=== PATIENT | female | born 1950 | race Caucasian/White ===

== ENCOUNTER 2019-11-11 10:24 | Outpatient (CLI) | payer MEDICARE, SELFPAY ==
[2019-11-11 10:40] LABS: Basophils Percent Auto 0.6 % (0.2-1.2); Eosinophils Percent Auto 0.7 % (0-4.4); Hematocrit 30.6 % (37.0-47.0); Hemoglobin 9.7 g/dL (12.0-15.0); Immature Granulocyte Absolute 0.24 K/mm3 (0.00-0.031); Immature Granulocyte Percent A 4.4 % (0-0.5); Lymphocytes Percent Auto 40.4 % (18.3-44.2); Mean Corpuscular HGB Conc 31.7 g/dl (32-36); Mean Corpuscular Hemoglobin 32.3 pg (26-34); Mean Platelet Volume 11.8 fl (7.4-10.4); Monocytes Absolute Auto 1.2 K/mm3 (0.1-0.6); Monocytes Percent Auto 22.6 % (2.6-8.5); Neutrophils Absolute Auto 1.7 K/mm3 (1.3-6.7); Neutrophils Percent Auto 31.3 % (45.5-73.1); Platelet Count Result 90 k/mm3 (150-375); Red Cell Distribution Width 17.1 % (11.5-14.5); White Blood Count 5.5 K/mm3 (4.5-10.0)
[2019-11-11 10:42] LABS: Blood Urea Nitrogen 17 mg/dL (8-26); Carbon Dioxide 30 mmol/L (22-30); Chloride 104 mmol/L (98-109); Estimated Glomerular Filt Rate > 60; Glucose 119 mg/dL (70-105); Potassium 4.4 mmol/L (3.5-4.9); Sodium 143 mmol/L (138-146)
[2019-11-11 10:45] LABS: Atypical Lymphocytes Present; Platelet Estimate Decreased (Adequate)
[2019-11-11 12:39] LABS: Alanine Aminotransferase 20 U/L (4-35); Albumin Level 4.5 g/dL (3.5-5.1); Alkaline Phosphatase 62 U/L (38-126); Aspartate Amino Transferase 25 U/L (14-36); Bilirubin,Total 0.3 mg/dL (0.2-1.3); Blood Urea Nitrogen 17 mg/dL (7-17); Calcium 9.9 mg/dL (8.4-10.2); Carbon Dioxide 29 mmol/L (22-30); Chloride 102 mmol/L (98-107); Estimated Glomerular Filt Rate > 60; Glucose 116 mg/dL (65-105); Potassium 4.1 mmol/L (3.4-5.0); Sodium 143 mmol/L (137-145)
== END 2019-11-11 10:25 | disposition home or self-care (01) ==
LOC: ANHLAB 10:29
PROVIDERS: PCP Internal Medicine; Visit Provider Internal Medicine Hematology & Oncology
DX: D46.9 Myelodysplastic syndrome, unspecified (principal)
CPT/HCPCS: 36415; 80048; 80053; 85025

== ENCOUNTER 2020-05-18 10:44 | Outpatient (CLI) | payer MEDICARE, SELFPAY ==
[2020-05-18 11:06] LABS: Basophils Percent Auto 0.6 % (0.2-1.2); Eosinophils Absolute Auto 0.1 K/mm3 (0-0.3); Hematocrit 31.9 % (37.0-47.0); Hemoglobin 10.4 g/dL (12.0-15.0); Immature Granulocyte Absolute 0.14 K/mm3 (0.00-0.031); Immature Platelet Fraction Pct 13.8 % (0.9-11.2); Lymphocytes Absolute Auto 2.68 K/mm3 (0.9-3.2); Lymphocytes Percent Auto 38.5 % (18.3-44.2); Mean Corpuscular HGB Conc 32.6 g/dl (32-36); Mean Corpuscular Hemoglobin 32.1 pg (26-34); Mean Corpuscular Volume 98.5 fl (80-100); Monocytes Absolute Auto 1.6 K/mm3 (0.1-0.6); Monocytes Percent Auto 23.6 % (2.6-8.5); Neutrophils Absolute Auto 2.4 K/mm3 (1.3-6.7); Neutrophils Percent Auto 34.3 % (45.5-73.1); Platelet Count Result 96 k/mm3 (150-375); Red Blood Count 3.24 M/mm3 (4.2-5.4); Red Cell Distribution Width 17.7 % (11.5-14.5)
[2020-05-18 11:09] LABS: Giant Platelets Present; Platelet Estimate Decreased (Adequate)
[2020-05-18 11:10] LABS: Atypical Lymphocytes Present
[2020-05-18 15:11] LABS: Alanine Aminotransferase 25 U/L (4-35); Alkaline Phosphatase 62 U/L (38-126); Anion Gap 11 mmol/L (8-16); Aspartate Amino Transferase 34 U/L (14-36); Bilirubin,Total 0.7 mg/dL (0.2-1.3); Blood Urea Nitrogen 25 mg/dL (7-17); Calcium 9.8 mg/dL (8.4-10.2); Carbon Dioxide 26 mmol/L (22-30); Chloride 102 mmol/L (98-107); Estimated Glomerular Filt Rate 55; Glucose 99 mg/dL (65-105); Lactate Dehydrogenase 766 U/L (313-618); Potassium 4.3 mmol/L (3.4-5.0); Sodium 139 mmol/L (137-145)
== END 2020-05-18 10:45 | disposition home or self-care (01) ==
PROVIDERS: PCP Internal Medicine; Visit Provider Internal Medicine Hematology & Oncology
DX: D46.9 Myelodysplastic syndrome, unspecified (principal)
CPT/HCPCS: 36415; 80053; 83615; 85025; 85055

== ENCOUNTER 2020-07-18 15:12 | Outpatient (CLI) | payer MEDICARE, SELFPAY ==
--- NOTE | ~2020-07-18 | MM_ITS ---
EXAMINATION: MM screening ruben BI w damian HISTORY: Screening mammogram TECHNIQUE: Craniocaudal and mediolateral oblique 3-D tomosynthesis images were obtained and synthetic 2-D images were generated. CAD analysis was submitted and interpreted. COMPARISON: 06/10/2019, 07/15/2017, 05/23/2016 BREAST PARENCHYMAL COMPOSITION: The breasts are heterogeneously dense, which may obscure small masses . FINDINGS: Scattered benign-appearing calcifications are present. There is no evidence of suspicious m ass, calcification, or architectural distortion to suggest malignancy in either breast. There has bee n no suspicious interval change. IMPRESSION: 1. No mammographic evidence of malignancy. 2. Recommend routine screening mammography in one year. BI-RADS Category 2: Benign finding(s). Reviewed, dictated and finalized at location A. 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
== END 2020-07-18 15:13 | disposition home or self-care (01) ==
LOC: ANHIMG 15:14
PROVIDERS: PCP Internal Medicine; Visit Provider Internal Medicine
DX: Z12.31 Encounter for screening mammogram for malignant neoplasm of breast (principal)
CPT/HCPCS: 77063; 77067

== ENCOUNTER 2020-08-02 09:25 | Outpatient (CLI) | payer MEDICARE, SELFPAY ==
[2020-08-02 11:31] LABS: Lactate Dehydrogenase 708 U/L (313-618)
[2020-08-07 10:16] LABS: BCR/abl Prior Result Not Given
[2020-08-07 11:01] LABS: BCR/abl P190 Not Detected; BCR/abl P210 Not Detected
[2020-08-07 11:02] LABS: BCR/abl P190 Chg YES; BCR/abl P210 Chg YES
== END 2020-08-02 09:26 | disposition home or self-care (01) ==
PROVIDERS: PCP Internal Medicine; Visit Provider Internal Medicine Hematology & Oncology
DX: D46.9 Myelodysplastic syndrome, unspecified (principal); R79.89 Other specified abnormal findings of blood chemistry; D47.3 Essential (hemorrhagic) thrombocythemia
CPT/HCPCS: 36415; 81206; 81207; 83615

== ENCOUNTER 2020-11-14 09:22 | Outpatient (CLI) | payer MEDICARE, SELFPAY ==
[2020-11-14 09:51] LABS: Basophils Percent Auto 0.2 % (0.2-1.2); Eosinophils Percent Auto 0.3 % (0-4.4); Hematocrit 29.4 % (37.0-47.0); Hemoglobin 9.5 g/dL (12.0-15.0); Immature Granulocyte Absolute 0.12 K/mm3 (0.00-0.031); Immature Granulocyte Percent A 1.3 % (0-0.5); Immature Platelet Fraction Pct 18.9 % (0.9-11.2); Lymphocytes Percent Auto 29.9 % (18.3-44.2); Mean Corpuscular HGB Conc 32.3 g/dl (32-36); Mean Corpuscular Hemoglobin 31.6 pg (26-34); Mean Corpuscular Volume 97.7 fl (80-100); Mean Platelet Volume 12.4 fl (7.4-10.4); Monocytes Absolute Auto 2.2 K/mm3 (0.1-0.6); Monocytes Percent Auto 24.4 % (2.6-8.5); Neutrophils Percent Auto 43.9 % (45.5-73.1); Platelet Count Result 92 k/mm3 (150-375); Red Blood Count 3.01 M/mm3 (4.2-5.4); Red Cell Distribution Width 17.1 % (11.5-14.5)
[2020-11-14 09:57] LABS: Atypical Lymphocytes Present; Platelet Estimate Decreased (Adequate)
[2020-11-14 12:35] LABS: Cholesterol 118 mg/dL (0-200); HDL Direct 38 mg/dL; Triglycerides 160 mg/dL (<150)
[2020-11-14 12:39] LABS: Alanine Aminotransferase 21 U/L (4-35); Albumin Level 4.8 g/dL (3.5-5.1); Alkaline Phosphatase 57 U/L (38-126); Anion Gap 10 mmol/L (8-16); Aspartate Amino Transferase 26 U/L (14-36); Bilirubin,Total 0.4 mg/dL (0.2-1.3); Blood Urea Nitrogen 37 mg/dL (7-17); Calcium 10.1 mg/dL (8.4-10.2); Carbon Dioxide 25 mmol/L (22-30); Chloride 106 mmol/L (98-107); Estimated Glomerular Filt Rate 55; Glucose 100 mg/dL (65-105); Lactate Dehydrogenase 648 U/L (313-618); Potassium 3.9 mmol/L (3.4-5.0); Sodium 141 mmol/L (137-145)
[2020-11-14 12:46] LABS: LDL Cholesterol Direct 44 mg/dL
[2020-11-14 12:52] LABS: Vitamin D 25 Hydroxy 77.4 ng/mL
[2020-11-14 13:04] LABS: MALB Creatinine Ratio 72.3 mg/g (0-30); Microalbumin Urine Random 31.1 mg/L (0-16.7)
== END 2020-11-14 09:23 | disposition home or self-care (01) ==
LOC: ANHLAB 09:24
PROVIDERS: PCP Internal Medicine; Visit Provider Internal Medicine Hematology & Oncology
DX: D46.9 Myelodysplastic syndrome, unspecified (principal); E11.69 Type 2 diabetes mellitus with other specified complication; E55.9 Vitamin D deficiency, unspecified; E78.2 Mixed hyperlipidemia; I10 Essential (primary) hypertension
CPT/HCPCS: 36415; 80053; 80061; 82043; 82306; 83036; 83615; 84443; 85025; 85055

== ENCOUNTER 2021-05-16 08:46 | Outpatient (CLI) | payer MEDICARE, SELFPAY ==
[2021-05-16 09:05] LABS: Basophils Percent Auto 0.6 % (0.2-1.2); Eosinophils Percent Auto 0.7 % (0-4.4); Hematocrit 29.1 % (37.0-47.0); Hemoglobin 9.4 g/dL (12.0-15.0); Immature Granulocyte Absolute 0.24 K/mm3 (0.00-0.031); Immature Granulocyte Percent A 4.4 % (0-0.5); Immature Platelet Fraction Pct 14.6 % (0.9-11.2); Lymphocytes Absolute Auto 2.45 K/mm3 (0.9-3.2); Mean Corpuscular HGB Conc 32.3 g/dl (32-36); Mean Corpuscular Hemoglobin 32.1 pg (26-34); Mean Corpuscular Volume 99.3 fl (80-100); Mean Platelet Volume 11.5 fl (7.4-10.4); Monocytes Percent Auto 18.6 % (2.6-8.5); Neutrophils Absolute Auto 1.7 K/mm3 (1.3-6.7); Neutrophils Percent Auto 30.7 % (45.5-73.1); Platelet Count Result 92 k/mm3 (150-375); Red Blood Count 2.93 M/mm3 (4.2-5.4); White Blood Count 5.4 K/mm3 (4.5-10.0)
[2021-05-16 09:05] LABS: Blood Urea Nitrogen 21 mg/dL (8-26); Carbon Dioxide 27 mmol/L (22-30); Chloride 104 mmol/L (98-109); Estimated Glomerular Filt Rate 55; Glucose 101 mg/dL (70-105); Potassium 4.3 mmol/L (3.5-4.9); Sodium 144 mmol/L (138-146)
[2021-05-16 09:07] LABS: Atypical Lymphocytes Present; Platelet Estimate Decreased (Adequate)
[2021-05-16 10:07] LABS: Alanine Aminotransferase 24 U/L (4-35); Albumin Level 4.8 g/dL (3.5-5.1); Alkaline Phosphatase 69 U/L (38-126); Anion Gap 11 mmol/L (8-16); Aspartate Amino Transferase 40 U/L (14-36); Bilirubin,Total 0.6 mg/dL (0.2-1.3); Blood Urea Nitrogen 21 mg/dL (7-17); Calcium 9.6 mg/dL (8.4-10.2); Carbon Dioxide 27 mmol/L (22-30); Chloride 105 mmol/L (98-107); Estimated Glomerular Filt Rate > 60; Glucose 102 mg/dL (65-110); Lactate Dehydrogenase 734 U/L (313-618); Potassium 4.5 mmol/L (3.4-5.0); Sodium 143 mmol/L (137-145)
== END 2021-05-16 08:47 | disposition home or self-care (01) ==
LOC: ANHLAB 08:48
PROVIDERS: PCP Internal Medicine; Visit Provider Internal Medicine Hematology & Oncology
DX: D46.9 Myelodysplastic syndrome, unspecified (principal)
CPT/HCPCS: 36415; 80048; 80053; 83615; 85025; 85055

== ENCOUNTER 2021-09-05 09:14 | Outpatient (CLI) | payer MEDICARE, SELFPAY ==
--- NOTE | ~2021-09-05 | MM_ITS ---
EXAMINATION: MM screening ruben BI w damian HISTORY: Screening mammogram TECHNIQUE: Craniocaudal and mediolateral oblique 3-D tomosynthesis images were obtained and synthetic 2-D images were generated. CAD analysis was submitted and interpreted. COMPARISON: 07/18/2020, 06/10/2019, 07/15/2017, 05/23/2016 BREAST PARENCHYMAL COMPOSITION: The breasts are heterogeneously dense, which may obscure small masses . FINDINGS: Scattered benign-appearing calcifications are present. There is no evidence of suspicious m ass, calcification, or architectural distortion to suggest malignancy in either breast. There has bee n no suspicious interval change. IMPRESSION: 1. No mammographic evidence of malignancy. 2. Recommend routine screening mammography in one year. BI-RADS Category 2: Benign finding(s). Reviewed, dictated and finalized at location A. 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
== END 2021-09-05 09:15 | disposition home or self-care (01) ==
LOC: ANHIMG 09:17
PROVIDERS: PCP Internal Medicine; Visit Provider Internal Medicine
DX: Z12.31 Encounter for screening mammogram for malignant neoplasm of breast (principal)
CPT/HCPCS: 77063; 77067

== ENCOUNTER 2021-11-21 09:17 | Outpatient (CLI) | payer MEDICARE, SELFPAY ==
[2021-11-21 09:37] LABS: Blood Urea Nitrogen 24 mg/dL (8-26); Carbon Dioxide 23 mmol/L (22-30); Chloride 107 mmol/L (98-109); Estimated Glomerular Filt Rate 49; Glucose 108 mg/dL (70-105); Potassium 4.5 mmol/L (3.5-4.9); Sodium 143 mmol/L (138-146)
[2021-11-21 09:39] LABS: Basophils Percent Auto 0.4 % (0.2-1.2); Eosinophils Percent Auto 0.2 % (0-4.4); Hematocrit 31.8 % (37.0-47.0); Hemoglobin 9.7 g/dL (12.0-15.0); Immature Granulocyte Absolute 0.18 K/mm3 (0.00-0.031); Immature Granulocyte Percent A 3.3 % (0-0.5); Lymphocytes Absolute Auto 2.15 K/mm3 (0.9-3.2); Lymphocytes Percent Auto 39.2 % (18.3-44.2); Mean Corpuscular HGB Conc 30.5 g/dl (32-36); Mean Corpuscular Hemoglobin 32.4 pg (26-34); Mean Corpuscular Volume 106.4 fl (80-100); Mean Platelet Volume 11.1 fl (7.4-10.4); Monocytes Percent Auto 18.2 % (2.6-8.5); Neutrophils Absolute Auto 2.1 K/mm3 (1.3-6.7); Neutrophils Percent Auto 38.7 % (45.5-73.1); Platelet Count Result 117 k/mm3 (150-375); Red Blood Count 2.99 M/mm3 (4.2-5.4); Red Cell Distribution Width 16.2 % (11.5-14.5); White Blood Count 5.5 K/mm3 (4.5-10.0)
[2021-11-21 11:07] LABS: Alanine Aminotransferase 24 U/L (4-35); Albumin Level 4.9 g/dL (3.5-5.1); Alkaline Phosphatase 64 U/L (38-126); Anion Gap 10 mmol/L (8-16); Aspartate Amino Transferase 30 U/L (14-36); Bilirubin,Total 0.3 mg/dL (0.2-1.3); Blood Urea Nitrogen 22 mg/dL (7-17); Calcium 9.5 mg/dL (8.4-10.2); Carbon Dioxide 24 mmol/L (22-30); Chloride 107 mmol/L (98-107); Estimated Glomerular Filt Rate 49; Glucose 112 mg/dL (65-110); Potassium 4.5 mmol/L (3.4-5.0); Sodium 141 mmol/L (137-145)
== END 2021-11-21 09:18 | disposition home or self-care (01) ==
LOC: ANHLAB 09:18
PROVIDERS: PCP Internal Medicine; Visit Provider Internal Medicine Hematology & Oncology
DX: D46.9 Myelodysplastic syndrome, unspecified (principal)
CPT/HCPCS: 36415; 80053; 85025; 85055

== ENCOUNTER 2022-02-11 00:56 | Day surgery (SDC) | payer MEDICARE, SELFPAY ==
--- NOTE | 2022-02-09 10:53 | PM.HPGS ---
History of Present Illness History of Present Illness Consent: Risks, benefits, and alternatives have been discussed and questions answered. Patient agrees to proceed with procedure. Chief complaint: hx of colon polyps Narrative: Sergey Juarez is a 71 year old female here for colon cancer screening. Her last colonoscopy was 5 years ago. Three years prior to that she had removal of an advanced adenoma. She denies seeing any blood in stools she has had more difficulty lately getting her bowels to move, feeling as though there is a blockage in the rectum prior, perhaps from hemorrhoids. She had gone to [facility] where she had biofeedback and other therapy to help her become more regular with her bowel movements. She unfortunately does not eat breakfast until late in the morning. Review of Systems Review of Systems: All systems reviewed & are unremarkable except as noted in HPI and below PMFSH Past Medical History Medical History Acute frontal sinusitis Acute sinusitis Alopecia Anemia Arthralgia of temporomandibular joint, unspecified side Body mass index (bmi) 34.0-34.9, adult (05/17/19) Chronic sinusitis Constipation, acute Cough Dependence on other enabling machines and devices DM w/o complication type II Dyslipidemia associated with type 2 diabetes mellitus Elevated ferritin Essential hypertension Fatigue Gastroesophageal reflux disease Hypersomnolence Morbid obesity Myeloproliferative disorder On custodial drug therapy VERONA on CPAP Other and unspecified hyperlipidemia Postmenopausal SOB (shortness of breath) Thrombocytopenia Unspecified asthma Upper respiratory tract infection Urinary frequency Vitamin D deficiency Surgical History Surgical History History of sinus surgery Hx of laparoscopic gastric banding Family History Family History Mother Hypertension Family history of malignant neoplasm of cervix Acute myocardial infarction Family history of congestive heart failure, Onset Age: 77 Family history of elevated blood lipids Family history of diabetes mellitus in first degree relative Family history of heart disease in male family member before age 55 Father Family history of diabetes mellitus in first degree relative Family history of heart disease in male family member before age 55 Acute myocardial infarction Sibling Family history of diabetes mellitus in first degree relative Family history of malignant neoplasm of cervix Family history of Hodgkin's lymphoma Family history of heart disease in male family member before age 55 Diabetes mellitus Family history of lymphoma, Onset Age: 48 Family history of kidney disease Other Family history of coronary artery disease Social History Social History (Updated 02/28/21 @ 09:41 by Palmira Kee [facility]) Smoking status: Never smoker Second hand tobacco smoke exposure: Yes Alcohol intake: never Substance use: never Substance use type: does not use Living arrangements: with family Spiritual care concerns: No Meds Home Medications and Allergies Home Medications Medication Instructions Recorded Confirmed Type docusate sodium 100 mg capsule 200 mg PO DAILY 02/04/20 12/17/21 History fluticasone propionate 50 2 spray intranasal DAILY 02/04/20 12/17/21 History mcg/actuation nasal spray,suspension multivitamin with minerals 1 tablet PO DAILY 02/08/20 12/17/21 History (Hair,Skin and Nails tablet) blood sugar diagnostic See Rx Instructions .Route 06/28/21 12/17/21 Rx .COMPLEX #400 strips olmesartan 40 mg tablet See Rx Instructions .Route 07/30/21 12/17/21 Rx .COMPLEX #90 tabs empagliflozin 5 mg-metformin ER See Rx Instructions .Route 09/11/21 12/17/21 Rx 1,000 mg tablet,extended release .COMPLEX #90 tabs 24 hr (Synjardy XR
[2022-02-11 06:40] VITALS: BP 130/60; PULSE 76; RESP 18; TEMP 36.5; O2SAT 98
[2022-02-11 06:50] LABS: Glucose Point of Care 94 mg/dl (65-105)
[2022-02-11 06:54] VITALS: BMI 31.1
[2022-02-11] MEDS: LACTATED RINGERS 1,000 ML 150 ML IV CONT (07:05)
--- NOTE | 2022-02-11 07:29 | WPDANESEPPF ---
Anes - Initial Pre Proc Eval Procedure: Operation Date: 02/11/22 08:00 Proposed Procedures p Screening Colonoscopy - Lavell Louie MD Date/Time: 02/11/22 07:29 Surgeon: Lavell Louie MD Pre Op Diagnosis: hx of colon polyps Patient Data Age: 71 Gender: F Height: 1.65 m Weight: 84.8 kg Allergies Allergy/AdvReac Type Severity Reaction Status Date / Time codeine Allergy Severe Headaches Verified 02/11/22 06:50 CAT GUT SUTURE Allergy Severe GANGREEN, Uncoded 02/11/22 06:50 HEMORRHAGE Home Medications Medication Instructions Recorded Confirmed Type docusate sodium 100 mg capsule 200 mg PO DAILY 02/04/20 12/17/21 History fluticasone propionate 50 2 spray intranasal DAILY 02/04/20 12/17/21 History mcg/actuation nasal spray,suspension multivitamin with minerals 1 tablet PO DAILY 02/08/20 12/17/21 History (Hair,Skin and Nails tablet) blood sugar diagnostic See Rx Instructions .Route 06/28/21 12/17/21 Rx .COMPLEX #400 strips olmesartan 40 mg tablet See Rx Instructions .Route 07/30/21 12/17/21 Rx .COMPLEX #90 tabs empagliflozin 5 mg-metformin ER See Rx Instructions .Route 09/11/21 12/17/21 Rx 1,000 mg tablet,extended release .COMPLEX #90 tabs 24 hr (Synjardy XR) levothyroxine 88 mcg tablet 88 mcg PO DAILY #90 tabs 12/17/21 12/17/21 Rx montelukast 10 mg tablet See Rx Instructions .Route 12/21/21 Rx .COMPLEX #90 tabs mirabegron 25 mg tablet,extended 25 mg PO DAILY #90 tabs 01/29/22 Rx release 24 hr (Myrbetriq) atorvastatin 20 mg tablet See Rx Instructions .Route 02/06/22 Rx .COMPLEX #90 tabs semaglutide 0.25 mg or 0.5 mg (2 0.5 mg (0.4 mL) subcut WEEKLY #1.5 02/06/22 Rx mg/1.5 mL) subcutaneous pen mL injector (Ozempic) Laboratory Tests 02/11/22 06:47 POC Capillary Glucose 94 mg/dl mg/dl (65-105) Patient hx anesthesia problems: none Family hx anesthesia problems: none Results Review: All pre-operative results and documents have been reviewed as part of the pre-operative evaluation. [facility] Past Medical History Medical History (Updated 02/09/22 @ 10:54 by Lavell Louie MD) Acute frontal sinusitis Acute sinusitis Alopecia Anemia Arthralgia of temporomandibular joint, unspecified side Body mass index (bmi) 34.0-34.9, adult (05/17/19) Chronic sinusitis Constipation, acute Cough Dependence on other enabling machines and devices DM w/o complication type II Dyslipidemia associated with type 2 diabetes mellitus Elevated ferritin Essential hypertension Fatigue Gastroesophageal reflux disease Hypersomnolence Morbid obesity Myeloproliferative disorder 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 VERONA on CPAP Other and unspecified hyperlipidemia Postmenopausal SOB (shortness of breath) Thrombocytopenia Unspecified asthma Upper respiratory tract infection Urinary frequency Vitamin D deficiency Surgical History Surgical History History of sinus surgery Hx of laparoscopic gastric banding Family History Family History Mother Hypertension Family history of malignant neoplasm of cervix Acute myocardial infarction Family history of congestive heart failure, Onset Age: 77 Family history of elevated blood lipids Family history of diabetes mellitus in first degree relative Family history of heart disease in male family member before age 55 Father Family history of diabetes mellitus in first degree relative Family history of heart disease in male family member before age 55 Acute myocardial infarction Sibling Family history of diabetes mellitus in first degree relative Family history of malignant neoplasm of cervix Family history of Hodgkin's lymphoma Family history of heart disease in male family member before age 55 Diabetes mellitus Family history of lymphoma, Onset Age: 48 Family history of kidney disease Other Family his
[2022-02-11 08:21] VITALS: BP 98/54; PULSE 65; RESP 20; O2SAT 95
[2022-02-11 08:31] VITALS: BP 109/59; PULSE 64; RESP 16; O2SAT 100
[2022-02-11 08:41] VITALS: BP 119/61; PULSE 64; RESP 19; O2SAT 99
== END 2022-02-11 08:52 | disposition home or self-care (01) ==
PROVIDERS: PCP Internal Medicine; Visit Provider Internal Medicine Gastroenterology
PROC: 0DJD8ZZ Inspection of Lower Intestinal Tract, Via Natural or Artificial Opening Endoscopic (ICD-10-PCS; CPT 45378; principal; 2022-02-11 08:00)
DX: Z12.11 Encounter for screening for malignant neoplasm of colon (principal); K64.8 Other hemorrhoids; K57.30 Diverticulosis of large intestine without perforation or abscess without bleeding; E11.9 Type 2 diabetes mellitus without complications; E78.5 Hyperlipidemia, unspecified; I10 Essential (primary) hypertension; K21.9 Gastro-esophageal reflux disease without esophagitis; G47.33 Obstructive sleep apnea (adult) (pediatric); J45.909 Unspecified asthma, uncomplicated; E55.9 Vitamin D deficiency, unspecified; D64.9 Anemia, unspecified; Z79.84 Long term (current) use of oral hypoglycemic drugs; Z79.899 Other long term (current) drug therapy; Z98.84 Bariatric surgery status; E66.9 Obesity, unspecified; Z68.31 Body mass index [BMI] 31.0-31.9, adult
CPT/HCPCS: G0121; 82948; J2704; J7120

== ENCOUNTER 2022-04-23 08:10 | Outpatient (CLI) | payer MEDICARE, SELFPAY ==
[2022-04-23 09:10] LABS: Basophils Percent Auto 0.4 % (0.2-1.2); Eosinophils Percent Auto 0.6 % (0-4.4); Hematocrit 30.1 % (37.0-47.0); Hemoglobin 9.7 g/dL (12.0-15.0); Immature Granulocyte Absolute 0.07 K/mm3 (0.00-0.031); Immature Granulocyte Percent A 1.4 % (0-0.5); Immature Platelet Fraction Pct 16.3 % (0.9-11.2); Lymphocytes Percent Auto 43.1 % (18.3-44.2); Mean Corpuscular HGB Conc 32.2 g/dl (32-36); Mean Corpuscular Hemoglobin 32.4 pg (26-34); Mean Corpuscular Volume 100.7 fl (80-100); Mean Platelet Volume 12.2 fl (7.4-10.4); Monocytes Absolute Auto 1.1 K/mm3 (0.1-0.6); Monocytes Percent Auto 20.7 % (2.6-8.5); Neutrophils Absolute Auto 1.7 K/mm3 (1.3-6.7); Neutrophils Percent Auto 33.8 % (45.5-73.1); Platelet Count Result 105 k/mm3 (150-375); Red Blood Count 2.99 M/mm3 (4.2-5.4); Red Cell Distribution Width 15.3 % (11.5-14.5); White Blood Count 5.1 K/mm3 (4.5-10.0)
[2022-04-23 10:36] LABS: Alanine Aminotransferase 26 U/L (6-35); Albumin Level 5.2 g/dL (3.5-5.1); Alkaline Phosphatase 54 U/L (38-126); Anion Gap 12 mmol/L (8-16); Aspartate Amino Transferase 56 U/L (14-36); Bilirubin,Total 0.5 mg/dL (0.2-1.3); Blood Urea Nitrogen 23 mg/dL (7-17); Calcium 9.4 mg/dL (8.4-10.2); Carbon Dioxide 28 mmol/L (22-30); Chloride 102 mmol/L (98-107); Estimated Glomerular Filt Rate 55; Glucose 94 mg/dL (65-110); Potassium 4.2 mmol/L (3.4-5.0); Sodium 142 mmol/L (137-145)
== END 2022-04-23 08:11 | disposition home or self-care (01) ==
LOC: ANHLAB 08:12
PROVIDERS: PCP Internal Medicine; Visit Provider Internal Medicine Hematology & Oncology
DX: D46.9 Myelodysplastic syndrome, unspecified (principal)
CPT/HCPCS: 36415; 80053; 85025; 85055

== ENCOUNTER 2022-08-21 14:37 | Outpatient (CLI) | payer MEDICARE, SELFPAY ==
[2022-08-21 14:59] LABS: Basophils Percent Auto 0.4 % (0.2-1.2); Eosinophils Percent Auto 0.6 % (0-4.4); Hematocrit 27.3 % (37.0-47.0); Hemoglobin 8.9 g/dL (12.0-15.0); Immature Granulocyte Absolute 0.04 K/mm3 (0.00-0.031); Immature Granulocyte Percent A 0.8 % (0-0.5); Immature Platelet Fraction Pct 14.5 % (0.9-11.2); Lymphocytes Absolute Auto 1.98 K/mm3 (0.9-3.2); Lymphocytes Percent Auto 38.2 % (18.3-44.2); Mean Corpuscular HGB Conc 32.6 g/dl (32-36); Mean Corpuscular Hemoglobin 32.6 pg (26-34); Mean Platelet Volume 12.2 fl (7.4-10.4); Monocytes Absolute Auto 0.7 K/mm3 (0.1-0.6); Monocytes Percent Auto 14.1 % (2.6-8.5); Neutrophils Absolute Auto 2.4 K/mm3 (1.3-6.7); Neutrophils Percent Auto 45.9 % (45.5-73.1); Platelet Count Result 101 k/mm3 (150-375); Red Blood Count 2.73 M/mm3 (4.2-5.4); Red Cell Distribution Width 14.6 % (11.5-14.5); White Blood Count 5.2 K/mm3 (4.5-10.0)
[2022-08-21 15:00] LABS: Platelet Estimate Decreased (Adequate); Schistocytes None Seen (NORMAL)
[2022-08-21 15:01] LABS: Atypical Lymphocytes Present; Hypochromasia 1+ (NORMAL)
[2022-08-21 16:05] LABS: Alanine Aminotransferase 23 U/L (6-35); Alkaline Phosphatase 55 U/L (38-126); Anion Gap 8 mmol/L (8-16); Aspartate Amino Transferase 30 U/L (14-36); Bilirubin,Total 0.6 mg/dL (0.2-1.3); Blood Urea Nitrogen 25 mg/dL (7-17); Calcium 9.6 mg/dL (8.4-10.2); Carbon Dioxide 28 mmol/L (22-30); Chloride 102 mmol/L (98-107); Estimated Glomerular Filt Rate 55; Glucose 99 mg/dL (65-110); Potassium 4.3 mmol/L (3.4-5.0); Sodium 138 mmol/L (137-145)
== END 2022-08-21 14:38 | disposition home or self-care (01) ==
LOC: ANHLAB 14:38
PROVIDERS: PCP Internal Medicine; Visit Provider Internal Medicine Hematology & Oncology
DX: D46.9 Myelodysplastic syndrome, unspecified (principal)
CPT/HCPCS: 36415; 80053; 85025; 85055

== ENCOUNTER 2022-08-21 14:53 | Outpatient (CLI) | payer MEDICARE, SELFPAY ==
--- NOTE | ~2022-08-21 | DEXA_ITS ---
Bone Density Report Name: YARELY LEWIS Age: 71 Sex: Female Ethnicity: White Date of : 1950 Indication: postmenopausal; screening for osteoporosis; height loss; cancer; hysterectomy; secondary osteoporosis; Referring Provider: ALTHEA ARANGO Study: Bone densitometry was performed. Exam Date: August 21, 2022 Accession number: [id number] Bone Density: Region BMD T-score Z-score Classification AP Spine(L1-L4) 1.536 4.4 6.7 Normal Femoral Neck (Left) 0.793 -0.5 1.4 Normal Total Hip (Left) 1.146 1.7 3.3 Normal Femoral Neck (Right) 0.996 1.3 3.2 Normal Total Hip (Right) 1.050 0.9 2.5 Normal Total Hip Mean 1.098 1.3 2.9 Normal World Health Organization criteria for BMD impression classify patients as: Normal (T-score at or above -1.0), Osteopenia (T-score between -1.0 and -2.5), or Osteoporosis (T-score at or below -2.5). 10-year Fracture Risk: FRAX not reported because: All T-scores for Spine Total, Hip Total, Femoral Neck at or above -1.0 Clinical Information Provided by Patient: Has secondary osteoporosis Has used the following medications: Vitamin D Has the following medical conditions: Cancer, Hysterectomy Patient maximum height was 66 Menopause Age: 31 No regular weight bearing exercise Drinks caffeinated beverages Onset of menses at age 12 Number of children 2 Impression: The patient has normal bone mass. Discussion: BONE DENSITY IS ABOVE THE MINIMUM DESIRABLE LEVEL AT ALL SKELETAL SITES TESTED. This patient?s bone mineral density is above the minimum desirable level (T-score -1.0 or better) at all sites measured. The patient should follow a healthful lifestyle (good nutrition with adequate calcium and vitamin D, and appropriate weight-bearing exercise). Follow-Up: Consider repeating this study in 5 years or sooner if there is some new clinical indication. Reported by: JEN on 08/21/2022 3:15:00 PM. Reviewed, dictated and finalized at location Alissa GARCIA
== END 2022-08-21 14:54 | disposition home or self-care (01) ==
LOC: ANHIMG 14:54
PROVIDERS: PCP Internal Medicine; Visit Provider Internal Medicine
DX: Z78.0 Asymptomatic menopausal state (principal)
CPT/HCPCS: 36415; 77080; 80053; 85025; 85055

== ENCOUNTER 2022-10-17 09:28 | Outpatient (CLI) | payer MEDICARE, SELFPAY ==
[2022-10-17 09:42] LABS: Hematocrit 29.9 % (37.0-47.0); Hemoglobin 9.6 g/dL (12.0-15.0); Immature Platelet Fraction Pct 12.4 % (0.9-11.2); Mean Corpuscular HGB Conc 32.1 g/dl (32-36); Mean Corpuscular Hemoglobin 32.4 pg (26-34); Mean Platelet Volume 11.6 fl (7.4-10.4); Platelet Count Result 116 k/mm3 (150-375); Red Blood Count 2.96 M/mm3 (4.2-5.4); Red Cell Distribution Width 14.9 % (11.5-14.5); White Blood Count 7.4 K/mm3 (4.5-10.0)
[2022-10-17 09:45] LABS: Blood Urea Nitrogen 24 mg/dL (8-26); Carbon Dioxide 26 mmol/L (22-30); Chloride 107 mmol/L (98-109); Estimated Glomerular Filt Rate > 60; Glucose 94 mg/dL (70-105); Ionized Calcium (POC) 1.26 mmol/L (1.11-1.31); Potassium 4.5 mmol/L (3.5-4.9); Sodium 142 mmol/L (138-146)
[2022-10-17 09:46] LABS: Atypical Lymphocytes Present; Lymphocytes Absolute Manual 3.18 K/mm3 (1.1-4.5); Monocytes Absolute Manual 1.03 K/mm3 (0.1-0.90); Monocytes Percent Manual 14 % (3-9); Neutrophils Percent Manual 43 % (46-73); Platelet Estimate Decreased (Adequate); Schistocytes None Seen (NORMAL); Total Cells Counted 100
[2022-10-17 12:04] LABS: Alanine Aminotransferase 36 U/L (6-35); Albumin Level 4.9 g/dL (3.5-5.1); Alkaline Phosphatase 65 U/L (38-126); Anion Gap 9 mmol/L (8-16); Bilirubin,Total 0.5 mg/dL (0.2-1.3); Blood Urea Nitrogen 23 mg/dL (7-17); Calcium 9.4 mg/dL (8.4-10.2); Carbon Dioxide 26 mmol/L (22-30); Chloride 106 mmol/L (98-107); Estimated Glomerular Filt Rate > 60; Glucose 93 mg/dL (65-110); Potassium 4.6 mmol/L (3.4-5.0); Sodium 141 mmol/L (137-145)
[2022-10-17 19:20] LABS: Aspartate Amino Transferase 32 U/L (14-36)
== END 2022-10-17 09:29 | disposition home or self-care (01) ==
LOC: ANHLAB 09:29
PROVIDERS: PCP Internal Medicine; Visit Provider Internal Medicine Hematology & Oncology
DX: D46.9 Myelodysplastic syndrome, unspecified (principal)
CPT/HCPCS: 36415; 80047; 80053; 85025; 85055

== ENCOUNTER 2022-10-17 11:00 | Outpatient (CLI) | payer MEDICARE, SELFPAY ==
--- NOTE | ~2022-10-17 | MMUS_ITS ---
EXAMINATION: MM diagnostic ruben BI w damian, US breast BI complete HISTORY: Bilateral lateral breast pain TECHNIQUE: ML, MLO and CC 3-D tomosynthesis images of both breasts were performed and synthetic 2-D i mages were generated. CAD analysis was submitted and interpreted. High resolution complete bilateral breast ultrasound examination including all 4 quadrants and subareolar areas was performed. COMPARISON: 09/05/2021, 07/18/2020, 06/10/2019 bilateral screening mammogram examinations BREAST PARENCHYMAL COMPOSITION: The breasts are extremely dense, which lowers the sensitivity of mamm ography. FINDINGS: MAMMOGRAPHIC FINDINGS: Scattered bilateral benign calcifications. No suspicious mass or architectural distortion, malignant calcification, skin thickening or retraction or significant new or developing density is detected. ULTRASOUND: No suspicious mass or shadowing, cyst or other significant sonographic abnormality of either breast i s detected. IMPRESSION: 1. Benign calcification; no mammographic evidence of malignancy 2. Routine annual mammographic screening is recommended. BI-RADS Category 2: Benign finding(s). Reviewed, dictated and finalized at location A. 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 Benign calcification; no mammographic evidence of malignancy 2. Routine annual mammographic screening is recommended. BI-RADS Category 2: Benign finding(s).
== END 2022-10-17 11:01 | disposition home or self-care (01) ==
PROVIDERS: PCP Internal Medicine; Visit Provider Internal Medicine Hematology & Oncology
DX: N64.4 Mastodynia (principal); R92.8 Other abnormal and inconclusive findings on diagnostic imaging of breast
CPT/HCPCS: 36415; 76641; 77062; 77066; 80047; 80053; 85025; 85055; G0279

== ENCOUNTER 2023-03-21 14:48 | Outpatient (CLI) | payer MEDICARE, SELFPAY ==
--- NOTE | ~2023-03-21 | XR_ITS ---
XR wrist RT 2V DATE: 03/21/2023 15:12 INDICATION: Posterolateral pain 3 weeks after lifting heavy object TECHNIQUE: AP and lateral views COMPARISON: None FINDINGS: There is increased density of the proximal have more of the navicular bone with fairly martínez p linear demarcation from normal distal trabecular density of the navicular bone, suggesting avascula r necrosis of the proximal segment. There is widening at the scapholunate joint suggesting scapholunate dissociation. Mild triangular cartilage and carpal chondrocalcinosis. There is mild osteoarthritis at the first carpometacarpal and first interphalangeal joints. 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 IMPRESSION: Increased density suggesting avascular necrosis of the proximal sca phoid bone Scapholunate dissociation Triangular cartilage and carpal, calcinosis Mild osteoarthritis
== END 2023-03-21 14:49 | disposition home or self-care (01) ==
PROVIDERS: PCP Family Medicine; Visit Provider Nurse Practitioner Family
DX: M65.30 Trigger finger, unspecified finger (principal); S69.90XA Unspecified injury of unspecified wrist, hand and finger(s), initial encounter; M19.031 Primary osteoarthritis, right wrist; E83.59 Other disorders of calcium metabolism; T14.90XA Injury, unspecified, initial encounter
CPT/HCPCS: 73100

== ENCOUNTER 2023-04-08 09:33 | Outpatient (CLI) | payer MEDICARE, SELFPAY ==
[2023-04-08 09:58] LABS: Basophils Percent Auto 0.4 % (0.2-1.2); Eosinophils Percent Auto 0.4 % (0-4.4); Hematocrit 29.2 % (37.0-47.0); Hemoglobin 9.5 g/dL (12.0-15.0); Immature Granulocyte Absolute 0.11 K/mm3 (0.00-0.031); Immature Granulocyte Percent A 1.6 % (0-0.5); Lymphocytes Absolute Auto 2.04 K/mm3 (0.9-3.2); Lymphocytes Percent Auto 29.4 % (18.3-44.2); Mean Corpuscular HGB Conc 32.5 g/dl (32-36); Mean Corpuscular Hemoglobin 32.6 pg (26-34); Mean Corpuscular Volume 100.3 fl (80-100); Mean Platelet Volume 11.1 fl (7.4-10.4); Monocytes Absolute Auto 1.6 K/mm3 (0.1-0.6); Monocytes Percent Auto 23.3 % (2.6-8.5); Neutrophils Absolute Auto 3.1 K/mm3 (1.3-6.7); Neutrophils Percent Auto 44.9 % (45.5-73.1); Platelet Count Result 119 k/mm3 (150-375); Red Blood Count 2.91 M/mm3 (4.2-5.4); Red Cell Distribution Width 14.3 % (11.5-14.5)
[2023-04-08 10:00] LABS: Blood Urea Nitrogen 18 mg/dL (8-26); Carbon Dioxide 24 mmol/L (22-30); Chloride 104 mmol/L (98-109); Estimated Glomerular Filt Rate 49; Glucose 90 mg/dL (70-105); Ionized Calcium (POC) 1.18 mmol/L (1.11-1.31); Sodium 142 mmol/L (138-146)
[2023-04-08 14:29] LABS: Alanine Aminotransferase 27 U/L (6-35); Albumin Level 4.4 g/dL (3.5-5.1); Alkaline Phosphatase 64 U/L (38-126); Anion Gap 5 mmol/L (8-16); Aspartate Amino Transferase 30 U/L (14-36); Bilirubin,Total 0.4 mg/dL (0.2-1.3); Blood Urea Nitrogen 19 mg/dL (7-17); Calcium 9.4 mg/dL (8.4-10.2); Carbon Dioxide 27 mmol/L (22-30); Chloride 105 mmol/L (98-107); Estimated Glomerular Filt Rate 55; Glucose 90 mg/dL (65-110); Sodium 137 mmol/L (137-145)
== END 2023-04-08 09:34 | disposition home or self-care (01) ==
LOC: ANHLAB 09:37
PROVIDERS: PCP Family Medicine; Visit Provider Internal Medicine Hematology & Oncology
DX: D46.9 Myelodysplastic syndrome, unspecified (principal)
CPT/HCPCS: 36415; 80047; 80053; 85025; 85055

== ENCOUNTER 2023-05-01 09:04 | Outpatient (CLI) | payer MEDICARE, SELFPAY ==
--- NOTE | ~2023-05-01 | US_ITS ---
EXAMINATION: US arterial ankle brachial ind DATE: 05/01/2023 09:46 INDICATION: Polyneuropathy. Diabetes, hypertension and hypercholesterolemia. TECHNIQUE: Segmental pressures and plethysmographic and Doppler waveforms of the brachial and lower e xtremity arteries were obtained. COMPARISON: None. FINDINGS: Right and left brachial artery pressures of 129 mm Hg and 115 mm Hg, respectively, are concordant (no rmal difference <= 30 mmHg). The right ankle-brachial index (SAMANTHA) is 1.11 (normal >= 0.9-1.0). The right great toe-brachial index (TBI) is 0.74 (normal >= 0.65). Arterial Doppler waveforms are biphasic with brisk systolic upstrokes at both right posterior tibial and dorsalis pedis arteries. The left SAMANTHA is 1.09. The left TBI is 0.75. Arterial Doppler waveforms are triphasic with brisk systo lic upstrokes at both left posterior tibial and dorsalis pedis arteries. IMPRESSION: 1. No significant arterial occlusive disease with normal bilateral ABIs and TBI's Reviewed, dictated and finalized at location A. IMPRESSION: 1. No significant arterial occlusive disease with normal bilateral ABIs and TBI 's
== END 2023-05-01 09:05 | disposition home or self-care (01) ==
PROVIDERS: PCP Family Medicine; Visit Provider Family Medicine
DX: G62.9 Polyneuropathy, unspecified (principal); E11.59 Type 2 diabetes mellitus with other circulatory complications
CPT/HCPCS: 93922

== ENCOUNTER 2023-05-21 09:11 | Outpatient (CLI) | payer MEDICARE, SELFPAY ==
--- NOTE | 2023-05-21 11:30 | NEURO_ITS ---
Impression: # Complains of numbness of hands and feet. # Mild left Carpal Tunnel Syndrome. # Right ulnar neuropathy across the elbow. # Absent right superficial peroneal sensory nerve response. # Needle/EMG exam mildly neurogenic Nerve Conduction Studies Anti Sensory Summary Table Stim Site NR Peak (ms) P-T Amp (?V) Site1 Site2 Delta-P (ms) Dist (cm) Calvin (m/s) Left Median Anti Sensory (2-3nd Digit) Wrist 3.1 53.2 Wrist 2-3nd Digit 3.1 14.0 45 Wrist 3.3 57.9 Wrist 2-3nd Digit 3.1 14.0 45 Right Median Anti Sensory (2-3nd Digit) Wrist 3.2 32.2 Wrist 2-3nd Digit 3.2 14.0 44 Wrist 3.3 31.4 Wrist 2-3nd Digit 3.2 14.0 44 Left Radial Anti Sensory (Base 1st Digit) Wrist 1.7 27.6 Wrist Base 1st Digit 1.7 0.0 Right Radial Anti Sensory (Base 1st Digit) Wrist 2.1 34.1 Wrist Base 1st Digit 2.1 0.0 Left Sup Fibular Anti Sensory (Ant Lat Mall) 14 cm 3.2 10.3 14 cm Ant Lat Mall 3.2 16.0 50 Right Sup Fibular Anti Sensory (Ant Lat Mall) NO RESPONSE 14 cm NR 14 cm Ant Lat Mall 16.0 Left Sural Anti Sensory (Lat Mall) Calf 3.5 9.6 Calf Lat Mall 3.5 16.0 46 Right Sural Anti Sensory (Lat Mall) Calf 3.5 4.4 Calf Lat Mall 3.5 16.0 46 Left Ulnar Anti Sensory (5th Digit) Wrist 2.7 47.5 Wrist 5th Digit 2.7 14.0 52 Right Ulnar Anti Sensory (5th Digit) Wrist 2.4 28.6 Wrist 5th Digit 2.4 14.0 58 Motor Summary Table Stim Site NR Onset (ms) O-P Amp (mV) Site1 Site2 Delta-0 (ms) Dist (cm) Calvin (m/s) Left Median Motor (Abd Poll Brev) Wrist 4.1 1.9 Elbow Wrist 4.6 29.0 63 Elbow 8.7 1.3 Right Median Motor (Abd Poll Brev) Wrist 3.1 3.6 Elbow Wrist 4.7 28.0 60 Elbow 7.8 4.1 Left Peroneal Motor (Vastus Med) Ankle 3.9 0.8 Popit Ankle 8.3 41.0 49 Popit 12.2 1.0 Right Peroneal Motor (Vastus Med) Ankle 3.9 2.7 Popit Ankle 8.0 38.0 48 Popit 11.9 2.6 Left Tibial Motor (Abd Scherer Brev) Ankle 4.2 1.9 Knee Ankle 8.8 41.0 47 Knee 13.0 1.6 Right Tibial Motor (Abd Scherer Brev) Ankle 4.2 2.2 Knee Ankle 8.9 39.0 44 Knee 13.1 2.1 Left Ulnar Motor (Abd Dig Minimi) Wrist 2.4 6.1 A Elbow Wrist 5.2 31.0 60 A Elbow 7.6 3.0 Right Ulnar Motor (Abd Dig Minimi) Wrist 2.3 4.4 A Elbow Wrist 5.8 29.0 50 A Elbow 8.1 3.1 B Elbow Wrist 3.8 21.0 55 B Elbow 6.1 3.2 F Wave Studies NR F-Lat (ms) L-R F-Lat (ms) Left Median (Mrkrs) (Abd Poll Brev) 26.87 0.94 Right Median (Mrkrs) (Abd Poll Brev) 27.81 0.94 Left Peroneal (Mrkrs) (EDB) 52.74 0.46 Right Peroneal (Mrkrs) (EDB) 52.28 0.46 Left Tibial (Mrkrs) (Abd Hallucis) 53.48 1.36 Right Tibial (Mrkrs) (Abd Hallucis) 52.11 1.36 Left Ulnar (Mrkrs) (Abd Dig Min) 27.97 0.23 Right Ulnar (Mrkrs) (Abd Dig Min) 28.20 0.23 EMG Side Muscle Nerve Root Ins Act Fibs Amp Dur Recrt Comment Right 1stDorInt Ulnar C8-T1 Nml Nml Nml >12ms Reduced Right Ext Indicis Radial (Post Int) C7-8 Nml Nml Nml Nml Nml Right Ext Digitorum Radial (Post Int) C7-8 Nml Nml Nml Nml Nml Right BrachioRad Radial C5-6 Nml Nml Nml Nml Nml Right PronatorTeres Median C6-7 Nml Nml Nml Nml Nml Right Abd Poll Brev Median C8-T1 Nml Nml Nml Nml Nml
== END 2023-05-21 09:12 | disposition home or self-care (01) ==
PROVIDERS: PCP Family Medicine; Visit Provider Family Medicine
DX: G62.9 Polyneuropathy, unspecified (principal); G56.02 Carpal tunnel syndrome, left upper limb; G56.22 Lesion of ulnar nerve, left upper limb
CPT/HCPCS: 95886; 95913

== ENCOUNTER 2023-10-13 09:02 | Outpatient (CLI) | payer MEDICARE, SELFPAY ==
[2023-10-13 09:17] LABS: Hematocrit 30.9 % (37.0-47.0); Mean Corpuscular HGB Conc 32.4 g/dl (32-36); Mean Corpuscular Hemoglobin 32.3 pg (26-34); Mean Corpuscular Volume 99.7 fl (80-100); Mean Platelet Volume 12.1 fl (7.4-10.4); Platelet Count Result 153 k/mm3 (150-375); Red Cell Distribution Width 14.2 % (11.5-14.5); White Blood Count 7.9 K/mm3 (4.5-10.0)
[2023-10-13 09:22] LABS: Blood Urea Nitrogen 35 mg/dL (8-26); Carbon Dioxide 29 mmol/L (22-30); Chloride 104 mmol/L (98-109); Estimated Glomerular Filt Rate 37; Glucose 92 mg/dL (70-105); Ionized Calcium (POC) 1.25 mmol/L (1.11-1.31); Potassium 4.7 mmol/L (3.5-4.9); Sodium 143 mmol/L (138-146)
[2023-10-13 09:27] LABS: Eosinophils Absolute Manual 0.07 K/mm3 (0.02-0.5); Eosinophils Percent Manual 1 % (0-4); Lymphocytes Absolute Manual 3.79 K/mm3 (1.1-4.5); Monocytes Absolute Manual 1.18 K/mm3 (0.1-0.90); Monocytes Percent Manual 15 % (3-9); Neutrophils Percent Manual 36 % (46-73); Platelet Estimate Adequate (Adequate); Schistocytes None Seen (NORMAL); Total Cells Counted 100
[2023-10-13 14:20] LABS: Alanine Aminotransferase 115 U/L (6-35); Albumin Level 4.4 g/dL (3.5-5.1); Alkaline Phosphatase 76 U/L (38-126); Anion Gap 10 mmol/L (8-16); Aspartate Amino Transferase 96 U/L (14-36); Bilirubin,Total 0.4 mg/dL (0.2-1.3); Blood Urea Nitrogen 38 mg/dL (7-17); Calcium 9.7 mg/dL (8.4-10.2); Carbon Dioxide 28 mmol/L (22-30); Chloride 105 mmol/L (98-107); Estimated Glomerular Filt Rate 40; Glucose 90 mg/dL (65-110); Potassium 4.6 mmol/L (3.4-5.0); Sodium 143 mmol/L (137-145)
== END 2023-10-13 09:03 | disposition home or self-care (01) ==
LOC: ANHLAB 09:04
PROVIDERS: PCP Family Medicine; Visit Provider Internal Medicine Hematology & Oncology
DX: D46.9 Myelodysplastic syndrome, unspecified (principal)
CPT/HCPCS: 36415; 80047; 80053; 85025

== ENCOUNTER 2023-12-17 17:39 | Emergency (ER) | payer MEDICARE, SELFPAY ==
[2023-12-17 17:41] VITALS: BP 152/76; PULSE 84; RESP 16; TEMP 36.9; O2SAT 99
[2023-12-17 18:25] LABS: Appearance Urine Clear (Clear); Bacteria Urine Rare /hpf; Bilirubin Urine Negative (Negative); Blood Urine 3+ (Negative); Color Urine Yellow (Yellow); Glucose Urine UA Negative (Negative); Ketones Urine Negative (Negative); Leukocyte Esterase Ur 2+ LEU/UL (Negative); Nitrate Urine Negative (Negative); Non Pathogenic Casts 0-2; Protein Urine Negative (Negative); RBC Urine 51-100 /hpf (0-2); Squamous Epithelial Cell Urine None Seen /hpf (Few); Urobilinogen Urine 0.2 mg/dL (<2.0); WBC Urine 21-50 /hpf (0-3); pH Urine 5.5 (5.0-9.0)
[2023-12-17 18:29] LABS: Add Urine Microscopic? YES; Specific Grav Ur 1.004 (1.001-1.035)
[2023-12-17 18:30] VITALS: BP 138/70; PULSE 74; RESP 16; O2SAT 99
--- NOTE | 2023-12-17 19:28 | ED.GENADULT ---
HPI - General Adult General Chief complaint: Urogenital-Female Stated complaint: hematuria Time Seen by Provider: 12/17/23 18:08 History of Present Illness HPI narrative: Patient is a 73-year-old female who presents ER with hematuria. Began this morning. Associated with urinary frequency and mild suprapubic cramping. Does not typically get urinary tract infections. No fevers or chills. Related Data Home Medications Medication Instructions Recorded Confirmed fluticasone propionate 50 2 spray intranasal DAILY 02/04/20 03/21/23 mcg/actuation nasal spray,suspension multivitamin with minerals 1 tablet PO DAILY 02/08/20 03/21/23 (Hair,Skin and Nails tablet) blood sugar diagnostic See Rx Instructions .Route .COMPLEX 07/22/22 03/21/23 omeprazole 20 mg capsule,delayed 20 mg PO DAILY 11/20/22 03/21/23 release Allergies Allergy/AdvReac Type Severity Reaction Status Date / Time codeine Allergy Severe Headaches Verified 12/17/23 18:39 CAT GUT SUTURE Allergy Severe GANGREEN, Uncoded 10/07/23 08:35 HEMORRHAGE Review of Systems Constitutional: Constitutional: Reports no additional constitutional complaints ENT: Reports system reviewed and no additional complaints, except as documented Respiratory: Respiratory: Reports no additional respiratory complaints Gastrointestinal: Gastrointestinal: Reports no additional gastrointestinal complaints Genitourinary: Genitourinary: Reports hematuria, Reports nocturia, Reports dysuria and Denies flank pain Musculoskeletal: Musculoskeletal: Reports no additional musculoskeletal complaints [facility] Past Medical History Medical History Acute frontal sinusitis Acute sinusitis Alopecia Anemia Arthralgia of temporomandibular joint, unspecified side Body mass index (bmi) 34.0-34.9, adult (05/17/19) Chronic sinusitis Constipation, acute Cough Dependence on other enabling machines and devices DM w/o complication type II Dyslipidemia associated with type 2 diabetes mellitus Elevated ferritin Essential hypertension Fatigue Gastroesophageal reflux disease Hypersomnolence Morbid obesity Myeloproliferative disorder 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 VERONA on CPAP Other and unspecified hyperlipidemia Postmenopausal SOB (shortness of breath) Thrombocytopenia Unspecified asthma Upper respiratory tract infection Urinary frequency Vitamin D deficiency Surgical History Surgical History History of sinus surgery Hx of laparoscopic gastric banding Family History Family History Mother Hypertension Family history of malignant neoplasm of cervix Acute myocardial infarction Family history of congestive heart failure, Onset Age: 77 Family history of elevated blood lipids Family history of diabetes mellitus in first degree relative Family history of heart disease in male family member before age 55 Father Family history of diabetes mellitus in first degree relative Family history of heart disease in male family member before age 55 Acute myocardial infarction Sibling Family history of diabetes mellitus in first degree relative Family history of malignant neoplasm of cervix Family history of Hodgkin's lymphoma Family history of heart disease in male family member before age 55 Diabetes mellitus Family history of lymphoma, Onset Age: 48 Family history of kidney disease Other Family history of coronary artery disease Social History Social History Smoking status: Never smoker Second hand tobacco smoke exposure: Yes Alcohol intake: never Substance use: never Substance use type: does not use Lack of Transportation: No Lack of Food: Never True Current Housing: I Have Housing Concerned About Future Housing: No Difficulty Paying Gas/Electric Bills:
[2023-12-17 19:34] VITALS: BP 139/66; PULSE 72; RESP 16; O2SAT 99
[2023-12-17] MEDS: CEPHALEXIN 500 MG CAPSULE PO (19:59)
== END 2023-12-17 20:03 | disposition home or self-care (01) ==
LOC: ANHED 19:43
PROVIDERS: Nurse Practitioner Family; Emergency Provider Emergency Medicine; PCP Family Medicine
DX: N39.0 Urinary tract infection, site not specified (principal); I10 Essential (primary) hypertension; E11.69 Type 2 diabetes mellitus with other specified complication; E78.5 Hyperlipidemia, unspecified; E55.9 Vitamin D deficiency, unspecified; E66.01 Morbid (severe) obesity due to excess calories; Z68.26 Body mass index [BMI] 26.0-26.9, adult; J32.9 Chronic sinusitis, unspecified; J45.909 Unspecified asthma, uncomplicated; D47.1 Chronic myeloproliferative disease; K21.9 Gastro-esophageal reflux disease without esophagitis; G47.33 Obstructive sleep apnea (adult) (pediatric); Z98.84 Bariatric surgery status; Z87.440 Personal history of urinary (tract) infections; Z79.85 Long-term (current) use of injectable non-insulin antidiabetic drugs
CPT/HCPCS: 81001; 87077; 87086; 87088; 87186; 99283; A9270

== ENCOUNTER 2024-01-30 13:46 | Outpatient (CLI) | payer MEDICARE, SELFPAY ==
--- NOTE | ~2024-01-30 | MM_ITS ---
EXAMINATION: MM screening ruben BI w damian HISTORY: Screening TECHNIQUE: Craniocaudal and mediolateral oblique 3-D tomosynthesis images were obtained and synthetic 2-D images were generated. CAD analysis was submitted and interpreted. COMPARISON: Comparison to multiple prior studies sequentially, with oldest reviewed study dated 05/23. BREAST PARENCHYMAL COMPOSITION: Dense: The breasts are extremely dense, which lowers the sensitivity of mammography. FINDINGS: There is no evidence of suspicious mass, calcification, or architectural distortion to sugg est malignancy in either breast. There has been no suspicious interval change. IMPRESSION: 1. No mammographic evidence of malignancy. 2. Recommend routine screening mammography in one year. BI-RADS Category 1: Negative Reviewed, dictated and finalized at location B.
== END 2024-01-30 13:47 | disposition home or self-care (01) ==
LOC: ANHIMG 13:48
PROVIDERS: PCP Family Medicine; Visit Provider Family Medicine
DX: Z12.31 Encounter for screening mammogram for malignant neoplasm of breast (principal)
CPT/HCPCS: 77063; 77067

== ENCOUNTER 2024-03-16 10:15 | Outpatient (CLI) | payer MEDICARE, SELFPAY ==
--- NOTE | ~2024-03-16 | XR_ITS ---
Clinical Indication: Pneumonia PA and lateral views of the chest: Comparison: None Findings: The lungs are clear, without evidence of focal consolidation or pleural effusion. Cardiome diastinal silhouette is within normal limits. Bones and soft tissues are unremarkable. Impression: Normal chest. Reviewed, dictated and finalized at location . Impression: Normal chest.
== END 2024-03-16 10:16 | disposition home or self-care (01) ==
PROVIDERS: PCP Family Medicine; Visit Provider Nurse Practitioner Family
DX: R05.9 Cough, unspecified (principal)
CPT/HCPCS: 71046

== ENCOUNTER 2024-03-24 14:03 | Outpatient (CLI) | payer MEDICARE, SELFPAY ==
--- NOTE | ~2024-03-24 | DEXA_ITS ---
Bone Density Report Name: YARELY LEWIS Age: 73 Sex: Female Ethnicity: White Date of : 1950 Indication: postmenopausal; screening for osteoporosis; height loss; cancer; hysterectomy; secondary osteoporosis; Referring Provider: KACY SALGADO Study: Bone densitometry was performed. Exam Date: March 24, 2024 Accession number: [id number] Bone Density: Region BMD T-score Z-score Classification AP Spine(L1-L4) 1.514 4.2 6.6 Normal Femoral Neck (Left) 0.777 -0.6 1.3 Normal Total Hip (Left) 1.034 0.8 2.4 Normal Femoral Neck (Right) 0.794 -0.5 1.5 Normal Total Hip (Right) 0.976 0.3 2.0 Normal Total Hip Mean 1.005 0.6 2.2 Normal World Health Organization criteria for BMD impression classify patients as: Normal (T-score at or above -1.0), Osteopenia (T-score between -1.0 and -2.5), or Osteoporosis (T-score at or below -2.5). 10-year Fracture Risk: FRAX not reported because: All T-scores for Spine Total, Hip Total, Femoral Neck at or above -1.0 Clinical Information Provided by Patient: Has secondary osteoporosis Has used the following medications: Vitamin D Has the following medical conditions: Cancer, Hysterectomy Patient maximum height was 66 Menopause Age: 31 No regular weight bearing exercise Drinks caffeinated beverages Onset of menses at age 12 Number of children 2 Impression: The patient has normal bone mass. Discussion: BONE DENSITY IS ABOVE THE MINIMUM DESIRABLE LEVEL AT ALL SKELETAL SITES TESTED. This patient?s bone mineral density is above the minimum desirable level (T-score -1.0 or better) at all sites measured. The patient should follow a healthful lifestyle (good nutrition with adequate calcium and vitamin D, and appropriate weight-bearing exercise). Follow-Up: Consider repeating this study in 5 years or sooner if there is some new clinical indication. Reported by: JEN on 03/24/2024 3:11:00 PM. Reviewed, dictated and finalized at location ARafaela GARCIA
== END 2024-03-24 14:04 | disposition home or self-care (01) ==
PROVIDERS: PCP Family Medicine; Visit Provider Family Medicine
DX: Z13.820 Encounter for screening for osteoporosis (principal); Z78.0 Asymptomatic menopausal state
CPT/HCPCS: 77080

== ENCOUNTER 2024-04-14 09:27 | Outpatient (CLI) | payer MEDICARE, SELFPAY ==
[2024-04-14 09:43] LABS: Basophils Percent Auto 0.4 % (0.2-1.2); Eosinophils Percent Auto 0.6 % (0-4.4); Hematocrit 31.2 % (37.0-47.0); Hemoglobin 10.1 g/dL (12.0-15.0); Immature Granulocyte Absolute 0.04 K/mm3 (0.00-0.031); Immature Granulocyte Percent A 0.8 % (0-0.5); Immature Platelet Fraction Pct 9.4 % (0.9-11.2); Lymphocytes Absolute Auto 2.11 K/mm3 (0.9-3.2); Lymphocytes Percent Auto 43.9 % (18.3-44.2); Mean Corpuscular HGB Conc 32.4 g/dl (32-36); Mean Corpuscular Hemoglobin 32.3 pg (26-34); Mean Corpuscular Volume 99.7 fl (80-100); Mean Platelet Volume 10.9 fl (7.4-10.4); Monocytes Absolute Auto 1.6 K/mm3 (0.1-0.6); Monocytes Percent Auto 33.3 % (2.6-8.5); Platelet Count Result 110 k/mm3 (150-375); Red Blood Count 3.13 M/mm3 (4.2-5.4); Red Cell Distribution Width 14.9 % (11.5-14.5); White Blood Count 4.8 K/mm3 (4.5-10.0)
[2024-04-14 09:43] LABS: Blood Urea Nitrogen 24 mg/dL (8-26); Carbon Dioxide 24 mmol/L (22-30); Chloride 103 mmol/L (98-109); Estimated Glomerular Filt Rate 26; Glucose 93 mg/dL (70-105); Ionized Calcium (POC) 1.29 mmol/L (1.11-1.31); Potassium 5.2 mmol/L (3.5-4.9); Sodium 139 mmol/L (138-146)
[2024-04-14 09:44] LABS: Platelet Estimate Decreased (Adequate)
[2024-04-14 09:45] LABS: Atypical Lymphocytes Present; Schistocytes None Seen
== END 2024-04-14 09:28 | disposition home or self-care (01) ==
LOC: ANHLAB 09:29
PROVIDERS: PCP Family Medicine; Visit Provider Internal Medicine Hematology & Oncology
DX: D46.9 Myelodysplastic syndrome, unspecified (principal)
CPT/HCPCS: 36415; 80047; 85025; 85055

== ENCOUNTER 2024-10-15 08:05 | Outpatient (CLI) | payer MEDICARE, SELFPAY ==
--- OUTSIDE RECORDS SUMMARY | 2024-10-15 08:09 | XMS_ITS | Data Portability ---
Author Organization [facility], Main Office Address [address] [place] [address] Care Team Providers Care Diesel Bus Mechanic Name Role Phone KACY DOUGLAS Primary Care Provider [phone] KACY DOUGLAS Referring Provider [phone] Assessment Encounter Date Assessment Date Assessment LastModified by Organization Details LastModified Time 03/27/2023 03/27/2023 Impression: The patient has de Quervain tenosynovitis radial aspect of her right wrist and flexor tenosynovitis of the right long finger with triggering the morning that is quite painful. She does have degenerative changes in her wrist with some scapholunate ligament widening without history of trauma and this is therefore likely degenerative in nature and does not seem to be related to her current complaints. I have discussed her that this tendonitis problem it tends to be an overuse problem and it is likely she inflamed these tendons due to her caring the 50 lb bucket of chlorine by the handle walking with that as she described. She has had symptoms for a month. She has been using a wrist splint which helps a little bit for the de Quervain. I have discussed options with her which would include oral nonsteroidal anti-inflammator y medication cortisone injection which can be repeated and if these measures were unsuccessful surgical release of the A1 breann of the long finger and surgical release of the 1st dorsal compartment tendon sheath constricting the abductor pollicis longus and extensor pollicis brevis are also an option. This has been bothering her quite a bit and she would like to try the cortisone injections in the hopes this will give her the fastest relief. Risk of side effects including risk of infection and tendon rupture discussed. After ChloraPrep prep, 5 mg of Kenalog and 0.5 cc of 0.5% ropivacaine were injected into the 1st dorsal compartment tendon sheath the radial aspect of the right wrist as well as the long finger flexor tendon sheath at the volar base of the right long finger and she tolerated both these well and had a nice numbness response to the injections eliminating the pain with provocative maneuvers in these 2 areas. I have also prescribed a Medrol Dosepak for her to decrease the chance she will have a cortisone flare the injections and she can stop the Medrol Dosepak once her symptoms are improved. I recommended that she avoid overuse. I will be happy to see her back if she has further problems. 30 minutes were spent in total care this patient more than half the time spent in [id number] care. Not available 03/29/2023 08:32:47 Plan of Treatment Reminders Order Date Submit Date Provider Last Modified By Organization Details Last Modified Time Details Appointments None recorded. Lab None recorded. Referral None recorded. Procedures injection/a spiration joint/bursa (PROC) - in office procedure, administere d by provider 2022 023 [email or web address] In-Office Order, Internal Use Only DO Not Attach Compendium DO Not Attach Compendium, Do Not Delete/merge, [id number] 15:56:20 Surgeries None recorded. Imaging None recorded. Medication Orders Kenalog 10 mg/mL suspension for injection 2022 0[id number], [address], [place], [id number], 3 16:44:49 ropivacaine (PF) 5 mg/mL (0.5 %) injection solution 2022 023 [id number], [address], [place], [id number], 3 16:44:49 Medrol (Car) 4 mg tablets in a dose pack 2022 023 [id number], [address], [place], [phone], 3 16:44:49 Patient TargetsNo targets recorded. Patient InstructionsNo instructions recorded. Reason for Referral None Reported. Results Created Date Observation Date Name Description Value Unit Range Abnormal Flag Note LastModifiedBy Organization Detail LastModifiedTime 03/26/20 23 03/21/2023 XR, wrist , 2 view No observ ation record ed. [email or web address] Not Available 03/02 10:47:24 Result Notes None recorded. Problems Name Problem SNOMED Code Status Onset Date Resolution Date Notes Provider Name and Address Organization Details Recorded Time Osteoarthr itis 149944103 Active Not Available [facility] 3 17:47:26 Pain of right wrist 4928580909444 00 Active 2022 Liberty Oneal RMKaruna kirk, [employer] 15:11:46 Problem Notes None recorded. Procedures Surgical History Date Name Laterality Status Provider Name and Address Organization Details Recorded Time procedure on spine completed ANURADHA Morales [employer] 03/27/2023 15:09:40 procedure on gallbladder completed ANURADHA Morales [employer] 03/27/2023 15:09:51 Carpal tunnel surgery completed Libertyrodriguez Oneal RMKaruna [employer] 03/27/2023 15:10:04 Imaging Results Imaging Date Name Status LastModified by Organiz ation Details LastModified Time 03/21/2023 XR, wrist, 2 view completed [email or web address] Information not available 03/26/2023 10:47:24 Procedure Notes None recorded. Medical Equipment None Reported. Allergies Allergen ID Allergen Name Allergen Category Reaction Reaction Severity Criticality Documentation Date Start Date Code Code System Note Provider Name and Address Organization Details Recorded Time 39580 codeine medicatio n Not available Not available Not available 03/27/2023 2670 RxNorm Liberty Oneal RMA reagan, [employer] 15:07:16 Medications Name Sig Start Date Stop Date Status Note LastModified by Organization Details LastModified Time cyclobenzap rine 10 mg tablet 05/18 completed Not Available Not Available Not Available pioglitazon e 15 mg tablet 05/18 completed Not Available Not Available Not Available doxycycline hyclate 100 mg capsule TAKE 1 CAPSULE BY MOUTH EVERY 12 HOURS active Not Available Not Available No t Available atorvastati n 20 mg tablet TAKE 1 TABLET BY MOUTH DAILY active Not Available Not Available No t Available cefaclor 500 mg capsule 05/18 completed Not Available Not Available Not Available cetirizine 10 mg tablet TAKE 1 TABLET BY MOUTH DAILY FOR ALLERGY SYMPTOMS active Not Available Not Available No t Available fluconazole 150 mg tablet active Not Available Not Available Not Available meloxicam 15 mg tablet 05/18 completed Not Available Not Available Not Available sulfamethox azole 800 mg-trimetho prim 160 mg tablet 05/18 completed Not Available Not Available Not Available peg-electro lyte solution 420 gram oral solution 05/18 completed Not Available Not Available Not Available acyclovir 800 mg tablet 05/18 completed Not Available Not Available Not Available levothyroxi ne 75 mcg tablet TAKE 1 TABLET BY MOUTH EVERY DAY active Not Available Not Available No t Available levothyroxi ne 88 mcg tablet active Not Available Not Available Not Available imiquimod 5 % topical cream packet active Not Available Not Available Not Available Kenalog 10 mg/mL suspension for injection in office procedure , administe red by provider 2022 active [facility]: 0003- 0494- 20 Not Available Not Available Not Available benzonatate 100 mg capsule 05/18 completed Not Available Not Available Not Available levothyroxi ne 125 mcg tablet 05/18 completed Not Available Not Available Not Available gabapentin 300 mg capsule TAKE 1 CAPSULE BY MOUTH THREE TIMES DAILY NEEDED FOR NERVE PAIN active Not Available Not Available No t Available omeprazole 20 mg capsule,del ayed release active Not Available Not Available Not Available montelukast 10 mg tablet active Not Available Not Available Not Available gabapentin 100 mg capsule active Not Available Not Available Not Available ergocalcife rol (vitamin D2) 1,250 mcg (50,000 unit) capsule TAKE ONE CAPSULE BY MOUTH WEEKLY active Not Available Not Available No t Available azelastine 137 mcg (0.1 %) nasal spray 05/18 completed Not Available Not Available Not Available cefuroxime axetil 500 mg tablet 05/18 completed Not Available Not Available Not Available levofloxaci n 500 mg tablet TK 1 T PO Q 24 H 05/18 completed Not Available Not Available Not Available methylpredn isolone 4 mg tablets in a dose pack FOLLOW PACKAGE DIRECTION S active Not Available Not Available No t Available cefdinir 300 mg capsule 05/18 completed Not Available Not Available Not Available fluticasone propionate 50 mcg/actuati on nasal spray,suspe nsion SHAKE LIQUID AND USE 2 SPRAYS IN EACH NOSTRIL TWICE DAILY FOR 14 DAYS active Not Available Not Available No t Available amoxicillin 875 mg-potassiu m clavulanate 125 mg tablet 05/18 completed Not Available Not Available Not Available olmesartan 40 mg tablet active Not Available Not Available Not Available Vesicare 5 mg tablet 05/18 completed Not Available Not Available Not Available valsartan 320 mg-hydrochl orothiazide 12.5 mg tablet 05/18 completed Not Available Not Available Not Available cholecalcif susan (vitamin D3) 1,250 mcg (50,000 unit) capsule TAKE 1 CAPSULE BY MOUTH WEEKLY active Not Available Not Available No t Available ropivacaine (PF) 5 mg/mL (0.5 %) injection solution in office procedure , administe red by provider 2022 active [facility] [phone] Not Available Not Available Not Available OneTouch Verio test strips TEST FOUR TIMES DAILY active Not Available Not Available No t Available Myrbetriq 25 mg tablet,exte nded release active Not Available Not Available Not Available PreviDent 5000 Booster Plus 1.1 % dental paste BRUSH AT BEDTIME active Not Available Not Available No t Available Breo Ellipta 100 mcg-25 mcg/dose powder for inhalation 05/18 completed Not Available Not Available Not Available Synjardy XR 5 mg-1,000 mg tablet, extended release active Not Available Not Available Not Available OneTouch Delica Plus Lancet 33 gauge active Not Available Not Available Not Available Ozempic 1 mg/dose (4 mg/3 mL) subcutaneou s pen injector active Not Available Not Available Not Available BinaxNOW COVID-19 Ag Self Test kit TEST DIRECTED TODAY 03/27 completed Not Available Not Available Not Available Paxlovid 300 mg (150 mg x 2)-100 mg tablets in a dose pack TK 2 NIRMATREL VIR TS AND 1 RITONAVIR T TOGETHER PO BID FOR 5 DAYS BID FOR 5 DAYS active Not Available Not Available No t Available Vitals Date Recorded Body height Body mass index (BMI) Body weight Provider Name and Address Organization Details Last Updated DateTime 03/27/2023 160.02 cm 28.5 kg/m2 00371.37 g ANURADHA Morales [facility] 03/27/2023 15:14:25 Social History Question Answer Notes LastModified by Organizat ion Details LastModified Time Tobacco Smoking Status Never Smoker ANURADHA Morales null, [facility] 03/27/2023 15:09:22 What Is Your Level Of Alcohol Consumption? None Information not available 03/27/2023 Sex: Unknown Functional Status None recorded. Mental Status None recorded. Family History Relationship Description Onset Age of this Age Resolved Age Notes LastModified by Organization Details LastModified Time Father Heart disease [email or web address] Not available 2022 15:08:05 Mother Heart disease [email or web address] Not available 2022 15:08:05 Mother Diabetes mellitus [email or web address] Not available 2022 15:09:14 Sister Heart disease Not available 2022 15:08:05 Sister Diabetes mellitus [email or web address] Not available 2022 15:09:14 Maternal Grandfather Family history of stroke [email or web address] Not available 2022 15:08:18 Unspecified Relation Hypertensive disorder all family Not available 03/27/2023 15:08:39 Maternal Aunt Diabetes mellitus [email or web address] Not available 2022 15:09:14 Maternal Uncle Diabetes mellitus [email or web address] Not available 2022 15:09:14 Medical History Condition Response ARTHRITIS Y DIABETES, TYPE Y CANCER: SPECIFY Y ANEMIA/BLOOD DISORDER Y Gynecological HistoryNo gynecological history recorded. Obstetrics History GPAL:G 0 P 0 0 0 0 Past Encounters Encounter ID Performer Location Encounter Start Date Encounter Closed Date Diagnosis/Indication Diagnosis SNOMED-CT Code Diagnosis ICD10 Code Diagnosis Note [id number] Arsh Baugh MD [facility] [address] [place] [address] 03/27/2023 14:33:19 03/31/2023 09:51:05 Pain of right wrist 0448000165 65641 M25.531 Health Concerns Section Related Observation LastModified by Organization Detai ls LastModified Time None Recorded Concern Status LastModified by Organization Details LastModified Time None Recorded Advance Directives Directive None Recorded Payers Encounter Date Sequence Insurance Name Policy Number Policy John Covered Member ID John Member ID Guarantor Name 03/27/2023 1 [employer] (MEDICARE REPLACEMENT PPO) [id number] Sergey Silvestre Larry [id number] Sergey Juarez Notes Date Note Type Note Provider Name and Address Organization Details Recorded Time 03/27/2023 text/html patient is a 72-year-old female referred by Dr. Douglas for evaluation of her radial sided right wrist pain and middle finger trigger finger problem. One month ago she lifted a 50 lb bucket of chlorine with her right hand and walked with that. She did have any problems with that but that evening she noted pain in the radial side of her wrist and recurrence of painful triggering in her right long finger. She had had problems with triggering in the right long finger 1 year ago which also affected the ring finger little bit but that improved. She has a history of myelodysplastic syndrome that causes her to have thrombocytopenia. She states that her white count is normal. Her symptoms in her right hand are worst at night and 1st thing in the morning she has very painful catching when she tries to extend her long finger from flexed position and then it gradually eases as the day wears on. 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 Arsh Baugh MD [address] [place] [address], [facility] [address], [place], [address], [place] [facility] 03/29/2023 08:33:02 OBGyn Episode No OBEpisode recorded.
--- OUTSIDE RECORDS SUMMARY | 2024-10-15 08:09 | XMS_ITS | Encounter Summary ---
Author Organization [facility] Address [address] [place] [address] Phone Care Team Providers Care Grave Cleaner Name Role Phone Agustin Orozco MD Unavailable [phone] Jared Marie MD Unavailable [phone] Bryn Jeff MD Primary Care Provider [phone] Melanie Husain MD Primary Care Provider [phone] Bryn Jeff MD Primary Care Provider [phone] Deepak Negron MD Primary Care Provider [phone] Morgan Herrera MD Primary Care Provider [phone] Liam Douglas MD Primary Care Provider [phone] Encounter Details Date Type Department Care Team (Latest Contact Info) Description 10/28/2018 Orders Only [facility] Scanning, Provider Social History Tobacco Use Types Packs/Day Years Used Date Smoking Tobacco: Never Comments Unknown Sex and Gender Information Value Date Recorded Sex Assigned at Not on file 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 Gender Identity Female 06/25/2021 8:56 PM CDT Sexual Orientation Straight 06/25/2021 8: 56 PM CDT documented as of this encounter Plan of Treatment Not on file documented as of this encounter Procedures Procedure Name Priority Date/Time Associated Diagnosis Comments SCAN - RADIOLOGY/IMAGING 10/28/2018 documented in this encounter Results * SCAN - RADIOLOGY/IMAGING (10/28/2018) Anatomical Region Laterality Modality Other us Provider Scanning Final Result documented in this encounter Visit Diagnoses Not on filedocumented in this encounter Care Teams Grave Cleaner Relationship Specialty Start Date End Date Bryn Jeff MD [address] [place] [phone] PCP - General Internal Medicine 12/01/18 12/02/18 Melanie Husain MD [address] [place] [phone] PCP - General 12/03/18 12/03/18 Bryn Jeff MD [address] [place] [phone] PCP - General Internal Medicine 12/04/18 06/03/19 Deepak Negron MD [address] [place] [address] PCP - General Internal Medicine 06/04/19 07/18/22 Morgan Herrera MD [address] [place] [address] PCP - General Internal Medicine 07/19/22 07/10/23 Liam Douglas MD [address] [place] [address] PCP - General Family Practice 07/11/23 Agustin Orozco MD [address] [place] [phone] Medical Oncologist/Glass Sander Hematology 12/01/18 Jared Marie MD [address] [place] [phone] Consulting Physician Medical Oncology 12/01/18 documented as of this encounter
--- OUTSIDE RECORDS SUMMARY | 2024-10-15 08:09 | XMS_ITS | Encounter Summary ---
Author Organization [facility] Address [address] [place] [address] Phone Care Team Providers Care Legal Secretary Receptionist Name Role Phone Agustin Orozco MD Unavailable [phone] Jared Marie MD Unavailable [phone] Bryn Jeff MD Primary Care Provider [phone] Melanie Husain MD Primary Care Provider [phone] Bryn Jeff MD Primary Care Provider [phone] Deepak Negron MD Primary Care Provider [phone] Morgan Herrera MD Primary Care Provider [phone] Liam Douglas MD Primary Care Provider [phone] Encounter Details Date Type Department Care Team (Latest Contact Info) Description 10/22/2018 Orders Only [facility] Scanning, Provider Social History Tobacco Use Types Packs/Day Years Used Date Smoking Tobacco: Never Comments Unknown Sex and Gender Information Value Date Recorded Sex Assigned at Not on file 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 Gender Identity Female 06/25/2021 8:56 PM CDT Sexual Orientation Straight 06/25/2021 8: 56 PM CDT documented as of this encounter Plan of Treatment Not on file documented as of this encounter Procedures Procedure Name Priority Date/Time Associated Diagnosis Comments SCAN - LABS 10/22/2018 documented in this encounter Results * SCAN - LABS (10/22/2018) us Provider Scanning Edited Result - Final documented in this encounter Visit Diagnoses Not on filedocumented in this encounter Care Teams Legal Secretary Receptionist Relationship Specialty Start Date End Date Bryn Jeff MD [address] [place] [address] PCP - General Internal Medicine 12/01/18 12/02/18 Melanie Husain MD [address] [place] [phone] PCP - General 12/03/18 12/03/18 Bryn Jeff MD [address] [place] [address] PCP - General Internal Medicine 12/04/18 06/03/19 Deepak Negron MD [address] [place] [address] PCP - General Internal Medicine 06/04/19 07/18/22 Morgan Herrera MD [address] [place] [address] PCP - General Internal Medicine 07/19/22 07/10/23 Liam Douglas MD [address] [place] [address] PCP - General Family Practice 07/11/23 Agustin Orozco MD [address] [place] [address] Medical Oncologist/Vault Keeper Hematology 12/01/18 Jared Marie MD [address] [place] [address] Consulting Physician Medical Oncology 12/01/18 documented as of this encounter
--- OUTSIDE RECORDS SUMMARY | 2024-10-15 08:09 | XMS_ITS | Clinical Summary ---
Author Organization [facility] Address [address] [place] [address] Care Team Providers Care Optical Lathe Operator Name Role Phone Liam Douglas MD Primary Care Provider [phone] Allergies Active Allergy Reactions Criticality Noted Date Comments Codeine Headache 10/22/2018 N/V, hallucination Medications atorvastatin (LIPITOR) 20 mg tablet Take 20 mg by mouth daily with supper. 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 Active empagliflozin- metformin (SYNJARDY XR) 5-1,000 mg tablet, IR & ER, biphasic 24hr Take 1 Tablet by mouth daily. Active montelukast (SINGULAIR) 10 mg tablet Take 10 mg by mouth daily at bedtime. Active zinc oxide-hydrocor tisone-ketocon azole Apply to affected area. Active ibuprofen (MOTRIN) 400 mg tablet Take 400 mg by mouth every 6 hours as needed for Pain, Mild. Active omega-3 acid ethyl esters (OMACOR,LOVAZA ) 1 gram Capsule Take 2 Grams by mouth daily. Active cholecalcifero l, vitamin D3, 5,000 unit Take 400 Units by mouth daily. Active docusate sodium (COLACE) 100 mg capsule Take 100 mg by mouth daily. Active multivitamin (MULTIPLE VITAMINS DAILY ORAL) Take by mouth. Activ e docusate calcium (SURFAK) 240 mg capsule Active fluticasone propionate (FLONASE) 50 mcg/spray [place], Suspension nasal inhaler Administer 1 [place] in each nostril. Active hydroCHLOROthi azide (HYDRODIURIL) 12.5 mg tablet 05/17/20 19 Active Ketoconazole 2 % Gel Apply to affected area. Active Minoxidil 5 % Solution Apply to affected area. Active olmesartan (BENICAR) 20 mg tablet 05/17/20 19 Active cyanocobalamin , vitamin B-12, 5,000 mcg Capsule Take by mouth. Act sheyla Rybelsus 7 mg Tablet Take 1 Tablet by mouth daily. 10/20/19 21 Active OneTouch Ultra Blue Test Strip Strip 09/09/19 21 Active linaCLOtide (LINZESS) 290 mcg capsule Take 290 mcg by mouth daily before breakfast. 04/27/20 21 Active fluorouraciL (EFUDEX) 5 % Cream 11/15/19 22 Active OneTouch Delica Plus Lancet 33 gauge 03/15/20 22 Active nirmatrelvir-r itonavir (PAXLOVID) 300(150mg x 2)-100 mg oral packIndication s:COVID-19 virus detected Take 300 mg nirmatrelvir (2 tablets) and 100 mg ritonavir (1 tablet) by mouth together twice daily for 5 days. 1 Dose Pack 05/07/20 22 Active pregabalin (LYRICA) 50 mg Capsule Take 50 mg by mouth. Active spironolactone (ALDACTONE) 100 mg tablet Take 100 mg by mouth daily. 02/12/20 24 Active omeprazole (PriLOSEC) 20 mg Capsule, Delayed Release(E.C.) TAKE 1 CAPSULE DAILY 90 Capsule 3 10/06/19 25 Active omeprazole (PriLOSEC) 20 mg Capsule, Delayed Release(E.C.) Take 1 Capsule (20 mg) by mouth daily. 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 05/19/2020 Encounters Date Type Department Care Team Description 10/06/2024 Refill [facility] Oncology and Hematology - [place] [address] [place] [id number] Agustin Orozco MD 09/23/2024 External Device Data [facility] ABSTRACTION Provider, Abstract 09/22/2024 External Device Data [facility] ABSTRACTION Provider, Abstract 09/21/2024 External Device Data [facility] ABSTRACTION Provider, Abstract 09/14/2024 External Device Data [facility] ABSTRACTION Provider, Abstract from Last 3 Months Immunizations Immunization Administration Dates Next Due Zoster Vaccine Live SQ 06/11/2016 Family History Medical History Relation Name Comments Heart Disease Father Heart Disease Mother Other Mother Cancer Sister 1 Heart Disease Sister 1 High Cholesterol Sister 2 Heart Disease Sister 3 Other Sister 3 Relation Name Status Comments Father Mother Sister 1 Sister 2 Alive Sister 3 Social History Tobacco Use Types Packs/Day Years Used Date Smoking Tobacco: Never Tobacco Cessation:Counseling Given: Not Answered Alcohol Use Standard Drinks/Week Comments No 0 (1 standard drink = 0.6 oz pur e alcohol) Comments No Sex and Gender Information Value Date Recorded Sex Assigned at Not on file 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 Gender Identity Not on file Sexual Orientation Not on file Last Filed Vital Signs Vital Sign Reading Time Taken Comments Blood Pressure 129/75 04/14/2024 9:44 AM CDT Pulse 84 04/14/2024 9:44 AM CDT Temperature 36.4 C (97.5 F) 04/14/2024 9:44 AM CDT Respiratory Rate 16 04/14/2024 9:44 AM CDT Oxygen Saturation 95% 04/14/2024 9:44 AM CDT Inhaled Oxygen Concentration - - Weight 69.4 kg (153 lb) 04/14/2024 9:44 AM CDT Height 165.1 cm (5' 5 ) 04/24/2022 9:48 AM CDT Body Mass Index 25.46 04/24/2022 9:48 AM CDT Plan of Treatment Upcoming Encounters Date Type Department Care Team (Late st Contact Info) Description 10/15/2024 8:30 AM OBEDIENCE TRAINER Office Visit [facility] Oncology and Hematology - [place] [address] [place] [address] Agustin Orozco MD [address] [place] [address] Health Maintenance Due Date Last Done Comments DIABETES ANNUAL FOOT EXAM 1968 DIABETES ANNUAL RETINAL EXAM 1968 DIABETES MICROALBUMIN ANNUAL SCREEN 1968 BREAST CANCER SCREENING 1990 COLORECTAL SCREENING 11/01/1995 Colorectal Cancer Screening 11/01/1995 FIT-DNA Q 3 years 11/01/1995 FIT/FOBT Q 1 year 11/01/1995 Flex Sig/CT Colonography Q 5 years 11/01/1995 RSV VACCINE (60+ or ) (1 - Risk 60-74 years 1-dose series) 2010 OSTEOPOROSIS SCREENING 11/01/2015 ZOSTER VACCINE (2 of 3) 07/27/2018 06/01/2018, 06/11 PNEUMOCOCCAL VACCINE 65+ YEA RS (2 of 2 - PCV) 06/15/2019 06/15/2018 DIABETES HBA1C Q 6 MONTHS 05/17/2021 11/14/2020, 08/2016 LDL CHOLESTEROL ANNUAL 11/14/2021 11/14/2020 INFLUENZA VACCINE (#1) 2024 , 05/20/2019, 06/15/2018, Additional history exists Medicare Advantage ([place]) Preventative Visit/Annual Wellness Visit 09/01/2024 DTAP/TDAP/TD VACCINES (2 - T d or Tdap) 06/11/2026 06/11/2016 Procedures Procedure Name Priority Date/Time Associated Diagnosis Comments LIPID PANEL Routine 11/14/2020 HEMOGLOBIN A1C Routine 11/14/2020 from Last 3 Months or Most Recently Relevant to Health Maintenance Results * HEMOGLOBIN A1C (11/14/2020) Blood us Abstract Provider CHEMISTRY ORDERABLES Final Res ult * LIPID PANEL (11/14/2020) Blood us Abstract Provider CHEMISTRY ORDERABLES Final Res ult from Last 3 Months or Most Recently Relevant to Health Maintenance Insurance [employer] PPO MCR [employer] Advance Directives For more information, please contact: [phone] Documents on File Type Date Recorded Patient Amr Physician Expl anation Advance Directive Living Will 10/22/2018 10:53 AM Care Teams Optical Lathe Operator Relationship Specialty Start Date End Date Liam Douglas MD [address] [place] [id number] PCP - General Family Practice 04/08/23
--- OUTSIDE RECORDS SUMMARY | 2024-10-15 08:10 | XMS_ITS | Referral Summary ---
Author Organization [facility] Address [address] [place] [address] Care Team Providers Care Marinator Name Role Phone Agustin Orozco MD Unavailable [phone] Jared Marie MD Unavailable Liam Douglas MD Primary Care Provider [phone] Encounters Date Type Department Care Team Description 08/30/2024 Telephone [facility] Bone Marrow Transplant [address] [place] [phone] Jared Marie MD 08/30/2024 11:15 AM ANTISQUEAK WORKER Lab [facility] at [address] [address] MDS (myelodysplastic syndrome) (HCC) 08/27/2024 Orders Only [facility] Bone Marrow Transplant [facility] [address] [phone] Jared Marie MD MDS (myelodysplastic syndrome) (HCC) (Primary Dx) 08/27/2024 Orders Only [facility] Bone Marrow Transplant [facility] [address] [place] [phone] Jared aMrie MD MDS (myelodysplastic syndrome) (HCC) (Primary Dx) 08/11/2024 2:00 PM ANTISQUEAK WORKER Office Visit [facility] Cardiology [address] [facility] 8th [place] [address] [place] [address] Osvaldo Robin MD Dyslipidemia (Primary Dx); Primary hypertension; VERONA (obstructive sleep apnea); Essential hypertension 08/04/2024 7:30 AM ANTISQUEAK WORKER Lab [facility] [place] at [address] [address] MDS (myelodysplastic syndrome) (HCC) 08/02/2024 Orders Only [facility] Bone Marrow Transplant [address] [facility] [address] [place] [address] Jared Marie MD MDS (myelodysplastic syndrome) ([facility]) (Primary Dx) 07/15/2024 10:30 AM ANTISQUEAK WORKER Lab [facility] at [address] [phone] MDS (myelodysplastic syndrome) ([facility]) from Last 3 Months Allergies Active Allergy Reactions Criticality Noted Date Comments Codeine Headache,Nausea & Vomiting Low 6 N/V, hallucination Medications SYNJARDY XR 5-1,000 mg tablet, IR & ER, biphasic 24hrIndications :MDS (myelodysplasti c syndrome) ([facility]) daily 9 Active montelukast (SINGULAIR) 10 mg tabletIndicatio ns:MDS (myelodysplasti c syndrome) ([facility]) Take 1 tablet (10 mg total) by mouth daily 5 Active minoxidil 5 % solutionIndicat ions:MDS (myelodysplasti c syndrome) ([facility]) Apply topically Acti ve fluticasone propionate (FLONASE) 50 mcg/actuation nasal spray Administer 1 spray into each nostril daily as needed Active multivitamin with minerals tablet Take 1 tablet by mouth daily Active levothyroxine (SYNTHROID) 75 mcg tablet Take 1 tablet (75 mcg total) by mouth daily 1 Active atorvastatin (LIPITOR) 20 mg tablet daily 1 Active OneTouch Ultra Test strip 1 Active docusate sodium (COLACE) 100 mg capsuleIndicati ons:constipatio n Take 2 capsules (200 mg total) by mouth studio assistant before breakfast Active Ozempic 1 mg/dose (4 mg/3 mL) pen injector injectionIndica tions:MDS (myelodysplasti c syndrome) (HCC) 3 Active cholecalciferol (VITAMIN D-3) 50,000 unit capsule TAKE 1 CAPSULE BY MOUTH WEEKLY Active omeprazole (PriLOSEC) 20 mg capsuleIndicati ons:MDS (myelodysplasti c syndrome) (HCC) Take 1 capsule (20 mg total) by mouth daily 4 Active PreviDent 5000 Plus 1.1 % creamIndication s:MDS (myelodysplasti c syndrome) (HCC) BRUSH ONCE DAILY BEFORE BEDTIME 4 Active Hospital, Clinic, or Other Facility Administered Medication Ordered Dose Route Frequency Start Date End Date Status perflutren protein-a (OPTISON) 3 mL in sodium chloride 0.9% 8 mL syringe 1 - 8 mL IV Once in imaging 09/06/2022 Active Active Problems Problem Noted Date Diagnosed Date History of colonic polyps 03/30/2021 VERONA (obstructive sleep apnea) 06/04/2019 Assessment & Plan (01/14/2020 9:33 AM CDT): She is compliant with nocturnal CPAP. Assessment & Plan (06/04/2019 10:32 AM CDT): She is compliant with nocturnal CPAP. MDS (myelodysplastic syndrome) 12/01/2018 Assessment & Plan (01/14/2020 9:33 AM CDT): Undergoing surveillance. Assessment & Plan (06/04/2019 10:33 AM CDT): Mild anemia/thrombocytopenia. Undergoing active surveillance. Dyspnea on exertion 08/13/2016 Hyperlipidemia 08/13/2016 Assessment & Plan (07/21/2020 1:36 PM ANTISQUEAK WORKER): Lab work from January 2020 showed LDL 88 and triglycerides 214. She continues on atorvastatin 20 mg. Assessment & Plan (01/14/2020 9:31 AM CDT): She continues on atorvastatin 20mg. We will recheck a lipid panel. Assessment & Plan (06/04/2019 10:32 AM CDT): Her last lipid panel was in acceptable range, continue on atorvastatin 20mg. Hypertension 08/13/2016 Assessment & Plan (07/21/2020 1:36 PM ANTISQUEAK WORKER): Her blood pressure is well controlled today. We will continue on losartan and hydrochlorothiazide. Assessment & Plan (01/14/2020 9:31 AM CDT): Her BP remains well controlled on HCTZ and olmesartan. We will not make any changes today. Assessment & Plan (06/04/2019 10:30 AM CDT): Her BP is adequately controlled today. We will continue olmesartan and HCTZ without modification. I counseled her to use ibuprofen in moderation; if her BP becomes persistently elevated to >140/90, we may need to switch to tylenol for pain control. Diabetes mellitus 08/13/2016 Obesity with body mass index 30 or greater 08/13 Assessment & Plan (01/14/2020 9:33 AM CDT): She continues to work on weight loss and dietary modification. Assessment & Plan (06/04/2019 10:31 AM CDT): She is committed to weight loss and is exercising and monitoring her caloric intake. I recommended trying first to lose 5-10 pounds, with a longer term goal of getting to 170. Resolved Problems Problem Noted Date Diagnosed Date Resolved Date Palpitations 06/04/2019 01/14/2020 Assessment & Plan (07/21/2020 1:36 PM ANTISQUEAK WORKER): Asymptomatic Assessment & Plan (06/04/2019 10:33 AM CDT): Found to have NSVT in the past. She is at risk for Afib due to metabolic syndrome. Will monitor clinically for now. Sensation of chest tightness 08/13/2016 07/21/2020 Immunizations Name Administration Dates Next Due Influenza, Quadrivalent, Hig h Dose, Preservative Free, Intrr 05/26/2020 Influenza, Trivalent, High D ose, Split, Preservative Free, Intramuscular 05/20/2019,06/15/2018 Influenza, Trivalent, IM (MDV) 08/01/2015 Influenza, Unspecified 06/11/2016,2013,06/01/2013,07/05 Moderna SARS-CoV-2 Monovalen t Vaccination (12+ YRS) 04/18/2021,2020,09/28/2020 Pneumococcal Polysaccharide PPV23 06/15/2018 Tdap 06/11/2016 ZOSTER LIVE 06/01/2018,06/11/2016 Social History Tobacco Use Types Packs/Day Years Used Date Smoking Tobacco: Never Smokeless Tobacco: Never Tobacco Cessation:Counseling Given: Not Answered Comments Unknown Sex and Gender Information Value Date Recorded Sex Assigned at Not on file Legal Sex Female 12:02 PM ANTISQUEAK WORKER Gender Identity Female 06/25/2021 8:56 PM CDT Sexual Orientation Straight 06/25/2021 8: 56 PM CDT Last Filed Vital Signs Vital Sign Reading Time Taken Comments Blood Pressure 124/70 08/11/2024 1:10 PM ANTISQUEAK WORKER Pulse 82 08/11/2024 1:10 PM ANTISQUEAK WORKER Temperature 36.2 C (97.2 F) 07/09/2024 10:40 AM ANTISQUEAK WORKER Respiratory Rate 18 07/09/2024 10:40 AM ANTISQUEAK WORKER Oxygen Saturation 97% 08/11/2024 1:10 PM ANTISQUEAK WORKER Inhaled Oxygen Concentration - - Weight 68 kg (150 lb) 08/11/2024 1:10 PM ANTISQUEAK WORKER Height 165.1 cm (5' 5 ) 08/11/2024 1:10 PM ANTISQUEAK WORKER Body Mass Index 24.96 08/11/2024 1:10 PM ANTISQUEAK WORKER Plan of Treatment Not on file Procedures Procedure Name Priority Date/Time Associated Diagnosis Comments FACTOR VIII ACTIVITY Routine 08/04/2024 11:38 AM ANTISQUEAK WORKER MDS (myelodysplastic syndrome) (HCC) FACTOR IX ACTIVITY Routine 08/04/2024 11 :38 AM ANTISQUEAK WORKER MDS (myelodysplastic syndrome) (HCC) VON WILLEBRAND FACTOR ANTIGEN Routine 08/04/2024 11:38 AM ANTISQUEAK WORKER MDS (myelodysplastic syndrome) (HCC) VON WILLEBRAND FACTOR ACTIVITY (SCREEN) Routine 08/04/2024 11:38 AM ANTISQUEAK WORKER MDS (myelodysplastic syndrome) (HCC) LUPUS ANTICOAGULANT PANEL PLUS REFLEXES Routine 07/15/2024 10:38 AM ANTISQUEAK WORKER MDS (myelodysplastic syndrome) (HCC) CARDIOLIPIN ANTIBODY, IGM Routine 07/15/2024 10:38 AM ANTISQUEAK WORKER MDS (myelodysplastic syndrome) (HCC) CARDIOLIPIN ANTIBODY, IGG Routine 07/15/2024 10:38 AM ANTISQUEAK WORKER MDS (myelodysplastic syndrome) (HCC) BETA 2 GLYCOPROTEIN IGM AB Routine 07/15/2024 10:38 AM ANTISQUEAK WORKER MDS (myelodysplastic syndrome) (HCC) BETA 2 GLYCOPROTEIN IGG AB Routine 07/15/2024 10:38 AM ANTISQUEAK WORKER MDS (myelodysplastic syndrome) (HCC) APTT MIXING STUDY Routine 07/15/2024 10: 38 AM ANTISQUEAK WORKER MDS (myelodysplastic syndrome) (HCC) EGFR Routine 07/09/2024 10:05 AM ANTISQUEAK WORKER MDS (myelodysplastic syndrome) (HCC) LIPID PANEL Routine 08/13/2023 12:57 PM ANTISQUEAK WORKER Dyslipidemia Essential hypertension from Last 3 Months or Most Recently Relevant to Health Maintenance Results * Von Willebrand factor antigen (08/04/2024 11:38 AM ANTISQUEAK WORKER) vWF antigen 145 55 - 200 %norm Comment: Interpretive Data vWF Ag results may be negatively biased when rheumatoid factor levels are >50 IU/ml. Current interpretive data was last revised 2024. Testing performed by: [facility], [address] [facility], [place]., [address] Blood 08/04/2024 11:3 8 AM ANTISQUEAK WORKER 08/04/2024 2:52 PM ANTISQUEAK WORKER us Jared Marie MD LAB BLOOD ORDERABLES Final Result [facility] [address] [place] [employer] [place] [address] * Von Willebrand factor activity (08/04/2024 11:38 AM ANTISQUEAK WORKER) vWF activity 134 50 - 180 %norm Comment: Interpretive Data Von Willebrand factor (vWF) has two major physiologic functions: transporting factor VIII and adhering to platelets and collagen at sites of vascular injury. Screening tests for von Willebrand disease (vWD) include measuring vWF antigen concentration, plasma factor VIII activity, and in-vitro tests of vWF activity. An automated immunoassay (Instrumentation Laboratory von Willebrand factor activity: IL vWF act), is a sensitive screening test for vWF adhesion to platelets. Using a monoclonal antibody specific for the platelet binding domain of vWF, the IL vWF act test shows excellent discrimination between control and patients with vWF(1, 2). The IL vWF activity reference interval (based on healthy adult sample) is 50%-180%. To enhance specificity and minimize false positive results, if a patient has an IL vWF activity below 50%, the reflex confirmatory activity test (vWF GP1bM) will be sent to [facility] reference laboratory in [place], [place] (3). 1. Angelique RO, sonya Ames EM. A new automated screening assay for the diagnosis of von Willebrand disease. Am J Clin Path. 2007; 127:730-5. 2. Marie D, Raman JI, Jessica BJ, Alicia RK, Kenyetta WL, Wes JA. Validation of an automated latex particle-enhanced immunoturbidimetric von Willebrand factor activity assay. J Thromb Haemost. 2011; 9:6316-3072. 3. Anthony Hayden, et al. A comparative analysis of different automated von Willebrand factor glycoprotein 1b-binding activity assays in well-typed von Willebrand disease patients. J Thromb Haemost 2018;16:1268-77. Current interpretive data was last revised on 2021. Testing performed by: [facility], [address] [place]., [address] Blood 08/04/2024 11:3 8 AM ANTISQUEAK WORKER 08/04/2024 2:52 PM ANTISQUEAK WORKER Jared Marie MD LAB BLOOD ORDERABLES Final Result Performing Organization Address [facility] Co de Phone Number DEVAUGHN NICHOLSCH [address] [place] [employer]. [facility] [place] [place] [employer] [place] [address] * Factor IX activity (08/04/2024 11:38 AM ANTISQUEAK WORKER) Pathologist [facility] Factor IX activity 98 55 - 160 %norm Comment:Testing performed by : [facility], [address] [place] [address]., [address] Blood 08/04/2024 11:3 8 AM ANTISQUEAK WORKER 08/04/2024 2:52 PM ANTISQUEAK WORKER Jared Marie MD LAB BLOOD ORDERABLES Final Result Performing Organization Address [facility] Co de Phone Number [facility] [address] [facility]. [facility] [place] [place] [place] [address] * Factor VIII activity (08/04/2024 11:38 AM ANTISQUEAK WORKER) [facility] Factor VIII activity 153 45 - 160 %norm Comment:Testing performed by : [facility], [address] [place]., [address] Blood 08/04/2024 11:3 8 AM ANTISQUEAK WORKER 08/04/2024 2:52 PM ANTISQUEAK WORKER Jared Marie MD LAB BLOOD ORDERABLES Final Result Performing Organization Address [facility] Co de Phone Number [facility] [address] [employer]. [facility] [place] [place] [employer] [place] [address] * (ABNORMAL) Lupus Anticoagulant Panel plus Reflexes (07/15/2024 10:38 AM ANTISQUEAK WORKER) Pathologist [facility] PT 11.5 9.7 - 13.0 sec Comment:Testing performed by : [facility], [address] [place]., [address] INR 1.06 0.90 - 1.20 C[facility]ER [facility] Comment: Interpretive data Oral anticoagulant therapeutic ranges: Venous thromboembolism prophylaxis or treatment: 2.0-3.0 CARDIOLOGY Standard range: 2.0-3.0 High-intensity range: 2.5-3.5 Refer to indication-specific guidelines for appropriate target ranges for prosthetic heart valve replacement. Current interpretive data was last revised on 2019. Testing performed by: [facility], [address] [facility], [address] aPTT 40(H) 28 - 38 sec C[facility]ER [facility] Comment: Interpretive Data Heparin therapeutic range: 66.0 - 100.0 seconds. Range based on correlation with therapeutic heparin activity range of 0.3 - 0.7 Units/mL. Current interpretive data was last revised on 2023. Testing performed by: [facility], [address] [facility], [address] DRVVT screen ratio 0.97 0.00 - 1.20 Ratio C[facility]ER [facility] Comment:Testing performed by : [facility], [address] [facility], [address] SCT Screen Ratio 1.39(H) 0.00 - 1.16 Ratio C[facility]ER [facility] Comment:Testing performed by : [facility], [address] [place] [address]., [address] SCT Confirm Ratio 1.19 Ratio C[facility]ER [facility] Comment:Testing performed by : [facility], [address] [place] [address]., [address] SCT S/C Ratio 1.17(H) 0.00 - 1.16 Ratio C[facility]ER [facility] Comment:Testing performed by : [facility], [address] [facility], [address] Lupus anticoagulant, interp Positive( A) C[facility]ER [facility] Comment: Interpretive data Lupus anticoagulants (LA) are acquired autoantibodies that interfere with invitro clotting in a phospholipid-dependent manner and are associated with an increased risk of thromboembolic events and complications. Routine APTT and PT reagents are not sensitive to inhibition by LA, and should not be used as screening tests. The laboratory follows ISTH 2009 guidelines (Pengo, 2009) for LA testing and interpretation: Two sensitive methods performed in parallel improve sensitivity. One activates the intrinsic pathway (Silica-APTT) and one activates the common pathway (dilute Jony's viper venom time - dRVVT). Each method begins with a SCREEN step, and if neither is prolonged, no further testing is performed and the interpretation is: NO LA DETECTED. If either screening test is prolonged, then additional steps are performed to provide specificity. A POSITIVE LA result occurs if either one or both tests produce a positive CONFIRM result. An INDETERMINATE result means results cannot distinguish between coagulopathy and a weak LA. Consider retesting when PT/INR is less prolonged, if clinical indicated. To support laboratory confirmation of antiphospholipid syndrome, persistence of a positive LA result should be verified by repeat testing at least 12 weeks later (Bev, 2006). Prior to LA testing, the laboratory screens patient plasma samples for evidence of heparin contamination, which is neutralized prior to LA testing, and the following interfering conditions which require canceling LA testing: INR >3.0, fibrinogen < 100 mg/dl, use of direct oral or IV anticoagulants other than heparin. References: 1) Lexi V, Mikaela A, [place] JH, Ormelvinl TL, Aidee M, De Adolfo PG. Update of the guidelines for lupus anticoagulant detection. J Thromb Haemost. 2009; 7:5124-3184. 2. Bev S. et al. International consensus statement on an update of the classification criteria for definite antiphospholipid syndrome (APS). J Thromb Haemost. 2006; 4:295-306. Current interpretive data was last revised on 2018 Testing performed by: [facility], [address] [facility], [place]., [address] Blood 07/15/2024 10:3 8 AM ANTISQUEAK WORKER 07/16/2024 8:12 AM ANTISQUEAK WORKER us Jared Marie MD LAB BLOOD ORDERABLES Final Result [facility] [address] [facility]. [place] [employer] [place] [address] * Cardiolipin antibody, IgG (07/15/2024 10:38 AM ANTISQUEAK WORKER) Cardiolipin, IgG <1.6 <=19.9 GPL U/mL Comment: Interpretive Data Negative: <20 GPL U/mL Positive: > or = 20 GPL U/mL Anticardiolipin antibodies are associated with certain clinical events including unexplained arterial and venous thromboemboli, and unexplained morbidity. However, detection of low levels of anticardiolipin antibodies occurs in both healthy individuals and patients with co-morbidities not associated with the antiphospholipid antibody (APA) syndrome including inflammatory and infectious conditions. In order to improve specificity, the International Congress on Antiphospholipid Antibodies recommends ACL antibodies of IgG or IgM isotype present in medium or high titer (e.g. > 40 GPL, or >the 99th percentile), on two or more occasions, at least 12 weeks apart, to support a diagnosis of antiphospholipid syndrome. The cutoff for this assay was developed from data based on the 99th percentile. In addition, the International Congress on Antiphospholipid Antibodies does not recommend testing for IgA KAVYA. These results were obtained with the [employer] System. Cardiolipin IgG values obtained with different manufacturers' assay methods may not be used interchangeably. Current interpretive data was last revised on 2017. Testing performed by: [facility], [address] [place]., [address] Blood 07/15/2024 10:3 8 AM ANTISQUEAK WORKER 07/15/2024 1:19 PM ANTISQUEAK WORKER us Jared Marie MD LAB BLOOD ORDERABLES Final Result [facility] [address] [address]. [facility] [place] [address] * Beta 2 glycoprotein IgM Ab (07/15/2024 10:38 AM ANTISQUEAK WORKER) Beta-2 glycoprotein I, IgM 2.7 <=19.9 units/mL Comment: Interpretive Data Negative: <20 U/mL Positive: > or = 20 U/mL Beta- 2 glycoprotein 1 (Beta-2 GP1) antibodies are a more specific marker of thrombotic risk. It is expected that some samples will be ACL positive and Beta- 2 GP1 negative. In order to improve specificity, the International Congress on Antiphospholipid Antibodies recommends Beta-2 GP1 antibodies of IgG or IgM isotype (> the 99th percentile), obtained twice, at least 12 weeks apart, to support a diagnosis of antiphospholipid syndrome. The cutoff for this assay was developed from data based on the 99th percentile. The Beta-2 GP1 IgM test can produce false positive results due to cross-reactivity with Rheumatoid factor. These results were obtained with the [employer] System. Beta-2 GP1 IgM values obtained with different manufacturers' assay methods may not be used interchangeably. Current interpretive data was last revised on 2017. Testing performed by: [facility], [address] [place] [address]., [address] Blood 07/15/2024 10:3 8 AM ANTISQUEAK WORKER 07/15/2024 1:19 PM ANTISQUEAK WORKER us Jared Marie MD LAB BLOOD ORDERABLES Final Result Performing Organization Address City/State/[facility] Co de Phone Number [facility] [address] [facility]. [place] [address] * Beta 2 glycoprotein IgG Ab (07/15/2024 10:38 AM ANTISQUEAK WORKER) [facility] Beta-2 glycoprotein I, IgG <1.4 <=19.9 units/mL Comment: Interpretive Data Negative: <20 U/mL Positive: > or = 20 U/mL Beta-2 glycoprotein 1 (Beta-2 GP1) antibodies are a more specific marker of thrombotic risk. It is expected that some samples will be ACL positive and Beta- 2 [id number]. In order to improve specificity, the International Congress on Antiphospholipid Antibodies recommends Beta-2 GP1 antibodies of IgG or IgM isotype (> the 99th percentile), obtained twice, at least 12 weeks apart, to support a diagnosis of antiphospholipid syndrome. The cutoff for this assay was developed from data based on the 99th percentile. These results were obtained with the [employer] System. Beta 2GP1 IgG values obtained with different manufacturers' assay methods may not be used interchangeably. Current interpretive data was last revised on 2017. Testing performed by: [facility], [address] [place]., [address] Blood 07/15/2024 10:3 8 AM ANTISQUEAK WORKER 07/15/2024 1:19 PM ANTISQUEAK WORKER us Jared Marie MD LAB BLOOD ORDERABLES Final Result [facility] [address] [place] [address] * (ABNORMAL) aPTT mixing study (07/15/2024 10:38 AM ANTISQUEAK WORKER) aPTT 42(H) 28 - 38 sec Comment: Interpretive Data Heparin therapeutic range: 66.0 - 100.0 seconds. Range based on correlation with therapeutic heparin activity range of 0.3 - 0.7 Units/mL. Current interpretive data was last revised on 2023. Testing performed by: [facility], [address] [place]., [address] aPTT, 50/50 mix 36 28 - 38 sec DEVAUGHN JOHNSON Comment: Interpretive data Evaluating an unexpected prolonged aPTT/PT begins with a 50:50 mix (patient plasma: pooled normal plasma). If the aPTT/PT is markedly prolonged and 50:50 mix corrects (to within or slightly above upper limit of aPTT/PT reference range), a deficiency of > 1 coagulation factor is likely. If aPTT/PT 50:50 mix does not correct, there may be an inhibitory antibody. Order testing for lupus anticoagulant (LA) or specific factor inhibitor (almost exclusively to FVIII), guided by clinical findings. FVIII inhibitors (and rarely LA) will partially correct immediately after 50:50 mix, but prolong again after 1 hour incubation. When the aPTT/PT is minimally prolonged, 50:50 mix complete correction is non-specific since a weak inhibitor may disappear on dilution. Anticoagulants (heparin, LMWH, argatroban, bivalirudin, dabigatran) prolong aPTT and behave like inhibitory antibodies in 50:50 mix. The lab will screen for them and cancel if present. Current interpretive data was last revised on 2019. Testing performed by: [facility], [address] [place]., [address] aPTT, 50/50 mix, 1 hr 37 28 - 38 sec DEVAUGHN JOHNSON Comment:Testing performed by : [facility], [address] [place]., [address] Blood 07/15/2024 10:3 8 AM ANTISQUEAK WORKER 07/15/2024 1:19 PM ANTISQUEAK WORKER us Jared Marie MD LAB BLOOD ORDERABLES Final Result [facility] [address] [facility]. [place] [place] [address] * Cardiolipin antibody, IgM (07/15/2024 10:38 AM ANTISQUEAK WORKER) Pathologist [facility] Cardiolipin, IgM 3.8 <=19.9 MPL U/mL Comment: Interpretive Data Negative: <20 MPL U/mL Positive: > or = 20 MPL U/mL Anticardiolipin antibodies are associated with certain clinical events including unexplained arterial and venous thromboemboli, and unexplained morbidity. However, detection of low levels of anticardiolipin antibodies occurs in both healthy individuals and patients with co-morbidities not associated with the antiphospholipid antibody (APA) syndrome including inflammatory and infectious conditions. In order to improve specificity, the International Congress on Antiphospholipid Antibodies recommends ACL antibodies of IgG or IgM isotype present in medium or high titer (e.g. > 40 MPL, or >the 99th percentile), on two or more occasions, at least 12 weeks apart, to support a diagnosis of antiphospholipid syndrome. The cutoff for this assay was developed from data based on the 99th percentile. In addition, the International Congress on Antiphospholipid Antibodies does not recommend testing for IgA KAVYA. The ACL IgM test can produce false positive results due to cross-reactivity with Rheumatoid factor, dsDNA or certain infectious disease antibodies. These results were obtained with the [employer] 2200 System. Cardiolipin IgM values obtained with different manufacturers' assay methods may not be used interchangeably. Current interpretive data was last revised on 2017. Testing performed by: [facility], [address] [facility], [place]., [address] Blood 07/15/2024 10:3 8 AM ANTISQUEAK WORKER 07/15/2024 1:19 PM ANTISQUEAK WORKER Jared Marie MD LAB BLOOD ORDERABLES Final Result [facility] [id number] [facility] Department [place] [address] * (ABNORMAL) eGFR (07/09/2024 10:05 AM ANTISQUEAK WORKER) eGFR 59(L) >=60 mL/min/1. 73 m2 Comment: Interpretive Data Reference Interval Normal >/= 90 mL/min/1.73m2 Mildly decreased* 60 - 89 mL/min/1.73m2 Mildly to moderately decreased 45 - 59 mL/min/1.73m2 Moderately to severely decreased 30 - 44 mL/min/1.73m2 Severely decreased 15 - 29 mL/min/1.73m2 Kidney Failure < 15 mL/min/1.73m2 *Relative to young adult level Estimated glomerular filtration rate is determined by the 2020 CKD-EPI equation recommended by the National Kidney Foundation (A Unifying Approach to GFR Estimation: Recommendations of the NKF-ASK Task Force on Reassessing the Inclusion of Race in Diagnosing Kidney Disease, JASN 2020). The CKD-EPI equation should not be used for patients with unstable renal function and has not been validated in children and those over 70. Current interpretive data was last reviewed 2021. Blood 07/09/2024 10:0 5 AM ANTISQUEAK WORKER 07/09/2024 10:18 AM ANTISQUEAK WORKER Jared Marie MD LAB BLOOD ORDERABLES Final Result [facility] Department [place] [address] * (ABNORMAL) Lipid panel (08/13/2023 12:57 PM ANTISQUEAK WORKER) Cholesterol 136 30 - 199 mg/dL [facility] Comment: Interpretive Data Ages < or = 19 years Acceptable: <170 mg/dL Borderline high: 170-199 mg/dL High: >or= 200 mg/dL Ages > or = 20 years Desirable: <200 mg/dL Borderline high: 200-239 mg/dL High: >or= 240 mg/dL Literature References: 1. Expert Panel on Integrated Guidelines for Cardiovascular Health and Risk Reduction in Children and Adolescents. Pediatrics 2011;128:S213 2. NCEP Expert Panel. Circulation 2004;110:227 Current Interpretive Data was last revised on 2018. Triglycerides 160(H) <=149 mg/dL [facility] Comment: Interpretive Data Ages < or = 9 years Acceptable: <75 mg/dL Borderline high: 75-99 mg/dL High: >or= 100 mg/dL Ages 10 to 20 years Acceptable: <90 mg/dL Borderline high: 90-129 mg/dL High: >or= 130 mg/dL Ages > or = 20 years Desirable: <150 mg/dL Borderline high: 150-199 mg/dL High: 200-499 mg/dL Very high: >or= 499 mg/dL Literature References: 1. Expert Panel on Integrated Guidelines for Cardiovascular Health and Risk Reduction in Children and Adolescents. Pediatrics 2011;128:S213 2. NCEP Expert Panel. Circulation 2004;110:227 Current Interpretive Data was last revised on 2018. HDL 47 >=40 mg/dL [facility] Comment: Interpretive Data Ages < or = 19 years Acceptable: >45 mg/dL Borderline low: 40-45 mg/dL Low: <40 mg/dL Ages > or = 20 years Desirable: >or= 60 mg/dL Low: <40 mg/dL Literature References: 1. Expert Panel on Integrated Guidelines for Cardiovascular Health and Risk Reduction in Children and Adolescents. Pediatrics 2011;128:S213 2. NCEP Expert Panel. Circulation 2004;110:227 Current Interpretive Data was last revised on 2018. LDL, calculated 57 <=129 mg/dL [facility] Comment: Interpretive Data Ages < or = 19 years Acceptable: <110 mg/dL Borderline high: 110-129 mg/dL High: >or= 130 mg/dL Ages > or = 20 years Optimal: <100 mg/dL Near optimal: 100-129 mg/dL Borderline high: 130-159 mg/dL High: >160 mg/dL Literature References: 1. Expert Panel on Integrated Guidelines for Cardiovascular Health and Risk Reduction in Children and Adolescents. Pediatrics 2011;128:S213 2. NCEP Expert Panel. Circulation 2004;110:227 Current Interpretive Data was last revised on 2018. Non-HDL Cholesterol 89 mg/dL [facility] Comment: Interpretive Data Ages < or = 19 years Acceptable: <120 mg/dL Borderline high: 120-144 mg/dL High: >145 mg/dL Ages > or = 20 years When triglycerides are >200 mg/dL, Non-HDL cholesterol is a secondary target of therapy with treatment goals that are 30 mg/dL greater than the LDL cholesterol target. Literature References: 1. Expert Panel on Integrated Guidelines for Cardiovascular Health and Risk Reduction in Children and Adolescents. Pediatrics 2011;128:S213 2. NCEP Expert Panel. Circulation 2004;110:227 Current Interpretive Data was last revised on 2018. Chol/HDL ratio 3 [facility] Blood 08/13/2023 12:5 7 PM ANTISQUEAK WORKER 08/13/2023 12:58 PM ANTISQUEAK WORKER Osvaldo Robin MD LAB BLOOD ORDERABLES Final R esult [facility] [id number] [facility] [place] [address] from Last 3 Months or Most Recently Relevant to Health Maintenance Insurance [employer] MEDICARE MEDICARE SOLUTIONS [facility] MEDICARE [facility] MEDICARE Care Teams Marinator Relationship Specialty Start Date End Date Liam Douglas MD [address] [place] [address] PCP - General Family Practice 07/11/23 Agustin Orozco MD [address] [place] [address] Medical Oncologist/Commercial Appraiser Hematology 12/01/18 Jared Marie MD [address] [place] [address] Consulting Physician Medical Oncology 12/01/18
--- OUTSIDE RECORDS SUMMARY | 2024-10-15 08:10 | XMS_ITS | Encounter Summary ---
Author Organization [facility] Address [address] [place] [address] Phone Care Team Providers Care Senior Recruiter Name Role Phone Agustin Orozco MD Unavailable Jared Marie MD Unavailable [phone] Deepak Negron MD Primary Care Provider [phone] Morgan Herrera MD Primary Care Provider [phone] Liam Douglas MD Primary Care Provider [phone] Encounter Details Date Type Department Care Team (Latest Contact Info) Description 05/16/2021 Orders Only [facility] Scanning, Provider Social History Tobacco Use Types Packs/Day Years Used Date Smoking Tobacco: Never Smokeless Tobacco: Never Comments Unknown Sex and Gender Information Value Date Recorded Sex Assigned at Not on file Legal Sex Female 12:02 PM JUKE BOX SERVICER Gender Identity Female 06/25/2021 8:56 PM CDT Sexual Orientation Straight 06/25/2021 8: 56 PM CDT documented as of this encounter Plan of Treatment Not on file documented as of this encounter Procedures Procedure Name Priority Date/Time Associated Diagnosis Comments SCAN - LABS 05/16/2021 documented in this encounter Results * SCAN - LABS (05/16/2021) us Provider Scanning Final Result documented in this encounter Visit Diagnoses Not on filedocumented in this encounter Care Teams Senior Recruiter Relationship Specialty Start Date End Date Deepak Negron MD [address] [place] [address] PCP - General Internal Medicine 06/04/19 07/18/22 Morgan Herrera MD [address] [place] [address] PCP - General Internal Medicine 07/19/22 07/10/23 Liam Douglas MD [address] [place] [address] PCP - General Family Practice 07/11/23 Agustin Orozco MD [address] [place] [address] Medical Oncologist/Paste Plant Supervisor Hematology 12/01/18 Jared Marie MD [address] [place] [address] Consulting Physician Medical Oncology 12/01/18 documented as of this encounter
--- OUTSIDE RECORDS SUMMARY | 2024-10-15 08:10 | XMS_ITS | Clinical Summary ---
Author Organization [facility] Address [address] [place] [address] Care Team Providers Care Weigh Boss Name Role Phone Agustin Orozco MD Unavailable [phone] Jared Marie MD Unavailable Liam Douglas MD Primary Care Provider [phone] Allergies Active Allergy Reactions Criticality Noted Date Comments Codeine Headache,Nausea & Vomiting Low 6 N/V, hallucination Medications SYNJARDY XR 5-1,000 mg tablet, IR & ER, biphasic 24hrIndications :MDS (myelodysplasti c syndrome) ([facility]) daily 9 Active montelukast (SINGULAIR) 10 mg tabletIndicatio ns:MDS (myelodysplasti c syndrome) ([facility]) Take 1 tablet (10 mg total) by mouth daily 5 Active minoxidil 5 % solutionIndicat ions:MDS (myelodysplasti c syndrome) ([facility]) Apply topically Acti ve fluticasone propionate (FLONASE) [...] 2 capsules (200 mg total) by mouth geoscience specialist before breakfast Active Ozempic 1 mg/dose (4 [...] 08/13/2016 Assessment & Plan (07/21/2020 1:36 PM MANAGER DOCUMENT CONTROL): Lab work from January 2020 showed LDL 88 and triglycerides 214. She continues on atorvastatin 20 mg. Assessment & Plan (01/14/2020 9:31 AM CDT): She continues on atorvastatin 20mg. We will recheck a lipid panel. Assessment & Plan (06/04/2019 10:32 AM CDT): Her last lipid panel was in acceptable range, continue on atorvastatin 20mg. Hypertension 08/13/2016 Assessment & Plan (07/21/2020 1:36 PM MANAGER DOCUMENT CONTROL): Her blood pressure is well controlled today. [...] 01/14/2020 Assessment & Plan (07/21/2020 1:36 PM MANAGER DOCUMENT CONTROL): Asymptomatic Assessment & Plan (06/04/2019 10:33 AM CDT): Found to have NSVT in the past. She is at risk for Afib due to metabolic syndrome. Will monitor clinically for now. Sensation of chest tightness 08/13/2016 07/21/2020 Encounters Date Type Department Care Team Description 08/30/2024 11:15 AM MANAGER DOCUMENT CONTROL Lab [facility] [place] at [address] [phone] MDS (myelodysplastic syndrome) (HCC) 08/30/2024 Telephone [facility] Bone Marrow Transplant [address] [place] [address] Floor [address] [place] [address] Jared Marie MD 08/27/2024 Orders Only [facility] Bone Marrow Transplant [address] [place] [address] 6 [place] [phone] Jared Marie MD MDS (myelodysplastic syndrome) (HCC) (Primary Dx) 08/27/2024 Orders Only [facility] Bone Marrow Transplant [address] [place] [address] 6 [place] [phone] Jared Marie MD MDS (myelodysplastic syndrome) (HCC) (Primary Dx) 08/11/2024 2:00 PM MANAGER DOCUMENT CONTROL Office Visit [facility] Cardiology [address] [facility] Medicine 8th [place] [address] [place] [address] Osvaldo Robin MD Dyslipidemia (Primary Dx); Primary hypertension; VERONA (obstructive sleep apnea); Essential hypertension 08/04/2024 7:30 AM MANAGER DOCUMENT CONTROL Lab [facility] at [address] [address] MDS (myelodysplastic syndrome) (HCC) 08/02/2024 Orders Only [facility] Bone Marrow Transplant [address] [place] [address] 6 [place] [phone] Jared Marie MD MDS (myelodysplastic syndrome) (HCC) (Primary Dx) 07/15/2024 10:30 AM MANAGER DOCUMENT CONTROL Lab [facility] [place] at [address] [address] MDS (myelodysplastic syndrome) (HCC) from Last 3 Months Immunizations Name Administration Dates Next Due Influenza, Quadrivalent, Hig h Dose, Preservative Free, Intrr 05/26/2020 Influenza, Trivalent, High D ose, Split, Preservative Free, Intramuscular 05/20/2019,06/15/2018 Influenza, Trivalent, IM (MDV) 08/01/2015 Influenza, Unspecified 06/11/2016,2013,06/01/2013,07/05 Moderna SARS-CoV-2 Monovalen t Vaccination (12+ YRS) 04/18/2021,2020,09/28/2020 Pneumococcal Polysaccharide PPV23 06/15/2018 Tdap 06/11/2016 ZOSTER LIVE 06/01/2018,06/11/2016 Family History Medical History Relation Name Comments Cancer Brother Family history of cancer - (Added by TW Conv) Diabetes Daughter Family history of diabetes mellitus - (Added by TW Conv) Heart attack Father Family history of heart attack - (Added by TW Conv) Sudden Cardiac Father Family history of sudden cardiac - (Added by TW Conv) Coronary artery disease Mother Fami ly history of coronary artery disease - (Added by TW Conv) Diabetes Mother Family history of diabetes mellitus - (Added by TW Conv) Heart attack Mother Family history of heart attack - (Added by TW Conv) Heart failure Mother Family history of heart failure - (Added by TW Conv) Hypertension Mother Family history of hypertension - (Added by TW Conv) Colon cancer Paternal Grandmother Coronary artery disease Sister 1 Fami ly history of coronary artery disease - (Added by TW Conv) Heart attack Sister 2 Family history of heart attack - (Added by TW Conv) Heart failure Sister 3 Family history of heart failure - (Added by TW Conv) Hypertension Sister 4 Family history of hypertension - (Added by TW Conv) Diabetes Sister 5 Family history of diabetes mellitus - (Added by TW Conv) Lung disease Sister 6 Family history of lung disease - (Added by TW Conv) Peripheral vascular disease Sister 7 Family history of peripheral vascular disease - (Added by TW Conv) Cancer Sister 8 Family history of cancer - (Added by TW Conv) Relation Name Status Comments Brother Daughter Father Mother Paternal Grandmother Sister 1 Sister 2 Sister 3 Sister 4 Sister 5 Sister 6 Sister 7 Sister 8 Social History Tobacco Use Types Packs/Day Years Used Date Smoking Tobacco: Never Smokeless Tobacco: Never Tobacco Cessation:Counseling Given: Not Answered Comments Unknown Sex and Gender Information Value Date Recorded Sex Assigned at Not on file Legal Sex Female 12:02 PM MANAGER DOCUMENT CONTROL Gender Identity Female 06/25/2021 8:56 PM CDT Sexual Orientation Straight 06/25/2021 8: 56 PM CDT Obstetrics History Last Filed Vital Signs Vital Sign Reading Time Taken Comments Blood Pressure 124/70 08/11/2024 1:10 PM MANAGER DOCUMENT CONTROL Pulse 82 08/11/2024 1:10 PM MANAGER DOCUMENT CONTROL Temperature 36.2 C (97.2 F) 07/09/2024 10:40 AM MANAGER DOCUMENT CONTROL Respiratory Rate 18 07/09/2024 10:40 AM MANAGER DOCUMENT CONTROL Oxygen Saturation 97% 08/11/2024 1:10 PM MANAGER DOCUMENT CONTROL Inhaled Oxygen Concentration - - Weight 68 kg (150 lb) 08/11/2024 1:10 PM MANAGER DOCUMENT CONTROL Height 165.1 cm (5' 5 ) 08/11/2024 1:10 PM MANAGER DOCUMENT CONTROL Body Mass Index 24.96 08/11/2024 1:10 PM MANAGER DOCUMENT CONTROL Plan of Treatment Health Maintenance Due Date Last Done Comments Albumin Creatinine Ratio, Urine 1950 Breast Cancer Screening-Mammogram 1950 Colon Cancer Screening-Colonoscopy 1950 Depression Screening 1950 Fall Risk Assessment 1950 Hemoglobin A1C 1950 Hepatitis C Screening 1950 Osteoporosis Screening-Bone Density Scan 1950 Dilated Eye Exam 1950 Foot Exam 1950 Hepatitis B Screening 1968 Well Visit 65+ 11/01/2015 Zoster Vaccine (2 of 3) 07/27/2018 06/01/2018, 06/11 Pneumococcal vaccine 65+ (2 of 2 - PCV) 06/15/2019 06/15/2018 Covid-19 Vaccine (4 - 2023-2 5 season) 2024 04/18/2021, 2020, 09/28/2020 Influenza Vaccine (#1) 2024 , 05/20/2019, 06/15/2018, Additional history exists Lipid Panel 08/13/2024 08/13/2023, 12/0 03/2022, 02/04/2020 eGFR 07/09/2025 07/09/2024, 05/1 , 07/11/2023, Additional history exists DTaP/Tdap/Td Vaccine (2 - Td or Tdap) 06/11/2026 06/11/2016 Procedures Procedure Name Priority Date/Time Associated Diagnosis Comments FACTOR VIII ACTIVITY Routine 08/04/2024 11:38 AM MANAGER DOCUMENT CONTROL MDS (myelodysplastic syndrome) (HCC) FACTOR IX ACTIVITY Routine 08/04/2024 11 :38 AM MANAGER DOCUMENT CONTROL MDS (myelodysplastic syndrome) (HCC) VON WILLEBRAND FACTOR ANTIGEN Routine 08/04/2024 11:38 AM MANAGER DOCUMENT CONTROL MDS (myelodysplastic syndrome) (HCC) VON WILLEBRAND FACTOR ACTIVITY (SCREEN) Routine 08/04/2024 11:38 AM MANAGER DOCUMENT CONTROL MDS (myelodysplastic syndrome) (HCC) LUPUS ANTICOAGULANT PANEL PLUS REFLEXES Routine 07/15/2024 10:38 AM MANAGER DOCUMENT CONTROL MDS (myelodysplastic syndrome) (HCC) CARDIOLIPIN ANTIBODY, IGM Routine 07/15/2024 10:38 AM MANAGER DOCUMENT CONTROL MDS (myelodysplastic syndrome) (HCC) CARDIOLIPIN ANTIBODY, IGG Routine 07/15/2024 10:38 AM MANAGER DOCUMENT CONTROL MDS (myelodysplastic syndrome) (HCC) BETA 2 GLYCOPROTEIN IGM AB Routine 07/15/2024 10:38 AM MANAGER DOCUMENT CONTROL MDS (myelodysplastic syndrome) (HCC) BETA 2 GLYCOPROTEIN IGG AB Routine 07/15/2024 10:38 AM MANAGER DOCUMENT CONTROL MDS (myelodysplastic syndrome) (HCC) APTT MIXING STUDY Routine 07/15/2024 10: 38 AM MANAGER DOCUMENT CONTROL MDS (myelodysplastic syndrome) (HCC) EGFR Routine 07/09/2024 10:05 AM MANAGER DOCUMENT CONTROL MDS (myelodysplastic syndrome) (HCC) LIPID PANEL Routine 08/13/2023 12:57 PM MANAGER DOCUMENT CONTROL Dyslipidemia Essential hypertension from Last 3 Months or Most Recently Relevant to Health Maintenance Results * Von Willebrand factor antigen (08/04/2024 11:38 AM MANAGER DOCUMENT CONTROL) vWF antigen 145 55 - 200 %norm Comment: Interpretive Data vWF Ag results may be negatively biased when rheumatoid factor levels are >50 IU/ml. Current interpretive data was last revised 2024. Testing performed by: [facility], [address] [place]., [address] Blood 08/04/2024 11:3 8 AM MANAGER DOCUMENT CONTROL 08/04/2024 2:52 PM MANAGER DOCUMENT CONTROL us Jared Marie MD LAB BLOOD ORDERABLES Final Result Performing Organization Address City/State/[facility] Co de Phone Number DEVAUGHN [facility] [address] [facility]. Department [place] [employer] [address] * Von Willebrand factor activity (08/04/2024 11:38 AM MANAGER DOCUMENT CONTROL) vWF activity 134 50 - 180 %norm [...] test (vWF GP1bM) will be sent to [facility] reference laboratory in [place], [place] (3). 1. Angelique VALENCIA, sonya HURTADO. A new automated screening assay for the diagnosis of von Willebrand disease. Am J Clin Path. 2007; 127:730-5. 2. Marie Rivers, Raman SUAZO, Jessica BJ, Alicia RK, Kenyetta MORROW, Wes JA. Validation of an automated latex particle-enhanced immunoturbidimetric von Willebrand factor activity assay. J Thromb Haemost. 2011; 9:7449-7413. 3. Anthony Hayden et al. A comparative analysis of different automated von Willebrand factor glycoprotein 1b-binding activity assays in well-typed von Willebrand disease patients. J Thromb Haemost 2018;16:1268-77. Current interpretive data was last revised on 2021. Testing performed by: [facility], [address] [place]., [address] Blood 08/04/2024 11:3 8 AM MANAGER DOCUMENT CONTROL 08/04/2024 2:52 PM MANAGER DOCUMENT CONTROL Jared Marie MD LAB BLOOD ORDERABLES Final Result Performing Organization Address [facility] de Phone Number [facility] [address] [employer] [place] [address] * Factor IX activity (08/04/2024 11:38 AM MANAGER DOCUMENT CONTROL) Factor IX activity 98 55 - 160 %norm Comment:Testing performed by : [facility], [address] [place] [address]., [address] Blood 08/04/2024 11:3 8 AM MANAGER DOCUMENT CONTROL 08/04/2024 2:52 PM MANAGER DOCUMENT CONTROL Jared Marie MD LAB BLOOD ORDERABLES Final Result Performing Organization Address City/[facility] Co de Phone Number [facility] B[facility] [address] [employer]. [facility] [place] [address] * Factor VIII activity (08/04/2024 11:38 AM MANAGER DOCUMENT CONTROL) Factor VIII activity 153 45 - 160 %norm Comment:Testing performed by : [facility], [address] [place] [address]., [address] Blood 08/04/2024 11:3 8 AM MANAGER DOCUMENT CONTROL 08/04/2024 2:52 PM MANAGER DOCUMENT CONTROL us Jared Marie MD LAB BLOOD ORDERABLES Final Result DEVAUGHN CARMICHAEL [address] [address] [facility]. Department [place] [address] * (ABNORMAL) Lupus Anticoagulant Panel plus Reflexes (07/15/2024 10:38 AM MANAGER DOCUMENT CONTROL) PT 11.5 9.7 - 13.0 sec Comment:Testing performed by : [facility], [address] [place]., [address] INR 1.06 0.90 - 1.20 DEVAUGHN JOHNSON Comment: Interpretive data Oral anticoagulant therapeutic ranges: Venous thromboembolism prophylaxis or treatment: 2.0-3.0 CARDIOLOGY Standard range: 2.0-3.0 High-intensity range: 2.5-3.5 Refer to indication-specific guidelines for appropriate target ranges for prosthetic heart valve replacement. Current interpretive data was last revised on 2019. Testing performed by: [facility], [address] [place]., [address] aPTT 40(H) 28 - 38 sec DVEAUGHN JOHNSON Comment: Interpretive Data Heparin therapeutic range: 66.0 - 100.0 seconds. Range based on correlation with therapeutic heparin activity range of 0.3 - 0.7 Units/mL. Current interpretive data was last revised on 2023. Testing performed by: [facility], [address] [place]., [address] DRVVT screen ratio 0.97 0.00 - 1.20 Ratio DEVAUGHN JOHNSON Comment:Testing performed by : [facility], [address] [place]., [address] SCT Screen Ratio 1.39(H) 0.00 - 1.16 Ratio DEVAUGHN NICHOLSWCH Comment:Testing performed by : [facility], [address] [place]., [address] SCT Confirm Ratio 1.19 Ratio DEVAUGHN NICHOLSWNATANAEL Comment:Testing performed by : [facility], [address] [facility], [place]., [address] SCT S/C Ratio 1.17(H) 0.00 - 1.16 Ratio DEVAUGHN JOHNSON Comment:Testing performed by : [facility], [address] [facility], [place]., [address] Lupus anticoagulant, interp Positive( A) DEVAUGHN JOHNSON Comment: Interpretive data Lupus anticoagulants (LA) are acquired autoantibodies that interfere with invitro clotting in a phospholipid-dependent manner and are associated with an increased risk of thromboembolic events and complications. Routine APTT and PT reagents are not sensitive to inhibition by LA, and should not be used as screening tests. The laboratory follows ISTH 2009 guidelines ([employer], 2009) for LA testing and interpretation: Two [...] heparin. References: 1) Lexi V, Mikaela A, [place] JH, Ormelvinl TL, Aidee M, De Adolfo PG. Update of the guidelines for lupus anticoagulant detection. J Thromb Haemost. 2009; 7:5717-8680. 2. Bev Martines et al. International consensus statement on an update of the classification criteria for definite antiphospholipid syndrome (APS). J Thromb Haemost. 2006; 4:295-306. Current interpretive data was last revised on 2018 Testing performed by: [facility], [address] [place] [address]., [address] Blood 07/15/2024 10:3 8 AM MANAGER DOCUMENT CONTROL 07/16/2024 8:12 AM MANAGER DOCUMENT CONTROL us Jared Marie MD LAB BLOOD ORDERABLES Final Result DEV[facility]N [facility] [address] [facility]. [place] [address] * Cardiolipin antibody, IgG (07/15/2024 10:38 AM MANAGER DOCUMENT CONTROL) Pathologist [facility] Cardiolipin, IgG <1.6 <=19.9 GPL U/mL Comment: [...] KAVYA. These results were obtained with the Aero Glass 2200 System. Cardiolipin IgG values obtained with different manufacturers' assay methods may not be used interchangeably. Current interpretive data was last revised on 2017. Testing performed by: [facility], [address] [place]., [address] Blood 07/15/2024 10:3 8 AM MANAGER DOCUMENT CONTROL 07/15/2024 1:19 PM MANAGER DOCUMENT CONTROL Jared Marie MD LAB BLOOD ORDERABLES Final Result DEVAUGHN [facility] [address] [address] [facility] [place] [address] * Beta 2 glycoprotein IgM Ab (07/15/2024 10:38 AM MANAGER DOCUMENT CONTROL) Beta-2 glycoprotein I, IgM 2.7 <=19.9 units/mL [...] factor. These results were obtained with the Aero Glass 2200 System. Beta-2 GP1 IgM values obtained with different manufacturers' assay methods may not be used interchangeably. Current interpretive data was last revised on 2017. Testing performed by: [facility], [address] [place]., [address] Blood 07/15/2024 10:3 8 AM MANAGER DOCUMENT CONTROL 07/15/2024 1:19 PM MANAGER DOCUMENT CONTROL Jared Marie MD LAB BLOOD ORDERABLES Final Result DEV[facility]GHN [facility] [address] [address] [facility] [place] [address] * Beta 2 glycoprotein IgG Ab (07/15/2024 10:38 AM MANAGER DOCUMENT CONTROL) Pathologist [facility] Beta-2 glycoprotein I, IgG <1.4 <=19.9 units/mL Comment: Interpretive Data Negative: <20 U/mL Positive: > or = 20 U/mL Beta-2 glycoprotein 1 (Beta-2 GP1) antibodies are a more specific marker of thrombotic risk. It is expected that some samples will be ACL positive and Beta- 2 [id number]. In order to improve specificity, the International Congress on Antiphospholipid Antibodies recommends Beta-2 GP1 antibodies of IgG or IgM isotype (> the 99th percentile), obtained twice, at least 12 weeks apart, to support a diagnosis of antiphospholipid syndrome. The cutoff for this assay was developed from data based on the 99th percentile. These results were obtained with the Aero Glass 2200 System. Beta 2GP1 IgG values obtained with different manufacturers' assay methods may not be used interchangeably. Current interpretive data was last revised on 2017. Testing performed by: [facility], [address] [place] [address]., [address] Blood 07/15/2024 10:3 8 AM MANAGER DOCUMENT CONTROL 07/15/2024 1:19 PM MANAGER DOCUMENT CONTROL us Jared Marie MD LAB BLOOD ORDERABLES Final Result [facility] [address] [facility]. Department [place] [place] [address] * (ABNORMAL) aPTT mixing study (07/15/2024 10:38 AM MANAGER DOCUMENT CONTROL) [facility] aPTT 42(H) 28 - 38 sec Comment: Interpretive Data Heparin therapeutic range: 66.0 - 100.0 seconds. Range based on correlation with therapeutic heparin activity range of 0.3 - 0.7 Units/mL. Current interpretive data was last revised on 2023. Testing performed by: [facility], [address] [place] [address]., [address] aPTT, 50/50 mix 36 28 - 38 [...] last revised on 2019. Testing performed by: [facility], [address] [place] [address]., [address] aPTT, 50/50 mix, 1 hr 37 28 - 38 sec DEVAUGHN JOHNSON Comment:Testing performed by : [facility], [address] [place] [address]., [address] Blood 07/15/2024 10:3 8 AM MANAGER DOCUMENT CONTROL 07/15/2024 1:19 PM MANAGER DOCUMENT CONTROL us Jared Marie MD LAB BLOOD ORDERABLES Final Result Performing Organization Address City/State/[facility] Co de Phone Number [facility] [address] [facility]. Department [place] [address] * Cardiolipin antibody, IgM (07/15/2024 10:38 AM MANAGER DOCUMENT CONTROL) [facility] Cardiolipin, IgM 3.8 <=19.9 MPL U/mL Comment: [...] antibodies. These results were obtained with the Aero Glass 2200 System. Cardiolipin IgM values obtained with different manufacturers' assay methods may not be used interchangeably. Current interpretive data was last revised on 2017. Testing performed by: [facility], [address] [place] [address]., [address] Blood 07/15/2024 10:3 8 AM MANAGER DOCUMENT CONTROL 07/15/2024 1:19 PM MANAGER DOCUMENT CONTROL us Jared Marie MD LAB BLOOD ORDERABLES Final Result [facility]N [facility] [address] [facility]. [place] [address] * (ABNORMAL) eGFR (07/09/2024 10:05 AM MANAGER DOCUMENT CONTROL) eGFR 59(L) >=60 mL/min/1. 73 m2 Comment: [...] reviewed 2021. Blood 07/09/2024 10:0 5 AM MANAGER DOCUMENT CONTROL 07/09/2024 10:18 AM MANAGER DOCUMENT CONTROL us Jared Marie MD LAB BLOOD ORDERABLES Final Result DEVAUGHN NICHOLS [facility] Department [place] [address] * (ABNORMAL) Lipid panel (08/13/2023 12:57 PM MANAGER DOCUMENT CONTROL) Cholesterol 136 30 - 199 mg/dL DEVAUGHN [...] DEVAUGHN JOHNSON Blood 08/13/2023 12:5 7 PM MANAGER DOCUMENT CONTROL 08/13/2023 12:58 PM MANAGER DOCUMENT CONTROL us Osvaldo Robin MD LAB BLOOD ORDERABLES Final R esult DEVAUGHN JOHNSON [address] [facility]. [place] [address] from Last 3 Months or Most Recently Relevant to Health Maintenance Insurance T MEDICARE MEDICARE SOLUTIONS [facility] MEDICARE AET MEDICARE Care Teams Weigh Boss Relationship Specialty Start Date End Date Liam Douglas MD [address] [place] [address] PCP - General Family Practice 07/11/23 Agustin Orozco MD [address] [place] [address] Medical Oncologist/Bulk Cooler Installer Hematology 12/01/18 Jared Marie MD [address] [place] [address] Consulting Physician Medical Oncology 12/01/18
--- OUTSIDE RECORDS SUMMARY | 2024-10-15 08:10 | XMS_ITS | Encounter Summary ---
Author Organization [facility] Address [address] [place] [address] Phone Care Team Providers Care Keg Varnisher Name Role Phone Agustin Orozco MD Unavailable [phone] Jared Marie MD Unavailable [phone] Deepak Negron MD Primary Care Provider [phone] Morgan Herrera MD Primary Care Provider [phone] Liam Douglas MD Primary Care Provider [phone] Encounter Details Date Type Department Care Team (Latest Contact Info) Description 05/18/2020 Orders Only [facility] Scanning, Provider Social History Tobacco Use Types Packs/Day Years Used Date Smoking Tobacco: Never Smokeless Tobacco: Never Comments Unknown Sex and Gender Information Value Date Recorded Sex Assigned at Not on file Legal Sex Female 12:02 PM WEB SOLUTIONS ARCHITECT Gender Identity Female 06/25/2021 8:56 PM CDT Sexual Orientation Straight 06/25/2021 8: 56 PM CDT documented as of this encounter Plan of Treatment Not on file documented as of this encounter Procedures Procedure Name Priority Date/Time Associated Diagnosis Comments SCAN - LABS 05/18/2020 documented in this encounter Results * SCAN - LABS (05/18/2020) us Provider Scanning Final Result documented in this encounter Visit Diagnoses Not on filedocumented in this encounter Care Teams Keg Varnisher Relationship Specialty Start Date End Date Deepak Negron MD [address] [place] [address] PCP - General Internal Medicine 06/04/19 07/18/22 Morgan Herrera MD [address] [place] [address] PCP - General Internal Medicine 07/19/22 07/10/23 Liam Douglas MD [address] [place] [address] PCP - General Family Practice 07/11/23 Agustin Orozco MD [address] [place] [address] Medical Oncologist/Life Underwriter Hematology 12/01/18 Jared Marie MD [address] [place] [address] Consulting Physician Medical Oncology 12/01/18 documented as of this encounter
--- OUTSIDE RECORDS SUMMARY | 2024-10-15 08:10 | XMS_ITS | Clinical Summary ---
Author Organization [facility] [employer] Address [address] [place] [address] Care Team Providers Care Staff Design Engineer Name Role Phone Bryn Jeff MD Primary Care Provider [phone] Source Comments [facility],non-owned Affiliates and Associated Physician Practices is amultiple site organization consisting of ambulatory clinics and hospital sitesin [place], [place], [place] and [place]. This disclosure is being madepursuant to the Care Everywhere program and may not contain all information available regarding this patient. Last updated 18.[facility] [employer] Allergies Active Allergy Reactions Criticality Noted Date Comments Codeine Nausea and/or Vomiting,Headache 09/02 Medications * Be aware that medications may not be up to date on this document. Alwaysverify current medications with the patient. Medication Sig Dispensed Refills Start Date End Date Status omeprazole (PRILOSEC) 20 MG capsule Take 20 mg by mouth 2 times daily Active pioglitazone (ACTOS) 15 MG tablet Take 15 mg by mouth every evening Active valsartan-hydrochlorot hiazide (DIOVAN HCT) 320-12.5 MG tablet Take 1 Tab by mouth every evening Active atorvastatin (LIPITOR) 20 MG tablet Take 20 mg by mouth at bedtime Active levothyroxine (SYNTHROID) 125 MCG tablet Take 125 mcg by mouth every evening Active solifenacin (VESICARE) 5 MG tablet Take 5 mg by mouth every evening Active Fish Oil Use 1,000 mg every evening Active vitamin E (TOCOPHERYL) 1000 UNIT capsule Take 1,000 Units by mouth every evening Active multivitamin daily (THERAGRAN) tablet Take 1 Tab by mouth every evening Active Multiple Vitamins-Minerals (WOMENS HAIR, SKIN & NAILS PO) Take by mouth every evening Active montelukast (SINGULAIR) 10 MG tablet Take 10 mg by mouth at bedtime 08/27/2015 Active ibuprofen (ADVIL) 200 MG capsule Take 200 mg by mouth 4 times daily as needed for Pain Active Active Problems Problem Noted Date Diagnosed Date Gastric prolapse 10/20/2015 Morbid obesity due to excess calories 09/29/2015 Dysphagia 09/29/2015 Immunizations Name Administration Dates Next Due INFLUENZA VACCINE, HIGH-DOSE , QUADR. (FLUZONE HIGH-DOSE QUADRIVALENT; 65Y+), 0.7 ML (HD-IIV4) 06/11/2016 TDAP (7yrs+) 06/11/2016 ZOSTER VACCINE, LIVE 06/11/2016 Family History Medical History Relation Name Comments Genetic Maternal Grandmother Diabetes Mother Genetic Mother Hypercholesterolemia Mother Hypertension Mother Osteoporosis Mother Genetic Other Cat Gut Sutures Diabetes Sister Genetic Sister Hypercholesterolemia Sister Hypertension Sister Migraine Sister Osteoporosis Sister Relation Name Status Comments Maternal Grandmother Mother Other Cat Gut Sutures Alive Sister Social History Tobacco Use Types Packs/Day Years Used Date Smoking Tobacco: Never Alcohol Use Standard Drinks/Week Comments No 0 (1 standard drink = 0.6 oz pur e alcohol) Sex and Gender Information Value Date Recorded Sex Assigned at Not on file Gender Identity Not on file Sexual Orientation Not on file Last Filed Vital Signs Vital Sign Reading Time Taken Comments Blood Pressure 145/81 12/08/2015 11:20 AM CDT Pulse 79 12/08/2015 11:20 AM CDT Temperature 36.5 C (97.7 F) 11/16/2015 10:48 AM CDT Respiratory Rate 18 11/11/2015 4:07 PM 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 Oxygen Saturation 98% 11/16/2015 10:48 AM CDT Inhaled Oxygen Concentration - - Weight 100.2 kg (221 lb) 12/08/2015 11:20 AM CDT Height 161.9 cm (5' 3.75 ) 12/08/2015 11:20 AM C DT Body Mass Index 38.23 12/08/2015 11:20 AM CDT Plan of Treatment Health Maintenance Due Date Last Done Comments BONE DENSITY TESTING 1950 COLOGUARD (AGES 45-75) - COL ON CA SCREENING 1950 COLON MONITORING 1950 COLONOSCOPY - COLON CA SCREENING 1950 CT COLONOGRAPHY - COLON CA SCREENING 1950 Colorectal Cancer Screening 1950 FIT - COLON CA SCREENING 1950 FLEX SIG - COLON CA SCREENING 1950 MAMMOGRAM 1950 MEDICARE AWV 12 MONTHS 1950 HEPATITIS C SCREENING 10/26/1968 PNEUMOCOCCAL VACCINE 50+ (1 of 1 - PCV) 2000 ZOSTER VACCINE (2 of 3) 08/06/2016 06/11/2016 COVID-19 VACCINE (1 - 2023-2 5 season) 2024 INFLUENZA VACCINE (#1) 2024 06/11/2016 DEPRESSION SCREENING 09/01/2024 Respiratory Syncytial Virus (RSV) Vaccine Pt: or over 60 yrs (1 - 1-dose 75+ series) 2025 DTAP/TDAP/TD VACCINES (2 - T d or Tdap) 06/11/2026 06/11/2016 HEPATITIS B VACCINE Aged Out No longe r eligible based on patient's age to complete this topic HIB VACCINE Aged Out No longer eligi ble based on patient's age to complete this topic HPV VACCINE Aged Out No longer eligi ble based on patient's age to complete this topic MENINGOCOCCAL (Group B) VACCINE Aged Out No longer eligible based on patient's age to complete this topic MENINGOCOCCAL VACCINE Aged Out No michael anel eligible based on patient's age to complete this topic Advance Directives * Full Code (Latest Code Status on File) Date Activated Date Inactivated Comments 11/10/2015 10:16 AM 11/11/2015 5:09 PM Care Teams Staff Design Engineer Relationship Specialty Start Date End Date Bryn Jeff MD [address] [place] [address] PCP - General Internal Medicine 09/29/15
--- OUTSIDE RECORDS SUMMARY | 2024-10-15 08:10 | XMS_ITS | Encounter Summary ---
Author Organization [facility] Address [address] [place] [address] Phone Care Team Providers Care Nutritionist Name Role Phone Agustin Orozco MD Unavailable Jared Marie MD Unavailable [phone] Deepak Negron MD Primary Care Provider [phone] Morgan Herrera MD Primary Care Provider [phone] Liam Douglas MD Primary Care Provider [phone] Encounter Details Date Type Department Care Team (Latest Contact Info) Description 11/14/2020 Orders Only [facility] Scanning, Provider Social History Tobacco Use Types Packs/Day Years Used Date Smoking Tobacco: Never Smokeless Tobacco: Never Comments Unknown Sex and Gender Information Value Date Recorded Sex Assigned at Not on file 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 Gender Identity Female 06/25/2021 8:56 PM CDT Sexual Orientation Straight 06/25/2021 8: 56 PM CDT documented as of this encounter Plan of Treatment Not on file documented as of this encounter Procedures Procedure Name Priority Date/Time Associated Diagnosis Comments SCAN - LABS 11/14/2020 documented in this encounter Results * SCAN - LABS (11/14/2020) us Provider Scanning Edited Result - Final documented in this encounter Visit Diagnoses Not on filedocumented in this encounter Care Teams Nutritionist Relationship Specialty Start Date End Date Deepak Negron MD [address] [place] [address] PCP - General Internal Medicine 06/04/19 07/18/22 Morgan Herrera MD [address] [place] [address] PCP - General Internal Medicine 07/19/22 07/10/23 Liam Douglas MD [address] [place] [address] PCP - General Family Practice 07/11/23 Agustin Orozco MD [address] [place] [address] Medical Oncologist/[place] Hematology 12/01/18 Jared Marie MD [address] [place] [address] Consulting Physician Medical Oncology 12/01/18 documented as of this encounter
--- OUTSIDE RECORDS SUMMARY | 2024-10-15 08:10 | XMS_ITS | Patient Health Summary ---
Author Organization [facility] Address [address] [place] [address] Care Team Providers Care Grease Press Helper Name Role Phone Bryn Jeff MD Primary Care Provider [phone] Note from [facility],non-owned Affiliates and Associated Physician Practices is amultiple site organization consisting of ambulatory clinics and hospital sitesin [place], [place], [place] and [place]. This disclosure is being madepursuant to the Care Everywhere program and may not contain all information available regarding this patient. Last updated 18.[facility] Allergies * Codeine(Nausea and/or Vomiting,Headache) Medications * Be aware that medications may not be up to date on this document. Alwaysverify current medications with the patient. * omeprazole (PRILOSEC) 20 MG capsule Take 20 mg by mouth 2 times daily * pioglitazone (ACTOS) 15 MG tablet Take 15 mg by mouth every evening * valsartan-hydrochlorothiazide (DIOVAN HCT) 320-12.5 MG tablet Take 1 Tab by mouth every evening * atorvastatin (LIPITOR) 20 MG tablet Take 20 mg by mouth at bedtime * levothyroxine (SYNTHROID) 125 MCG tablet Take 125 mcg by mouth every evening * solifenacin (VESICARE) 5 MG tablet Take 5 mg by mouth every evening * Fish Oil Use 1,000 mg every evening * vitamin E (TOCOPHERYL) 1000 UNIT capsule Take 1,000 Units by mouth every evening * multivitamin daily (THERAGRAN) tablet Take 1 Tab by mouth every evening * Multiple Vitamins-Minerals (WOMENS HAIR, SKIN & NAILS PO) Take by mouth every evening * montelukast (SINGULAIR) 10 MG tablet(Started 08/27/2015) Take 10 mg by mouth at bedtime * ibuprofen (ADVIL) 200 MG capsule Take 200 mg by mouth 4 times daily as needed for Pain Active Problems Problem Noted Date Diagnosed Date Gastric prolapse 10/20/2015 Morbid obesity due to excess calories 09/29/2015 Dysphagia 09/29/2015 Immunizations * INFLUENZA VACCINE, HIGH-DOSE, QUADR. (FLUZONE HIGH-DOSE QUADRIVALENT; 65Y+), 0.7 ML (HD-IIV4)(Given 06/11/2016) * TDAP (7yrs+)(Given 06/11/2016) * ZOSTER VACCINE, LIVE(Given 06/11/2016) Social History Tobacco Use Types Packs/Day Years [...] CDT Respiratory Rate 18 11/11/2015 4:07 PM NURSE TRANSITION Oxygen Saturation 98% 11/16/2015 10:48 AM CDT Inhaled Oxygen Concentration - - Weight 100.2 kg (221 lb) 12/08/2015 11:20 AM CDT Height 161.9 cm (5' 3.75 ) 12/08/2015 11:20 AM C DT Body Mass Index 38.23 12/08/2015 11:20 AM CDT Procedures * GLUCOSE - POINT OF CARE(Performed 11/11/2015) * HEMOGLOBIN A1C(Performed 11/11/2015) * GLUCOSE - POINT OF CARE(Performed 11/10/2015) * GLUCOSE - POINT OF CARE(Performed 11/10/2015) * EKG 12-LEAD(Performed 11/10/2015) Performed for Preoperative examination * LAPAROSCOPIC REMOVAL/REPLACEMENT GASTRIC BAND(Performed 11/10/2015) * GLUCOSE - POINT OF CARE(Performed 11/10/2015) * BASIC METABOLIC PANEL (CALCIUM TOTAL)(Performed 11/10/2015) Performed for Preoperative examination * OXYGEN(Performed 11/09/2015) * PULSE OXIMETRY, CONTINUOUS(Performed 11/09/2015) * PATHOLOGY TISSUE EXAM (STL)(Performed 10/13/2015) Performed for Dysphagia, unspecified dysphagia Results * (ABNORMAL) GLUCOSE - POINT OF CARE (11/11/2015 7:30 AM NURSE TRANSITION) Only the most recent of4 resultswithin the time period is included. Glucose WB/POC 122(H) 70 - 106 mg/dL 11/11/2015 7:53 AM NURSE TRANSITION [facility] Blood BLOOD SPECIMEN / Unknown 11/11/2015 7:30 AM NURSE TRANSITION 11/11/2015 7:53 AM NURSE TRANSITION Robe Kruse MD LAB - POINT OF CARE ORDERABLES Performing Organization Address [facility] Co de Phone Number [facility] [address] [place], [place] [id number] * HEMOGLOBIN A1C (11/11/2015 3:13 AM NURSE TRANSITION) Pathologist [facility] Hemoglobin A1c 6.0 4.2 - 6.3 % 11/11/2015 4:19 AM NURSE TRANSITION [facility] Estimated Average Glucose 126 mg/dL 11/11/2015 4:19 AM NURSE TRANSITION [facility] Whole Blood BLOOD SPECIMEN WITH EDTA / Unknown 11/11/2015 3:13 AM NURSE TRANSITION 11/11/2015 3:45 AM NURSE TRANSITION Liana Irwin MD LAB - CHEMISTRY AUDREY MCKEON Performing Organization Address [facility] Co de Phone Number [facility] [address] [place] [address] * EKG 12-LEAD (11/10/2015 8:39 AM NURSE TRANSITION) Ventricular Rate 70 BPM [facility] Atrial Rate 70 BPM [facility] P-R Interval 166 ms [facility] QRS Duration ms 84 ms [facility] Q-T Interval ms 398 ms [facility] QTC Calculation (Bezet) 429 ms [facility] Calculated P [place] 46 degrees [facility] Calculated R [place] 2 degrees [facility] Calculated T [place] 47 degrees [facility] Interpretation EKG Normal sinus rhythm Normal ECG No previous ECGs available Confirmed by CHEYENNE GALEANO KAHLIL ([id number]) on 11/10/2015 2:49:11 PM [facility] 11/10/2015 8:39 AM NURSE TRANSITION 11/10/2015 2:49 PM NURSE TRANSITION Robe Kruse MD ECG ORDERABLES [facility] * (ABNORMAL) BASIC METABOLIC PANEL (CALCIUM TOTAL) (11/10/2015 7:31 AM NURSE TRANSITION) Glucose 113(H) 74 - 106 mg/dL 11/10/2015 8:04 AM [facility] Sodium 143 136 - 145 mmol/L 11/10/2015 8:04 AM [facility] Potassium 4.6 3.5 - 5.1 mmol/L 11/10/2015 8:04 AM [facility] Chloride 105 98 - 107 mmol/L 11/10/2015 8:04 AM [facility] CO2 30 22 - 31 mmol/L 11/10/2015 8:04 AM [facility] Calcium 9.7 8.5 - 10.1 mg/dL 11/10/2015 8:04 AM [facility] Anion Gap 8 5 - 20 mmol/L 11/10/2015 8:04 AM [facility] BUN 28(H) 7 - 21 mg/dL 11/10/2015 8:04 AM [facility] Creatinine 0.87 0.50 - 1.30 mg/dL 11/10/2015 8:04 AM [facility] eGFR by MDRD >60 >60 mL/min/1.7 3m2 11/10/2015 8:04 AM [facility] eGFR by MDRD >60 >60 mL/min/1.7 3m2 11/10/2015 8:04 AM [facility] Blood BLOOD SPECIMEN / Unknown 11/10/2015 7:31 AM NURSE TRANSITION 11/10/2015 7:49 AM NURSE TRANSITION Robe Kruse MD LAB - CHEMISTRY ORDE RABJOSE ELIAS [facility] [address] [place] [id number] * GROSS + MICRO EXAM (STL) (10/13/2015 9:45 AM NURSE TRANSITION) Case Report Surgical Pathology Report Case: [id number] Authorizing Provider: Robe Kruse MD Collected: 10/13/2015 09:45 AM Ordering [facility]: [facility] Received: 10/13/2015 12:23 PM Pathologist: Augustine Khan MD Specimen: Antrum Biopsy 10/14/2015 12:54 PM NURSE TRANSITION [facility] Final Diagnosis 1. Stomach, antrum, biopsy: -- No pathologic diagnosis / 10/14/2015 12:54 PM NURSE TRANSITION [facility] Clinical History cc: [facility] 10/14/2015 12:54 PM NURSE TRANSITION [facility] Gross Description Received in formalin in a container labeled Sergey Juarez, antrum biopsy. The container holds a single pink-williamson tissue fragment measuring 0.6 x 0.4 x 0.2 cm. The specimen is entirely submitted in cassette labeled A1. DYT/alj 10/14/2015 12:54 PM NURSE TRANSITION [facility] Microscopic Description Sections of the biopsy of the antrum show fragments of gastric mucosa. Inflammation is not seen. Malignancy is not identified. No Helicobacter organisms are present at H&E or H. pylori immunostain. / 10/14/2015 12:54 PM NURSE TRANSITION [facility] Pathology/Cytolo gy GASTRIC ANTRAL BIOPSY SPECIMEN / Unknown 10/13/2015 9:45 AM NURSE TRANSITION 10/13/2015 12:23 PM NURSE TRANSITION Robe Kruse MD LAB - PATHOLOGY/CYTO LOGY ORDERABLES [facility] [address] [place] [address] Care Teams Grease Press Helper Relationship Specialty Start Date End Date Bryn Jeff MD [address] [place] [address] PCP - General Internal Medicine 09/29/15
--- OUTSIDE RECORDS SUMMARY | 2024-10-15 08:10 | XMS_ITS | Referral Summary ---
Author Organization [facility] [employer] Address [address] [place] [address] Care Team Providers Care Associate Professor Of Medicine Name Role Phone Bryn Jeff MD Primary Care Provider Source Comments [facility] Affiliates and Associated Physician Practices is amultiple site organization consisting of ambulatory clinics and hospital sitesin [place], [place], [place] and [place]. This disclosure is being madepursuant to the Care Everywhere program and may not contain all information available regarding this patient. 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 No 11/11/2015 Is person blind or have serious difficulty seein g? No 11/11/2015 Does person have serious dif ficulty walking/climbing stairs? No 11/11/2015 Does person have difficulty dressing/bathing? No 11/11/2015 Does person have difficulty doing errands alone? No 11/11/2015 Cognitive Status Response Date of Assessm ent Does person have difficulty concentrating/remembering/making decisions? No 11/11/2015 Plan of Treatment Not on file Advance Directives * Full Code (Latest Code Status on File) Date Activated Date Inactivated Comments 11/10/2015 10:16 AM 11/11/2015 5:09 PM Care Teams Associate Professor Of Medicine Relationship Specialty Start Date End Date Bryn Jeff MD [address] [place] [address] PCP - General Internal Medicine 09/29/15
[2024-10-15 08:43] LABS: Blood Urea Nitrogen 21 mg/dL (8-26); Carbon Dioxide 25 mmol/L (22-30); Chloride 103 mmol/L (98-109); Estimated Glomerular Filt Rate 40; Glucose 92 mg/dL (70-105); Ionized Calcium (POC) 1.24 mmol/L (1.11-1.31); Potassium 4.5 mmol/L (3.5-4.9); Sodium 140 mmol/L (138-146)
[2024-10-15 08:45] LABS: Basophils Percent Auto 0.2 % (0.2-1.2); Eosinophils Percent Auto 0.2 % (0-4.4); Hematocrit 34.7 % (37.0-47.0); Hemoglobin 11.4 g/dL (12.0-15.0); Immature Granulocyte Absolute 0.05 K/mm3 (0.00-0.031); Immature Granulocyte Percent A 0.9 % (0-0.5); Immature Platelet Fraction Pct 13.2 % (0.9-11.2); Lymphocytes Absolute Auto 2.33 K/mm3 (0.9-3.2); Lymphocytes Percent Auto 41.2 % (18.3-44.2); Mean Corpuscular HGB Conc 32.9 g/dl (32-36); Mean Corpuscular Hemoglobin 31.7 pg (26-34); Mean Corpuscular Volume 96.4 fl (80-100); Monocytes Absolute Auto 1.9 K/mm3 (0.1-0.6); Monocytes Percent Auto 33.9 % (2.6-8.5); Neutrophils Absolute Auto 1.3 K/mm3 (1.3-6.7); Neutrophils Percent Auto 23.6 % (45.5-73.1); Platelet Count Result 116 k/mm3 (150-375); Red Cell Distribution Width 13.3 % (11.5-14.5); White Blood Count 5.7 K/mm3 (4.5-10.0)
[2024-10-15 08:47] LABS: Platelet Estimate Decreased (Adequate); Schistocytes None Seen
[2024-10-15 08:49] LABS: Atypical Lymphocytes Present
[2024-10-15 10:24] LABS: Alanine Aminotransferase 22 U/L (6-35); Albumin Level 4.4 g/dL (3.5-5.1); Alkaline Phosphatase 66 U/L (38-126); Anion Gap 12 mmol/L (4-12); Aspartate Amino Transferase 32 U/L (14-36); Bilirubin,Total 0.6 mg/dL (0.2-1.3); Blood Urea Nitrogen 21 mg/dL (7-17); Carbon Dioxide 26 mmol/L (22-30); Chloride 102 mmol/L (98-107); Estimated Glomerular Filt Rate 47; Glucose 91 mg/dL (65-110); Potassium 4.6 mmol/L (3.4-5.0); Sodium 140 mmol/L (137-145)
[2024-10-15 10:45] LABS: MALB Creatinine Ratio 17.4 mg/g (0-30)
[2024-10-15 10:54] LABS: Thyroid Stimulating Hormone 0.228 uIU/mL (0.465-4.680)
[2024-10-15 11:28] LABS: Vitamin B12 > 1000.0 pg/mL (239-931)
== END 2024-10-15 08:06 | disposition home or self-care (01) ==
LOC: ANHLAB 08:05
PROVIDERS: PCP Family Medicine; Visit Provider Internal Medicine Hematology & Oncology
DX: E03.9 Hypothyroidism, unspecified (principal); I10 Essential (primary) hypertension; R53.83 Other fatigue; E11.9 Type 2 diabetes mellitus without complications; E55.9 Vitamin D deficiency, unspecified; D46.9 Myelodysplastic syndrome, unspecified; M26.629 Arthralgia of temporomandibular joint, unspecified side; E66.9 Obesity, unspecified
CPT/HCPCS: 36415; 80047; 80053; 82043; 82306; 82607; 83036; 84443; 85025; 85055

== ENCOUNTER 2024-10-27 11:09 | Outpatient (CLI) | payer MEDICARE, SELFPAY ==
--- NOTE | 2024-10-27 11:00 | ECG_ITS ---
Test Date: 2024-10-27 11:38:55 Measurements Intervals [place] Rate: 70 P: 40 MO: 162 QRS: 10 QRSD: 85 T: 51 QT: 381 QTc: 412 Interpretive Statements SINUS RHYTHM BASELINE ARTIFACT- I, II, AVR NORMAL ECG No previous ECG available for comparison Electronically Signed On 10-27-2024 11:47:36 PASTE UP COPY CAMERA OPERATOR by Tomi Garcia D.O.
[2024-10-27 12:12] LABS: INR 1.1; Prothrombin Time 14.7 Seconds (11.1-14.7)
[2024-10-27 12:13] LABS: Partial Thromboplastin Time 54.7 Seconds (22.3-36.8)
--- OUTSIDE RECORDS SUMMARY | 2024-10-27 13:05 | XMS_ITS | Encounter Summary ---
Author Organization [facility] Address [address] [place] [address] Phone Care Team Providers Care Superintendent Geophysical Laboratory Name Role Phone Agustin Orozco MD Unavailable [phone] Jared Marie MD Unavailable [phone] Deepak Negron MD Primary Care Provider [phone] Morgan Herrera MD Primary Care Provider [phone] Liam Douglas MD Primary Care Provider [phone] Encounter Details Date Type Department Care Team (Latest Contact Info) Description 11/14/2020 Orders Only [facility] Scanning, Provider Social History Tobacco Use Types Packs/Day Years Used Date Smoking Tobacco: Never Smokeless Tobacco: Never Comments Unknown Sex and Gender Information Value Date Recorded Sex Assigned at Not on file 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 Gender Identity Female 06/25/2021 8:56 PM CDT [...] on filedocumented in this encounter Care Teams Superintendent Geophysical Laboratory Relationship Specialty Start Date End Date Deepak Negron MD [address] [place] [address] PCP - General Internal Medicine 06/04/19 07/18/22 Morgan Herrera MD [address] [place] [address] PCP - General Internal Medicine 07/19/22 07/10/23 Liam Douglas MD [address] [place] [address] PCP - General Family Practice 07/11/23 Agustin Orozco MD [address] [place] [address] Medical Oncologist/Jute Bag Clipper Hematology 12/01/18 Jared Marie MD [address] [place] [address] Consulting Physician Medical Oncology 12/01/18 documented as of this encounter
--- OUTSIDE RECORDS SUMMARY | 2024-10-27 13:05 | XMS_ITS | Patient Health Summary ---
Author Organization [facility] Address [address] [facility] [place] [address] Care Team Providers Care Assembler Ping Pong Table Name Role Phone Bryn Jeff MD Primary Care Provider [phone] Note from [facility] [place][note 2],non-owned Affiliates and Associated Physician Practices is amultiple site organization consisting of ambulatory clinics and hospital sitesin [place], [place], [place] and [place]. This disclosure is being madepursuant to the Care Everywhere program and may not contain all information available regarding this patient. Last updated 18.[facility] Allergies * Codeine(Nausea and/or Vomiting,Headache) Medications * [...] CDT Respiratory Rate 18 11/11/2015 4:07 PM MAGNETIC TESTING TECHNICIAN Oxygen Saturation 98% 11/16/2015 10:48 AM CDT [...] - POINT OF CARE (11/11/2015 7:30 AM MAGNETIC TESTING TECHNICIAN) Only the most recent of4 resultswithin the time period is included. Glucose WB/POC 122(H) 70 - 106 mg/dL 11/11/2015 7:53 AM MAGNETIC TESTING TECHNICIAN [facility] Blood BLOOD SPECIMEN / Unknown 11/11/2015 7:30 AM MAGNETIC TESTING TECHNICIAN 11/11/2015 7:53 AM MAGNETIC TESTING TECHNICIAN Robe Kruse MD LAB - POINT OF CARE ORDERABLES Performing Organization Address [facility] Co de Phone Number [facility] [address] [place], [place] [id number] * HEMOGLOBIN A1C (11/11/2015 3:13 AM MAGNETIC TESTING TECHNICIAN) Pathologist [facility] Hemoglobin A1c 6.0 4.2 - 6.3 % 11/11/2015 4:19 AM MAGNETIC TESTING TECHNICIAN [facility] Estimated Average Glucose 126 mg/dL 11/11/2015 4:19 AM MAGNETIC TESTING TECHNICIAN [facility] Whole Blood BLOOD SPECIMEN WITH EDTA / Unknown 11/11/2015 3:13 AM MAGNETIC TESTING TECHNICIAN 11/11/2015 3:45 AM MAGNETIC TESTING TECHNICIAN Liana Irwin MD LAB - CHEMISTRY AUDREY MCKEON Performing Organization Address [facility] Co de Phone Number [facility] [address] [place] [address] * EKG 12-LEAD (11/10/2015 8:39 AM MAGNETIC TESTING TECHNICIAN) Ventricular Rate 70 BPM [facility] Atrial Rate 70 BPM [facility] P-R Interval 166 ms [facility] QRS Duration ms 84 ms [facility] Q-T Interval ms 398 ms [facility] QTC Calculation (Bezet) 429 ms [facility] Calculated P [place] 46 degrees [facility] Calculated R [place] 2 degrees [facility] Calculated T [place] 47 degrees [facility] Interpretation EKG Normal sinus rhythm Normal ECG No previous ECGs available Confirmed by CHEYENNE GALEANO KAHLIL ([id number]) on 11/10/2015 2:49:11 PM [facility] 11/10/2015 8:39 AM MAGNETIC TESTING TECHNICIAN 11/10/2015 2:49 PM MAGNETIC TESTING TECHNICIAN Robe Kruse MD ECG ORDERABLES [facility] * (ABNORMAL) BASIC METABOLIC PANEL (CALCIUM TOTAL) (11/10/2015 7:31 AM MAGNETIC TESTING TECHNICIAN) Glucose 113(H) 74 - 106 mg/dL 11/10/2015 8:04 AM [facility] Sodium 143 136 - 145 mmol/L 11/10/2015 8:04 AM [facility] Potassium 4.6 3.5 - 5.1 mmol/L 11/10/2015 8:04 AM [facility] Chloride 105 98 - 107 mmol/L 11/10/2015 8:04 AM [facility] CO2 30 22 - 31 mmol/L 11/10/2015 8:04 AM [facility] Calcium 9.7 8.5 - 10.1 mg/dL 11/10/2015 8:04 AM [facility] Anion Gap 8 5 - 20 mmol/L 11/10/2015 8:04 AM [facility] BUN 28(H) 7 - 21 mg/dL 11/10/2015 8:04 AM [facility] Creatinine 0.87 0.50 - 1.30 mg/dL 11/10/2015 8:04 AM [facility] eGFR by MDRD >60 >60 mL/min/1.7 3m2 11/10/2015 8:04 AM [facility] eGFR by MDRD >60 >60 mL/min/1.7 3m2 11/10/2015 8:04 AM [facility] Blood BLOOD SPECIMEN / Unknown 11/10/2015 7:31 AM MAGNETIC TESTING TECHNICIAN 11/10/2015 7:49 AM MAGNETIC TESTING TECHNICIAN Robe Kruse MD LAB - CHEMISTRY ORDE RABJOSE ELIAS [facility] [address] [place] [id number] * GROSS + MICRO EXAM (STL) (10/13/2015 9:45 AM MAGNETIC TESTING TECHNICIAN) Case Report Surgical Pathology Report Case: [id number] Authorizing Provider: Robe Kruse MD Collected: 10/13/2015 09:45 AM Ordering Location: [facility] Received: 10/13/2015 12:23 PM Pathologist: Augustine Khan MD Specimen: Antrum Biopsy 10/14/2015 12:54 PM MAGNETIC TESTING TECHNICIAN [facility] Final Diagnosis 1. Stomach, antrum, biopsy: -- No pathologic diagnosis / 10/14/2015 12:54 PM MAGNETIC TESTING TECHNICIAN [facility] Clinical History cc: [facility] 10/14/2015 12:54 PM MAGNETIC TESTING TECHNICIAN [facility] Gross Description Received in formalin in a container labeled Sergey Juarez, antrum biopsy. The container holds a single pink-williamson tissue fragment measuring 0.6 x 0.4 x 0.2 cm. The specimen is entirely submitted in cassette labeled A1. DYT/alj 10/14/2015 12:54 PM MAGNETIC TESTING TECHNICIAN [facility] Microscopic Description Sections of the biopsy of the antrum show fragments of gastric mucosa. Inflammation is not seen. Malignancy is not identified. No Helicobacter organisms are present at H&E or H. pylori immunostain. / 10/14/2015 12:54 PM MAGNETIC TESTING TECHNICIAN [facility] Pathology/Cytolo gy GASTRIC ANTRAL BIOPSY SPECIMEN / Unknown 10/13/2015 9:45 AM MAGNETIC TESTING TECHNICIAN 10/13/2015 12:23 PM MAGNETIC TESTING TECHNICIAN Robe Kruse MD LAB - PATHOLOGY/CYTO LOGY ORDERABLES [facility] [address] [place] [address] Care Teams Assembler Ping Pong Table Relationship Specialty Start Date End Date Bryn Jeff MD [address] [place] [address] PCP - General Internal Medicine 09/29/15
--- OUTSIDE RECORDS SUMMARY | 2024-10-27 13:05 | XMS_ITS | Clinical Summary ---
Author Organization [facility] Address [address] [place] [address] Care Team Providers Care Structural Metal Fabricator Apprentice Name Role Phone Agustin Orozco MD Unavailable [phone] Jared Marie MD Unavailable Liam Douglas MD Primary Care Provider [phone] Allergies Active Allergy Reactions Criticality Noted Date Comments Codeine Headache,Nausea & Vomiting Low 6 N/V, hallucination Medications SYNJARDY XR 5-1,000 mg tablet, IR & ER, biphasic 24hrIndications :MDS (myelodysplasti c syndrome) ([facility]) daily 9 Active montelukast (SINGULAIR) 10 mg tabletIndicatio ns:MDS (myelodysplasti c syndrome) ([facility]) Take 1 tablet (10 mg total) by mouth daily 5 Active minoxidil 5 % solutionIndicat ions:MDS (myelodysplasti c syndrome) ([facility]) Apply topically Acti ve fluticasone propionate (FLONASE) [...] 2 capsules (200 mg total) by mouth inserting machine operator before breakfast Active Ozempic 1 mg/dose (4 [...] 08/13/2016 Assessment & Plan (07/21/2020 1:36 PM TELEPHONE RECORDER): Lab work from January 2020 showed LDL 88 and triglycerides 214. She continues on atorvastatin 20 mg. Assessment & Plan (01/14/2020 9:31 AM CDT): She continues on atorvastatin 20mg. We will recheck a lipid panel. Assessment & Plan (06/04/2019 10:32 AM CDT): Her last lipid panel was in acceptable range, continue on atorvastatin 20mg. Hypertension 08/13/2016 Assessment & Plan (07/21/2020 1:36 PM TELEPHONE RECORDER): Her blood pressure is well controlled today. [...] 01/14/2020 Assessment & Plan (07/21/2020 1:36 PM TELEPHONE RECORDER): Asymptomatic Assessment & Plan (06/04/2019 10:33 AM CDT): Found to have NSVT in the past. She is at risk for Afib due to metabolic syndrome. Will monitor clinically for now. Sensation of chest tightness 08/13/2016 07/21/2020 Encounters Date Type Department Care Team Description 08/30/2024 11:15 AM TELEPHONE RECORDER Lab [facility] at [address] [phone] MDS (myelodysplastic syndrome) (HCC) 08/30/2024 Telephone [facility] [address] [place] [address] Floor [address] [place] [phone] Jared Marie MD 08/27/2024 Orders Only [facility] [address] [place] [address] [address] [place] [address] Jared Marie MD MDS (myelodysplastic syndrome) (HCC) (Primary Dx) 08/27/2024 Orders Only [facility] [address] [place] [address] [address] [place] [phone] Jared Marie MD MDS (myelodysplastic syndrome) (HCC) (Primary Dx) 08/11/2024 2:00 PM TELEPHONE RECORDER Office Visit [facility] [address] [facility] 8[address] [place] [address] [place] [phone] Osvaldo Robin MD Dyslipidemia (Primary Dx); Primary hypertension; VERONA (obstructive sleep apnea); Essential hypertension 08/04/2024 7:30 AM TELEPHONE RECORDER Lab [facility] at [address] [phone] MDS (myelodysplastic syndrome) (HCC) 08/02/2024 Orders Only [facility] [address] [place] [address] Floor [address] [place] [phone] Jared Marie MD MDS (myelodysplastic syndrome) (HCC) (Primary Dx) from Last 3 Months Immunizations Immunization Administration Dates Next Due Influenza, Quadrivalent, Hig [...] on file Legal Sex Female 12:02 PM TELEPHONE RECORDER Gender Identity Female 06/25/2021 8:56 PM CDT Sexual Orientation Straight 06/25/2021 8: 56 PM CDT Obstetrics History Last Filed Vital Signs Vital Sign Reading Time Taken Comments Blood Pressure 124/70 08/11/2024 1:10 PM TELEPHONE RECORDER Pulse 82 08/11/2024 1:10 PM TELEPHONE RECORDER Temperature 36.2 C (97.2 F) 07/09/2024 10:40 AM TELEPHONE RECORDER Respiratory Rate 18 07/09/2024 10:40 AM TELEPHONE RECORDER Oxygen Saturation 97% 08/11/2024 1:10 PM TELEPHONE RECORDER Inhaled Oxygen Concentration - - Weight 68 kg (150 lb) 08/11/2024 1:10 PM TELEPHONE RECORDER Height 165.1 cm (5' 5 ) 08/11/2024 1:10 PM TELEPHONE RECORDER Body Mass Index 24.96 08/11/2024 1:10 PM TELEPHONE RECORDER Plan of Treatment Health Maintenance Due Date [...] Additional history exists Lipid Panel 08/13/2024 08/13/2023, 1203/2022, 02/04/2020 eGFR 07/09/2025 07/09/2024, 12/30, 07/11/2023, Additional history exists DTaP/Tdap/Td Vaccine (2 - Td or Tdap) 06/11/2026 06/11/2016 Procedures Procedure Name Priority Date/Time Associated Diagnosis Comments FACTOR VIII ACTIVITY Routine 08/04/2024 11:38 AM TELEPHONE RECORDER MDS (myelodysplastic syndrome) (HCC) FACTOR IX ACTIVITY Routine 08/04/2024 11 :38 AM TELEPHONE RECORDER MDS (myelodysplastic syndrome) (HCC) VON WILLEBRAND FACTOR ANTIGEN Routine 08/04/2024 11:38 AM TELEPHONE RECORDER MDS (myelodysplastic syndrome) (HCC) VON WILLEBRAND FACTOR ACTIVITY (SCREEN) Routine 08/04/2024 11:38 AM TELEPHONE RECORDER MDS (myelodysplastic syndrome) (HCC) EGFR Routine 07/09/2024 10:05 AM TELEPHONE RECORDER MDS (myelodysplastic syndrome) (HCC) LIPID PANEL Routine 08/13/2023 12:57 PM TELEPHONE RECORDER Dyslipidemia Essential hypertension from Last 3 Months or Most Recently Relevant to Health Maintenance Results * Von Willebrand factor antigen (08/04/2024 11:38 AM TELEPHONE RECORDER) vWF antigen 145 55 - 200 %norm Comment: Interpretive Data vWF Ag results may be negatively biased when rheumatoid factor levels are >50 IU/ml. Current interpretive data was last revised 2024. Testing performed by: [facility], [address] [place] [address] Blood 08/04/2024 11:3 8 AM TELEPHONE RECORDER 08/04/2024 2:52 PM TELEPHONE RECORDER us Jared Marie MD LAB BLOOD ORDERABLES Final Result [facility] [address] [facility]. [place] [address] * Von Willebrand factor activity (08/04/2024 11:38 AM TELEPHONE RECORDER) vWF activity 134 50 - 180 %norm [...] test (vWF GP1bM) will be sent to [facility] reference laboratory in [place], [place] (3). 1. Angelique RO, sonya Ames EM. A new automated screening assay for the diagnosis of von Willebrand disease. Am J Clin Path. 2007; 127:730-5. 2. Marie D, Raman SUAZO, Jessica BJ, Alicia RK, Kenyetta WL, Wes JA. Validation of an automated latex particle-enhanced immunoturbidimetric von Willebrand factor activity assay. J Thromb Haemost. 2011; 9:0021-4243. 3. Anthony Hayden, et al. A comparative analysis of different automated von Willebrand factor glycoprotein 1b-binding activity assays in well-typed von Willebrand disease patients. J Thromb Haemost 2018;16:1268-77. Current interpretive data was last revised on 2021. Testing performed by: [facility], [address] [place] [address]., [address] Blood 08/04/2024 11:3 8 AM TELEPHONE RECORDER 08/04/2024 2:52 PM TELEPHONE RECORDER us Jared Marie MD LAB BLOOD ORDERABLES Final Result [facility] [address] [facility]. [place] [address] * Factor IX activity (08/04/2024 11:38 AM TELEPHONE RECORDER) Factor IX activity 98 55 - 160 %norm Comment:Testing performed by : [address] [place]., [address] Blood 08/04/2024 11:3 8 AM TELEPHONE RECORDER 08/04/2024 2:52 PM TELEPHONE RECORDER Jared Marie MD LAB BLOOD ORDERABLES Final Result [facility] [address] [facility]. [facility] [place] [address] * Factor VIII activity (08/04/2024 11:38 AM TELEPHONE RECORDER) Factor VIII activity 153 45 - 160 %norm Comment:Testing performed by : [facility], [address] [place]., [address] Blood 08/04/2024 11:3 8 AM TELEPHONE RECORDER 08/04/2024 2:52 PM TELEPHONE RECORDER Jared Marie MD LAB BLOOD ORDERABLES Final Result Performing Organization Address [facility] Co de Phone Number [facility] [address] [employer] [place] [address] * (ABNORMAL) eGFR (07/09/2024 10:05 AM TELEPHONE RECORDER) eGFR 59(L) >=60 mL/min/1. 73 m2 Comment: [...] reviewed 2021. Blood 07/09/2024 10:0 5 AM TELEPHONE RECORDER 07/09/2024 10:18 AM TELEPHONE RECORDER us Jared Marie MD LAB BLOOD ORDERABLES Final Result [facility] Department [place] [address] * (ABNORMAL) Lipid panel (08/13/2023 12:57 PM TELEPHONE RECORDER) Cholesterol 136 30 - 199 mg/dL [facility] [...] [facility] Blood 08/13/2023 12:5 7 PM TELEPHONE RECORDER 08/13/2023 12:58 PM TELEPHONE RECORDER us Osvaldo Robin MD LAB BLOOD ORDERABLES Final R esult [facility] [address] [facility]. [place] [address] from Last 3 Months or Most Recently Relevant to Health Maintenance Insurance [facility] MEDICARE MEDICARE SOLUTIONS [facility] MEDICARE [facility] Care Teams Structural Metal Fabricator Apprentice Relationship Specialty Start Date End Date Liam Douglas MD [address] [place] [address] PCP - General Family Practice 07/11/23 Agustin Orozco MD [address] [place] [address] Medical Oncologist/Rib Builder Hematology 12/01/18 Jared Marie MD [address] [place] [address] Consulting Physician Medical Oncology 12/01/18
--- OUTSIDE RECORDS SUMMARY | 2024-10-27 13:05 | XMS_ITS | Referral Summary ---
Author Organization [facility] Address [address] [place] [address] Care Team Providers Care Hub Lead Name Role Phone Bryn Jeff MD Primary Care Provider [phone] [facility] [place] Affiliates and Associated Physician Practices is amultiple site organization consisting of ambulatory clinics and hospital sitesin [place], [place], [place] and [place]. This disclosure is being madepursuant to the Care Everywhere program and may not contain all information available regarding this patient. Last updated 18.[facility] Allergies Active Allergy Reactions Criticality Noted Date [...] CDT Respiratory Rate 18 11/11/2015 4:07 PM WALL TAPER Oxygen Saturation 98% 11/16/2015 10:48 AM CDT [...] 10:16 AM 11/11/2015 5:09 PM Care Teams Hub Lead Relationship Specialty Start Date End Date Bryn Jeff MD [address] [place] [address] PCP - General Internal Medicine 09/29/15
--- OUTSIDE RECORDS SUMMARY | 2024-10-27 13:05 | XMS_ITS | Encounter Summary ---
Author Organization [facility] Address [address] [place] [address] Phone Care Team Providers Care Spring Former Hand Name Role Phone Agustin Orozco MD Unavailable [phone] Jared Marie MD Unavailable [phone] Deepak Negron MD Primary Care Provider [phone] Morgan Herrera MD Primary Care Provider [phone] Liam Douglsa MD Primary Care Provider [phone] Encounter Details Date Type Department Care Team (Latest Contact Info) Description 05/16/2021 Orders Only [facility] Scanning, Provider Social History Tobacco Use Types Packs/Day Years Used Date Smoking Tobacco: Never Smokeless Tobacco: Never Comments Unknown Sex and Gender Information Value Date Recorded Sex Assigned at Not on file Legal Sex Female 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 Gender Identity Female 06/25/2021 8:56 PM CDT [...] on filedocumented in this encounter Care Teams Spring Former Hand Relationship Specialty Start Date End Date Deepak Negron MD [address] [place] [address] PCP - General Internal Medicine 06/04/19 07/18/22 Morgan Herrera MD [address] [place] [address] PCP - General Internal Medicine 07/19/22 07/10/23 Liam Douglas MD [address] [place] [address] PCP - General Family Practice 07/11/23 Agustin Orozco MD [address] [place] [address] Medical Oncologist/Job Estimator Hematology 12/01/18 Jared Marie MD [address] [place] [address] Consulting Physician Medical Oncology 12/01/18 documented as of this encounter
--- OUTSIDE RECORDS SUMMARY | 2024-10-27 13:05 | XMS_ITS | Encounter Summary ---
Author Organization [facility] [place] [facility] Address [address] [place] [address] Phone Care Team Providers Care Assembly Hand Name Role Phone Agustin Orozco MD Unavailable [phone] Jared Marie MD Unavailable [phone] Deepak Negron MD Primary Care Provider [phone] Morgan Herrera MD Primary Care Provider [phone] Liam Douglas MD Primary Care Provider [phone] Encounter Details Date Type Department Care Team (Latest Contact Info) Description 05/18/2020 Orders Only [facility] Scanning, Provider Social History Tobacco Use Types Packs/Day Years Used Date Smoking Tobacco: Never Smokeless Tobacco: Never Comments Unknown Sex and Gender Information Value Date Recorded Sex Assigned at Not on file 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 Gender Identity Female 06/25/2021 8:56 PM CDT [...] on filedocumented in this encounter Care Teams Assembly Hand Relationship Specialty Start Date End Date Deepak Negron MD [address] [place] [address] PCP - General Internal Medicine 06/04/19 07/18/22 Morgan Herrera MD [address] [place] [address] PCP - General Internal Medicine 07/19/22 07/10/23 Liam Douglas MD [address] [place] [address] PCP - General Family Practice 07/11/23 Agustin Orozco MD [address] [place] [address] Medical Oncologist/Concession Manager Hematology 12/01/18 Jared Marie MD [address] [place] [address] Consulting Physician Medical Oncology 12/01/18 documented as of this encounter
--- OUTSIDE RECORDS SUMMARY | 2024-10-27 13:05 | XMS_ITS | Encounter Summary ---
Author Organization [facility] Address [address] [place] [address] Phone Care Team Providers Care Communication Clerk Name Role Phone Agustin Orozco MD Unavailable [phone] Jared Marie MD Unavailable [phone] Bryn Jeff MD Primary Care Provider [phone] Melanie Husain MD Primary Care Provider Bryn Jeff MD Primary Care Provider [phone] Deepak Negron MD Primary Care Provider [phone] Morgan Herrera MD Primary Care Provider [phone] Liam Douglas MD Primary Care Provider [phone] Encounter Details Date Type Department Care Team (Latest Contact Info) Description 10/22/2018 Orders Only [facility] Scanning, Provider Social History Tobacco Use Types Packs/Day Years Used Date Smoking Tobacco: Never Comments Unknown Sex and Gender Information Value Date Recorded Sex Assigned at Not on file Legal Sex Female 12:02 PM THEATRICAL PERFORMER Gender Identity Female 06/25/2021 8:56 PM CDT [...] on filedocumented in this encounter Care Teams Communication Clerk Relationship Specialty Start Date End Date Bryn Jeff MD [address] [place] [address] PCP - General Internal Medicine 12/01/18 12/02/18 Melanie Husain MD [address] [place] [phone] PCP - General 12/03/18 12/03/18 Bryn Jeff MD [address] [place] [address] PCP - General Internal Medicine 12/04/18 06/03/19 Deepak Negron MD [address] [place] [address] PCP - General Internal Medicine 06/04/19 07/18/22 Morgan Herrera MD [address] [place] [address] PCP - General Internal Medicine 07/19/22 07/10/23 Liam Douglas MD [address] [place] [address] PCP - General Family Practice 07/11/23 Agustin Orozco MD [address] [place] [address] Medical Oncologist/Biscuit Packer Hematology 12/01/18 Jared Marie MD [address] [place] [address] Consulting Physician Medical Oncology 12/01/18 documented as of this encounter
--- OUTSIDE RECORDS SUMMARY | 2024-10-27 13:05 | XMS_ITS | Clinical Summary ---
Author Organization [facility] Address [address] [place] [address] Care Team Providers Care Acting Manager Name Role Phone Liam Douglas MD Primary Care Provider [phone] Allergies Active Allergy Reactions Criticality Noted Date Comments Codeine Headache 10/22/2018 N/V, hallucination Medications atorvastatin (LIPITOR) 20 mg tablet Take 20 mg by mouth daily with supper. Active levothyroxine 112 mcg tablet Take 112 mcg by mouth daily glass forming engineer. Active olmesartan-hyd roCHLOROthiazi de (BENICAR-HCT) 40-12.5 mg tablet Take 1 Tablet by mouth daily glass forming engineer. Active empagliflozin- metformin (SYNJARDY XR) 5-1,000 mg [...] capsule Active fluticasone propionate (FLONASE) 50 mcg/spray [place], Suspension nasal inhaler Administer 1 [place] in each nostril. Active hydroCHLOROthi azide (HYDRODIURIL) 12.5 mg tablet 09/16/20 19 Active Ketoconazole 2 % Gel Apply [...] Encounters Date Type Department Care Team Description 10/19/2024 External Device Data STL ABSTRACTION Provider, Abstract 10/15/2024 8:30 AM FERMENTER WINE Office Visit [facility] [address] [place] [address] Agustin Orozco MD MDS (myelodysplastic syndrome) (CMS/HCC) (Primary Dx) 10/15/2024 Orders Only [facility] - [place] [address] [place] [address] Agustin Orozco MD 10/06/2024 Refill [facility] [place] [address] [place] [address] Agustin Orozco MD 09/23/2024 External Device Data [...] on file Legal Sex Female 4:08 AM FERMENTER WINE Gender Identity Not on file Sexual Orientation Not on file Last Filed Vital Signs Vital Sign Reading Time Taken Comments Blood Pressure 114/68 10/15/2024 8:46 AM FERMENTER WINE Pulse 77 10/15/2024 8:46 AM FERMENTER WINE Temperature 36.6 C (97.8 F) 10/15/2024 8:46 AM FERMENTER WINE Respiratory Rate 16 10/15/2024 8:46 AM FERMENTER WINE Oxygen Saturation 93% 10/15/2024 8:46 AM FERMENTER WINE Inhaled Oxygen Concentration - - Weight 66.7 kg (147 lb) 10/15/2024 8:46 AM FERMENTER WINE Height 165.1 cm (5' 5 ) 04/24/2022 9:48 AM CDT Body Mass Index 24.46 04/24/2022 9:48 AM CDT Plan of Treatment Upcoming Encounters Date Type Department Care Team (Late st Contact Info) Description 04/15/2025 10:00 AM CDT Office Visit [facility] [address] [facility] [address] [place] [address] Agustin Orozco MD [address] [facility] [address] [place] [address] Health Maintenance Due Date Last [...] 2024 , 05/20/2019, 06/15/2018, Additional history exists DTAP/TDAP/TD VACCINES (2 - T d or Tdap) 06/11/2026 06/11/2016 Procedures Procedure Name Priority Date/Time Associated Diagnosis Comments CBC WITH DIFFERENTIAL Routine 10/15/2024 8:50 AM FERMENTER WINE LIPID PANEL Routine 11/14/2020 HEMOGLOBIN A1C Routine 11/14/2020 from Last 3 Months or Most Recently Relevant to Health Maintenance Results * CBC WITH DIFFERENTIAL (10/15/2024 8:50 AM FERMENTER WINE) Blood us Agustin Orozco MD HEMATOLOGY ORDERABLES Final Res ult * HEMOGLOBIN A1C (11/14/2020) Blood us Abstract Provider CHEMISTRY ORDERABLES Final Res ult * LIPID PANEL (11/14/2020) Blood us Abstract Provider CHEMISTRY ORDERABLES Final Res ult from Last 3 Months or Most Recently Relevant to Health Maintenance Insurance Advance Directives For more information, please contact: [phone] Documents on File Type Date Recorded Patient Stretching Press Operator Expl anation Advance Directive Living Will 10/22/2018 10:53 AM Care Teams Acting Manager Relationship Specialty Start Date End Date Liam Douglas MD [address] [place] [address] PCP - General Family Practice 04/08/23
--- OUTSIDE RECORDS SUMMARY | 2024-10-27 13:05 | XMS_ITS | Encounter Summary ---
Author Organization [facility] Address [address] [place] [address] Phone Care Team Providers Care Qualitative Field Project Manager Name Role Phone Agustin Orozco MD Unavailable [phone] Jared Marie MD Unavailable [phone] Bryn Jeff MD Primary Care Provider [phone] Melanie Husain MD Primary Care Provider [phone] Bryn Jeff MD Primary Care Provider [phone] Deepak Negron MD Primary Care Provider [phone] Morgan Herrera MD Primary Care Provider [phone] Liam Douglas MD Primary Care Provider [phone] Encounter Details Date Type Department Care Team (Latest Contact Info) Description 10/28/2018 Orders Only [facility] Scanning, Provider Social History Tobacco Use Types Packs/Day Years Used Date Smoking Tobacco: Never Comments Unknown Sex and Gender Information Value Date Recorded Sex Assigned at Not on file Legal Sex Female 12:02 PM DIRECTOR CLINICAL DATA Gender Identity Female 06/25/2021 8:56 PM CDT [...] on filedocumented in this encounter Care Teams Qualitative Field Project Manager Relationship Specialty Start Date End Date Bryn Jeff MD [address] [place] [phone] PCP - General Internal Medicine 12/01/18 12/02/18 Melanie Husain MD [address] [place] [phone] PCP - General 12/03/18 12/03/18 Bryn Jeff MD [address] [place] [phone] PCP - General Internal Medicine 12/04/18 06/03/19 Deepak Negron MD [address] [place] [address] PCP - General Internal Medicine 06/04/19 07/18/22 Morgan Herrera MD [address] [place] [address] PCP - General Internal Medicine 07/19/22 07/10/23 Liam Douglas MD [address] [place] [address] PCP - General Family Practice 07/11/23 Agustin Orozco MD [address] [place] [address] Medical Oncologist/Publications Sales Representative Hematology 12/01/18 Jared Marie MD [address] [place] [phone] Consulting Physician Medical Oncology 12/01/18 documented as of this encounter
--- OUTSIDE RECORDS SUMMARY | 2024-10-27 13:05 | XMS_ITS | Clinical Summary ---
Author Organization [facility] Address [address] [facility] [place] [address] Care Team Providers Care Doffer Name Role Phone Bryn Jeff MD Primary Care Provider [phone] Source Comments [facility],non-owned Affiliates and Associated Physician Practices is amultiple site organization consisting of ambulatory clinics and hospital sitesin [place], [place], [place] and [place]. This disclosure is being madepursuant to the Care Everywhere program and may not contain all information available regarding this patient. Last updated 18.[facility] Allergies Active Allergy Reactions Criticality Noted Date [...] CDT Respiratory Rate 18 11/11/2015 4:07 PM BENCH GRINDER Oxygen Saturation 98% 11/16/2015 10:48 AM CDT [...] 10:16 AM 11/11/2015 5:09 PM Care Teams Doffer Relationship Specialty Start Date End Date Bryn Jeff MD [address] [place] [address] PCP - General Internal Medicine 09/29/15
--- OUTSIDE RECORDS SUMMARY | 2024-10-27 13:05 | XMS_ITS | Referral Summary ---
Author Organization [facility] Address [address] [place] [address] Care Team Providers Care Retail Zone Specialist Name Role Phone Agustin Orozco MD Unavailable [phone] Jared Marie MD Unavailable Liam Douglas MD Primary Care Provider [phone] Encounters Date Type Department Care Team Description 08/30/2024 Telephone [facility] Bone Marrow Transplant [address] [place] [phone] Jared Marie MD 08/30/2024 11:15 AM TRUCK DRIVER HELPER Lab [facility] at [address] [address] MDS (myelodysplastic syndrome) (HCC) 08/27/2024 Orders Only [facility] Bone Marrow Transplant [facility] [address] [phone] Jared Marie MD MDS (myelodysplastic syndrome) (HCC) (Primary Dx) 08/27/2024 Orders Only [facility] Bone Marrow Transplant [facility] [address] [place] [phone] Jared Marie MD MDS (myelodysplastic syndrome) (HCC) (Primary Dx) 08/11/2024 2:00 PM TRUCK DRIVER HELPER Office Visit [facility] Cardiology [address] [facility] 8th [place] [address] [place] [address] Osvaldo Robin MD Dyslipidemia (Primary Dx); Primary hypertension; VERONA (obstructive sleep apnea); Essential hypertension 08/04/2024 7:30 AM TRUCK DRIVER HELPER Lab [facility] at [facility] [address] [place] [address] MDS (myelodysplastic syndrome) ([facility]) 08/02/2024 Orders Only [facility] Bone Marrow Transplant [address] [facility] [address] [place] [address] Jared Marie MD MDS (myelodysplastic syndrome) ([facility]) (Primary Dx) from Last 3 Months Allergies Active Allergy Reactions Criticality Noted Date Comments Codeine Headache,Nausea & Vomiting Low 6 N/V, hallucination Medications SYNJARDY XR 5-1,000 mg tablet, IR & ER, biphasic 24hrIndications :MDS (myelodysplasti c syndrome) ([facility]) daily 9 Active montelukast (SINGULAIR) 10 mg tabletIndicatio ns:MDS (myelodysplasti c syndrome) ([facility]) Take 1 tablet (10 mg total) by mouth daily 5 Active minoxidil 5 % solutionIndicat ions:MDS (myelodysplasti c syndrome) ([facility]) Apply topically Acti ve fluticasone propionate (FLONASE) [...] 2 capsules (200 mg total) by mouth office administrative assistant before breakfast Active Ozempic 1 mg/dose (4 mg/3 mL) pen injector injectionIndica tions:MDS (myelodysplasti c syndrome) ([facility]) 3 Active cholecalciferol (VITAMIN D-3) 50,000 unit [...] 08/13/2016 Assessment & Plan (07/21/2020 1:36 PM TRUCK DRIVER HELPER): Lab work from January 2020 showed LDL 88 and triglycerides 214. She continues on atorvastatin 20 mg. Assessment & Plan (01/14/2020 9:31 AM CDT): She continues on atorvastatin 20mg. We will recheck a lipid panel. Assessment & Plan (06/04/2019 10:32 AM CDT): Her last lipid panel was in acceptable range, continue on atorvastatin 20mg. Hypertension 08/13/2016 Assessment & Plan (07/21/2020 1:36 PM TRUCK DRIVER HELPER): Her blood pressure is well controlled today. [...] 01/14/2020 Assessment & Plan (07/21/2020 1:36 PM TRUCK DRIVER HELPER): Asymptomatic Assessment & Plan (06/04/2019 10:33 AM CDT): Found to have NSVT in the past. She is at risk for Afib due to metabolic syndrome. Will monitor clinically for now. Sensation of chest tightness 08/13/2016 07/21/2020 Immunizations Immunization Administration Dates Next Due Influenza, [...] on file Legal Sex Female 12:02 PM TRUCK DRIVER HELPER Gender Identity Female 06/25/2021 8:56 PM CDT Sexual Orientation Straight 06/25/2021 8: 56 PM CDT Last Filed Vital Signs Vital Sign Reading Time Taken Comments Blood Pressure 124/70 08/11/2024 1:10 PM TRUCK DRIVER HELPER Pulse 82 08/11/2024 1:10 PM TRUCK DRIVER HELPER Temperature 36.2 C (97.2 F) 07/09/2024 10:40 AM TRUCK DRIVER HELPER Respiratory Rate 18 07/09/2024 10:40 AM TRUCK DRIVER HELPER Oxygen Saturation 97% 08/11/2024 1:10 PM TRUCK DRIVER HELPER Inhaled Oxygen Concentration - - Weight 68 kg (150 lb) 08/11/2024 1:10 PM TRUCK DRIVER HELPER Height 165.1 cm (5' 5 ) 08/11/2024 1:10 PM TRUCK DRIVER HELPER Body Mass Index 24.96 08/11/2024 1:10 PM TRUCK DRIVER HELPER Plan of Treatment Not on file Procedures Procedure Name Priority Date/Time Associated Diagnosis Comments FACTOR VIII ACTIVITY Routine 08/04/2024 11:38 AM TRUCK DRIVER HELPER MDS (myelodysplastic syndrome) (HCC) FACTOR IX ACTIVITY Routine 08/04/2024 11 :38 AM TRUCK DRIVER HELPER MDS (myelodysplastic syndrome) (HCC) VON WILLEBRAND FACTOR ANTIGEN Routine 08/04/2024 11:38 AM TRUCK DRIVER HELPER MDS (myelodysplastic syndrome) (HCC) VON WILLEBRAND FACTOR ACTIVITY (SCREEN) Routine 08/04/2024 11:38 AM TRUCK DRIVER HELPER MDS (myelodysplastic syndrome) (HCC) EGFR Routine 07/09/2024 10:05 AM TRUCK DRIVER HELPER MDS (myelodysplastic syndrome) (HCC) LIPID PANEL Routine 08/13/2023 12:57 PM TRUCK DRIVER HELPER Dyslipidemia Essential hypertension from Last 3 Months or Most Recently Relevant to Health Maintenance Results * Von Willebrand factor antigen (08/04/2024 11:38 AM TRUCK DRIVER HELPER) vWF antigen 145 55 - 200 %norm Comment: Interpretive Data vWF Ag results may be negatively biased when rheumatoid factor levels are >50 IU/ml. Current interpretive data was last revised 2024. Testing performed by: [facility], [address] [place]., [address] Blood 08/04/2024 11:3 8 AM TRUCK DRIVER HELPER 08/04/2024 2:52 PM TRUCK DRIVER HELPER us Jared Marie MD LAB BLOOD ORDERABLES Final Result [facility] [id number] [facility]. [place] [place] [address] * Von Willebrand factor activity (08/04/2024 11:38 AM TRUCK DRIVER HELPER) vWF activity 134 50 - 180 %norm [...] test (vWF GP1bM) will be sent to [facility] reference laboratory in [place], [place] (3). 1. Angelique RO, sonya Ames EM. A new automated screening assay for the diagnosis of von Willebrand disease. Am J Clin Path. 2007; 127:730-5. 2. Marie D, Raman SUAZO, Jessica BJ, Alicia RK, Kenyetta WL, Wes JA. Validation of an automated latex particle-enhanced immunoturbidimetric von Willebrand factor activity assay. J Thromb Haemost. 2011; 9:1691-0155. 3. Anthony Hayden, et al. A comparative analysis of different automated von Willebrand factor glycoprotein 1b-binding activity assays in well-typed von Willebrand disease patients. J Thromb Haemost 2018;16:1268-77. Current interpretive data was last revised on 2021. Testing performed by: [facility], [address] [place] [address]., [address] Blood 08/04/2024 11:3 8 AM TRUCK DRIVER HELPER 08/04/2024 2:52 PM TRUCK DRIVER HELPER Jared Marie MD LAB BLOOD ORDERABLES Final Result Performing Organization Address City/[facility]/ZIP Co de Phone Number [facility] [address] [employer] [place] [place] [address] * Factor IX activity (08/04/2024 11:38 AM TRUCK DRIVER HELPER) Factor IX activity 98 55 - 160 %norm Comment:Testing performed by : [facility], [address] [place] [address], [place]., [address] Blood 08/04/2024 11:3 8 AM TRUCK DRIVER HELPER 08/04/2024 2:52 PM TRUCK DRIVER HELPER Jared Marie MD LAB BLOOD ORDERABLES Final Result [facility] [id number] [facility]. [facility] [place] [address] * Factor VIII activity (08/04/2024 11:38 AM TRUCK DRIVER HELPER) Factor VIII activity 153 45 - 160 %norm Comment:Testing performed by : [facility], [address] [facility], [place]., [address] Blood 08/04/2024 11:3 8 AM TRUCK DRIVER HELPER 08/04/2024 2:52 PM TRUCK DRIVER HELPER Jared Marie MD LAB BLOOD ORDERABLES Final Result DEVAUGHN NICHOLSCH [address] [facility] [place] [address] * (ABNORMAL) eGFR (07/09/2024 10:05 AM TRUCK DRIVER HELPER) Pathologist [facility] eGFR 59(L) >=60 mL/min/1. 73 m2 Comment: [...] reviewed 2021. Blood 07/09/2024 10:0 5 AM TRUCK DRIVER HELPER 07/09/2024 10:18 AM TRUCK DRIVER HELPER Jared Marie MD LAB BLOOD ORDERABLES Final Result DEVAUGHN NICHOLS [facility] Department [place] [address] * (ABNORMAL) Lipid panel (08/13/2023 12:57 PM TRUCK DRIVER HELPER) Cholesterol 136 30 - 199 mg/dL DEVAUGHN [...] DEVAUGHN JOHNSON Blood 08/13/2023 12:5 7 PM TRUCK DRIVER HELPER 08/13/2023 12:58 PM TRUCK DRIVER HELPER us Osvaldo Robin MD LAB BLOOD ORDERABLES Final R esult [facility] NICHOLSCH [id number] [facility]. Department [place] [address] from Last 3 Months or Most Recently Relevant to Health Maintenance Insurance [employer] MEDICARE MEDICARE SOLUTIONS [employer] MEDICARE COMM[employer]ITY [employer] MEDICARE Care Teams Retail Zone Specialist Relationship Specialty Start Date End Date Liam Douglas MD [address] [place] [address] PCP - General Family Practice 07/11/23 Agustin Orozco MD [address] [place] [address] Medical Oncologist/Automotive Services Manager Hematology 12/01/18 Jared Marie MD [address] [place] [address] Consulting Physician Medical Oncology 12/01/18
--- OUTSIDE RECORDS SUMMARY | 2024-10-27 13:05 | XMS_ITS | Data Portability ---
Author Organization [place] [facility] Main Office Address [address] [place] [address] Care Team Providers Care Television Repairer Name Role Phone KACY DOUGLAS Primary Care Provider [phone] KACY DOUGLAS Referring Provider [phone] Assessment Encounter Date Assessment Date Assessment LastModified [...] were unsuccessful surgical release of the A1 rbeann of the long finger and surgical release [...] more than half the time spent in uazn-cb-utul care. Not available 03/29/2023 08:32:47 Plan of [...] DO Not Attach Compendium, Do Not Delete/merge, [id number] 15:56:20 Surgeries None recorded. Imaging None recorded. Medication Orders Kenalog 10 mg/mL suspension for injection 2022 023 [facility], [address] [place], [place], [phone], 3 16:44:49 ropivacaine (PF) 5 mg/mL (0.5 %) injection solution 2022 023 [facility], [address] [place], [place], [phone], 3 16:44:49 Medrol (Car) 4 mg tablets in a dose pack 2022 023 [facility], [address], [place], [id number], 3 16:44:49 Patient TargetsNo targets recorded. Patient [...] Address Organization Details Recorded Time Osteoarthr itis [id number] Active Not Available [employer] 3 17:47:26 Pain of right wrist [id number] 00 Active 2022 Liberty Oneal RMKaruna kirk, [employer] 15:11:46 Problem Notes None recorded. Procedures Surgical History Date Name Laterality Status Provider Name and Address Organization Details Recorded Time procedure on spine completed ANURADHA Morales [employer] 03/27/2023 15:09:40 procedure on gallbladder completed ANURADHA Morales [employer] 03/27/2023 15:09:51 Carpal tunnel surgery completed Libertyrodriguez Oneal RMKaruna [employer] 03/27/2023 15:10:04 Imaging Results Imaging Date Name Status LastModified by Organiz ation Details LastModified Time 03/21/2023 XR, wrist, 2 view completed [email or web address] Information not available 03/26/2023 10:47:24 Procedure Notes None recorded. Medical Equipment None Reported. Allergies Allergen ID Allergen Name Allergen Category Reaction Reaction Severity Criticality Documentation Date Start Date Code Code System Note Provider Name and Address Organization Details Recorded Time 79914 codeine medicatio n Not available Not available Not available 03/27/2023 2670 RxNorm Liberty Oneal RMA reagan, [employer] 15:07:16 Medications Name Sig Start Date Stop [...] , administe red by provider 2022 active [facility]: 0003- 0494- 20 Not Available Not Available [...] , administe red by provider 2022 active [facility] [phone] -[phone]- [phone] Not Available Not Available Not [...] Updated DateTime 03/27/2023 160.02 cm 28.5 kg/m2 95770.37 g ANURADHA Morales [facility] [employer] [facility] 03/27/2023 15:14:25 Social History Question Answer Notes LastModified by Organizat ion Details LastModified Time Tobacco Smoking Status Never Smoker ANURADHA Morales null, [facility] [employer] [facility] 03/27/2023 15:09:22 What Is Your Level Of Alcohol Consumption? None [email or web address] Information not available 03/27/2023 Sex: Unknown Functional Status None recorded. Mental Status None recorded. Family History Relationship Description Onset Age of this Age Resolved Age Notes LastModified by Organization Details LastModified Time Father Heart disease [email or web address] Not available 2022 15:08:05 Mother Heart disease [email or web address] Not available 2022 15:08:05 Mother Diabetes mellitus [email or web address] Not available 2022 15:09:14 Sister Heart disease [email or web address] Not available 2022 15:08:05 Sister Diabetes mellitus [email or web address] Not available 2022 15:09:14 Maternal Grandfather Family history of stroke [email or web address] Not available 2022 15:08:18 Unspecified Relation Hypertensive disorder all family [email or web address] Not available 03/27/2023 15:08:39 Maternal Aunt Diabetes mellitus Not available 2022 15:09:14 Maternal Uncle Diabetes mellitus [email or web address] Not available 2022 15:09:14 Medical History Condition Response ARTHRITIS Y DIABETES, TYPE Y CANCER: SPECIFY Y ANEMIA/BLOOD DISORDER Y Gynecological HistoryNo gynecological history recorded. Obstetrics History GPAL:G 0 P 0 0 0 0 Past Encounters Encounter ID Performer Location Encounter Start Date Encounter Closed Date Diagnosis/Indication Diagnosis SNOMED-CT Code Diagnosis ICD10 Code Diagnosis Note [id number] Arsh Baugh MD [facility] [address] [place] [address] 03/27/2023 14:33:19 03/31/2023 09:51:05 Pain of right wrist [id number] 32340 M25.531 Health Concerns Section Related Observation LastModified by Organization Detai ls LastModified Time None Recorded Concern Status LastModified by Organization Details LastModified Time None Recorded Advance Directives Directive None Recorded Payers Encounter Date Sequence Insurance Name Policy Number Policy John Covered Member ID John Member ID Guarantor Name 03/27/2023 1 [employer] (MEDICARE REPLACEMENT PPO) [id number] Sergey Silvestre Larry [id number] Sergey Juarez Notes Date Note Type Note [...] She had x-rays obtained on 03/21/2023 at [facility] two views the right wrist which demonstrated 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 Arsh Baugh MD [address] [place] [address], [facility] [address], [place], [address], [place] [facility] 03/29/2023 08:33:02 OBGyn Episode No OBEpisode recorded.
== END 2024-10-27 11:10 | disposition home or self-care (01) ==
PROVIDERS: Anesthesiology; PCP Family Medicine; Visit Provider Orthopaedic Surgery
DX: D46.Z Other myelodysplastic syndromes (principal); D69.6 Thrombocytopenia, unspecified; D47.1 Chronic myeloproliferative disease; I10 Essential (primary) hypertension; E11.9 Type 2 diabetes mellitus without complications
CPT/HCPCS: 36415; 85610; 85730; 93005

== ENCOUNTER 2025-01-04 08:05 | Outpatient (CLI) | payer MEDICARE, SELFPAY ==
--- OUTSIDE RECORDS SUMMARY | 2025-01-04 08:13 | XMS_ITS | Clinical Summary ---
Author Organization [facility] Address [address] [place] [address] Care Team Providers Care Machine Shorthand Reporter Name Role Phone Liam Douglas MD Primary Care Provider [phone] Allergies Active Allergy Reactions Criticality Noted Date Comments Codeine Headache 10/22/2018 N/V, hallucination Medications atorvastatin (LIPITOR) 20 mg tablet Take 20 mg by mouth daily with supper. Active levothyroxine 112 mcg tablet Take 112 mcg by mouth daily manufacturing applications engineer. Active olmesartan-hydr oCHLOROthiazide (BENICAR-HCT) 40-12.5 mg tablet Take 1 Tablet by mouth daily manufacturing applications engineer. Active empagliflozin-m etformin (SYNJARDY XR) 5-1,000 mg [...] capsule Active fluticasone propionate (FLONASE) 50 mcg/spray Velma, Suspension nasal inhaler Administer 1 Velma in each nostril. Active hydroCHLOROthia zide (HYDRODIURIL) [...] Encounters Date Type Department Care Team Description 11/17/2024 External Device Data STL ABSTRACTION Provider, Abstract 11/06/2024 External Device Data STL ABSTRACTION Provider, Abstract 11/05/2024 External Device Data STL ABSTRACTION Provider, Abstract 11/02/2024 External Device Data STL ABSTRACTION Provider, Abstract 10/19/2024 External Device Data STL ABSTRACTION Provider, Abstract 10/15/2024 8:30 AM SPLASH LINE OPERATOR Office Visit [facility] Oncology and Hematology - [place] [address] [place] [address] Agustin Orozco MD MDS (myelodysplastic syndrome) (CMS/HCC) (Primary Dx) 10/15/[address] [facility] Oncology and Hematology - [place] [address] [place] [address] Agustin Orozco MD from Last 3 Months Immunizations Immunization Administration [...] on file Legal Sex Female 4:08 AM SPLASH LINE OPERATOR Gender Identity Not on file Sexual Orientation Not on file Last Filed Vital Signs Vital Sign Reading Time Taken Comments Blood Pressure 114/68 10/15/2024 8:46 AM SPLASH LINE OPERATOR Pulse 77 10/15/2024 8:46 AM SPLASH LINE OPERATOR Temperature 36.6 C (97.8 F) 10/15/2024 8:46 AM SPLASH LINE OPERATOR Respiratory Rate 16 10/15/2024 8:46 AM SPLASH LINE OPERATOR Oxygen Saturation 93% 10/15/2024 8:46 AM SPLASH LINE OPERATOR Inhaled Oxygen Concentration - - Weight 66.7 kg (147 lb) 10/15/2024 8:46 AM SPLASH LINE OPERATOR Height 165.1 cm (5' 5 ) 04/24/2022 9:48 AM CDT Body Mass Index 24.46 04/24/2022 9:48 AM CDT Plan of Treatment Upcoming Encounters Date Type Department Care Team (Late st Contact Info) Description 04/15/2025 10:00 AM CDT Office Visit [facility] Oncology and Hematology - [place] [address] [place] [address] Agustin Orozco MD [address] [facility] [address] [place] [address] Health Maintenance Due Date Last [...] CBC WITH DIFFERENTIAL Routine 10/15/2024 8:50 AM SPLASH LINE OPERATOR LIPID PANEL Routine 11/14/2020 HEMOGLOBIN A1C Routine 11/14/2020 from Last 3 Months or Most Recently Relevant to Health Maintenance Results * CBC WITH DIFFERENTIAL (10/15/2024 8:50 AM SPLASH LINE OPERATOR) Blood us Agustin Orozco MD HEMATOLOGY ORDERABLES Final Res ult * HEMOGLOBIN A1C (11/14/2020) Blood us Abstract Provider CHEMISTRY ORDERABLES Final Res ult * LIPID PANEL (11/14/2020) Blood us Abstract Provider CHEMISTRY ORDERABLES Final Res ult from Last 3 Months or Most Recently Relevant to Health Maintenance Insurance [facility] Advance Directives For more information, please contact: [phone] Documents on File Type Date Recorded Patient Lip Cutter And Scorer Expl anation Advance Directive Living Will 10/22/2018 10:53 AM Care Teams Machine Shorthand Reporter Relationship Specialty Start Date End Date Liam Douglas MD [address] [place] [phone] PCP - General Family Practice 04/08/23
--- OUTSIDE RECORDS SUMMARY | 2025-01-04 08:13 | XMS_ITS | Clinical Summary ---
Author Organization [facility] Address [address] [place] [address] Care Team Providers Care Noc Technician Name Role Phone Bryn Jeff MD Primary Care Provider [phone] Source Comments [facility],non-owned Affiliates and Associated Physician Practices is amultiple site organization consisting of ambulatory clinics and hospital sitesin [place], [place], [place] and [place]. This disclosure is being madepursuant to the Care Everywhere program and may not contain all information available regarding this patient. Last updated 18.[facility] Allergies Active Allergy Reactions Criticality Noted Date Comments Codeine Nausea and/or Vomiting,Headache 09/02 Medications * Be aware that medications may not be up to date on this document. Alwaysverify current medications with the patient. omeprazole (PRILOSEC) 20 MG capsule Take 20 mg by mouth 2 times daily Active pioglitazone (ACTOS) 15 MG tablet Take 15 mg by mouth every evening Active valsartan-hydro chlorothiazide (DIOVAN HCT) 320-12.5 MG tablet Take 1 [...] Tab by mouth every evening Active Multiple Vitamins-Minera ls (WOMENS HAIR, SKIN & NAILS PO) Take [...] to excess calories 09/29/2015 Dysphagia 09/29/2015 Immunizations Immunization Administration Dates Next Due INFLUENZA VACCINE, HIGH-DOSE [...] at Not on file Legal Sex Female 11:46 AM FITNESS AND WELLNESS COORDINATOR Gender Identity Not on file Sexual Orientation Not on file Last Filed Vital Signs Vital Sign Reading Time Taken Comments Blood Pressure 145/81 12/08/2015 11:20 AM CDT Pulse 79 12/08/2015 11:20 AM CDT Temperature 36.5 C (97.7 F) 11/16/2015 10:48 AM CDT Respiratory Rate 18 11/11/2015 4:07 PM FITNESS AND WELLNESS COORDINATOR Oxygen Saturation 98% 11/16/2015 10:48 AM CDT Inhaled Oxygen Concentration - - Weight 100.2 kg (221 lb) 12/08/2015 11:20 AM CDT Height 161.9 cm (5' 3.75 ) 12/08/2015 11:20 AM C DT Body Mass Index 38.23 12/08/2015 11:20 AM CDT Plan of Treatment Health Maintenance Due Date Last Done Comments BONE DENSITY TESTING 1950 COLOGKANDICERD (AGES 45-75) - COL ON CA SCREENING 1950 COLON MONITORING 1950 COLONOSCOPY - COLON CA SCREENING 1950 CT COLONOGRAPHY - COLON CA SCREENING 1950 Colorectal Cancer Screening 1950 FIT - COLON CA SCREENING 1950 FLEX SIG - COLON CA SCREENING 1950 MAMMOGRAM 1950 HEPATITIS C SCREENING 10/26/1968 PNEUMOCOCCAL VACCINE 50+ (1 of 1 - PCV) 2000 ZOSTER VACCINE (2 of 3) 08/06/2016 06/11/2016 COVID-19 VACCINE (1 - 2023-2 5 season) 2024 DEPRESSION SCREENING 09/01/2024 INFLUENZA VACCINE (Season Ended) 2025 06/11/20 16 Respiratory Syncytial Virus (RSV) Vaccine Pt: or [...] on patient's age to complete this topic Insurance [facility]IC[facility] Advance Directives * Full Code (Latest Code Status on File) Date Activated Date Inactivated Comments 11/10/2015 10:16 AM 11/11/2015 5:09 PM Care Teams Noc Technician Relationship Specialty Start Date End Date Bryn Jeff MD [address] [place] [address] PCP - General Internal Medicine 09/29/15
--- OUTSIDE RECORDS SUMMARY | 2025-01-04 08:13 | XMS_ITS | Data Portability ---
Author Organization [place] [facility] [employer] Main Office Address [address] [place] [address] Care Team Providers Care Track Layer Head Name Role Phone KACY DOUGLAS Primary Care Provider [phone] KACY DOUGLAS Referring Provider [phone] Assessment Encounter Date Assessment Date Assessment LastModified [...] more than half the time spent in [id number] care. Not available 03/29/2023 08:32:47 Plan of [...] DO Not Attach Compendium, Do Not Delete/merge, [id number] 15:56:20 Surgeries None recorded. Imaging None recorded. Medication Orders Kenalog 10 mg/mL suspension for injection [facility]22 [email or web address], [address], [place], [phone], 3 16:44:49 ropivacaine (PF) 5 mg/mL (0.5 %) injection solution 2022 [facility]23 [facility]69552, [address], [place], [id number], 3 16:44:49 Medrol (Car) 4 mg tablets in a dose pack 2022 023 [email or web address], [address], [place], [id number], 3 16:44:49 Patient TargetsNo targets recorded. Patient [...] Address Organization Details Recorded Time Osteoarthr itis [id number] Active Not Available [employer] 3 17:47:26 Pain of right wrist [id number] 00 Active 2022 Liberty Oneal RMKaruna kirk, [employer] 15:11:46 Problem Notes None recorded. Procedures Surgical History Date Name Laterality Status Provider Name and Address Organization Details Recorded Time procedure on spine completed ANURADHA Morales [employer] 03/27/2023 15:09:40 procedure on gallbladder completed ANURADHA Morales [employer] 03/27/2023 15:09:51 Carpal tunnel surgery completed Libertyrodriguez Oneal RMKaruna [employer] 03/27/2023 15:10:04 Imaging Results Imaging Date Name Status LastModified by Organiz ation Details LastModified Time 03/21/2023 XR, wrist, 2 view completed [email or web address] Information not available 03/26/2023 10:47:24 Procedure Notes None recorded. Medical Equipment None Reported. Allergies Allergen ID Allergen Name Allergen Category Reaction Reaction Severity Criticality Documentation Date Start Date Code Code System Note Provider Name and Address Organization Details Recorded Time 10798 codeine medicatio n Not available Not available Not available 03/27/2023 2670 RxNorm Liberty Oneal RMA reagan, [employer] 15:07:16 Medications Name Sig Start Date Stop [...] , administe red by provider 2022 active [facility]: 0003- [phone]- 20 Not Available Not Available [...] , administe red by provider 2022 active [facility] [phone] -[phone]- [phone] Not Available Not Available Not [...] Updated DateTime 03/27/2023 160.02 cm 28.5 kg/m2 33142.37 g ANURADHA Morales [facility] [employer] [facility] 03/27/2023 15:14:25 Social History Question Answer Notes LastModified by Organizat ion Details LastModified Time Tobacco Smoking Status Never Smoker ANURADHA Morales null, [facility] [employer] [facility] 03/27/2023 15:09:22 What Is Your Level Of Alcohol Consumption? None [email or web address] Information not available 03/27/2023 Sex: Unknown Functional Status None recorded. Mental Status None recorded. Family History Relationship Description Onset Age of this Age Resolved Age Notes LastModified by Organization Details LastModified Time Father Heart disease [email or web address] Not available 2022 15:08:05 Mother Heart disease [email or web address] Not available 2022 15:08:05 Mother Diabetes mellitus [email or web address] Not available 2022 15:09:14 Sister Heart disease [email or web address] Not available 2022 15:08:05 Sister Diabetes mellitus [email or web address] Not available 2022 15:09:14 Maternal Grandfather Family history of stroke [email or web address] Not available 2022 15:08:18 Unspecified Relation Hypertensive disorder all family [email or web address] Not available 03/27/2023 15:08:39 Maternal Aunt Diabetes mellitus Not available 2022 15:09:14 Maternal Uncle Diabetes mellitus [email or web address] Not available 2022 15:09:14 Medical History Condition Response ARTHRITIS Y CANCER: SPECIFY Y ANEMIA/BLOOD DISORDER Y DIABETES, TYPE Y Gynecological HistoryNo gynecological history recorded. Obstetrics History GPAL:G 0 P 0 0 0 0 Past Encounters Encounter ID Performer Location Encounter Start Date Encounter Closed Date Diagnosis/Indication Diagnosis SNOMED-CT Code Diagnosis ICD10 Code Diagnosis Note [id number] Arsh Baugh MD [email or web address] [address] [place] [address] 03/27/2023 14:33:19 03/31/2023 09:51:05 Pain of right wrist [id number] 43153 M25.531 Health Concerns Section Related Observation LastModified by Organization Detai ls LastModified Time None Recorded Concern Status LastModified by Organization Details LastModified Time None Recorded Advance Directives Directive None Recorded Payers Encounter Date Sequence Insurance Name Policy Number Policy John Covered Member ID John Member ID Guarantor Name 03/27/2023 1 [employer] (MEDICARE REPLACEMENT PPO) [id number] Sergey Silvestre Larry [id number] Sergey Juarez Notes Date Note Type Note Provider Name and Address Organization Details Recorded Time 03/27/2023 text/html patient is a 72-year-old female referred by Dr. 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 Arsh Baugh MD [address] [place] [address], [facility] [address], [place], [address], [place] [employer] 03/29/2023 08:33:02 OBGyn Episode No OBEpisode recorded.
[2025-01-04 08:52] LABS: Immature Platelet Fraction Pct 18.3 % (0.9-11.2); Mean Platelet Volume 12.3 fl (7.4-10.4); Platelet Count Result 98 k/mm3 (150-375)
[2025-01-04 08:59] LABS: Anion Gap 12 mmol/L (4-12); Blood Urea Nitrogen 29 mg/dL (7-17); Calcium 9.9 mg/dL (8.4-10.2); Carbon Dioxide 26 mmol/L (22-30); Chloride 104 mmol/L (98-107); Estimated Glomerular Filt Rate 51; Glucose 92 mg/dL (65-110); Potassium 4.5 mmol/L (3.4-5.0); Sodium 142 mmol/L (137-145)
== END 2025-01-04 08:06 | disposition home or self-care (01) ==
LOC: ANHSURGERY 08:08
PROVIDERS: Anesthesiology; PCP Family Medicine; Visit Provider Orthopaedic Surgery
DX: D47.1 Chronic myeloproliferative disease (principal); E11.9 Type 2 diabetes mellitus without complications
CPT/HCPCS: 36415; 80048; 85049; 85055

== ENCOUNTER 2025-01-13 00:28 | Day surgery (SDC) | payer MEDICARE, SELFPAY ==
[2024-10-26 13:20] VITALS: BMI 24.4
--- NOTE | 2024-10-26 13:33 | PC.NURSE ---
Report to the Outpatient Waiting Room, entrance under the green pavilion located off [facility], at time __1030am on date _11/11/24 . Planned Procedure Time: _12:30am . Time changes happen often and if your time is changed the preop area will call you the afternoon before. - You and your visitor will be asked to self-screen and do not enter if you have any COVID symptoms. Please call surgeon if you need to reschedule. - A mask is optional within the hospital at this time. Patients may have clear liquids (water, carbonated beverages, clear teas, apple juice) until 3 hours prior to surgery with a maximum of 20 ounces. - No food from midnight until time of surgery and no smoking, or chewing tobacco (or any form of nicotine). No chewing gum, candy or mints. Take only the following medications with a SIP of water on the morning of surgery: ____Levothyroxine DO NOT STOP ANY OF YOUR OTHER PRESCRIPTION MEDICATIONS PRIOR TO SURGERY EXCEPT THE FOLLOWING Hold all vitamins and supplements for 3 days per anesthesiologist.Date to take last dose____11/07/24 Please no make-up, nail south korean, hairspray, perfume, deodorant, or body powder the day of surgery. No jewelry (including any body piercings) or valuables the day of surgery, leave them at home. Please take a shower or bath the night before, or the morning of, surgery with an antibacterial soap. Wear comfortable, loose fitting clothing. - Jewelry must be removed prior to entering the operating room. Rings and piercings that are not removed may be cut off. - The hospital will not accept responsibility for valuables. - Please leave all valuables, including medications, at home the day of surgery. If you are going home after surgery, a licensed intermodal owner operator truck driver must drive you home. - NO public transportation without another adult if you receive anesthesia. - We recommend that an adult stay with you for 24 hours following discharge. - We also recommend that you do not drive, make important decision, drink alcoholic beverages, or take any drugs that were not prescribed by your health care provider for at least 24 hours after your discharge time. Follow any additional instructions given to you from your surgeon. Telephone instructions given to _Patient and asked if any additional questions and then verbalized understanding. Patient advised to call surgeon office or pre surgery nurse liaison [phone] if any additional questions.
--- OUTSIDE RECORDS SUMMARY | 2024-11-11 00:29 | XMS_ITS | Encounter Summary ---
Author Organization [facility] Address [address] [place] [address] Phone Care Team Providers Care Packing Room Supervisor Name Role Phone Agustin Orozco MD Unavailable [phone] Jared Marie MD Unavailable [phone] Bryn Jeff MD Primary Care Provider [phone] Melanie Husain MD Primary Care Provider [phone] Bryn Jeff MD Primary Care Provider [phone] Deepak Negron MD Primary Care Provider [phone] Morgan Herrera MD Primary Care Provider [phone] Liam Douglas MD Primary Care Provider [phone] Encounter Details Date Type Department Care Team (Latest Contact Info) Description 10/28/2018 Orders Only [facility] Scanning, Provider Social History Tobacco Use Types Packs/Day Years Used Date Smoking Tobacco: Never Comments Unknown Sex and Gender Information Value Date Recorded Sex Assigned at Not on file Legal Sex Female 12:02 PM MULTIPLE DRUM SANDER Gender Identity Female 06/25/2021 8:56 PM CDT [...] on filedocumented in this encounter Care Teams Packing Room Supervisor Relationship Specialty Start Date End Date Bryn Jeff MD [address] [place] [id number] PCP - General Internal Medicine 12/01/18 12/02/18 Melanie Husain MD [address] [place] [id number] PCP - General 12/03/18 12/03/18 Bryn Jeff MD [address] [place] [address] PCP - General Internal Medicine 12/04/18 06/03/19 Deepak Negron MD [address] [place] [address] PCP - General Internal Medicine 06/04/19 07/18/22 Morgan Herrera MD [address] [place] [address] PCP - General Internal Medicine 07/19/22 07/10/23 Liam Douglas MD [address] [place] [address] PCP - General Family Practice 07/11/23 Agustin Orozco MD [address] [place] [address] Medical Oncologist/Tapping Machine Operator Hematology 12/01/18 Jared Marie MD [address] [place] [address] Consulting Physician Medical Oncology 12/01/18 documented as of this encounter
--- OUTSIDE RECORDS SUMMARY | 2024-11-11 00:29 | XMS_ITS | Data Portability ---
Author Organization [facility] Main Office Address [address] [place] [address] Care Team Providers Care Va Underwriter Name Role Phone KACY DOUGLAS Primary Care Provider [phone] KACY DOUGLAS Referring Provider [phone] Assessment Encounter Date Assessment Date Assessment LastModified [...] more than half the time spent in [id number] care. Not available 03/29/2023 08:32:47 Plan of [...] DO Not Attach Compendium, Do Not Delete/merge, [address] 15:56:20 Surgeries None recorded. Imaging None recorded. Medication Orders Kenalog 10 mg/mL suspension for injection 2022 023 [facility], [address], [place], [id number], 3 16:44:49 ropivacaine (PF) 5 mg/mL (0.5 %) injection solution 2022 023 [facility]02936, [address], [place], [id number], 3 16:44:49 Medrol (Car) 4 mg tablets in a dose pack 2022 023 [facility] #83492, [address], [place], [id number], 3 16:44:49 Patient TargetsNo targets recorded. Patient [...] Address Organization Details Recorded Time Osteoarthr itis [id number] Active Not Available [facility] 3 17:47:26 Pain of right wrist [id number] 00 Active 2022 [facility] RMKaruna kirk, ROLI 15:11:46 Problem Notes None recorded. Procedures Surgical History Date Name Laterality Status Provider Name and Address Organization Details Recorded Time procedure on spine completed ANURADHA Morales ROLI 03/27/2023 15:09:40 procedure on gallbladder completed ANURADHA Morales ROLI 03/27/2023 15:09:51 Carpal tunnel surgery completed [facility] RMKaruna ROLI 03/27/2023 15:10:04 Imaging Results Imaging Date Name Status LastModified by Organiz ation Details LastModified Time 03/21/2023 XR, wrist, 2 view completed [email or web address] Information not available 03/26/2023 10:47:24 Procedure Notes None recorded. Medical Equipment None Reported. Allergies Allergen ID Allergen Name Allergen Category Reaction Reaction Severity Criticality Documentation Date Start Date Code Code System Note Provider Name and Address Organization Details Recorded Time 91876 codeine medicatio n Not available Not available Not available 03/27/2023 2670 RxNorm [facility] RMA reagan, ROLI 15:07:16 Medications Name Sig Start Date Stop [...] , administe red by provider 2022 active [facility]: 0003- 0494- 20 Not Available Not Available [...] , administe red by provider 2022 active [facility] 67257 -064- 01 Not Available Not Available Not [...] Updated DateTime 03/27/2023 160.02 cm 28.5 kg/m2 46916.37 g ANURADHA Morales [employer] [facility] 03/27/2023 15:14:25 Social History Question Answer Notes LastModified by Organizat ion Details LastModified Time Tobacco Smoking Status Never Smoker ANURADHA Morales null, [employer] [facility] 03/27/2023 15:09:22 What Is Your Level Of Alcohol Consumption? None [email or web address] Information not available 03/27/2023 Sex: Unknown Functional Status None recorded. Mental Status None recorded. Family History Relationship Description Onset Age of this Age Resolved Age Notes LastModified by Organization Details LastModified Time Father Heart disease [email or web address] Not available 2022 15:08:05 Mother Heart disease [email or web address] Not available 2022 15:08:05 Mother Diabetes mellitus [email or web address] Not available 2022 15:09:14 Sister Heart disease [email or web address] Not available 2022 15:08:05 Sister Diabetes mellitus [email or web address] Not available 2022 15:09:14 Maternal Grandfather Family history of stroke [email or web address] Not available 2022 15:08:18 Unspecified Relation Hypertensive disorder all family [email or web address] Not available 03/27/2023 15:08:39 Maternal Aunt Diabetes mellitus [email or web address] Not available 2022 15:09:14 Maternal Uncle Diabetes mellitus [email or web address] Not available 2022 15:09:14 Medical History Condition Response ARTHRITIS Y DIABETES, TYPE Y CANCER: SPECIFY Y ANEMIA/BLOOD DISORDER Y Gynecological HistoryNo gynecological history recorded. Obstetrics History GPAL:G 0 P 0 0 0 0 Past Encounters Encounter ID Performer Location Encounter Start Date Encounter Closed Date Diagnosis/Indication Diagnosis SNOMED-CT Code Diagnosis ICD10 Code Diagnosis Note [id number] Arsh Baugh MD [facility] [address] [place] [address] 03/27/2023 14:33:19 03/31/2023 09:51:05 Pain of right wrist [id number] 33062 M25.531 Health Concerns Section Related Observation LastModified by Organization Detai ls LastModified Time None Recorded Concern Status LastModified by Organization Details LastModified Time None Recorded Advance Directives Directive None Recorded Payers Encounter Date Sequence Insurance Name Policy Number Policy John Covered Member ID John Member ID Guarantor Name 03/27/2023 1 [employer] (MEDICARE REPLACEMENT PPO) [id number] Sergey Silvestre Larry [id number] Sergey Juarez Notes Date Note Type Note [...] She had x-rays obtained on 03/21/2023 at [facility] two views the right wrist which demonstrated 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 Arsh Baugh MD [address] [place] [address], [facility] [address], [place], [address], [place] [facility] 03/29/2023 08:33:02 OBGyn Episode No OBEpisode recorded.
--- OUTSIDE RECORDS SUMMARY | 2024-11-11 00:29 | XMS_ITS | Encounter Summary ---
Author Organization [facility] Address [address] [place] [address] Phone Care Team Providers Care Wrestling Coach Name Role Phone Agustin Orozco MD Unavailable [phone] Jared Marie MD Unavailable [phone] Bryn Jeff MD Primary Care Provider [phone] Melanie Husain MD Primary Care Provider [phone] Bryn Jeff MD Primary Care Provider Deepak Negron MD Primary Care Provider Morgan Herrera MD Primary Care Provider [phone] Liam Douglas MD Primary Care Provider [phone] Encounter Details Date Type Department Care Team (Latest Contact Info) Description 10/22/2018 Orders Only [facility] Scanning, Provider Social History Tobacco Use Types Packs/Day Years Used Date Smoking Tobacco: Never Comments Unknown Sex and Gender Information Value Date Recorded Sex Assigned at Not on file 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 Gender Identity Female 06/25/2021 8:56 PM CDT [...] on filedocumented in this encounter Care Teams Wrestling Coach Relationship Specialty Start Date End Date Bryn Jeff MD [address] [place] [address] PCP - General Internal Medicine 12/01/18 12/02/18 Melanie Husain MD [address] [place] [phone] PCP - General 12/03/18 12/03/18 Bryn Jeff MD [address] [place] [address] PCP - General Internal Medicine 12/04/18 06/03/19 Deepak Negron MD [address] [address] PCP - General Internal Medicine 06/04/19 07/18/22 Morgan Herrera MD [address] [facility] 1 [place] [address] PCP - General Internal Medicine 07/19/22 07/10/23 Liam Douglas MD [address] [place] [address] PCP - General Family Practice 07/11/23 Agustin Orozco MD [address] [place] [address] Medical Oncologist/Neon Sign Worker Hematology 12/01/18 Jraed Marie MD [address] [place] [address] Consulting Physician Medical Oncology 12/01/18 documented as of this encounter
--- OUTSIDE RECORDS SUMMARY | 2024-11-11 00:30 | XMS_ITS | Encounter Summary ---
Author Organization [facility] Address [address] [place] [address] Phone Care Team Providers Care Precast Worker Name Role Phone Agustin Orozco MD Unavailable [phone] Jared Marie MD Unavailable [phone] Liam Douglas MD Primary Care Provider [phone] Encounter Details Date Type Department Care Team (Late st Contact Info) Description 10/28/2024 Telephone [facility] Bone Marrow Trans[facility] Floor [address] [place] [address] J[address] V. 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 Gender Identity Female 06/25/2021 8:56 PM CDT Sexual Orientation Straight 06/25/2021 8: 56 PM CDT documented as of this encounter Plan of Treatment Not on file documented as of this encounter Visit Diagnoses Not on filedocumented in this encounter Care Teams Precast Worker Relationship Specialty Start Date End Date Liam Douglas MD [address] [place] [address] PCP - General Family Practice 07/11/23 Agustin Orozco MD [address] [place] [address] Medical Oncologist/Classroom Coordinator Hematology 12/01/18 Jared Marie MD [address] [place] [address] Consulting Physician Medical Oncology 12/01/18 documented as of this encounter
--- OUTSIDE RECORDS SUMMARY | 2024-11-11 00:30 | XMS_ITS | Patient Health Summary ---
Author Organization [facility] Address [address] [place] [address] Care Team Providers Care Javascript Front End Developer Name Role Phone Bryn Jeff MD Primary Care Provider [phone] Note from [facility],non-owned Affiliates and Associated Physician Practices is amultiple site organization consisting of ambulatory clinics and hospital sitesin [place], [place], [place] and [place]. This disclosure is being madepursuant to the Care Everywhere program and may not contain all information available regarding this patient. Last updated 18.[facility] Allergies * Codeine(Nausea and/or Vomiting,Headache) Medications * [...] CDT Respiratory Rate 18 11/11/2015 4:07 PM COMPENSATION ASSOCIATE Oxygen Saturation 98% 11/16/2015 10:48 AM CDT [...] - POINT OF CARE (11/11/2015 7:30 AM COMPENSATION ASSOCIATE) Only the most recent of4 resultswithin the time period is included. Glucose WB/POC 122(H) 70 - 106 mg/dL 11/11/2015 7:53 AM COMPENSATION ASSOCIATE [facility] Blood BLOOD SPECIMEN / Unknown 11/11/2015 7:30 AM COMPENSATION ASSOCIATE 11/11/2015 7:53 AM COMPENSATION ASSOCIATE Robe Kruse MD LAB - POINT OF CARE ORDERABLES Performing Organization Address [facility] Co de Phone Number [facility] [address] [place], [place] [id number] * HEMOGLOBIN A1C (11/11/2015 3:13 AM COMPENSATION ASSOCIATE) Pathologist [facility] Hemoglobin A1c 6.0 4.2 - 6.3 % 11/11/2015 4:19 AM COMPENSATION ASSOCIATE [facility] Estimated Average Glucose 126 mg/dL 11/11/2015 4:19 AM COMPENSATION ASSOCIATE [facility] Whole Blood BLOOD SPECIMEN WITH EDTA / Unknown 11/11/2015 3:13 AM COMPENSATION ASSOCIATE 11/11/2015 3:45 AM COMPENSATION ASSOCIATE Liana Irwin MD LAB - CHEMISTRY AUDREY MCKEON Performing Organization Address [facility] Co de Phone Number [facility] [address] [place] [address] * EKG 12-LEAD (11/10/2015 8:39 AM COMPENSATION ASSOCIATE) Ventricular Rate 70 BPM [facility] Atrial Rate 70 BPM [facility] P-R Interval 166 ms [facility] QRS Duration ms 84 ms [facility] Q-T Interval ms 398 ms [facility] QTC Calculation (Bezet) 429 ms [facility] Calculated P [place] 46 degrees [facility] Calculated R [place] 2 degrees [facility] Calculated T [place] 47 degrees [facility] Interpretation EKG Normal sinus rhythm Normal ECG No previous ECGs available Confirmed by CHEYENNE GALEANO KAHLIL ([id number]) on 11/10/2015 2:49:11 PM [facility] 11/10/2015 8:39 AM COMPENSATION ASSOCIATE 11/10/2015 2:49 PM COMPENSATION ASSOCIATE Robe Kruse MD ECG ORDERABLES [facility] * (ABNORMAL) BASIC METABOLIC PANEL (CALCIUM TOTAL) (11/10/2015 7:31 AM COMPENSATION ASSOCIATE) Glucose 113(H) 74 - 106 mg/dL 11/10/2015 8:04 AM [facility] Sodium 143 136 - 145 mmol/L 11/10/2015 8:04 AM [facility] Potassium 4.6 3.5 - 5.1 mmol/L 11/10/2015 8:04 AM [facility] Chloride 105 98 - 107 mmol/L 11/10/2015 8:04 AM [facility] CO2 30 22 - 31 mmol/L 11/10/2015 8:04 AM [facility] Calcium 9.7 8.5 - 10.1 mg/dL 11/10/2015 8:04 AM [facility] Anion Gap 8 5 - 20 mmol/L 11/10/2015 8:04 AM [facility] BUN 28(H) 7 - 21 mg/dL 11/10/2015 8:04 AM [facility] Creatinine 0.87 0.50 - 1.30 mg/dL 11/10/2015 8:04 AM [facility] eGFR by MDRD >60 >60 mL/min/1.7 3m2 11/10/2015 8:04 AM [facility] eGFR by MDRD >60 >60 mL/min/1.7 3m2 11/10/2015 8:04 AM [facility] Blood BLOOD SPECIMEN / Unknown 11/10/2015 7:31 AM COMPENSATION ASSOCIATE 11/10/2015 7:49 AM COMPENSATION ASSOCIATE Robe Kruse MD LAB - CHEMISTRY ORDE RABJOSE ELIAS [facility] [address] [place] [address] * GROSS + MICRO EXAM (STL) (10/13/2015 9:45 AM COMPENSATION ASSOCIATE) Case Report Surgical Pathology Report Case: [id number] Authorizing Provider: Robe Kruse MD Collected: 10/13/2015 09:45 AM Ordering Location: [facility] Received: 10/13/2015 12:23 PM Pathologist: Augustine Khan MD Specimen: Antrum Biopsy 10/14/2015 12:54 PM COMPENSATION ASSOCIATE [facility] Final Diagnosis 1. Stomach, antrum, biopsy: -- No pathologic diagnosis / 10/14/2015 12:54 PM COMPENSATION ASSOCIATE [facility] Clinical History cc: [facility] 10/14/2015 12:54 PM COMPENSATION ASSOCIATE [facility] Gross Description Received in formalin in a container labeled Sergey Juarez, antrum biopsy. The container holds a single pink-williamson tissue fragment measuring 0.6 x 0.4 x 0.2 cm. The specimen is entirely submitted in cassette labeled A1. DYT/alj 10/14/2015 12:54 PM COMPENSATION ASSOCIATE [facility] Microscopic Description Sections of the biopsy of the antrum show fragments of gastric mucosa. Inflammation is not seen. Malignancy is not identified. No Helicobacter organisms are present at H&E or H. pylori immunostain. / 10/14/2015 12:54 PM COMPENSATION ASSOCIATE [facility] Pathology/Cytolo gy GASTRIC ANTRAL BIOPSY SPECIMEN / Unknown 10/13/2015 9:45 AM COMPENSATION ASSOCIATE 10/13/2015 12:23 PM COMPENSATION ASSOCIATE Robe Kruse MD LAB - PATHOLOGY/CYTO LOGY ORDERABLES [facility] [address] [place] [address] Care Teams Javascript Front End Developer Relationship Specialty Start Date End Date Bryn Jeff MD [address] [place] [address] PCP - General Internal Medicine 09/29/15
--- OUTSIDE RECORDS SUMMARY | 2024-11-11 00:30 | XMS_ITS | Referral Summary ---
Author Organization [facility] Address [address] [place] [address] Care Team Providers Care Marble Coper Name Role Phone Agustin Orozco MD Unavailable [phone] Jared Marie MD Unavailable [phone] Liam Douglas MD Primary Care Provider [phone] Encounters Date Type Department Care Team Description 11/08/2024 10:45 AM CDT Lab [facility] - Lab Collection [address] [place] [address] 6 [place] [address] MDS (myelodysplastic syndrome) (HCC) 11/05/2024 Telephone [facility]row Trans[facility] 6 [place] [address] Jared Marie MD 10/28/2024 Telephone [facility]row Trans[facility] 6 [place] [phone] Jing Lanier V. 10/27/2024 Orders Only [facility] Scanning, Provider 08/30/2024 Telephone [facility]row Transplant [facility] 6 [place] [address] Jared Marie MD 08/30/2024 11:15 AM CILNICAL SCIENTIST Lab [facility] at [address] [address] MDS (myelodysplastic syndrome) (HCC) 08/27/2024 Orders Only [facility] Trans[facility] [address] [address] Jared Marie MD MDS (myelodysplastic syndrome) ([facility]) (Primary Dx) 08/27/2024 Orders Only [facility] [address] [address] Jared Marie MD MDS (myelodysplastic syndrome) ([facility]) (Primary Dx) from Last 3 Months Allergies Active Allergy Reactions Criticality Noted Date Comments Codeine Headache,Nausea & Vomiting Low 6 N/V, hallucination Medications SYNJARDY XR 5-1,000 mg tablet, IR & ER, biphasic 24hrIndications :MDS (myelodysplasti c syndrome) ([facility]) daily 9 Active montelukast (SINGULAIR) 10 mg tabletIndicatio ns:MDS (myelodysplasti c syndrome) ([facility]) Take 1 tablet (10 mg total) by mouth daily 5 Active minoxidil 5 % solutionIndicat ions:MDS (myelodysplasti c syndrome) ([facility]) Apply topically Acti ve fluticasone propionate [...] 2 capsules (200 mg total) by mouth supervisor waterproofing before breakfast Active Ozempic 1 mg/dose (4 mg/3 mL) pen injector injectionIndica tions:MDS (myelodysplasti c syndrome) ([facility]) 3 Active cholecalciferol (VITAMIN D-3) 50,000 unit [...] 08/13/2016 Assessment & Plan (07/21/2020 1:36 PM CILNICAL SCIENTIST): Lab work from January 2020 showed LDL 88 and triglycerides 214. She continues on atorvastatin 20 mg. Assessment & Plan (01/14/2020 9:31 AM CDT): She continues on atorvastatin 20mg. We will recheck a lipid panel. Assessment & Plan (06/04/2019 10:32 AM CDT): Her last lipid panel was in acceptable range, continue on atorvastatin 20mg. Hypertension 08/13/2016 Assessment & Plan (07/21/2020 1:36 PM CILNICAL SCIENTIST): Her blood pressure is well controlled today. 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 Gender Identity Female 06/25/2021 8:56 PM CDT Sexual Orientation Straight 06/25/2021 8: 56 PM CDT Last Filed Vital Signs Vital Sign Reading Time Taken Comments Blood Pressure 124/70 08/11/2024 1:10 PM CILNICAL SCIENTIST Pulse 82 08/11/2024 1:10 PM CILNICAL SCIENTIST Temperature 36.2 C (97.2 F) 07/09/2024 10:40 AM CILNICAL SCIENTIST Respiratory Rate 18 07/09/2024 10:40 AM CILNICAL SCIENTIST Oxygen Saturation 97% 08/11/2024 1:10 PM CILNICAL SCIENTIST Inhaled Oxygen Concentration - - Weight 68 kg (150 lb) 08/11/2024 1:10 PM CILNICAL SCIENTIST Height 165.1 cm (5' 5 ) 08/11/2024 1:10 PM CILNICAL SCIENTIST Body Mass Index 24.96 08/11/2024 1:10 PM CILNICAL SCIENTIST Plan of Treatment Not on file Procedures Procedure Name Priority Date/Time Associated Diagnosis Comments FACTOR XI ACTIVITY Routine 11/08/2024 10 :41 AM CDT MDS (myelodysplastic syndrome) (HCC) FACTOR XII ACTIVITY Routine 11/08/2024 10:41 AM CDT MDS (myelodysplastic syndrome) (HCC) APTT MIXING STUDY Routine 11/08/2024 10: 41 AM CDT MDS (myelodysplastic syndrome) (HCC) SCAN - LABS 10/27/2024 EGFR Routine 07/09/2024 10:05 AM CILNICAL SCIENTIST MDS (myelodysplastic syndrome) (HCC) LIPID PANEL Routine 08/13/2023 12:57 PM CILNICAL SCIENTIST Dyslipidemia Essential hypertension from Last 3 Months or Most Recently Relevant to Health Maintenance Results * (ABNORMAL) aPTT mixing study (11/08/2024 10:41 AM CDT) aPTT 45(H) 28 - 38 sec Comment: Interpretive Data Heparin therapeutic range: 66.0 - 100.0 seconds. Range based on correlation with therapeutic heparin activity range of 0.3 - 0.7 Units/mL. Current interpretive data was last revised on 2023. aPTT, 50/50 mix 35 28 - 38 sec [facility] Comment: Interpretive data Evaluating an unexpected prolonged [...] interpretive data was last revised on 2019. aPTT, 50/50 mix, 1 hr 36 28 - 38 sec [facility] Blood 11/08/2024 10:4 1 AM CDT 11/08/2024 11:44 AM CDT us Jared Marie MD LAB BLOOD ORDERABLES Final Result [facility] [address] [place] [address] * Factor XII activity (11/08/2024 10:41 AM CDT) Factor XII activity 70 45 - 170 %norm Blood 11/08/2024 10:4 1 AM CDT 11/08/2024 11:44 AM CDT Jared Marie MD LAB BLOOD ORDERABLES Final Result Performing Organization Address City[facility] Co de Phone Number [facility] Department [place] [address] * Factor XI activity (11/08/2024 10:41 AM CDT) Pathologist [facility] Factor XI activity 88 60 - 140 %norm Blood 11/08/2024 10:4 1 AM CDT 11/08/2024 11:44 AM CDT Jared Marie MD LAB BLOOD ORDERABLES Final Result Performing Organization Address [facility] de Phone Number [facility] Department [place] [address] * SCAN - LABS (10/27/2024) Provider Scanning Final Result * (ABNORMAL) eGFR (07/09/2024 10:05 AM CILNICAL SCIENTIST) Pathologist [facility] eGFR 59(L) >=60 mL/min/1. 73 m2 Comment: [...] reviewed 2021. Blood 07/09/2024 10:0 5 AM CILNICAL SCIENTIST 07/09/2024 10:18 AM CILNICAL SCIENTIST us Jared Marie MD LAB BLOOD ORDERABLES Final Result [facility] [address] Department [place] [address] * (ABNORMAL) Lipid panel (08/13/2023 12:57 PM CILNICAL SCIENTIST) Cholesterol 136 30 - 199 mg/dL [facility] [...] [facility] Blood 08/13/2023 12:5 7 PM CILNICAL SCIENTIST 08/13/2023 12:58 PM CILNICAL SCIENTIST us Osvaldo Robni MD LAB BLOOD ORDERABLES Final R esult [facility] [address] [facility]. [place] [address] from Last 3 Months or Most Recently Relevant to Health Maintenance Insurance T MEDICARE MEDICARE SOLUTIONS MEDICAL [facility] MEDICARE Address: [address] [address] [place] [address] [facility]LY [facility] MEDICARE AET MEDICARE Care Teams Marble Coper Relationship Specialty Start Date End Date Liam Douglas MD [address] [place] [address] PCP - General Family Practice 07/11/23 Agustin Orozco MD [address] [place] [address] Medical Oncologist/Machinist Instructor Hematology 12/01/18 Jared Marie MD [address] [place] [address] Consulting Physician Medical Oncology 12/01/18
--- OUTSIDE RECORDS SUMMARY | 2024-11-11 00:30 | XMS_ITS | Clinical Summary ---
Author Organization [facility] [employer] Address [address] [facility] [place] [address] Care Team Providers Care Advertising Sales Assistant Name Role Phone Bryn Jeff MD Primary Care Provider [phone] Source Comments [facility],non-owned Affiliates and Associated Physician Practices is amultiple site organization consisting of ambulatory clinics and hospital sitesin [place], [place], [place] and [place]. This disclosure is being madepursuant to the Care Everywhere program and may not contain all information available regarding this patient. Last updated 18.[facility] [employer] Allergies Active Allergy Reactions Criticality Noted Date [...] CDT Respiratory Rate 18 11/11/2015 4:07 PM LABORER [employer] Oxygen Saturation 98% 11/16/2015 10:48 AM CDT [...] to complete this topic MENINGOCOCCAL (Group B) VACC INE SHARED DECISION-MAKING Aged Out No longer eligibl e based on patient's age to complete this topic MENINGOCOCCAL GROUPS A/C/Y/W VACCINE Aged Out No longer eligible b ased on patient's age to complete this topic Advance Directives * Full Code (Latest Code Status on File) Date Activated Date Inactivated Comments 11/10/2015 10:16 AM 11/11/2015 5:09 PM Care Teams Advertising Sales Assistant Relationship Specialty Start Date End Date Bryn Jeff MD [address] [place] [address] PCP - General Internal Medicine 09/29/15
--- OUTSIDE RECORDS SUMMARY | 2024-11-11 00:30 | XMS_ITS | Referral Summary ---
Author Organization [facility] [employer] Address [address] [facility] [place] [address] Care Team Providers Care Cq Developer Name Role Phone rByn Jeff MD Primary Care Provider [phone] Source Comments [facility],non-[facility] Affiliates and Associated Physician Practices is amultiple site organization consisting of ambulatory clinics and hospital sitesin [place], [place], [place] and [place]. This disclosure is being madepursuant to the Care Everywhere program and may not contain all information available regarding this patient. Last updated 18.[facility] [employer] Allergies Active Allergy Reactions Criticality Noted Date [...] CDT Respiratory Rate 18 11/11/2015 4:07 PM FLASK PUSHER Oxygen Saturation 98% 11/16/2015 10:48 AM CDT [...] 10:16 AM 11/11/2015 5:09 PM Care Teams Cq Developer Relationship Specialty Start Date End Date Bryn Jeff MD [address] [place] [address] PCP - General Internal Medicine 09/29/15
--- OUTSIDE RECORDS SUMMARY | 2024-11-11 00:30 | XMS_ITS | Encounter Summary ---
Author Organization [facility] Address [address] [place] [address] Phone Care Team Providers Care Composition Professor Name Role Phone Agustin Orozco MD Unavailable [phone] Jared Marie MD Unavailable [phone] Deepak Negron MD Primary Care Provider [phone] Morgan Herrera MD Primary Care Provider [phone] Liam Douglas MD Primary Care Provider [phone] Encounter Details Date Type Department Care Team (Latest Contact Info) Description 05/18/2020 Orders Only [facility] Scanning, Provider Social History Tobacco Use Types Packs/Day Years Used Date Smoking Tobacco: Never Smokeless Tobacco: Never Comments Unknown Sex and Gender Information Value Date Recorded Sex Assigned at Not on file 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 Gender Identity Female 06/25/2021 8:56 PM [...] on filedocumented in this encounter Care Teams Composition Professor Relationship Specialty Start Date End Date Deepak Negron MD [address] [place] [address] PCP - General Internal Medicine 06/04/19 07/18/22 Morgan Herrera MD [address] [place] [address] PCP - General Internal Medicine 07/19/22 07/10/23 Liam Douglas MD [address] [place] [address] PCP - General Family Practice 07/11/23 Agustin Orozco MD [address] [place] [phone] Medical Oncologist/Sap Crm Developer Hematology 12/01/18 Jared Marie MD [address] [place] [phone] Consulting Physician Medical Oncology 12/01/18 documented as of this encounter
--- OUTSIDE RECORDS SUMMARY | 2024-11-11 00:30 | XMS_ITS | Encounter Summary ---
Author Organization [facility] Address [address] [place] [address] Phone Care Team Providers Care Vascular Radiologist Name Role Phone Agustin Orozco MD Unavailable [phone] Jared Marie MD Unavailable [phone] Deepak Negron MD Primary Care Provider [phone] Morgan Herrera MD Primary Care Provider [phone] Liam Douglas MD Primary Care Provider [phone] Encounter Details Date Type Department Care Team (Latest Contact Info) Description 11/14/2020 Orders Only [facility] Scanning, Provider Social History Tobacco Use Types Packs/Day Years Used Date Smoking Tobacco: Never Smokeless Tobacco: Never Comments Unknown Sex and Gender Information Value Date Recorded Sex Assigned at Not on file 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 Gender Identity Female 06/25/2021 8:56 PM CDT [...] on filedocumented in this encounter Care Teams Vascular Radiologist Relationship Specialty Start Date End Date Deepak Negron MD [address] [place] [address] PCP - General Internal Medicine 06/04/19 07/18/22 Morgan Herrera MD [address] [address] PCP - General Internal Medicine 07/19/22 07/10/23 Liam Douglas MD [address] [place] [address] PCP - General Family Practice 07/11/23 Agustin Orozco MD [address] [place] [phone] Medical Oncologist/Pens And Pencils Dipper Hematology 12/01/18 Jared Marie MD [address] [place] [phone] Consulting Physician Medical Oncology 12/01/18 documented as of this encounter
--- OUTSIDE RECORDS SUMMARY | 2024-11-11 00:30 | XMS_ITS | Clinical Summary ---
Author Organization [facility] Address [address] [place] [address] Care Team Providers Care Computer Analyst Name Role Phone Agustin Orozco MD Unavailable [phone] Jared Marie MD Unavailable [phone] Liam Douglas MD Primary Care Provider [phone] Allergies Active Allergy Reactions Criticality Noted Date Comments Codeine Headache,Nausea & Vomiting Low 6 N/V, hallucination Medications SYNJARDY XR 5-1,000 mg tablet, IR & ER, biphasic 24hrIndications :MDS (myelodysplasti c syndrome) ([facility]) daily 9 Active montelukast (SINGULAIR) 10 mg tabletIndicatio ns:MDS (myelodysplasti c syndrome) ([facility]) Take 1 tablet (10 mg total) by mouth daily 5 Active minoxidil 5 % solutionIndicat ions:MDS (myelodysplasti c syndrome) ([facility]) Apply topically Acti ve fluticasone propionate (FLONASE) [...] 2 capsules (200 mg total) by mouth deputy head before breakfast Active Ozempic 1 mg/dose (4 [...] 08/13/2016 Assessment & Plan (07/21/2020 1:36 PM CONCRETE VAULT MAKER): Lab work from January 2020 showed LDL 88 and triglycerides 214. She continues on atorvastatin 20 mg. Assessment & Plan (01/14/2020 9:31 AM CDT): She continues on atorvastatin 20mg. We will recheck a lipid panel. Assessment & Plan (06/04/2019 10:32 AM CDT): Her last lipid panel was in acceptable range, continue on atorvastatin 20mg. Hypertension 08/13/2016 Assessment & Plan (07/21/2020 1:36 PM CONCRETE VAULT MAKER): Her blood pressure is well controlled today. [...] 01/14/2020 Assessment & Plan (07/21/2020 1:36 PM CONCRETE VAULT MAKER): Asymptomatic Assessment & Plan (06/04/2019 10:33 AM CDT): Found to have NSVT in the past. She is at risk for Afib due to metabolic syndrome. Will monitor clinically for now. Sensation of chest tightness 08/13/2016 07/21/2020 Encounters Date Type Department Care Team Description 11/08/2024 10:45 AM CDT Lab [facility] [place] - Lab [facility] [place] [address] MDS (myelodysplastic syndrome) (HCC) 11/05/2024 Telephone [facility] Bone Marrow Transplant [address] [place] [phone] Jared Marie MD 10/28/2024 Telephone [facility] Bone Marrow Transplant [address] [place] [phone] Lanier Jing V. 10/27/2024 Orders Only [facility] Scanning, Provider 08/30/2024 11:15 AM CONCRETE VAULT MAKER Lab [facility] at [address] [address] MDS (myelodysplastic syndrome) ([facility]) 08/30/2024 Telephone [facility] Bone Marrow Transplant [address] [place] [phone] Jared Marie MD 08/27/2024 Orders Only [facility] Bone Marrow Transplant [address] [place] [phone] Jared Marie MD MDS (myelodysplastic syndrome) ([facility]) (Primary Dx) 08/27/2024 Orders Only [facility] Bone Marrow Transplant [address] [place] [phone] Jared Marie MD MDS (myelodysplastic syndrome) (HCC) [...] on file Legal Sex Female 12:02 PM CONCRETE VAULT MAKER Gender Identity Female 06/25/2021 8:56 PM CDT Sexual Orientation Straight 06/25/2021 8: 56 PM CDT Obstetrics History Last Filed Vital Signs Vital Sign Reading Time Taken Comments Blood Pressure 124/70 08/11/2024 1:10 PM CONCRETE VAULT MAKER Pulse 82 08/11/2024 1:10 PM CONCRETE VAULT MAKER Temperature 36.2 C (97.2 F) 07/09/2024 10:40 AM CONCRETE VAULT MAKER Respiratory Rate 18 07/09/2024 10:40 AM CONCRETE VAULT MAKER Oxygen Saturation 97% 08/11/2024 1:10 PM CONCRETE VAULT MAKER Inhaled Oxygen Concentration - - Weight 68 kg (150 lb) 08/11/2024 1:10 PM CONCRETE VAULT MAKER Height 165.1 cm (5' 5 ) 08/11/2024 1:10 PM CONCRETE VAULT MAKER Body Mass Index 24.96 08/11/2024 1:10 PM CONCRETE VAULT MAKER Plan of Treatment Health Maintenance Due Date [...] LABS 10/27/2024 EGFR Routine 07/09/2024 10:05 AM CONCRETE VAULT MAKER MDS (myelodysplastic syndrome) (HCC) LIPID PANEL Routine 08/13/2023 12:57 PM CONCRETE VAULT MAKER Dyslipidemia Essential hypertension from Last 3 Months [...] mix 35 28 - 38 sec [facility] Comment: Interpretive data Evaluating an unexpected prolonged [...] 1 hr 36 28 - 38 sec [facility] Blood 11/08/2024 10:4 1 AM CDT 11/08/2024 11:44 AM CDT Result [facility] Jared Marie MD LAB BLOOD ORDERABLES Final Result Performing Organization Address [facility] Phone Number [facility] [place] [address] * Factor XII activity (11/08/2024 10:41 AM CDT) Pathologist [facility] Factor XII activity 70 45 - 170 %norm Blood 11/08/2024 10:4 1 AM CDT 11/08/2024 11:44 AM CDT Result [facility] Jared Marie MD LAB BLOOD ORDERABLES Final Result Performing Organization Address [facility] de Phone Number [facility] [place] [address] * Factor XI activity (11/08/2024 10:41 AM CDT) [facility] Factor XI activity 88 60 - 140 %norm Blood 11/08/2024 10:4 1 AM CDT 11/08/2024 11:44 AM CDT Result [facility] Jared Marie MD LAB BLOOD ORDERABLES Final Result Performing Organization Address [facility] [place] [address] * SCAN - LABS (10/27/2024) Provider Scanning Final Result * (ABNORMAL) eGFR (07/09/2024 10:05 AM CONCRETE VAULT MAKER) Pathologist [facility] eGFR 59(L) >=60 mL/min/1. 73 m2 Comment: [...] reviewed 2021. Blood 07/09/2024 10:0 5 AM CONCRETE VAULT MAKER 07/09/2024 10:18 AM CONCRETE VAULT MAKER us Jared Marie MD LAB BLOOD ORDERABLES Final Result [facility] Department [place] [address] * (ABNORMAL) Lipid panel (08/13/2023 12:57 PM CONCRETE VAULT MAKER) Cholesterol 136 30 - 199 mg/dL [facility] [...] revised on 2018. Chol/HDL ratio 3 [facility] Blood 08/13/2023 12:5 7 PM CONCRETE VAULT MAKER 08/13/2023 12:58 PM CONCRETE VAULT MAKER us Osvaldo Robin MD LAB BLOOD ORDERABLES Final R esult [facility] [address] [facility]. Department [place] [address] from Last 3 Months or Most Recently Relevant to Health Maintenance Insurance [facility] MEDICARE MEDICARE SOLUTIONS T MEDICARE T MEDICARE Care Teams Computer Analyst Relationship Specialty Start Date End Date Liam Douglas MD [address] [place] [address] PCP - General Family Practice 07/11/23 Agustin Orozco MD [address] [place] [address] Medical Oncologist/Breakfast And Room Attendant Hematology 12/01/18 Jared Marie MD [address] [address] Consulting Physician Medical Oncology 12/01/18
--- OUTSIDE RECORDS SUMMARY | 2024-11-11 00:30 | XMS_ITS | Clinical Summary ---
Author Organization [facility] Address [address] [place] [address] Care Team Providers Care Barrelhead Inspector Name Role Phone Liam Douglas MD Primary Care Provider [phone] Allergies Active Allergy Reactions Criticality Noted Date Comments Codeine Headache 10/22/2018 N/V, hallucination Medications atorvastatin (LIPITOR) 20 mg tablet Take 20 mg by mouth daily with supper. Active levothyroxine 112 mcg tablet Take 112 mcg by mouth daily jacket changer. Active olmesartan-hydr oCHLOROthiazide (BENICAR-HCT) 40-12.5 mg tablet Take 1 Tablet by mouth daily jacket changer. Active empagliflozin-m etformin (SYNJARDY XR) 5-1,000 mg tablet, IR & ER, biphasic 24hr Take 1 Tablet by mouth daily. Active montelukast (SINGULAIR) 10 mg tablet Take 10 mg by mouth daily at bedtime. Active zinc oxide-hydrocort isone-ketoconaz ole Apply to affected area. Active ibuprofen (MOTRIN) 400 mg tablet Take 400 mg by mouth every 6 hours as needed for Pain, Mild. Active omega-3 acid ethyl esters (OMACOR,LOVAZA) 1 gram Capsule Take 2 Grams by mouth daily. Active cholecalciferol , vitamin D3, 5,000 unit Take 400 Units by mouth daily. Active docusate sodium (COLACE) 100 mg capsule Take 100 mg by mouth daily. Active multivitamin (MULTIPLE VITAMINS DAILY ORAL) Take by mouth. Activ e docusate calcium (SURFAK) 240 mg capsule Active fluticasone propionate (FLONASE) 50 mcg/spray [place]ita, Suspension nasal inhaler Administer 1 Hachita in each nostril. Active hydroCHLOROthia zide (HYDRODIURIL) 12.5 mg tablet 9 Active Ketoconazole 2 % Gel Apply to affected area. Active Minoxidil 5 % Solution Apply to affected area. Active olmesartan (BENICAR) 20 mg tablet 9 Active cyanocobalamin, vitamin B-12, 5,000 mcg Capsule Take by mouth. Activ e Rybelsus 7 mg Tablet Take 1 Tablet by mouth daily. 1 Active OneTouch Ultra Blue Test Strip Strip 1 Active linaCLOtide (LINZESS) 290 mcg capsule Take 290 mcg by mouth daily before breakfast. 1 Active fluorouraciL (EFUDEX) 5 % Cream 2 Active OneTouch Delica Plus Lancet 33 gauge 2 Active nirmatrelvir-ri tonavir (PAXLOVID) 300(150mg x 2)-100 mg oral packIndications :COVID-19 virus detected Take 300 mg nirmatrelvir (2 tablets) and 100 mg ritonavir (1 tablet) by mouth together twice daily for 5 days. 1 Dose Pack 2 Active pregabalin (LYRICA) 50 mg Capsule Take 50 mg by mouth. Active spironolactone (ALDACTONE) 100 mg tablet Take 100 mg by mouth daily. 4 Active omeprazole (PriLOSEC) 20 mg Capsule, Delayed Release(E.C.) TAKE 1 CAPSULE DAILY 90 Capsule 3 5 Active Active Problems Problem Noted Date Diagnosed Date Sinusitis 07/13/2019 MDS (myelodysplastic syndrome) 07/13/2019 Resolved Problems Problem Noted Date Diagnosed Date Resolved Date Other secondary thrombocytopenia 10/22/2018 05/19/2020 Encounters Date Type Department Care Team Description 11/06/2024 External Device Data STL ABSTRACTION Provider, Abstract 11/05/2024 External Device Data STL ABSTRACTION Provider, Abstract 11/02/2024 External Device Data STL ABSTRACTION Provider, Abstract 10/19/2024 External Device Data STL ABSTRACTION Provider, Abstract 10/15/2024 8:30 AM ADVISORY SOFTWARE ENGINEER Office Visit [facility] Oncology and Hematology [facility] [address] [place] [address] Agustin Orozco MD MDS (myelodysplastic syndrome) (CMS/HCC) (Primary Dx) 10/15/2024 Orders Only [facility] Oncology and Hematology [place] [address] [place] [address] Agustin Orozco MD 10/06/2024 Refill [facility] Oncology and Hematology [place] [address] [place] [address] Agustin Orozco MD 09/23/2024 External Device Data [...] on file Legal Sex Female 4:08 AM ADVISORY SOFTWARE ENGINEER Gender Identity Not on file Sexual Orientation Not on file Last Filed Vital Signs Vital Sign Reading Time Taken Comments Blood Pressure 114/68 10/15/2024 8:46 AM ADVISORY SOFTWARE ENGINEER Pulse 77 10/15/2024 8:46 AM ADVISORY SOFTWARE ENGINEER Temperature 36.6 C (97.8 F) 10/15/2024 8:46 AM ADVISORY SOFTWARE ENGINEER Respiratory Rate 16 10/15/2024 8:46 AM ADVISORY SOFTWARE ENGINEER Oxygen Saturation 93% 10/15/2024 8:46 AM ADVISORY SOFTWARE ENGINEER Inhaled Oxygen Concentration - - Weight 66.7 kg (147 lb) 10/15/2024 8:46 AM ADVISORY SOFTWARE ENGINEER Height 165.1 cm (5' 5 ) 04/24/2022 9:48 AM CDT Body Mass Index 24.46 04/24/2022 9:48 AM CDT Plan of Treatment Upcoming Encounters Date Type Department Care Team (Late st Contact Info) Description 04/15/2025 10:00 AM CDT Office Visit [facility] Oncology and Hematology [facility] [address] [place] [address] Agustin Orozco MD [address] [facility] [address] [place] [address] Health Maintenance Due Date Last [...] of 3) 07/27/2018 06/01/2018, 06/11 PNEUMOCOCCAL VACCINE 50+ YEA RS (2 of 2 - PCV) 06/15/2019 06/15/2018 DIABETES HBA1C Q 6 MONTHS 05/17/2021 11/14/2020, 08/2016 LDL CHOLESTEROL ANNUAL 11/14/2021 11/14/2020 INFLUENZA VACCINE (#1) 2024 0, 05/20/2019, 06/15/2018, Additional history exists DTAP/TDAP/TD VACCINES (2 - T d or Tdap) 06/11/2026 06/11/2016 Procedures Procedure Name Priority Date/Time Associated Diagnosis Comments CBC WITH DIFFERENTIAL Routine 10/15/2024 8:50 AM ADVISORY SOFTWARE ENGINEER LIPID PANEL Routine 11/14/2020 HEMOGLOBIN A1C Routine 11/14/2020 from Last 3 Months or Most Recently Relevant to Health Maintenance Results * CBC WITH DIFFERENTIAL (10/15/2024 8:50 AM ADVISORY SOFTWARE ENGINEER) Blood us Agustin Orozco MD HEMATOLOGY ORDERABLES Final Res ult * HEMOGLOBIN A1C (11/14/2020) Blood us Abstract Provider CHEMISTRY ORDERABLES Final Res ult * LIPID PANEL (11/14/2020) Blood us Abstract Provider CHEMISTRY ORDERABLES Final Res ult from Last 3 Months or Most Recently Relevant to Health Maintenance Insurance Advance Directives For more information, please contact: [phone] Documents on File Type Date Recorded Patient Farm General Manager Expl anation Advance Directive Living Will 10/22/2018 10:53 AM Care Teams Barrelhead Inspector Relationship Specialty Start Date End Date Liam Douglas MD [address] [place] [address] PCP - General Family Practice 04/08/23
--- OUTSIDE RECORDS SUMMARY | 2024-11-11 00:30 | XMS_ITS | Encounter Summary ---
Author Organization [facility] Address [address] [place] [address] Phone Care Team Providers Care Fiber Picker Name Role Phone Agustin Orozco MD Unavailable [phone] Jared Marie MD Unavailable [phone] Deepak Negron MD Primary Care Provider [phone] Morgan Herrera MD Primary Care Provider [phone] Liam Douglas MD Primary Care Provider [phone] Encounter Details Date Type Department Care Team (Latest Contact Info) Description 05/16/2021 Orders Only [facility] Scanning, Provider Social History Tobacco Use Types Packs/Day Years Used Date Smoking Tobacco: Never Smokeless Tobacco: Never Comments Unknown Sex and Gender Information Value Date Recorded Sex Assigned at Not on file Legal Sex Female 12:02 PM EXHIBIT DESIGNER Gender Identity Female 06/25/2021 8:56 PM CDT [...] on filedocumented in this encounter Care Teams Fiber Picker Relationship Specialty Start Date End Date Deepak Negron MD [address] [place] [address] PCP - General Internal Medicine 06/04/19 07/18/22 Morgan Herrera MD [address] [place] [address] PCP - General Internal Medicine 07/19/22 07/10/23 Liam Douglas MD [address] [place] [address] PCP - General Family Practice 07/11/23 Agustin Orozco MD [address] [place] [phone] Medical Oncologist/Specialist Physicians Hematology 12/01/18 Jared Marie MD [address] [place] [phone] Consulting Physician Medical Oncology 12/01/18 documented as of this encounter
--- NOTE | 2024-12-31 12:50 | PC.NURSE ---
Report to the Outpatient Waiting Room, entrance under the green pavilion located off [facility], at time __9:30 am on date 01/13/25 . Planned Procedure Time: _11:30 am . Time changes happen often and if your time is changed the preop area will call you the afternoon before. - You and your visitor will be asked to self-screen and do not enter if you have any COVID symptoms. Please call surgeon if you need to reschedule. - A mask is optional within the hospital at this time. Patients may have clear liquids (water, carbonated beverages, clear teas, apple juice) until 3 hours prior to surgery ( 8:30 am) with a maximum of 20 ounces. - No food from midnight until time of surgery and no smoking, or chewing tobacco (or any form of nicotine). No chewing gum, candy or mints. - Take only the following medications with a SIP of water on the morning of surgery: _LEVOTHYROXINE, DO NOT STOP ANY OF YOUR OTHER PRESCRIPTION MEDICATIONS PRIOR TO SURGERY EXCEPT THE FOLLOWING Hold all vitamins and supplements for 3 days per anesthesiologist.LAST DOSE 01/09/25 Medications to discontinue per physician NONE Please no make-up, nail cape verdean, hairspray, perfume, deodorant, or body powder the day of surgery. No jewelry (including any body piercings) or valuables the day of surgery, leave them at home. Please take a shower or bath the night before, or the morning of, surgery with an antibacterial soap. Wear comfortable, loose fitting clothing. Children are encouraged to wear pajamas. - Jewelry must be removed prior to entering the operating room. Rings and piercings that are not removed may be cut off. - The hospital will not accept responsibility for valuables. - Please leave all valuables, including medications, at home the day of surgery. If you are going home after surgery, a licensed mechanic welder truck driver must drive you home. - NO public transportation without another adult if you receive anesthesia. - We recommend that an adult stay with you for 24 hours following discharge. - We also recommend that you do not drive, make important decision, drink alcoholic beverages, or take any drugs that were not prescribed by your health care provider for at least 24 hours after your discharge time. For Pediatric surgeries, we recommend two adults accompany the child home. Follow any additional instructions given to you from your surgeon. Telephone instructions given to ___PATIENT and asked if any additional questions and then verbalized understanding. Patient advised to call surgeon office or pre surgery nurse liaison [phone] if any additional questions.
[2024-12-31 13:15] VITALS: BMI 24.5
--- NOTE | 2025-01-12 07:54 | PM.IMHP ---
H&P: HPI History of Present Illness Date/Time: 01/12/25 07:54 Chief Complaint: Right thumb, index and long trigger fingers Narrative: 74-year-old female who presents today for A1 breann release of her right thumb, index finger and long finger. She has been having triggering in the index finger for the longer period of time. She has had 2 cortisone injections in the A1 breann without complete resolution of her triggering. She has had recurrence triggering in the index finger. At this point she is also getting triggering in the thumb and long finger of the right hand. Since she has had 2 injections in the index finger, it is typically recommended to proceed with surgery rather than continue injections. Multiple injections can cause softening and tendon tendon rupture. Patient has decided since she is going to be having surgery on the index finger she would like to proceed with A1 breann release of the thumb and long finger as well. Review of Systems Review of Systems: All systems reviewed & are unremarkable except as noted in HPI and below PMFSH Past Medical History Medical History Acute sinus infection Alopecia Anemia Arthralgia of temporomandibular joint, unspecified side Unspecified asthma Body mass index (bmi) 34.0-34.9, adult (05/17/19) Chronic sinusitis Constipation, acute Cough DM w/o complication type II Dependence on other enabling machines and devices Dyslipidemia associated with type 2 diabetes mellitus Elevated ferritin Essential hypertension Fatigue Gastroesophageal reflux disease Hypersomnolence Morbid obesity Myeloproliferative disorder VERONA on CPAP On usp drug therapy Other and unspecified hyperlipidemia Postmenopausal SOB (shortness of breath) Thrombocytopenia Upper respiratory tract infection Urinary frequency Vitamin D deficiency Surgical History Surgical History History of sinus surgery Hx of laparoscopic gastric banding Family History Family History Mother Hypertension Family history of malignant neoplasm of cervix Acute myocardial infarction Family history of congestive heart failure, Onset Age: 77 Family history of elevated blood lipids Family history of diabetes mellitus in first degree relative Family history of heart disease in male family member before age 55 Father Family history of diabetes mellitus in first degree relative Family history of heart disease in male family member before age 55 Acute myocardial infarction Sibling Family history of diabetes mellitus in first degree relative Family history of malignant neoplasm of cervix Family history of Hodgkin's lymphoma Family history of heart disease in male family member before age 55 Diabetes mellitus Family history of lymphoma, Onset Age: 48 Family history of kidney disease Grandparent Cerebrovascular accident Other Family history of coronary artery disease Social History Social History (Updated 12/24/24 @ 09:20 by Brianda Logan [facility]) Smoking status: Never smoker Second hand tobacco smoke exposure: Yes Alcohol intake: never Substance use: never Substance use type: does not use Current Housing: Decline to Answer Concerned About Future Housing: Decline to Answer Difficulty Paying Gas/Electric Bills: Decline to Answer Difficulty Paying for Meds: Decline to Answer Currently Unemployed: Decline to Answer Education: Decline to Answer Difficulty w/ Childcare or Family Care: Decline to Answer Living arrangements: with family Additional living arrangements comments: Occupation/Education: retired Additional occupation/education comments: [employer] Gender identity (if verbalized by the patient): Female Spiritual care concerns: No Meds Home Medications and Allergies Home Medications Medication Instructions Recorded Confirmed Type fluticasone propionate 50 2 spray intranasal DAILY 02/04/20 12/24/24 History mcg/actuation nasal spray,suspension multivitamin with minerals 1 tablet PO DAILY 02/08/20 12/24/24 History (Hair,Skin and Nails tablet) lancets 33 gauge ([employer] #200 ea 05/16/22 12/24/24 Rx Lancets) blood sugar diagnostic See Rx Instructions .Route .COMPLEX 07/22/22 12/24/24 History omeprazole 20 mg capsule,delayed 20 mg PO DAILY 11/20/22 12/24/24 History release atorvastatin 20 mg tablet See Rx Instructions .Route 10/29/23 12/24/24 Rx .COMPLEX #90 tabs mirabegron 25 mg tablet,extended 25 mg PO DAILY #90 tabs 08/16/24 12/24/24 Rx release 24 hr (Myrbetriq) cholecalciferol (vitamin D3) 1,250 1,250 mcg PO .Every other week 10/22/24 12/24/24 History mcg (50,000 unit) capsule semaglutide 1 mg/dose (4 mg/3 mL) 1 mg (0.75 mL) subcut WEEKLY #3 mL 11/22/24 12/31/24 Rx subcutaneous pen injector blood sugar diagnostic ([employer] #400 ea 11/25/24 12/24/24 Rx Verio test strips) blood-glucose meter (OneTouch #1 ea 11/25/24 12/24/24 Rx Verio Reflect Meter) empagliflozin 5 mg-metformin ER See Rx Instructions .Route 12/16/24 12/31/24 Rx 1,000 mg tablet,extended release .COMPLEX #90 tabs 24 hr (Synjardy XR) levothyroxine 75 mcg tablet 75 mcg PO DAILY #90 tabs 12/16/24 12/31/24 Rx ascorbic acid (vitamin C) 1,000 mg 1 g PO DAILY 12/24/24 12/31/24 History capsule methylprednisolone 4 mg tablets in See Rx Instructions PO PER PKG DIR 12/24/24 12/31/24 Rx a dose pack (Medrol (Car)) #1 ea methylprednisolone 4 mg tablets in See Rx Instructions PO PER PKG DIR 12/24/24 12/31/24 Rx a dose pack (Medrol (Car)) #1 ea montelukast 10 mg tablet See Rx Instructions .Route 12/30/24 12/31/24 Rx .COMPLEX #90 tabs Allergies Allergy/AdvReac Type Severity Reaction Status Date / Time codeine Allergy Severe Headaches Verified 12/31/24 12:45 and vomiting NSAIDS (Non-Steroidal AdvReac myeloproliferative Verified 12/31/24 12:48 Anti-Inflamma disorder CAT GUT SUTURE Allergy Severe GANGREEN, Uncoded 12/31/24 12:45 HEMORRHAGE Exam Narrative: 74-year-old female alert pleasant. She is 5 ft 4 152 lb. She has no numbness or tingling in the fingers. 2+ radial pulse in the right wrist. Moderate tenderness over the A1 pulleys in moving the thumb, index and long fingers. She has active triggering of the long finger. She has the inability to fully flex the index finger due to severe pain, patient is fearful of fully flexing it because when it does trigger it is extremely painful. She has mild catching of the A1 breann in the thumb. Resp: Auscultation: clear to auscultation bilaterally Cardio: Rate: regular rate Rhythm: regular rhythm Assessment and Plan Assessment and plan (1) Trigger finger, left middle finger: Code(s): M65.332 - Trigger finger, left middle finger Status: Acute (2) Trigger thumb, right thumb: Code(s): M65.311 - Trigger thumb, right thumb Status: Acute (3) Trigger finger, right index finger: Code(s): M65.321 - Trigger finger, right index finger Status: Acute Assessment and Plan: 74-year-old female who has triggering of the right thumb, index and long finger. Again at this point patient feels she like to proceed with surgery rather than continue nonsurgical treatment. Patient will avoid any anti-inflammatories prior to surgery. 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 It is recommend transexamic as before surgery to knee is clean
[2025-01-13] VITALS (9 sets, daily range): BP systolic 120–142; BP diastolic 58–75; PULSE 57–78; RESP 11–20; TEMP 35.7–36.3; O2SAT 92–100; BMI 24.7
--- OUTSIDE RECORDS SUMMARY | 2025-01-13 00:30 | XMS_ITS | Encounter Summary ---
Author Organization [facility] Address [address] [place] [address] Phone Care Team Providers Care Onboarding Specialist Name Role Phone Agustin Orozco MD Unavailable [phone] Jared Marie MD Unavailable [phone] Bryn Jeff MD Primary Care Provider [phone] Melanie Husain MD Primary Care Provider [phone] Bryn Jeff MD Primary Care Provider [phone] Deepak Negron MD Primary Care Provider [phone] Morgan Herrera MD Primary Care Provider [phone] Liam Douglas MD Primary Care Provider [phone] Encounter Details Date Type Department Care Team (Latest Contact Info) Description 10/22/2018 Orders Only [facility] Scanning, Provider Social History Tobacco Use Types Packs/Day Years Used Date Smoking Tobacco: Never Comments Unknown Sex and Gender Information Value Date Recorded Sex Assigned at Not on file 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 Gender Identity Female 06/25/2021 8:56 PM CDT [...] on filedocumented in this encounter Care Teams Onboarding Specialist Relationship Specialty Start Date End Date Bryn Jeff MD [address] [place] [address] PCP - General Internal Medicine 12/01/18 12/02/18 Melanie Husain MD [address] [place] [phone] PCP - General 12/03/18 12/03/18 Bryn Jfef MD [address] [place] [address] PCP - General Internal Medicine 12/04/18 06/03/19 Deepak Negron MD [address] [address] PCP - General Internal Medicine 06/04/19 07/18/22 Morgan Herrera MD [address] [facility] [place] [address] PCP - General Internal Medicine 07/19/22 07/10/23 Liam Douglas MD [address] [place] [address] PCP - General Family Practice 07/11/23 Agustin Orozco MD [address] [place] [address] Medical Oncologist/Stopper Maker Hematology 12/01/18 Jared Marie MD [address] [place] [address] Consulting Physician Medical Oncology 12/01/18 documented as of this encounter
--- OUTSIDE RECORDS SUMMARY | 2025-01-13 00:30 | XMS_ITS | Encounter Summary ---
Author Organization [facility] Address [address] [place] [address] Phone Care Team Providers Care Firer Tunnel Kiln Name Role Phone Agustin Orozco MD Unavailable [phone] Jared Marie MD Unavailable [phone] Bryn Jeff MD Primary Care Provider [phone] Melanie Husain MD Primary Care Provider [phone] Bryn Jeff MD Primary Care Provider [phone] Deepak Negron MD Primary Care Provider [phone] Morgan Herrera MD Primary Care Provider [phone] Liam Douglas MD Primary Care Provider [phone] Encounter Details Date Type Department Care Team (Latest Contact Info) Description 10/28/2018 Orders Only [facility] Scanning, Provider Social History Tobacco Use Types Packs/Day Years Used Date Smoking Tobacco: Never Comments Unknown Sex and Gender Information Value Date Recorded Sex Assigned at Not on file 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 Gender Identity Female 06/25/2021 8:56 PM CDT [...] on filedocumented in this encounter Care Teams Firer Tunnel Kiln Relationship Specialty Start Date End Date Bryn Jeff MD [address] [place] [phone] PCP - General Internal Medicine 12/01/18 12/02/18 Melanie Husain MD [address] [place] [phone] PCP - General 12/03/18 12/03/18 Bryn Jeff MD [address] [place] [address] PCP - General Internal Medicine 12/04/18 06/03/19 Deepak Negron MD [address] [place] [address] PCP - General Internal Medicine 06/04/19 07/18/22 Morgan Herrera MD [address] [place] [address] PCP - General Internal Medicine 07/19/22 07/10/23 Liam Douglas MD [address] [place] [address] PCP - General Family Practice 07/11/23 Agustin Orozco MD [address] [place] [address] Medical Oncologist/Insulation Blanket Maker Hematology 12/01/18 Jared Marie MD [address] [place] [address] Consulting Physician Medical Oncology 12/01/18 documented as of this encounter
--- OUTSIDE RECORDS SUMMARY | 2025-01-13 00:30 | XMS_ITS | Data Portability ---
Author Organization [place] [facility] [employer], Main Office Address [address] [place] [address] Care Team Providers Care Bacteriologist Medical Name Role Phone KACY DOUGLAS Primary Care Provider [phone] KACY DOUGLAS Referring Provider [phone] Assessment Encounter Date Assessment Date Assessment LastModified [...] more than half the time spent in voft-om-here care. Not available 03/29/2023 08:32:47 Plan of [...] DO Not Attach Compendium, Do Not Delete/merge, [id number] 15:56:20 Surgeries None recorded. Imaging None recorded. Medication Orders Kenalog 10 mg/mL suspension for [facility] [address], [place], [id number], 3 16:44:49 ropivacaine (PF) 5 mg/mL (0.5 %) injection solution [facility], [address], [place], [id number], 3 16:44:49 Medrol (Car) 4 mg tablets in a dose pack 2022 023 [facility], [address], [place], [id number], 3 16:44:49 Patient TargetsNo targets recorded. Patient [...] Address Organization Details Recorded Time Osteoarthr itis 806069070 Active Not Available [facility] 3 17:47:26 Pain of right wrist 4001988890877 00 Active 2022 Liberty One[facility] RMKaruna kirk, [facility] 15:11:46 Problem Notes None recorded. Procedures Surgical History Date Name Laterality Status Provider Name and Address Organization Details Recorded Time procedure on spine completed ANURADHA Morales [facility] 03/27/2023 15:09:40 procedure on gallbladder completed ANURADHA Morales [facility] 03/27/2023 15:09:51 Carpal tunnel surgery completed Libertyrodriguez Oneal RMKaruna [facility] 03/27/2023 15:10:04 Imaging Results Imaging Date Name Status LastModified by Organiz ation Details LastModified Time 03/21/2023 XR, wrist, 2 view completed [email or web address] Information not available 03/26/2023 10:47:24 Procedure Notes None recorded. Medical Equipment None Reported. Allergies Allergen ID Allergen Name Allergen Category Reaction Reaction Severity Criticality Documentation Date Start Date Code Code System Note Provider Name and Address Organization Details Recorded Time 56138 codeine medicatio n Not available Not available Not available 03/27/2023 2670 RxNorm Liberty Oneal RMA reagan, [facility] 15:07:16 Medications Name Sig Start Date Stop [...] administe red by provider 2022 active [facility]: 0003- [phone]- 20 Not Available Not Available [...] administe red by provider 2022 active [facility] [phone] Not Available Not Available Not [...] Updated DateTime 03/27/2023 160.02 cm 28.5 kg/m2 28832.37 g ANURADHA Morales [place] [facility] [employer] [facility] 03/27/2023 15:14:25 Social History None recorded. Functional Status Question Answer Note LastModified by Organization D etails LastModified Time What is your level of alcohol consumption? None [email or web address] Information not available 03/27/2023 Mental Status None recorded. Family History Relationship Description Onset Age of this Age Resolved Age Notes LastModified by Organization Details LastModified Time Father Heart disease [email or web address] Not available 2022 15:08:05 Mother Heart disease [email or web address] Not available 2022 15:08:05 Mother Diabetes mellitus [email or web address] Not available 2022 15:09:14 Sister Heart disease [email or web address] Not available 2022 15:08:05 Sister Diabetes mellitus [email or web address] Not available 2022 15:09:14 Maternal Grandfather Family history of stroke [email or web address] Not available 2022 15:08:18 Unspecified Relation Hypertensive disorder all family [email or web address] Not available 03/27/2023 15:08:39 Maternal Aunt Diabetes mellitus [email or web address] Not available 2022 15:09:14 Maternal Uncle Diabetes mellitus [email or web address] Not available 2022 15:09:14 Medical History Condition Response ARTHRITIS Y DIABETES, TYPE Y CANCER: SPECIFY Y ANEMIA/BLOOD DISORDER Y Gynecological HistoryNo gynecological history recorded. Obstetrics History GPAL:G 0 P 0 0 0 0 Past Encounters Encounter ID Performer Location Encounter Start Date Encounter Closed Date Diagnosis/Indication Diagnosis SNOMED-CT Code Diagnosis ICD10 Code Diagnosis Note [id number] Arsh Baugh MD [facility] [address] [place] [address] 03/27/2023 14:33:19 03/31/2023 09:51:05 Pain of right wrist [id number] 49245 M25.531 Health Concerns Section Related Observation LastModified by Organization Detai ls LastModified Time None Recorded Concern Status LastModified by Organization Details LastModified Time None Recorded Advance Directives Directive None Recorded Payers Encounter Date Sequence Insurance Name Policy Number Policy John Covered Member ID John Member ID Guarantor Name 03/27/2023 1 [employer] (MEDICARE REPLACEMENT/ ADVANTAGE - PPO) [id number] Salinasron Silvestre ManzanoHungerford [id number] Sergey Juarez Notes Date Note Type Note [...] She had x-rays obtained on 03/21/2023 at [facility] two views the right wrist which demonstrated 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 Arsh Baugh MD [address] [place] [address], [place] [address], [place], [address], [facility] [employer] 03/29/2023 08:33:02 OBGyn Episode No OBEpisode recorded.
--- OUTSIDE RECORDS SUMMARY | 2025-01-13 00:31 | XMS_ITS | Encounter Summary ---
Author Organization [facility] Address [address] [place] [address] Phone Care Team Providers Care Denture Model Maker Name Role Phone Agustin Orozco MD Unavailable [phone] Jared Marie MD Unavailable Deepak Negron MD Primary Care Provider [phone] Morgan Herrera MD Primary Care Provider [phone] Liam Douglas MD Primary Care Provider [phone] Encounter Details Date Type Department Care Team (Latest Contact Info) Description 11/14/2020 Orders Only [facility] Scanning, Provider Social History Tobacco Use Types Packs/Day Years Used Date Smoking Tobacco: Never Smokeless Tobacco: Never Comments Unknown Sex and Gender Information Value Date Recorded Sex Assigned at Not on file 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 Gender Identity Female 06/25/2021 8:56 PM CDT [...] on filedocumented in this encounter Care Teams Denture Model Maker Relationship Specialty Start Date End Date Deepak Negron MD [address] [place] [address] PCP - General Internal Medicine 06/04/19 07/18/22 Morgan Herrera MD [address] [address] PCP - General Internal Medicine 07/19/22 07/10/23 Liam Douglas MD [address] [place] [address] PCP - General Family Practice 07/11/23 Agustin Orozco MD [address] [place] [phone] Medical Oncologist/Farm Operations Manager Hematology 12/01/18 Jared Marie MD [address] [place] [address] Consulting Physician Medical Oncology 12/01/18 documented as of this encounter
--- OUTSIDE RECORDS SUMMARY | 2025-01-13 00:31 | XMS_ITS | Encounter Summary ---
Author Organization [facility] Address [address] [place] [address] Phone Care Team Providers Care Transmission System Operator Name Role Phone Agustin Orozco MD Unavailable [phone] Jared Marie MD Unavailable [phone] Deepak Negron MD Primary Care Provider [phone] Morgan Herrera MD Primary Care Provider [phone] Liam Douglas MD Primary Care Provider [phone] Encounter Details Date Type Department Care Team (Latest Contact Info) Description 05/16/2021 Orders Only [facility] Scanning, Provider Social History Tobacco Use Types Packs/Day Years Used Date Smoking Tobacco: Never Smokeless Tobacco: Never Comments Unknown Sex and Gender Information Value Date Recorded Sex Assigned at Not on file Legal Sex Female 12:02 PM RN INTENSIVE CARE UNIT Gender Identity Female 06/25/2021 8:56 PM CDT [...] on filedocumented in this encounter Care Teams Transmission System Operator Relationship Specialty Start Date End Date Deepak Negron MD [address] [place] [address] PCP - General Internal Medicine 06/04/19 07/18/22 Morgan Herrera MD [address] [place] [address] PCP - General Internal Medicine 07/19/22 07/10/23 Liam Douglas MD [address] [place] [address] PCP - General Family Practice 07/11/23 Agustin Orozco MD [address] [place] [address] Medical Oncologist/Hogshead Press Operator Hematology 12/01/18 Jared Marie MD [address] [place] [address] Consulting Physician Medical Oncology 12/01/18 documented as of this encounter
--- OUTSIDE RECORDS SUMMARY | 2025-01-13 00:31 | XMS_ITS | Referral Summary ---
Author Organization [facility] Address [address] [place] [address] Care Team Providers Care Golf Course Keeper Name Role Phone Agustin Orozco MD Unavailable [phone] Jared Marie MD Unavailable [phone] Liam Douglas MD Primary Care Provider [phone] Encounters Date Type Department Care Team Description 12/13/2024 11:00 AM CDT Lab [facility] [place] - Lab Collection [address] [place] [address] MDS (myelodysplastic syndrome) (HCC); Obesity with body mass index 30 or greater 11/08/2024 10:45 AM CDT Lab [facility] - Lab Collection [address] [place] [address] MDS (myelodysplastic syndrome) (HCC) 11/05/2024 Telephone [facility] Bone Marrow Transplant [address] [place] [phone] Jared Marie MD 10/28/2024 Telephone [facility] Bone Marrow Transplant [address] [place] [address] [phone] Jing Lanier V. 10/27/2024 Orders Only [facility] Scanning, Provider from Last 3 Months Allergies Active Allergy [...] 2 capsules (200 mg total) by mouth archivist before breakfast Active Ozempic 1 mg/dose (4 mg/3 mL) pen injector injectionIndica tions:MDS (myelodysplasti c syndrome) ([facility]) 3 Active cholecalciferol (VITAMIN D-3) 50,000 unit capsule TAKE 1 CAPSULE BY MOUTH WEEKLY Active omeprazole (PriLOSEC) 20 mg capsuleIndicati ons:MDS (myelodysplasti c syndrome) ([facility]) Take 1 capsule (20 mg total) by mouth daily 4 Active PreviDent 5000 Plus 1.1 % creamIndication s:MDS (myelodysplasti c syndrome) ([facility]) BRUSH ONCE DAILY BEFORE BEDTIME 4 Active [...] 08/13/2016 Assessment & Plan (07/21/2020 1:36 PM FILLING STATION LABORER): Lab work from January 2020 showed LDL 88 and triglycerides 214. She continues on atorvastatin 20 mg. Assessment & Plan (01/14/2020 9:31 AM CDT): She continues on atorvastatin 20mg. We will recheck a lipid panel. Assessment & Plan (06/04/2019 10:32 AM CDT): Her last lipid panel was in acceptable range, continue on atorvastatin 20mg. Hypertension 08/13/2016 Assessment & Plan (07/21/2020 1:36 PM FILLING STATION LABORER): Her blood pressure is well controlled today. [...] 01/14/2020 Assessment & Plan (07/21/2020 1:36 PM FILLING STATION LABORER): Asymptomatic Assessment & Plan (06/04/2019 10:33 AM [...] on file Legal Sex Female 12:02 PM FILLING STATION LABORER Gender Identity Female 06/25/2021 8:56 PM CDT Sexual Orientation Straight 06/25/2021 8: 56 PM CDT Last Filed Vital Signs Vital Sign Reading Time Taken Comments Blood Pressure 124/70 08/11/2024 1:10 PM FILLING STATION LABORER Pulse 82 08/11/2024 1:10 PM FILLING STATION LABORER Temperature 36.2 C (97.2 F) 07/09/2024 10:40 AM FILLING STATION LABORER Respiratory Rate 18 07/09/2024 10:40 AM FILLING STATION LABORER Oxygen Saturation 97% 08/11/2024 1:10 PM FILLING STATION LABORER Inhaled Oxygen Concentration - - Weight 68 kg (150 lb) 08/11/2024 1:10 PM FILLING STATION LABORER Height 165.1 cm (5' 5 ) 08/11/2024 1:10 PM FILLING STATION LABORER Body Mass Index 24.96 08/11/2024 1:10 PM FILLING STATION LABORER Plan of Treatment Not on file Procedures Procedure Name Priority Date/Time Associated Diagnosis Comments VITAMIN C Routine 12/13/2024 10:38 AM CDT MDS (myelodysplastic syndrome) (HCC) PROTIME-INR Routine 12/13/2024 10:38 AM CDT MDS (myelodysplastic syndrome) (HCC) APTT Routine 12/13/2024 10:38 AM CDT MDS (myelodysplastic syndrome) (HCC) APTT MIXING STUDY Routine 12/13/2024 10: 38 AM CDT MDS (myelodysplastic syndrome) (HCC) TSH Routine 12/13/2024 10:38 AM CDT Obesity with body mass index 30 or greater FACTOR XI ACTIVITY Routine 11/08/2024 10 :41 AM CDT MDS (myelodysplastic syndrome) (HCC) FACTOR XII ACTIVITY Routine 11/08/2024 10:41 AM CDT MDS (myelodysplastic syndrome) (HCC) APTT MIXING STUDY Routine 11/08/2024 10: 41 AM CDT MDS (myelodysplastic syndrome) (HCC) SCAN - LABS 10/27/2024 EGFR Routine 07/09/2024 10:05 AM FILLING STATION LABORER MDS (myelodysplastic syndrome) (HCC) LIPID PANEL Routine 08/13/2023 12:57 PM FILLING STATION LABORER Dyslipidemia Essential hypertension from Last 3 Months or Most Recently Relevant to Health Maintenance Results * (ABNORMAL) aPTT mixing study (12/13/2024 10:38 AM CDT) aPTT 44(H) 28 - 38 sec Comment: Interpretive Data Heparin therapeutic range: 66.0 - 100.0 seconds. Range based on correlation with therapeutic heparin activity range of 0.3 - 0.7 Units/mL. Current interpretive data was last revised on 2023. aPTT, 50/50 mix 36 28 - 38 sec DEVAUGHN VALDOVINOS Comment: Interpretive data Evaluating an unexpected prolonged [...] hr 36 28 - 38 sec DEVAUGHN VALDOVINOS Blood 12/13/2024 10:3 8 AM CDT 12/13/2024 11:10 AM CDT us Jared Marie MD LAB BLOOD ORDERABLES Final Result DEVAUGHN NICHOLS [facility] Department [place] [address] * (ABNORMAL) Vitamin C (12/13/2024 10:38 AM CDT) Ascorbic acid (Vit C) 2.7(H) 0.4 - 2.0 mg/dL [facility] ref Lab Comment: ADDITIONAL INFORMATION This test was developed and its performance characteristics determined by [facility] in a manner consistent with CLIA requirements. This test has not been cleared or approved by the U.S. Food and Drug Administration. Test Performed by: [facility] [address] [place] [address] Retirement Officer: Dot Teresa Ph.D.; CLIA# [id number] Blood 12/13/2024 10:3 8 AM CDT 12/13/2024 11:33 AM CDT Jared Marie MD LAB BLOOD ORDERABLES Final Result Performing Organization Address City/[facility] Co de Phone Number [facility] [place] [address] [place] ref Lab * (ABNORMAL) aPTT (12/13/2024 10:38 AM CDT) aPTT 44(H) 28 - 38 sec Comment: Interpretive Data Heparin therapeutic range: 66.0 - 100.0 seconds. Range based on correlation with therapeutic heparin activity range of 0.3 - 0.7 Units/mL. Current interpretive data was last revised on 2023. Blood 12/13/2024 10:3 8 AM CDT 12/13/2024 11:10 AM CDT Jared Marie MD LAB BLOOD ORDERABLES Final Result [facility] [place] [address] * Protime-INR (12/13/2024 10:38 AM CDT) PT 11.6 9.7 - 13.0 sec INR 1.07 0.90 - 1.20 [facility] Comment: Interpretive data Oral anticoagulant therapeutic ranges: Venous thromboembolism prophylaxis or treatment: 2.0-3.0 CARDIOLOGY Standard range: 2.0-3.0 High-intensity range: 2.5-3.5 Refer to indication-specific guidelines for appropriate target ranges for prosthetic heart valve replacement. Current interpretive data was last revised on 2019. Blood 12/13/2024 10:3 8 AM CDT 12/13/2024 11:10 AM CDT Jared Marie MD LAB BLOOD ORDERABLES Final Result Performing Organization Address [facility] Co de Phone Number [facility] Department [place] [address] * TSH (12/13/2024 10:38 AM CDT) Pathologist [facility] Thyroid Stimulating Hormone 2.37 0.30 - 4.20 mcIUnit/mL Blood 12/13/2024 10:3 8 AM CDT 12/13/2024 10:50 AM CDT Jared Marie MD LAB BLOOD ORDERABLES Final Result Performing Organization Address City/[facility] de Phone Number [facility] [place] [address] * (ABNORMAL) aPTT mixing study (11/08/2024 10:41 AM CDT) aPTT 45(H) 28 - 38 sec Comment: Interpretive Data Heparin therapeutic range: 66.0 - 100.0 seconds. Range based on correlation with therapeutic heparin activity range of 0.3 - 0.7 Units/mL. Current interpretive data was last revised on 2023. aPTT, 50/50 mix 35 28 - 38 sec [facility] Comment: Interpretive data Evaluating an unexpected prolonged [...] 1 hr 36 28 - 38 sec [facility] Blood 11/08/2024 10:4 1 AM CDT 11/08/2024 11:44 AM CDT Jared Marie MD LAB BLOOD ORDERABLES Final Result Performing Organization Address [facility] Co de Phone Number [facility] [place] [address] * Factor XII activity (11/08/2024 10:41 AM CDT) Factor XII activity 70 45 - 170 %norm Blood 11/08/2024 10:4 1 AM CDT 11/08/2024 11:44 AM CDT Jared Marie MD LAB BLOOD ORDERABLES Final Result [facility] [place] [address] * Factor XI activity (11/08/2024 10:41 AM CDT) Factor XI activity 88 60 - 140 %norm Blood 11/08/2024 10:4 1 AM CDT 11/08/2024 11:44 AM CDT us Jared Marie MD LAB BLOOD ORDERABLES Final Result DEVAUGHN NICHOLS [facility] Department [place] [address] * SCAN - LABS (10/27/2024) us Provider Scanning Final Result * (ABNORMAL) eGFR (07/09/2024 10:05 AM FILLING STATION LABORER) eGFR 59(L) >=60 mL/min/1. 73 m2 Comment: [...] reviewed 2021. Blood 07/09/2024 10:0 5 AM FILLING STATION LABORER 07/09/2024 10:18 AM FILLING STATION LABORER us Jared Marie MD LAB BLOOD ORDERABLES Final Result DEVAUGHN SIMONE [facility] Department [place] [address] * (ABNORMAL) Lipid panel (08/13/2023 12:57 PM FILLING STATION LABORER) Cholesterol 136 30 - 199 mg/dL DEVAUGHN [...] DEVAUGHN JOHNSON Blood 08/13/2023 12:5 7 PM FILLING STATION LABORER 08/13/2023 12:58 PM FILLING STATION LABORER Osvaldo Robin MD LAB BLOOD ORDERABLES Final R esult DEVAUGHN NICHOLSWCH [address] [facility] Department [place] [address] from Last 3 Months or Most Recently Relevant to Health Maintenance Insurance [employer] MEDICARE UHC MEDICARE ADVANTAGE AETNA MEDICARE [facility] MEDIC[facility] Care Teams Golf Course Keeper Relationship Specialty Start Date End Date Liam Douglas MD [address] [place] [address] PCP - General Family Practice 07/11/23 Agustin Orozco MD [address] [place] [address] Medical Oncologist/Warehouse And Receiving Supervisor Hematology 12/01/18 Jared Marie MD [address] [place] [address] Consulting Physician Medical Oncology 12/01/18
--- OUTSIDE RECORDS SUMMARY | 2025-01-13 00:31 | XMS_ITS | Encounter Summary ---
Author Organization [facility] Address [address] [place] [address] Phone Care Team Providers Care Oiler Helper Name Role Phone Agustin Orozco MD Unavailable Jared Marie MD Unavailable [phone] Deepak Negron MD Primary Care Provider [phone] Morgan Herrera MD Primary Care Provider [phone] Liam Douglas MD Primary Care Provider [phone] Encounter Details Date Type Department Care Team (Latest Contact Info) Description 05/18/2020 Orders Only [facility] Scanning, Provider Social History Tobacco Use Types Packs/Day Years Used Date Smoking Tobacco: Never Smokeless Tobacco: Never Comments Unknown Sex and Gender Information Value Date Recorded Sex Assigned at Not on file Legal Sex Female 12:02 PM DIRECTOR OF EMPLOYEE DEVELOPMENT Gender Identity Female 06/25/2021 8:56 PM CDT [...] on filedocumented in this encounter Care Teams Oiler Helper Relationship Specialty Start Date End Date Deepak Negron MD [address] [place] [address] PCP - General Internal Medicine 06/04/19 07/18/22 Morgan Herrera MD [address] [place] [address] PCP - General Internal Medicine 07/19/22 07/10/23 Liam Douglas MD [address] [place] [address] PCP - General Family Practice 07/11/23 Agustin Orozco MD [address] [place] [phone] Medical Oncologist/Director Of Professional Services Hematology 12/01/18 Jared Marie MD [address] [place] [phone] Consulting Physician Medical Oncology 12/01/18 documented as of this encounter
--- OUTSIDE RECORDS SUMMARY | 2025-01-13 00:31 | XMS_ITS | Clinical Summary ---
Author Organization [facility] [employer] Address [address] [place] [address] Care Team Providers Care Wire Annealer Name Role Phone Bryn Jeff MD Primary Care Provider Source Comments [facility],non-owned Affiliates and Associated Physician Practices is amultiple site organization consisting of ambulatory clinics and hospital sitesin [place], [place], [place] and [place]. This disclosure is being madepursuant to the Care Everywhere program and may not contain all information available regarding this patient. Last updated 18.[facility] [employer] Allergies Active Allergy Reactions Criticality Noted Date [...] on file Legal Sex Female 11:46 AM SALON SHAMPOO ASSISTANT Gender Identity Not on file Sexual Orientation Not on file Last Filed Vital Signs Vital Sign Reading Time Taken Comments Blood Pressure 145/81 12/08/2015 11:20 AM CDT Pulse 79 12/08/2015 11:20 AM CDT Temperature 36.5 C (97.7 F) 11/16/2015 10:48 AM CDT Respiratory Rate 18 11/11/2015 4:07 PM SALON SHAMPOO ASSISTANT Oxygen Saturation 98% 11/16/2015 10:48 AM [...] age to complete this topic Insurance MEDICARE [facility] Advance Directives * Full Code (Latest Code Status on File) Date Activated Date Inactivated Comments 11/10/2015 10:16 AM 11/11/2015 5:09 PM Care Teams Wire Annealer Relationship Specialty Start Date End Date Bryn Jeff MD [address] [place] [phone] PCP - General Internal Medicine 09/29/15
--- OUTSIDE RECORDS SUMMARY | 2025-01-13 00:31 | XMS_ITS | Clinical Summary ---
Author Organization [facility] Address [address] [place] [address] Care Team Providers Care Director Of Nursing Name Role Phone Agustin Orozco MD Unavailable [phone] Jared Marie MD Unavailable [phone] Liam Douglas MD Primary Care Provider [phone] Allergies Active Allergy Reactions Criticality Noted Date Comments Codeine Headache,Nausea & Vomiting Low 6 N/V, hallucination Medications SYNJARDY XR 5-1,000 mg tablet, IR & ER, biphasic 24hrIndications :MDS (myelodysplasti c syndrome) ([facility]) daily 9 Active montelukast (SINGULAIR) 10 mg tabletIndicatio ns:MDS (myelodysplasti c syndrome) ([facility]) Take 1 tablet (10 mg total) by mouth daily 5 Active minoxidil 5 % solutionIndicat ions:MDS (myelodysplasti c syndrome) ([facility]) Apply topically Acti ve fluticasone propionate (FLONASE) [...] 2 capsules (200 mg total) by mouth project geologist before breakfast Active Ozempic 1 mg/dose (4 [...] 08/13/2016 Assessment & Plan (07/21/2020 1:36 PM INVESTIGATION OFFICER): Lab work from January 2020 showed LDL 88 and triglycerides 214. She continues on atorvastatin 20 mg. Assessment & Plan (01/14/2020 9:31 AM CDT): She continues on atorvastatin 20mg. We will recheck a lipid panel. Assessment & Plan (06/04/2019 10:32 AM CDT): Her last lipid panel was in acceptable range, continue on atorvastatin 20mg. Hypertension 08/13/2016 Assessment & Plan (07/21/2020 1:36 PM INVESTIGATION OFFICER): Her blood pressure is well controlled today. [...] 01/14/2020 Assessment & Plan (07/21/2020 1:36 PM INVESTIGATION OFFICER): Asymptomatic Assessment & Plan (06/04/2019 10:33 AM CDT): Found to have NSVT in the past. She is at risk for Afib due to metabolic syndrome. Will monitor clinically for now. Sensation of chest tightness 08/13/2016 07/21/2020 Encounters Date Type Department Care Team Description 12/13/2024 11:00 AM CDT Lab [facility] [place] - Lab Collection [facility] [address] [place] [address] MDS (myelodysplastic syndrome) (HCC); Obesity with body mass index 30 or greater 11/08/2024 10:45 AM CDT Lab [facility] - Lab Collection [address] [facility] [address] [place] [address] MDS (myelodysplastic syndrome) (HCC) 11/05/2024 Telephone [facility] Bone Marrow Transplant [address] [place] [address] [address] [place] [address] Jared Marie MD 10/28/2024 Telephone [facility] Bone Marrow Transplant [address] [place] [phone] Jing Lanier V. 10/27/2024 Orders Only [facility] Scanning, Provider from Last 3 Months Immunizations Immunization Administration [...] history of lung disease - (Added by Conv) Peripheral vascular disease Sister 7 Family history of peripheral vascular disease - (Added by Conv) Cancer Sister 8 Family history of cancer - (Added by Conv) Relation Name Status Comments Brother Daughter [...] on file Legal Sex Female 12:02 PM INVESTIGATION OFFICER Gender Identity Female 06/25/2021 8:56 PM CDT Sexual Orientation Straight 06/25/2021 8: 56 PM CDT Obstetrics History Last Filed Vital Signs Vital Sign Reading Time Taken Comments Blood Pressure 124/70 08/11/2024 1:10 PM INVESTIGATION OFFICER Pulse 82 08/11/2024 1:10 PM INVESTIGATION OFFICER Temperature 36.2 C (97.2 F) 07/09/2024 10:40 AM INVESTIGATION OFFICER Respiratory Rate 18 07/09/2024 10:40 AM INVESTIGATION OFFICER Oxygen Saturation 97% 08/11/2024 1:10 PM INVESTIGATION OFFICER Inhaled Oxygen Concentration - - Weight 68 kg (150 lb) 08/11/2024 1:10 PM INVESTIGATION OFFICER Height 165.1 cm (5' 5 ) 08/11/2024 1:10 PM INVESTIGATION OFFICER Body Mass Index 24.96 08/11/2024 1:10 PM INVESTIGATION OFFICER Plan of Treatment Health Maintenance Due Date [...] 2023-2 5 season) 2024 04/18/2021, 2020, 09/28/2020 Lipid Panel 08/13/2024 08/13/2023, 03/2022, 02/04/2020 Influenza Vaccine (Season Ended) 2025 05/26/2020, 05/20/2019, 06/15/2018, Additional history exists eGFR 07/09/2025 07/09/2024, 12/30, 07/11/2023, Additional history [...] LABS 10/27/2024 EGFR Routine 07/09/2024 10:05 AM INVESTIGATION OFFICER MDS (myelodysplastic syndrome) (HCC) LIPID PANEL Routine 08/13/2023 12:57 PM INVESTIGATION OFFICER Dyslipidemia Essential hypertension from Last 3 Months [...] 1 hr 36 28 - 38 sec [facility] Blood 12/13/2024 10:3 8 AM CDT 12/13/2024 11:10 AM CDT Jared Marie MD LAB BLOOD ORDERABLES Final Result Performing Organization Address City/[facility] Co de Phone Number [facility] [place] [address] * (ABNORMAL) Vitamin C (12/13/2024 10:38 AM CDT) Ascorbic acid (Vit C) 2.7(H) 0.4 - 2.0 mg/dL [facility] ref Lab Comment: ADDITIONAL INFORMATION This test was developed and its performance characteristics determined by [facility] in a manner consistent with CLIA requirements. This test has not been cleared or approved by the U.S. Food and Drug Administration. Test Performed by: [facility] [place] [id number] Geodetic Surveyor Technologist: Dot Teresa Ph.D.; CLIA# [id number] Blood 12/13/2024 10:3 8 AM CDT 12/13/2024 11:33 AM CDT Jared Marie MD LAB BLOOD ORDERABLES Final Result Performing Organization Address City/[facility] Co de Phone Number DEVAUGHN [facility] [place] [address] [place] ref Lab * (ABNORMAL) aPTT (12/13/2024 10:38 [...] BLOOD ORDERABLES Final Result Performing Organization Address [facility] de Phone Number [facility] [place] [place] [address] * Protime-INR (12/13/2024 10:38 AM CDT) PT 11.6 9.7 - 13.0 sec INR 1.07 0.90 - 1.20 [facility] Comment: Interpretive data Oral anticoagulant therapeutic ranges: Venous thromboembolism prophylaxis or treatment: 2.0-3.0 CARDIOLOGY Standard range: 2.0-3.0 High-intensity range: 2.5-3.5 Refer to indication-specific guidelines for appropriate target ranges for prosthetic heart valve replacement. Current interpretive data was last revised on 2019. Blood 12/13/2024 10:3 8 AM CDT 12/13/2024 11:10 AM CDT Jared Marie MD LAB BLOOD ORDERABLES Final Result Performing Organization Address [facility] [place] [address] * TSH (12/13/2024 10:38 AM CDT) Thyroid Stimulating Hormone 2.37 0.30 - 4.20 mcIUnit/mL Blood 12/13/2024 10:3 8 AM CDT 12/13/2024 10:50 AM CDT Jared Marie MD LAB BLOOD ORDERABLES Final Result Performing Organization Address [facility] de Phone Number [facility] [place] [address] * (ABNORMAL) aPTT mixing study (11/08/2024 10:41 AM CDT) aPTT 45(H) 28 - 38 sec Comment: Interpretive Data Heparin therapeutic range: 66.0 - 100.0 seconds. Range based on correlation with therapeutic heparin activity range of 0.3 - 0.7 Units/mL. Current interpretive data was last revised on 2023. aPTT, 50/50 mix 35 28 - 38 sec [facility] Comment: Interpretive data Evaluating an unexpected prolonged [...] 1 hr 36 28 - 38 sec [facility] Blood 11/08/2024 10:4 1 AM CDT 11/08/2024 11:44 AM CDT us Jared Marie MD LAB BLOOD ORDERABLES Final Result [facility] [place] [address] * Factor XII activity (11/08/2024 10:41 AM CDT) Pathologist [facility] Factor XII activity 70 45 - 170 %norm Blood 11/08/2024 10:4 1 AM CDT 11/08/2024 11:44 AM CDT Jared Marie MD LAB BLOOD ORDERABLES Final Result Performing Organization Address City/[facility]/ZIP Co de Phone Number [facility] [place] [address] * Factor XI activity (11/08/2024 10:41 AM CDT) Pathologist [facility] Factor XI activity 88 60 - 140 %norm Blood 11/08/2024 10:4 1 AM CDT 11/08/2024 11:44 AM CDT Jared Marie MD LAB BLOOD ORDERABLES Final Result Performing Organization Address [facility] de Phone Number DEVAUGHN [facility] [place] [address] * SCAN - LABS (10/27/2024) Provider Scanning Final Result * (ABNORMAL) eGFR (07/09/2024 10:05 AM INVESTIGATION OFFICER) Pathologist [facility] eGFR 59(L) >=60 mL/min/1. 73 m2 Comment: [...] reviewed 2021. Blood 07/09/2024 10:0 5 AM INVESTIGATION OFFICER 07/09/2024 10:18 AM INVESTIGATION OFFICER us Jared Marie MD LAB BLOOD ORDERABLES Final Result DEVAUGHN NICHOLS [facility] [place] [address] * (ABNORMAL) Lipid panel (08/13/2023 12:57 PM INVESTIGATION OFFICER) Cholesterol 136 30 - 199 mg/dL DEVAUGHN [...] DEVAUGHN JOHNSON Blood 08/13/2023 12:5 7 PM INVESTIGATION OFFICER 08/13/2023 12:58 PM INVESTIGATION OFFICER us Osvaldo Robin MD LAB BLOOD ORDERABLES Final R esult DEVAUGHN CARMICHAELCH [address] [facility] [place] [address] from Last 3 Months or Most Recently Relevant to Health Maintenance Insurance [facility] MEDICARE UHC MEDICARE ADVANTAGE [facility] MEDICARE T MEDICARE Care Teams Director Of Nursing Relationship Specialty Start Date End Date Liam Douglas MD [address] [place] [address] PCP - General Family Practice 07/11/23 Agustin Orozco MD [address] [place] [address] Medical Oncologist/Fabrication Specialist Hematology 12/01/18 Jared Marie MD [address] [place] [address] Consulting Physician Medical Oncology 12/01/18
--- OUTSIDE RECORDS SUMMARY | 2025-01-13 00:31 | XMS_ITS | Encounter Summary ---
Author Organization [facility] Address [address] [place] [address] Phone Care Team Providers Care Olive Pitter Name Role Phone Agustin Orozco MD Unavailable [phone] Jared Marie MD Unavailable [phone] Liam Douglas MD Primary Care Provider [phone] Encounter Details Date Type Department Care Team (Late st Contact Info) Description 10/28/2024 Telephone [facility] Bone Marrow Transplant [facility] [address] [place] [address] Jing Lanier V. Social History Tobacco Use Types Packs/Day Years Used Date Smoking Tobacco: Never Smokeless Tobacco: Never Comments Unknown Sex and Gender Information Value Date Recorded Sex Assigned at Not on file Legal Sex Female 12:02 PM MANUFACTURING COST ESTIMATOR Gender Identity Female 06/25/2021 8:56 PM CDT Sexual Orientation Straight 06/25/2021 8: 56 PM CDT documented as of this encounter Plan of Treatment Not on file documented as of this encounter Visit Diagnoses Not on filedocumented in this encounter Care Teams Olive Pitter Relationship Specialty Start Date End Date Liam Douglas MD [address] [place] [address] PCP - General Family Practice 07/11/23 Agustin Orozco MD [address] [place] [address] Medical Oncologist/Superintendent Drilling Hematology 12/01/18 Jared Marie MD [address] [place] [address] Consulting Physician Medical Oncology 12/01/18 documented as of this encounter
--- OUTSIDE RECORDS SUMMARY | 2025-01-13 00:31 | XMS_ITS | Clinical Summary ---
Author Organization [facility] Address [address] [place] [address] Care Team Providers Care Breaking Machine Operator Name Role Phone Liam Douglas MD Primary Care Provider [phone] Allergies Active Allergy Reactions Criticality Noted Date Comments Codeine Headache 10/22/2018 N/V, hallucination Medications atorvastatin (LIPITOR) 20 mg tablet Take 20 mg by mouth daily with supper. 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 Active olmesartan-hydr oCHLOROthiazide (BENICAR-HCT) 40-12.5 mg tablet Take 1 Tablet by mouth daily veterinary medical officer. Active empagliflozin-m etformin (SYNJARDY XR) 5-1,000 mg [...] capsule Active fluticasone propionate (FLONASE) 50 mcg/spray [place], Suspension nasal inhaler Administer 1 [place] in each nostril. 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 Gender Identity Not on file Sexual Orientation Not on file Last Filed Vital Signs Vital Sign Reading Time Taken Comments Blood Pressure 114/68 10/15/2024 8:46 AM JAMMER OPERATOR Pulse 77 10/15/2024 8:46 AM JAMMER OPERATOR Temperature 36.6 C (97.8 F) 10/15/2024 8:46 AM JAMMER OPERATOR Respiratory Rate 16 10/15/2024 8:46 AM JAMMER OPERATOR Oxygen Saturation 93% 10/15/2024 8:46 AM JAMMER OPERATOR Inhaled Oxygen Concentration - - Weight 66.7 kg (147 lb) 10/15/2024 8:46 AM JAMMER OPERATOR Height 165.1 cm (5' 5 ) 04/24/2022 9:48 AM CDT Body Mass Index 24.46 04/24/2022 9:48 AM CDT Plan of Treatment Upcoming Encounters Date Type Department Care Team (Late st Contact Info) Description 04/15/2025 10:00 AM CDT Office Visit [facility] On[facility] [address] [facility] [address] [place] [address] Agustin Orozco MD [address] [facility] [address] [place] [address] Health Maintenance Due Date Last [...] Recently Relevant to Health Maintenance Insurance [employer] [facility] [employer] PPO MCR Advance Directives For more information, please contact: [phone] Documents on File Type Date Recorded 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
--- NOTE | 2025-01-13 11:10 | P.PNAN_ITS ---
Anes - Initial Pre Proc Eval Procedure: Operation Date: 01/13/25 12:00 Proposed Procedures p A1 Adilia Release Right Index and Long Finger, and Thumb - Arsh Baugh MD Date/Time: 01/13/25 11:10 Surgeon: Arsh Baugh MD Pre Op Diagnosis: right index and long trigger finger Patient Data Age: 74 Gender: F Height: 1.65 m Weight: 66.7 kg Allergies Allergy/AdvReac Type Severity Reaction Status Date / Time codeine Allergy Severe Headaches Verified 12/31/24 12:45 and vomiting NSAIDS (Non-Steroidal AdvReac myeloproliferative Verified 12/31/24 12:48 Anti-Inflamma disorder CAT GUT SUTURE Allergy Severe GANGREEN, Uncoded 12/31/24 12:45 HEMORRHAGE Home Medications Medication Instructions Recorded Confirmed Type fluticasone propionate 50 2 spray intranasal DAILY 02/04/20 12/24/24 History mcg/actuation nasal spray,suspension multivitamin with minerals 1 tablet PO DAILY 02/08/20 12/24/24 History (Hair,Skin and Nails tablet) lancets 33 gauge (Fre[facility]PopTouch [facility] ea 05/16/22 12/24/24 Rx Lancets) blood sugar diagnostic See Rx Instructions .Route .COMPLEX 07/22/22 12/24/24 History omeprazole 20 mg capsule,delayed 20 mg PO DAILY 11/20/22 12/24/24 History release atorvastatin 20 mg tablet See Rx Instructions .Route 10/29/23 12/24/24 Rx .COMPLEX #90 tabs mirabegron 25 mg tablet,extended 25 mg PO DAILY #90 tabs 08/16/24 12/24/24 Rx release 24 hr (Myrbetriq) cholecalciferol (vitamin D3) 1,250 1,250 mcg PO .Every other week 10/22/24 12/24/24 History mcg (50,000 unit) capsule semaglutide 1 mg/dose (4 mg/3 mL) 1 mg (0.75 mL) subcut WEEKLY #3 mL 11/22/24 12/31/24 Rx subcutaneous pen injector blood sugar diagnostic (Shoutletuch #400 ea 11/25/24 12/24/24 Rx Verio test strips) blood-glucose meter (FreedomPopTouch #1 ea 11/25/24 12/24/24 Rx Verio Reflect Meter) empagliflozin 5 mg-metformin ER See Rx Instructions .Route 12/16/24 12/31/24 Rx 1,000 mg tablet,extended release .COMPLEX #90 tabs 24 hr (Synjardy XR) levothyroxine 75 mcg tablet 75 mcg PO DAILY #90 tabs 12/16/24 12/31/24 Rx ascorbic acid (vitamin C) 1,000 mg 1 g PO DAILY 12/24/24 12/31/24 History capsule methylprednisolone 4 mg tablets in See Rx Instructions PO PER PKG DIR 12/24/24 12/31/24 Rx a dose pack (Medrol (Car)) #1 ea methylprednisolone 4 mg tablets in See Rx Instructions PO PER PKG DIR 12/24/24 12/31/24 Rx a dose pack (Medrol (Car)) #1 ea montelukast 10 mg tablet See Rx Instructions .Route 12/30/24 12/31/24 Rx .COMPLEX #90 tabs Patient hx anesthesia problems: none Family hx anesthesia problems: none Results Review: All pre-operative results and documents have been reviewed as part of the pre- operative evaluation. [facility] Past Medical History Medical History Acute sinus infection Alopecia Anemia Arthralgia of temporomandibular joint, unspecified side Unspecified asthma Body mass index (bmi) 34.0-34.9, adult (05/17/19) Chronic sinusitis Constipation, acute Cough DM w/o complication type II Dependence on other enabling machines and devices Dyslipidemia associated with type 2 diabetes mellitus Elevated ferritin Essential hypertension Fatigue Gastroesophageal reflux disease Hypersomnolence Morbid obesity Myeloproliferative disorder VERONA on CPAP On intermediate frame tender drug therapy Other and unspecified hyperlipidemia Postmenopausal SOB (shortness of breath) Thrombocytopenia Upper respiratory tract infection Urinary frequency Vitamin D deficiency Surgical History Surgical History History of sinus surgery Hx of laparoscopic gastric banding Family History Family History Mother Hypertension Family history of malignant neoplasm of cervix Acute myocardial infarction Family history of congestive heart failure, Onset Age: 77 Family history of elevated blood lipids Family history of diabetes mellitus in first degree relative Family history of heart disease in male family member before age 55 Father Family history of diabetes mellitus in first degree relative Family history of heart disease in male family member before age 55 Acute myocardial infarction Sibling Family history of diabetes mellitus in first degree relative Family history of malignant neoplasm of cervix Family history of Hodgkin's lymphoma Family history of heart disease in male family member before age 55 Diabetes mellitus Family history of lymphoma, Onset Age: 48 Family history of kidney disease Grandparent Cerebrovascular accident Other Family history of coronary artery disease Social History Social History Smoking status: Never smoker Second hand tobacco smoke exposure: Yes Alcohol intake: never Substance use: never Substance use type: does not use Current Housing: Decline to Answer Concerned About Future Housing: Decline to Answer Difficulty Paying Gas/Electric Bills: Decline to Answer Difficulty Paying for Meds: Decline to Answer Currently Unemployed: Decline to Answer Education: Decline to Answer Difficulty w/ Childcare or Family Care: Decline to Answer Living arrangements: with family Additional living arrangements comments: Occupation/Education: retired Additional occupation/education comments: -[employer] Gender identity (if verbalized by the patient): Female Spiritual care concerns: No Anes - Eval Final PreProcedure Day of Procedure 01/13/25 11:10 Patient weight: normal Heart: regular rate and rhythm Lungs: clear to auscultation Airway: Mallampati scale class II Neurological: alert and oriented Last oral intake: >/= 8 hours ASA classification: III Emergent: no Anesthetic plan: proceed Anesthesia type and monitoring: general LMA and standard monitoring Results Review: All pre-operative results and documents have been reviewed as part of the pre- operative evaluation. Informed Consent: The patient's anesthetic plan and its attendant risks and benefits were discussed with the patient/family/POA. Questions were solicited and answers provided to the satisfaction of the patient/family/POA.
--- NOTE | 2025-01-13 11:11 | WPDHPUPDATE1 ---
History and Physical Update Update Date/Time: 01/13/25 11:11 History and Physical has been reviewed, including an updated exam of the patient. There are NO changes in the patient's condition. Risks, benefits, and alternatives have been discussed and questions answered. Patient agrees to proceed with procedure.
[2025-01-13] MEDS: LACTATED RINGERS 1,000 ML 30 ML IV CONT ×2 (11:20→13:15)
[2025-01-13 11:22] LABS: Glucose Point of Care 81 mg/dl (65-105)
[2025-01-13] MEDS: ACETAMINOPHEN 500 MG TABLET 1000 MG PO (11:35)
[2025-01-13] MEDS: ceFAZolin 2 GM/D5W 50 ML 2 GM/50 ML BAG IVPB (11:40)
[2025-01-13] MEDS: TRANEXAMIC ACID 1,000MG/ISO100 1,000 MG/100 ML BAG 200 MG IVPB (11:40)
[2025-01-13] MEDS: LIDO 1%/EPINEPHRINE 1:100,000 50 ML VIAL 10 ML INFILTRATE (11:59)
--- NOTE | 2025-01-13 12:57 | W.PM.PROC2 ---
Procedure Note - Detailed Date of Procedure 01/13/25 Pre-op Diagnosis right index and long trigger fingers Post-op Diagnosis Same Procedure Performed A1 breann release right thumb, right index, and right long fingers. Surgeon Arsh Baugh MD Sql Ssrs Developer Azael Anesthesia General Description of Procedure Patient was brought to the operating min general anesthesia was administered. The right arm was prepped and draped in the usual fashion.. She received 1 g of TXA preoperatively because of her bleeding diathesis and 2 g of Ancef. The limb was exsanguinated and tourniquet elevated to 225 mmHg. A small amount of 1% lidocaine with epinephrine was injected into the subcutaneous tissues at the inches is sites over the A1 pulleys of the right thumb index and long fingers. We started with the base of the thumb. A wide V type longitudinal incision was made there. Dissection was carried down with blunt longitudinal spreading to the A1 breann and there was a fairly large ganglion cyst coming out the distal edge of the A1 breann which we excised and the A1 breann was released from its distal edge proximally. Release was done under direct vision. The right long finger was addressed next. A 1 cm longitudinal incision was made over the A1 breann dissection carried down to the breann surface itself which was longitudinally incised from distal to proximal after identifying the cleft between the A1 and A2 pulleys. The identical procedure was carried out on the index finger A1 breann. There were is no catching range of motion of these digits. She did have some degree of tenosynovitis along these flexor tendons in each case. Tourniquet was released. Wounds were irrigated. Hemostasis was achieved with minimal use of cautery but primarily prolonged pressure. Bleeding was indeed much more prevalent and prolonged than usual for trigger finger release. All 3 incisions were closed with 5 0 nylon suture. A soft bulky dressing was applied. Was complete hemostasis at time of wound closure. She was transferred to postop recovery room in stable condition no known complications. EBL was probably 20 cc total. [facility] Billing Surgery - Charge Forward: Surgery Billing (A1 breann releases of right thumb index and long fingers.)
[2025-01-13 13:07] LABS: Glucose Point of Care 86 mg/dl (65-105)
[2025-01-13] MEDS: fentaNYL CITRATE INJ (*CRX) 100 MCG/2 ML VIAL 25 MCG IV PUSH ×4 (13:15→13:45)
[2025-01-13] MEDS: HYDROcodone/acetaminophen (*CRX) 5-325 MG TABLET 1 TAB PO (14:24)
== END 2025-01-13 15:25 | disposition home or self-care (01) ==
PROVIDERS: PCP Family Medicine; Visit Provider Orthopaedic Surgery
PROC: (CPT 26055; principal; 2025-01-13 12:00)
DX: M65.321 Trigger finger, right index finger (principal); M65.331 Trigger finger, right middle finger; M65.311 Trigger thumb, right thumb; E11.9 Type 2 diabetes mellitus without complications
CPT/HCPCS: 26055 ×3; 82948; A9270; J0690; J1100; J1596; J2003; J2004; J2250; J2371; J2405; J2704; J3010; J7120

== ENCOUNTER 2025-02-11 15:44 | Outpatient (CLI) | payer MEDICARE, SELFPAY ==
--- NOTE | ~2025-02-11 | MM_ITS ---
EXAMINATION: MM screening ruben BI w damian HISTORY: Screening TECHNIQUE: Craniocaudal and mediolateral oblique 3-D tomosynthesis images were obtained and synthetic 2-D images were generated. CAD analysis was submitted and interpreted. COMPARISON: Comparison to multiple prior studies sequentially, with oldest reviewed study dated 07/02. BREAST PARENCHYMAL COMPOSITION: Dense: The breasts are extremely dense, which lowers the sensitivity of mammography. FINDINGS: There is no evidence of suspicious mass, calcification, or architectural distortion to sugg est malignancy in either breast. There has been no suspicious interval change. IMPRESSION: 1. No mammographic evidence of malignancy. 2. Recommend routine screening mammography in one year. BI-RADS Category 1: Negative Reviewed, dictated and finalized at location B.
--- OUTSIDE RECORDS SUMMARY | 2025-02-11 15:48 | XMS_ITS | Clinical Summary ---
Author Organization [facility] [employer] Address [address] [place] [address] Care Team Providers Care Armature Winder Repair Helper Name Role Phone Bryn Jeff MD Primary Care Provider [phone] [facility],non-owned Affiliates and Associated Physician Practices is amultiple site organization consisting of ambulatory clinics and hospital sitesin [place], [place], [place] and [place]. This disclosure is being madepursuant to the Care Everywhere program and may not contain all information available regarding this patient. 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 Advance Directives * Full Code (Latest Code Status on File) Date Activated Date Inactivated Comments 11/10/2015 10:16 AM 11/11/2015 5:09 PM Care Teams Armature Winder Repair Helper Relationship Specialty Start Date End Date Bryn Jeff MD [address] [place] [id number] PCP - General Internal Medicine 09/29/15
--- OUTSIDE RECORDS SUMMARY | 2025-02-11 15:48 | XMS_ITS | Referral Summary ---
Author Organization [facility] Address [address] [place] [address] Care Team Providers Care Irish Moss Operator Name Role Phone Agustin Orozco MD Unavailable [phone] Jared Marie MD Unavailable [phone] Liam Douglas MD Primary Care Provider [phone] Encounters Date Type Department Care Team Description 01/28/2025 9:45 AM CDT Lab [facility] - Lab Collection [address] [place] [address] MDS (myelodysplastic syndrome) (HCC) 01/28/2025 10:00 AM CDT Lab [facility] [address] [place] [phone] MDS (myelodysplastic syndrome) (HCC) 01/28/2025 11:00 AM CDT Office Visit [facility] [address] [place] [phone] Jared Marie MD MDS (myelodysplastic syndrome) (HCC) (Primary Dx) 12/13/2024 11:00 AM CDT Lab [facility] [place] - Lab Collection [address] [place] [phone] MDS (myelodysplastic syndrome) (HCC); Obesity with body mass index 30 or greater from Last 3 Months Allergies Active Allergy Reactions Criticality Noted Date Comments Codeine Headache,Nausea & Vomiting Low 6 N/V, hallucination Medications SYNJARDY XR 5-1,000 mg tablet, IR & ER, biphasic 24hrIndication s:MDS (myelodysplast ic syndrome) ([facility]) daily 9 Active montelukast (SINGULAIR) 10 mg tabletIndicati ons:MDS (myelodysplast ic syndrome) ([facility]) Take 1 tablet (10 mg total) by mouth daily 5 Active minoxidil 5 % solutionIndica tions:MDS (myelodysplast ic syndrome) ([facility]) Apply topically Active fluticasone propionate (FLONASE) 50 mcg/actuation nasal spray Administer 1 spray into each nostril daily as needed Active multivitamin with minerals tablet Take 1 tablet by mouth daily Active levothyroxine (SYNTHROID) 75 mcg tablet Take 1 tablet (75 mcg total) by mouth daily 1 Active atorvastatin (LIPITOR) 20 mg tablet daily 1 Active OneTouch Ultra Test strip 1 Active docusate sodium (COLACE) 100 mg capsuleIndicat ions:constipat ion Take 2 capsules (200 mg total) by mouth allergy physician before breakfast Active Ozempic 1 mg/dose (4 mg/3 mL) pen injector injectionIndic ations:MDS (myelodysplast ic syndrome) ([facility]) 3 Active omeprazole (PriLOSEC) 20 mg capsuleIndicat ions:MDS (myelodysplast ic syndrome) ([facility]) Take 1 capsule (20 mg total) by mouth daily 4 Active PreviDent 5000 Plus 1.1 % creamIndicatio ns:MDS (myelodysplast ic syndrome) ([facility]) BRUSH ONCE DAILY BEFORE BEDTIME 4 Active cholecalcifero l (VITAMIN D-3) 50,000 unit capsule TAKE 1 CAPSULE BY MOUTH WEEKLY 01/29/20 25 Discontinu ed(Therapy completed) Hospital, Clinic, or Other Facility Administered Medication [...] 08/13/2016 Assessment & Plan (07/21/2020 1:36 PM FINANCIAL ASSISTANT): Lab work from January 2020 showed LDL 88 and triglycerides 214. She continues on atorvastatin 20 mg. Assessment & Plan (01/14/2020 9:31 AM CDT): She continues on atorvastatin 20mg. We will recheck a lipid panel. Assessment & Plan (06/04/2019 10:32 AM CDT): Her last lipid panel was in acceptable range, continue on atorvastatin 20mg. Hypertension 08/13/2016 Assessment & Plan (07/21/2020 1:36 PM FINANCIAL ASSISTANT): Her blood pressure is well controlled today. [...] 01/14/2020 Assessment & Plan (07/21/2020 1:36 PM FINANCIAL ASSISTANT): Asymptomatic Assessment & Plan (06/04/2019 10:33 AM [...] on file Legal Sex Female 12:02 PM FINANCIAL ASSISTANT Gender Identity Female 06/25/2021 8:56 PM CDT Sexual Orientation Straight 06/25/2021 8: 56 PM CDT Last Filed Vital Signs Vital Sign Reading Time Taken Comments Blood Pressure 121/74 01/28/2025 10:31 AM CDT Pulse 75 01/28/2025 10:31 AM CDT Temperature 36.1 C (97 F) 01/28/2025 10:31 AM CDT Respiratory Rate 17 01/28/2025 10:31 AM CDT Oxygen Saturation 99% 01/28/2025 10:31 AM CDT Inhaled Oxygen Concentration - - Weight 67.1 kg (148 lb) 01/28/2025 10:30 AM CDT Height 165.1 cm (5' 5) 01/28/2025 10:31 AM CDT Body Mass Index 24.63 01/28/2025 10:30 AM CDT Plan of Treatment Not on file Procedures Procedure Name Priority Date/Time Associated Diagnosis Comments EGFR Routine 01/28/2025 9:44 AM CDT MDS (myelodysplastic syndrome) (HCC) DIFFERENTIAL AUTO Routine 01/28/2025 9:4 4 AM CDT MDS (myelodysplastic syndrome) (HCC) APTT MIXING STUDY Routine 01/28/2025 9:4 4 AM CDT MDS (myelodysplastic syndrome) (HCC) APTT Routine 01/28/2025 9:44 AM CDT MDS (myelodysplastic syndrome) (HCC) PROTIME-INR Routine 01/28/2025 9:44 AM CDT MDS (myelodysplastic syndrome) (HCC) VITAMIN C Routine 01/28/2025 9:44 AM CDT MDS (myelodysplastic syndrome) (HCC) CBC WITH AUTO DIFFERENTIAL Routine 01/28/2025 9:44 AM CDT MDS (myelodysplastic syndrome) (HCC) COMPREHENSIVE METABOLIC PANEL Routine 01/28/2025 9:44 AM CDT MDS (myelodysplastic syndrome) (HCC) LACTATE DEHYDROGENASE Routine 01/28/2025 9:44 AM CDT MDS (myelodysplastic syndrome) (HCC) VITAMIN C Routine 12/13/2024 10:38 AM CDT MDS (myelodysplastic syndrome) (HCC) PROTIME-INR Routine 12/13/2024 10:38 AM CDT MDS (myelodysplastic syndrome) (HCC) APTT Routine 12/13/2024 10:38 AM CDT MDS (myelodysplastic syndrome) (HCC) APTT MIXING STUDY Routine 12/13/2024 10: 38 AM CDT MDS (myelodysplastic syndrome) (HCC) TSH Routine 12/13/2024 10:38 AM CDT Obesity with body mass index 30 or greater LIPID PANEL Routine 08/13/2023 12:57 PM FINANCIAL ASSISTANT Dyslipidemia Essential hypertension from Last 3 Months or Most Recently Relevant to Health Maintenance Results * (ABNORMAL) eGFR (01/28/2025 9:44 AM CDT) eGFR 56(L) >=60 mL/min/1. 73 m2 Comment: Interpretive Data [...] interpretive data was last reviewed 2021. Blood 01/28/2025 9:44 AM CDT 01/28/2025 9:57 AM CDT us Jared Marie MD LAB BLOOD ORDERABLES Final Result [facility] [place] [address] * (ABNORMAL) Differential, auto (01/28/2025 9:44 AM CDT) Neutrophil abs 2.17 1.50 - 6.50 K/cumm Comment:Testing performed by : [facility], [address] [place] [address] Lymphocyte abs 2.21 0.80 - 3.30 K/cumm [facility] Comment:Testing performed by : [facility], [address] [place], [place] [phone] Monocyte abs 2.08(H) 0.20 - 0.80 K/cumm [facility] Comment:Testing performed by : [facility], [address] [place], [place] [phone] Eosinophil abs 0.03 0.00 - 0.50 K/cumm [facility] Comment:Testing performed by : [facility], [address] [place] [phone] Basophil abs 0.06 0.00 - 0.10 K/cumm [facility] Comment:Testing performed by : [facility], [address] [place], [place] [phone] Neutrophil pct 33.2 % [facility] Comment: Interpretive Data Percent cell count reference ranges are not reported, since discordance with absolute values may lead to misinterpretation of CBC data. Current Interpretive Data was last revised on 2017. Testing performed by: [facility], [address] [place] [phone] Lymphocyte pct 33.7 % [facility] Comment: Interpretive Data Percent cell count reference ranges are not reported, since discordance with absolute values may lead to misinterpretation of CBC data. Current Interpretive Data was last revised on 2017. Testing performed by: [facility], [address] [place] [phone] Monocyte pct 31.8 % DEVAUGHN NICHOLS Comment: Interpretive Data Percent cell count reference ranges are not reported, since discordance with absolute values may lead to misinterpretation of CBC data. Current Interpretive Data was last revised on 2017. Testing performed by: [facility], [address] [place] [address] Eosinophil pct 0.4 % DEVAUGHN NICHOLS Comment: Interpretive Data Percent cell count reference ranges are not reported, since discordance with absolute values may lead to misinterpretation of CBC data. Current Interpretive Data was last revised on 2017. Testing performed by: [facility], [address] [place] [phone] Basophil pct 0.9 % DEVAUGHN NICHOLS Comment: Interpretive Data Percent cell count reference ranges are not reported, since discordance with absolute values may lead to misinterpretation of CBC data. Current Interpretive Data was last revised on 2017. Testing performed by: [facility], [address] [place] [phone] Blood 01/28/2025 9:44 AM CDT 01/28/2025 9:54 AM CDT us Jared Marie MD LAB BLOOD ORDERABLES Final Result [facility] Department [place] [address] * (ABNORMAL) aPTT mixing study (01/28/2025 9:44 AM CDT) aPTT 44(H) 28 - 38 sec Comment: Interpretive Data Heparin therapeutic range: 66.0 - 100.0 seconds. Range based on correlation with therapeutic heparin activity range of 0.3 - 0.7 Units/mL. Current interpretive data was last revised on 2023. aPTT, 50/50 mix 37 28 - 38 sec DEVAUGHN NICHOLS Comment: [...] on 2019. aPTT, 50/50 mix, 1 hr 37 28 - 38 sec DEVAUGHN NICHOLS Blood 01/28/2025 9:44 AM CDT 01/28/2025 10:12 AM CDT us Jared Marie MD LAB BLOOD ORDERABLES Final Result DEVAUGHN NICHOLS [facility] Department [place] [address] * (ABNORMAL) CBC with auto differential (01/28/2025 9:44 AM CDT) WBC 6.55 3.80 - 9.90 K/cumm Comment:Testing performed by : [facility], [address] [place] [phone] Hgb 10.9(L) 11.9 - 15.5 g/dL DEVAUGHN NICHOLS Comment:Testing performed by : [facility], [address] [place] [phone] Hct 31.5(L) 35.6 - 45.5 % DEVAUGHN NICHOLS Comment:Testing performed by : [facility], [address] [place] [address] Plt 91(L) 150 - 400 K/cumm [facility] Comment:Testing performed by : [facility], [address] [place] [address] MPV 9.7 6.8 - 10.4 fL [facility] Comment:Testing performed by : [facility], [address] [place] [address] RBC 3.40(L) 3.90 - 5.20 M/cumm [facility] Comment:Testing performed by : [facility], [address] [place] [address] MCV 92.6 81.3 - 96.4 fL [facility]ER[facility]IP [facility] Comment:Testing performed by : [facility], [address] [place] [address] MCH 32.1 27.1 - 33.3 pg [facility]IP [facility] Comment:Testing performed by : [facility], [address] [place] [address] MCHC 34.7 32.3 - 35.7 g/dL [facility] Comment:Testing performed by : [facility], [address] [place] [address] RDW CV 14.1 11.1 - 14.9 % [facility] Comment:Testing performed by : [facility], [address] [place] [address] NRBC abs 0.00 0.00 - 0.01 K/cumm [facility] Comment:Testing performed by : [facility], [address] [place] [address] Blood 01/28/2025 9:44 AM CDT 01/28/2025 9:54 AM CDT us Jared Marie MD LAB BLOOD ORDERABLES Final Result [facility] Department [place] [address] * Vitamin C (01/28/2025 9:44 AM CDT) Ascorbic acid (Vit C) 2.0 0.4 - 2.0 mg/dL [facility] Comment: ADDITIONAL INFORMATION This test was developed and its performance characteristics determined by [facility] in a manner consistent with CLIA requirements. This test has not been cleared or approved by the U.S. Food and Drug Administration. Test Performed by: [facility] [address] [place] [address] Patient Registration Supervisor: Dot Teresa Ph.D.; CLIA# [id number] Blood 01/28/2025 9:44 AM CDT 01/28/2025 12:15 PM CDT Jared Marie MD LAB BLOOD ORDERABLES Final Result Performing Organization Address City/[facility] Co de Phone Number [facility] [place] [address] [facility] ref [facility] * (ABNORMAL) aPTT (01/28/2025 9:44 AM CDT) Pathologist [facility] aPTT 44(H) 28 - 38 sec Comment: Interpretive Data Heparin therapeutic range: 66.0 - 100.0 seconds. Range based on correlation with therapeutic heparin activity range of 0.3 - 0.7 Units/mL. Current interpretive data was last revised on 2023. Blood 01/28/2025 9:44 AM CDT 01/28/2025 10:12 AM CDT Jared Marie MD LAB BLOOD ORDERABLES Final Result Performing Organization Address City/[facility]/ZIP Co de Phone Number DEVAUGHN NICHOLS [facility] [place] [address] * Protime-INR (01/28/2025 9:44 AM CDT) Pathologist [facility] PT 11.2 9.7 - 13.0 sec INR 1.04 0.90 - 1.20 [facility] Comment: Interpretive data Oral anticoagulant therapeutic ranges: Venous thromboembolism prophylaxis or treatment: 2.0-3.0 CARDIOLOGY Standard range: 2.0-3.0 High-intensity range: 2.5-3.5 Refer to indication-specific guidelines for appropriate target ranges for prosthetic heart valve replacement. Current interpretive data was last revised on 2019. Blood 01/28/2025 9:44 AM CDT 01/28/2025 10:12 AM CDT Jared Marie MD LAB BLOOD ORDERABLES Final Result Performing Organization Address City/[facility] Co de Phone Number [facility] Department [place] [address] * Lactate dehydrogenase (LD) (01/28/2025 9:44 AM CDT) [facility] Lactate dehydrogenase (LDH) 246 100 - 250 Units/L Blood 01/28/2025 9:44 AM CDT 01/28/2025 9:57 AM CDT Jared Marie MD LAB BLOOD ORDERABLES Final Result Performing Organization Address City/[facility] Co de Phone Number [facility] [place] [employer] [place] [address] * Comprehensive metabolic panel (01/28/2025 9:44 AM CDT) [facility] Sodium 141 135 - 145 mmol/L Potassium, pl 4.2 3.3 - 4.9 mmol/L [facility] Chloride 105 97 - 110 mmol/L [facility] CO2 26 22 - 32 mmol/L [facility] Anion gap 10 2 - 15 mmol/L [facility] BUN 22 6 - 25 mg/dL [facility] Creatinine 1.04 0.60 - 1.10 mg/dL [facility] Glucose 89 70 - 199 mg/dL [facility] Comment: Interpretive Data Fasting glucose >/= 126 mg/dl is diagnostic for diabetes. Fasting is defined as no caloric intake for at least 8 hours. Fasting glucose between 100 mg/dl to 125 mg/dl is diagnostic of prediabetes. In a patient with classic symptoms of hyperglycemia or hyperglycemic crisis, a random glucose >/= 200 mg/dl is diagnostic for diabetes. In the absence of unequivocal hyperglycemia, results should be confirmed by repeat testing. The classification and Diagnosis of Diabetes Diabetes Care 2021; 46: S19-S40. Current interpretive data was last revised 2022. Calcium 9.9 8.5 - 10.3 mg/dL [facility] Bilirubin, total 0.4 0.1 - 1.2 mg/dL [facility] Protein, pl 7.7 6.5 - 8.5 g/dL [facility] Albumin 4.5 3.5 - 5.0 g/dL [facility] Alk phos 93 40 - 130 Units/L [facility] ALT 15 7 - 45 Units/L [facility] AST 21 10 - 45 Units/L [facility] Blood 01/28/2025 9:44 AM CDT 01/28/2025 9:57 AM CDT Jared Marie MD LAB BLOOD ORDERABLES Final Result [facility] Department [place] [address] * (ABNORMAL) aPTT mixing study (12/13/2024 10:38 AM CDT) [facility] aPTT 44(H) 28 - 38 sec Comment: Interpretive Data Heparin therapeutic range: 66.0 - 100.0 seconds. Range based on correlation with therapeutic heparin activity range of 0.3 - 0.7 Units/mL. Current interpretive data was last revised on 2023. aPTT, 50/50 mix 36 28 - 38 sec [facility] BLOOD ORDERABLES Final Result DEVAUGHN NICHOLS [facility] [place] [address] * (ABNORMAL) Vitamin C (12/13/2024 10:38 AM CDT) Pathologist [facility] Ascorbic acid (Vit C) 2.7(H) 0.4 - 2.0 mg/dL [facility] Comment: ADDITIONAL INFORMATION This test was developed and its performance characteristics determined by [facility] in a manner consistent with CLIA requirements. This test has not been cleared or approved by the U.S. Food and Drug Administration. Test Performed by: [facility] - [address] [address] Patient Registration Supervisor: Dot Teresa Ph.D.; CLIA# [id number] Blood 12/13/2024 10:3 8 AM CDT 12/13/2024 11:33 AM CDT Jared Marie MD LAB BLOOD ORDERABLES Final Result Performing Organization Address [facility] Co de Phone Number DEVAUGHN [facility] [place] [address] [facility] ref [facility] * (ABNORMAL) aPTT (12/13/2024 10:38 [...] BLOOD ORDERABLES Final Result Performing Organization Address [facility] Co de Phone Number [facility] [place] [address] * Protime-INR (12/13/2024 10:38 AM CDT) PT 11.6 9.7 - 13.0 sec INR 1.07 0.90 - 1.20 [facility] Comment: Interpretive data Oral anticoagulant therapeutic ranges: Venous thromboembolism prophylaxis or treatment: 2.0-3.0 CARDIOLOGY Standard range: 2.0-3.0 High-intensity range: 2.5-3.5 Refer to indication-specific guidelines for appropriate target ranges for prosthetic heart valve replacement. Current interpretive data was last revised on 2019. Blood 12/13/2024 10:3 8 AM CDT 12/13/2024 11:10 AM CDT Jared Marie MD LAB BLOOD ORDERABLES Final Result Performing Organization Address City/[facility]/ZIP Co de Phone Number DEVAUGHN NICHOLS [facility] [place] [address] * TSH (12/13/2024 10:38 AM CDT) Thyroid Stimulating Hormone 2.37 0.30 - 4.20 mcIUnit/mL Blood 12/13/2024 10:3 8 AM CDT 12/13/2024 10:50 AM CDT us Jared Marie MD LAB BLOOD ORDERABLES Final Result Performing Organization Address [facility] Co de Phone Number [facility] [place] [address] * (ABNORMAL) Lipid panel (08/13/2023 12:57 PM FINANCIAL ASSISTANT) Cholesterol 136 30 - 199 mg/dL DEVAUGHN [...] DEVAUGHN JOHNSON Blood 08/13/2023 12:5 7 PM FINANCIAL ASSISTANT 08/13/2023 12:58 PM FINANCIAL ASSISTANT us Osvaldo Robin MD LAB BLOOD ORDERABLES Final R esult DEVAUGHN [facility] [id number] [facility] [place] [address] from Last 3 Months or Most Recently Relevant to Health Maintenance Insurance [facility] MEDICARE [facility] MEDICARE ADVANTAGE [facility] MEDICARE Address: [address] [address] [place] [address] [facility] MEDICARE AET MEDICARE Care Teams Irish Moss Operator Relationship Specialty Start Date End Date Liam Douglas MD [address] [place] [phone] PCP - General Family Practice 07/11/23 Agustin Orozco MD [address] [place] [phone] Medical Oncologist/Guillotine Trimmer Hematology 12/01/18 Jared Marie MD [address] [place] [phone] Consulting Physician Medical Oncology 12/01/18
--- OUTSIDE RECORDS SUMMARY | 2025-02-11 15:48 | XMS_ITS | Data Portability ---
Author Organization [place] [facility] [employer], Main Office Address [address] [place] [address] Care Team Providers Care Processing Rep Name Role Phone KACY DOUGLAS Primary Care Provider [phone] KACY DOUGLAS Referring Provider [phone] Assessment Encounter Date Assessment Date Assessment LastModified [...] more than half the time spent in eyvi-ap-ynwf care. Not available 03/29/2023 08:32:47 Plan of [...] DO Not Attach Compendium, Do Not Delete/merge, [address] 15:56:20 Surgeries None recorded. Imaging None recorded. Medication Orders Kenalog 10 mg/mL suspension for [facility] 2022 [id number], [address], [place], [id number], 3 16:44:49 ropivacaine (PF) 5 mg/mL (0.5 %) injection solution 2022 023 [id number], [address], [place], [id number], 3 16:44:49 Medrol (Car) 4 mg tablets in a dose pack 2022 023 [id number], [address], [place], [id number], 3 16:44:49 Patient TargetsNo targets recorded. Patient [...] Address Organization Details Recorded Time Osteoarthr itis [id number] Active Not Available [employer] 3 17:47:26 Pain of right wrist [id number] 00 Active 2022 Liberty Oneal RMA null, [employer] [facility] 15:11:46 Problem Notes None recorded. Procedures Surgical History Date Name Laterality Status Provider Name and Address Organization Details Recorded Time procedure on spine completed Liberty Oneal RMA [employer] [facility] 03/27/2023 15:09:40 procedure on gallbladder completed Liberty Oneal RMA [employer] [facility] [employer] [facility] 03/27/2023 15:09:51 Carpal tunnel surgery completed Liberty Green RMA [employer] [facility] 03/27/2023 15:10:04 Imaging Results None recorded. Procedure Notes None recorded. Medical Equipment None Reported. Allergies Allergen ID Allergen Name Allergen Category Reaction Reaction Severity Criticality Documentation Date Start Date Code Code System Note Provider Name and Address Organization Details Recorded Time 83246 codeine medicatio n Not available Not available Not available 03/27/2023 2670 RxNorm Liberty Oneal RMA null, [employer] - [facility] [employer] [facility] 3 15:07:16 Medications Name Sig Start Date Stop [...] , administe red by provider 2022 active [facility]: 0003- 0494- 20 Not Available Not Available [...] , administe red by provider 2022 active [facility] 08082 -064- 01 Not Available Not Available Not [...] Updated DateTime 03/27/2023 160.02 cm 28.5 kg/m2 23756.37 g ANURADHA Morales [place] - [facility] [employer] 03/27/2023 15:14:25 Social History None recorded. Functional Status Question Answer Note LastModified by Organization D etails LastModified Time What is your level of alcohol consumption? None [email or web address] Information not available 03/27/2023 Mental Status None recorded. Family History Relationship Description Onset Age of this Age Resolved Age Notes LastModified by Organization Details LastModified Time Father Heart disease [email or web address] Not available 2022 15:08:05 Mother Heart disease Not available 2022 15:08:05 Mother Diabetes mellitus [email or web address] Not available 2022 15:09:14 Sister Heart disease [email or web address] Not available 2022 15:08:05 Sister Diabetes mellitus [email or web address] Not available 2022 15:09:14 Maternal Grandfather Family history of stroke Not available 2022 15:08:18 Unspecified Relation Hypertensive disorder all family Not available 03/27/2023 15:08:39 Maternal Aunt Diabetes mellitus [email or web address] Not available 2022 15:09:14 Maternal Uncle Diabetes mellitus Not available 2022 15:09:14 Medical History Condition Response ARTHRITIS Y DIABETES, TYPE Y CANCER: SPECIFY Y ANEMIA/BLOOD DISORDER Y Gynecological HistoryNo gynecological history recorded. Obstetrics History GPAL:G 0 P 0 0 0 0 Past Encounters Encounter ID Performer Location Encounter Start Date Encounter Closed Date Diagnosis/Indication Diagnosis SNOMED-CT Code Diagnosis ICD10 Code Diagnosis Note [id number] Arsh Baugh MD [facility] [address] [place] [address] 03/27/2023 14:33:19 03/31/2023 09:51:05 Pain of right wrist [id number] 38106 M25.531 Health Concerns Section Related Observation LastModified by Organization Detai ls LastModified Time None Recorded Concern Status LastModified by Organization Details LastModified Time None Recorded Advance Directives Directive None Recorded Payers Insurance Date Sequence Insurance Name Policy Number Policy John Covered Member ID John Member ID Guarantor Name 03/26/2023 1 [facility] (MEDICARE REPLACEMENT/ ADVANTAGE - PPO) [id number] Sergey Juarez [id number] Sergey Juarez 04/03/2023 1 [employer] (MEDICARE REPLACEMENT/ ADVANTAGE - PPO) [id number] Sergey Juarez [id number] Sergey Juarez Notes Date Note Type Note [...] She had x-rays obtained on 03/21/2023 at [facility] two views the right wrist which demonstrated 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 Arsh Baugh MD [address] [place] [address], [facility] [address], [place], [address], [facility] - [facility] [employer] 03/29/2023 08:33:02 OBGyn Episode No OBEpisode recorded.
--- OUTSIDE RECORDS SUMMARY | 2025-02-11 15:48 | XMS_ITS | Encounter Summary ---
Author Organization [facility] Address [address] [place] [address] Phone Care Team Providers Care Field Mechanic/Site Lead Name Role Phone Agustin Orozco MD Unavailable [phone] Jared Marie MD Unavailable [phone] Deepak Negron MD Primary Care Provider [phone] Morgan Herrera MD Primary Care Provider [phone] Liam Douglas MD Primary Care Provider [phone] Encounter Details Date Type Department Care Team (Latest Contact Info) Description 05/18/2020 Orders Only [facility] Scanning, Provider Social History Tobacco Use Types Packs/Day Years Used Date Smoking Tobacco: Never Smokeless Tobacco: Never Comments Unknown Sex and Gender Information Value Date Recorded Sex Assigned at Not on file Legal Sex Female 12:02 PM RESIDENT PHYSICIAN Gender Identity Female 06/25/2021 8:56 PM CDT [...] on filedocumented in this encounter Care Teams Field Mechanic/Site Lead Relationship Specialty Start Date End Date Deepak Negron MD [address] [place] [address] PCP - General Internal Medicine 06/04/19 07/18/22 Morgan Herrera MD [address] [place] [address] PCP - General Internal Medicine 07/19/22 07/10/23 Liam Douglas MD [address] [place] [address] PCP - General Family Practice 07/11/23 Agustin Orozco MD [address] [place] [phone] Medical Oncologist/Stiff Neck Loader Hematology 12/01/18 Jared Marie MD [address] [place] [address] Consulting Physician Medical Oncology 12/01/18 documented as of this encounter
--- OUTSIDE RECORDS SUMMARY | 2025-02-11 15:48 | XMS_ITS | Encounter Summary ---
Author Organization [facility] Address [address] [place] [address] Phone Care Team Providers Care Graphics Software Engineer Name Role Phone Agustin Orozco MD Unavailable [phone] Jared Marie MD Unavailable [phone] Bryn Jeff MD Primary Care Provider [phone] Melanie Husain MD Primary Care Provider Bryn Jeff MD Primary Care Provider [phone] Deepak Negron MD Primary Care Provider [phone] Morgan Herrera MD Primary Care Provider [phone] Liam Douglas MD Primary Care Provider [phone] Encounter Details Date Type Department Care Team (Latest Contact Info) Description 10/22/2018 Orders Only [facility] Scanning, Provider Social History Tobacco Use Types Packs/Day Years Used Date Smoking Tobacco: Never Comments Unknown Sex and Gender Information Value Date Recorded Sex Assigned at Not on file Legal Sex Female 12:02 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 Gender Identity Female 06/25/2021 8:56 PM CDT [...] on filedocumented in this encounter Care Teams Graphics Software Engineer Relationship Specialty Start Date End Date Bryn Jeff MD [address] [place] [address] PCP - General Internal Medicine 12/01/18 12/02/18 Melanie Husain MD [address] [place] [phone] PCP - General 12/03/18 12/03/18 Bryn Jeff MD [address] [place] [address] PCP - General Internal Medicine 12/04/18 06/03/19 Deepak Negron MD [address] [address] PCP - General Internal Medicine 06/04/19 07/18/22 Morgan Herrera MD [address] [facility] [address] [place] [address] PCP - General Internal Medicine 07/19/22 07/10/23 Liam Douglas MD [address] [place] [address] PCP - General Family Practice 07/11/23 Agustin Orozco MD [address] [place] [address] Medical Oncologist/Ring Barker Operator Hematology 12/01/18 Jared Marie MD [address] [place] [address] Consulting Physician Medical Oncology 12/01/18 documented as of this encounter
--- OUTSIDE RECORDS SUMMARY | 2025-02-11 15:48 | XMS_ITS | Clinical Summary ---
Author Organization [facility] Address [address] [place] [address] Care Team Providers Care Department Manager Name Role Phone Agustin Orozco MD Unavailable [phone] Jared Marie MD Unavailable [phone] Liam Douglas MD Primary Care Provider [phone] Allergies Active Allergy Reactions Criticality Noted Date Comments Codeine Headache,Nausea & Vomiting Low 6 N/V, hallucination Medications SYNJARDY XR 5-1,000 mg tablet, IR & ER, biphasic 24hrIndication s:MDS (myelodysplast ic syndrome) ([facility]) daily 9 Active montelukast (SINGULAIR) 10 mg tabletIndicati ons:MDS (myelodysplast ic syndrome) ([facility]) Take 1 tablet (10 mg total) by mouth daily 5 Active minoxidil 5 % solutionIndica tions:MDS (myelodysplast ic syndrome) ([facility]) Apply topically Active fluticasone propionate (FLONASE) [...] 2 capsules (200 mg total) by mouth continuous improvement intern before breakfast Active Ozempic 1 mg/dose (4 mg/3 mL) pen injector injectionIndic ations:MDS (myelodysplast ic syndrome) (HCC) 3 Active omeprazole (PriLOSEC) 20 mg capsuleIndicat ions:MDS (myelodysplast ic syndrome) (HCC) Take 1 capsule (20 mg total) by mouth daily 4 Active PreviDent 5000 Plus 1.1 % creamIndicatio ns:MDS (myelodysplast ic syndrome) (HCC) BRUSH ONCE DAILY BEFORE BEDTIME [...] 08/13/2016 Assessment & Plan (07/21/2020 1:36 PM GLOBAL PROFESSIONAL): Lab work from January 2020 showed LDL 88 and triglycerides 214. She continues on atorvastatin 20 mg. Assessment & Plan (01/14/2020 9:31 AM CDT): She continues on atorvastatin 20mg. We will recheck a lipid panel. Assessment & Plan (06/04/2019 10:32 AM CDT): Her last lipid panel was in acceptable range, continue on atorvastatin 20mg. Hypertension 08/13/2016 Assessment & Plan (07/21/2020 1:36 PM GLOBAL PROFESSIONAL): Her blood pressure is well controlled today. [...] 01/14/2020 Assessment & Plan (07/21/2020 1:36 PM GLOBAL PROFESSIONAL): Asymptomatic Assessment & Plan (06/04/2019 10:33 AM CDT): Found to have NSVT in the past. She is at risk for Afib due to metabolic syndrome. Will monitor clinically for now. Sensation of chest tightness 08/13/2016 07/21/2020 Encounters Date Type Department Care Team Description 01/28/2025 11:00 AM CDT Office Visit [facility]row Transplant [address] [facility] [address] [place] [phone] Jared Marie MD MDS (myelodysplastic syndrome) (HCC) (Primary Dx) 01/28/2025 10:00 AM CDT Lab [facility] On[facility] [address] [place] [address] MDS (myelodysplastic syndrome) (HCC) 01/28/2025 9:45 AM CDT Lab [facility] - [facility] Floor [address] [place] [address] MDS (myelodysplastic syndrome) (HCC) 12/13/2024 11:00 AM CDT Lab [facility] - [facility] [address] [place] [address] MDS (myelodysplastic syndrome) ([facility]); Obesity with body mass index 30 or greater from Last 3 Months Immunizations Immunization Administration [...] history of diabetes mellitus - (Added by Conv) Heart attack Mother Family history of heart attack - (Added by Conv) Heart failure Mother Family history of heart failure - (Added by Conv) Hypertension Mother Family history of hypertension - (Added by Conv) Colon cancer Paternal Grandmother Coronary artery disease Sister 1 Fami ly history of coronary artery disease - (Added by Conv) Heart attack Sister 2 Family history of heart attack - (Added by TW Conv) Heart failure Sister 3 Family history of heart failure - (Added by TW Conv) Hypertension Sister 4 Family history of hypertension - (Added by Conv) Diabetes Sister 5 Family history of diabetes mellitus - (Added by Conv) Lung disease Sister 6 Family history [...] on file Legal Sex Female 12:02 PM GLOBAL PROFESSIONAL Gender Identity Female 06/25/2021 8:56 PM CDT [...] 01/28/2025 10:30 AM CDT Plan of Treatment Health Maintenance [...] 05/26/2020, 05/20/2019, 06/15/2018, Additional history exists eGFR 01/28/2026 01/28/2025, 04/2024, 01/09/2024, Additional history exists DTaP/Tdap/Td Vaccine (2 - [...] greater LIPID PANEL Routine 08/13/2023 12:57 PM GLOBAL PROFESSIONAL Dyslipidemia Essential hypertension from Last 3 Months or Most Recently Relevant to Health Maintenance Results * (ABNORMAL) eGFR (01/28/2025 9:44 AM CDT) [facility] Signature eGFR 56(L) >=60 mL/min/1. 73 m2 Comment: [...] MD LAB BLOOD ORDERABLES Final Result [facility] [address] [facility] Department [place] [address] * (ABNORMAL) Differential, auto (01/28/2025 9:44 AM CDT) Neutrophil abs 2.17 1.50 - 6.50 K/cumm Comment:Testing performed by : [facility], [address] [place] [address] Lymphocyte abs 2.21 0.80 - 3.30 K/cumm [facility] Comment:Testing performed by : [facility], [address] [place] [address] Monocyte abs 2.08(H) 0.20 - 0.80 K/cumm [facility] Comment:Testing performed by : [facility], [address] [place] [address] Eosinophil abs 0.03 0.00 - 0.50 K/cumm [facility] NICHOLS Comment:Testing performed by : [facility], [address] [place] [address] Basophil abs 0.06 0.00 - 0.10 K/cumm [facility] Comment:Testing performed by : [facility], [address] [place] [phone] Neutrophil pct 33.2 % CERPHILLIP NICHOLS Comment: Interpretive Data Percent cell count reference ranges are not reported, since discordance with absolute values may lead to misinterpretation of CBC data. Current Interpretive Data was last revised on 2017. Testing performed by: [facility], [address] [place] [phone] Lymphocyte pct 33.7 % [facility] NICHOL[facility] Comment: Interpretive Data Percent cell count reference ranges are not reported, since discordance with absolute values may lead to misinterpretation of CBC data. Current Interpretive Data was last revised on 2017. Testing performed by: [facility], [address] [place] [phone] Monocyte pct 31.8 % CERPHILLIP NICHOLS Comment: Interpretive Data Percent cell count reference ranges are not reported, since discordance with absolute values may lead to misinterpretation of CBC data. Current Interpretive Data was last revised on 2017. Testing performed by: [facility], [address] [place] [phone] Eosinophil pct 0.4 % [facility] NICHOL[facility] Comment: Interpretive Data Percent cell count reference ranges are not reported, since discordance with absolute values may lead to misinterpretation of CBC data. Current Interpretive Data was last revised on 2017. Testing performed by: [facility], [address] [place] [phone] Basophil pct 0.9 % [facility] NICHOL[facility] Comment: Interpretive Data Percent cell count reference ranges are not reported, since discordance with absolute values may lead to misinterpretation of CBC data. Current Interpretive Data was last revised on 2017. Testing performed by: [facility], [address] [place] [phone] Blood 01/28/2025 9:44 AM CDT 01/28/2025 9:54 AM CDT us Jared Marie MD LAB BLOOD ORDERABLES Final Result [facility]ICH[facility] Department [place] [address] * (ABNORMAL) aPTT mixing study (01/28/2025 9:44 AM CDT) Pathologist [facility] aPTT 44(H) 28 - 38 sec Comment: Interpretive Data Heparin therapeutic range: 66.0 - 100.0 seconds. Range based on correlation with therapeutic heparin activity range of 0.3 - 0.7 Units/mL. Current interpretive data was last revised on 2023. aPTT, 50/50 mix 37 28 - 38 sec [facility] Comment: Interpretive data Evaluating an [...] hr 37 28 - 38 sec [facility] Blood 01/28/2025 9:44 AM CDT 01/28/2025 10:12 AM CDT us Jared Marie MD LAB BLOOD ORDERABLES Final Result [facility] [address] [facility] Department [place] [address] * (ABNORMAL) CBC with auto differential (01/28/2025 9:44 AM CDT) [facility] WBC 6.55 3.80 - 9.90 K/cumm Comment:Testing performed by : [facility], [address] [place], [place] [phone] Hgb 10.9(L) 11.9 - 15.5 g/dL CERNER BJ Comment:Testing performed by : [facility], [address] [place], [place] [phone] Hct 31.5(L) 35.6 - 45.5 % CERNER BJ Comment:Testing performed by : [facility], [address] [place], [place] [phone] Plt 91(L) 150 - 400 K/cumm CERNER BJ Comment:Testing performed by : [facility], [address] [place], [place] [phone] MPV 9.7 6.8 - 10.4 fL CERNER BJ Comment:Testing performed by : [facility], [address] [place], [place] [phone] RBC 3.40(L) 3.90 - 5.20 M/cumm CERNER BJ Comment:Testing performed by : [facility], [address] [place], [place] [phone] MCV 92.6 81.3 - 96.4 fL CERNER BJ Comment:Testing performed by : [facility], [address] [place], [place] [phone] MCH 32.1 27.1 - 33.3 pg CERNER BJ Comment:Testing performed by : [facility], [address] [place] [address] MCHC 34.7 32.3 - 35.7 g/dL CERNER BJ Comment:Testing performed by : [facility], [address] [place] [address] RDW CV 14.1 11.1 - 14.9 % CERNER BJ Comment:Testing performed by : [facility], [address] [place] [address] NRBC abs 0.00 0.00 - 0.01 K/cumm CERNER BJ Comment:Testing performed by : [facility], [address] [place] [phone] Blood 01/28/2025 9:44 AM CDT 01/28/2025 9:54 AM CDT Jared Marie MD LAB BLOOD ORDERABLES Final Result Performing Organization Address [facility] de Phone Number [facility] [place] [address] * Vitamin C (01/28/2025 9:44 AM CDT) Pathologist [facility] Ascorbic acid (Vit C) 2.0 0.4 - 2.0 mg/dL [facility] Comment: ADDITIONAL INFORMATION This test was developed and its performance characteristics determined by [facility] in a manner consistent with CLIA requirements. This test has not been cleared or approved by the U.S. Food and Drug Administration. Test Performed by: [facility] [place] [address] Poll Watcher: Dot Teresa Ph.D.; CLIA# [id number] Blood 01/28/2025 9:44 AM CDT 01/28/2025 12:15 PM CDT Jared Marie MD LAB BLOOD ORDERABLES Final Result Performing Organization Address [facility] Co de Phone Number [facility] VALDOVINOS [facility] [place] [address] [facility] * (ABNORMAL) aPTT (01/28/2025 9:44 AM CDT) aPTT 44(H) 28 - 38 sec Comment: Interpretive Data Heparin therapeutic range: 66.0 - 100.0 seconds. Range based on correlation with therapeutic heparin activity range of 0.3 - 0.7 Units/mL. Current interpretive data was last revised on 2023. Blood 01/28/2025 9:44 AM CDT 01/28/2025 10:12 AM CDT Jared Marie MD LAB BLOOD ORDERABLES Final Result Performing Organization Address [facility] de Phone Number [facility] [place] [address] * Protime-INR (01/28/2025 9:44 AM CDT) PT 11.2 9.7 - 13.0 sec INR 1.04 0.90 - 1.20 [facility] Comment: Interpretive data Oral anticoagulant therapeutic ranges: Venous thromboembolism prophylaxis or treatment: 2.0-3.0 CARDIOLOGY Standard range: 2.0-3.0 High-intensity range: 2.5-3.5 Refer to indication-specific guidelines for appropriate target ranges for prosthetic heart valve replacement. Current interpretive data was last revised on 2019. Blood 01/28/2025 9:44 AM CDT 01/28/2025 10:12 AM CDT Jared Marie MD LAB BLOOD ORDERABLES Final Result Performing Organization Address [facility] [place] [address] * Lactate dehydrogenase (LD) (01/28/2025 9:44 AM CDT) Lactate dehydrogenase (LDH) 246 100 - 250 Units/L Blood 01/28/2025 9:44 AM CDT 01/28/2025 9:57 AM CDT Jared Marie MD LAB BLOOD ORDERABLES Final Result Performing Organization Address [facility] [place] [address] * Comprehensive metabolic panel (01/28/2025 9:44 AM CDT) Sodium 141 135 - 145 mmol/L Potassium, pl 4.2 3.3 - 4.9 mmol/L [facility] Chloride 105 97 - 110 mmol/L [facility] CO2 26 22 - 32 mmol/L [facility] Anion gap 10 2 - 15 mmol/L [facility] BUN 22 6 - 25 mg/dL [facility] Creatinine 1.04 0.60 - 1.10 mg/dL [facility] Glucose 89 70 - 199 mg/dL [facility] Comment: Interpretive Data Fasting glucose >/= 126 [...] 2022. Calcium 9.9 8.5 - 10.3 mg/dL [facility] Bilirubin, total 0.4 0.1 - 1.2 mg/dL [facility] Protein, pl 7.7 6.5 - 8.5 g/dL [facility] Albumin 4.5 3.5 - 5.0 g/dL [facility] Alk phos 93 40 - 130 Units/L [facility] ALT 15 7 - 45 Units/L [facility] AST 21 10 - 45 Units/L [facility] Blood 01/28/2025 9:44 AM CDT 01/28/2025 9:57 AM CDT us Jared Marie MD LAB BLOOD ORDERABLES Final Result [facility] Department [place] [address] * (ABNORMAL) aPTT mixing study (12/13/2024 10:38 AM CDT) aPTT 44(H) 28 - 38 sec Comment: Interpretive Data Heparin therapeutic range: 66.0 - 100.0 seconds. Range based on correlation with therapeutic heparin activity range of 0.3 - 0.7 Units/mL. Current interpretive data was last revised on 2023. aPTT, 50/50 mix 36 28 - 38 sec [facility] Comment: [...] hr 36 28 - 38 sec [facility] Blood 12/13/2024 10:3 8 AM CDT 12/13/2024 11:10 AM CDT us Jared Marie MD LAB BLOOD ORDERABLES Final Result [facility]ICH[facility] [place] [address] * (ABNORMAL) Vitamin C (12/13/2024 10:38 AM CDT) Ascorbic acid (Vit C) 2.7(H) 0.4 - 2.0 mg/dL [facility] Comment: ADDITIONAL INFORMATION This test was developed and its performance characteristics determined by [facility] in a manner consistent with CLIA requirements. This test has not been cleared or approved by the U.S. Food and Drug Administration. Test Performed by: [facility] [address] [place] [address] Poll Watcher: Dot Teresa Ph.D.; CLIA# [id number] Blood 12/13/2024 10:3 8 AM CDT 12/13/2024 11:33 AM CDT Jared Marie MD LAB BLOOD ORDERABLES Final Result Performing Organization Address [facility] de Phone Number [facility] [place] [address] [facility] * (ABNORMAL) aPTT (12/13/2024 10:38 [...] BLOOD ORDERABLES Final Result Performing Organization Address [facility] Co de Phone Number [facility] [place] [address] * Protime-INR (12/13/2024 10:38 AM CDT) PT 11.6 9.7 - 13.0 sec INR 1.07 0.90 - 1.20 [facility] Comment: Interpretive data Oral anticoagulant [...] BLOOD ORDERABLES Final Result Performing Organization Address City/[facility] Co de Phone Number [facility] Department [place] [address] * TSH (12/13/2024 10:38 AM CDT) Thyroid Stimulating Hormone 2.37 0.30 - 4.20 mcIUnit/mL Blood 12/13/2024 10:3 8 AM CDT 12/13/2024 10:50 AM CDT Jared Marie MD LAB BLOOD ORDERABLES Final Result Performing Organization Address [facility] de Phone Number [facility] [place] [address] * (ABNORMAL) Lipid panel (08/13/2023 12:57 PM GLOBAL PROFESSIONAL) Cholesterol 136 30 - 199 mg/dL [facility] Comment: Interpretive Data Ages < or = [...] 2018. LDL, calculated 57 <=129 mg/dL [facility] NICHOLSNATANAEL Comment: Interpretive Data Ages < or = [...] last revised on 2018. Chol/HDL ratio 3 JAZZMINEPHILLIP [facility] Blood 08/13/2023 12:5 7 PM GLOBAL PROFESSIONAL 08/13/2023 12:58 PM GLOBAL PROFESSIONAL us Osvaldo Robin MD LAB BLOOD ORDERABLES Final R esult [facility] NICHOLSWCH [address] [facility]. Department [place] [address] from Last 3 Months or Most Recently Relevant to Health Maintenance Insurance [facility] MEDICARE [facility] MEDICARE ADVANTAGE T MEDICARE AET MEDICARE Care Teams Department Manager Relationship Specialty Start Date End Date Liam Douglas MD [address] [place] [address] PCP - General Family Practice 07/11/23 Agustin Orozco MD [address] [place] [phone] Medical Oncologist/Bilingual Branch Manager Hematology 12/01/18 Jared Marie MD [address] [place] [address] Consulting Physician Medical Oncology 12/01/18
--- OUTSIDE RECORDS SUMMARY | 2025-02-11 15:48 | XMS_ITS | Encounter Summary ---
Author Organization [facility] Address [address] [place] [address] Phone Care Team Providers Care Ssn/Ssbn Weapons Equipment Operator Name Role Phone Agustin Orozco MD Unavailable [phone] Jared Marie MD Unavailable [phone] Liam Douglas MD Primary Care Provider [phone] Encounter Details Date Type Department Care Team (Late st Contact Info) Description 10/28/2024 Telephone [facility] Bone Marrow Transplant [facility] Floor [address] [place] [address] Jing Lanier V. Social History Tobacco Use Types Packs/Day Years Used Date Smoking Tobacco: Never Smokeless Tobacco: Never Comments Unknown Sex and Gender Information Value Date Recorded Sex Assigned at Not on file Legal Sex Female 12:02 PM TELEPHONE ORDER SUPERVISOR Gender Identity Female 06/25/2021 8:56 PM CDT Sexual Orientation Straight 06/25/2021 8: 56 PM CDT documented as of this encounter Plan of Treatment Not on file documented as of this encounter Visit Diagnoses Not on filedocumented in this encounter Care Teams Ssn/Ssbn Weapons Equipment Operator Relationship Specialty Start Date End Date Liam Douglas MD [address] [place] [address] PCP - General Family Practice 07/11/23 Agustin Orozco MD [address] [place] [address] Medical Oncologist/Overage Shortage And Damage Clerk Hematology 12/01/18 Jared Marie MD [address] [place] [address] Consulting Physician Medical Oncology 12/01/18 documented as of this encounter
--- OUTSIDE RECORDS SUMMARY | 2025-02-11 15:48 | XMS_ITS | Clinical Summary ---
Author Organization [facility] Address [address] [place] [address] Care Team Providers Care Material Specialist Name Role Phone Liam Douglas MD Primary Care Provider [phone] Allergies Active Allergy Reactions Criticality Noted Date Comments Codeine Headache 10/22/2018 N/V, hallucination Medications atorvastatin (LIPITOR) 20 mg tablet Take 20 mg by mouth daily with supper. 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 Active olmesartan-hydr oCHLOROthiazide (BENICAR-HCT) 40-12.5 mg tablet Take 1 Tablet by mouth daily sheet metal duct worker supervisor. Active empagliflozin-m etformin (SYNJARDY XR) 5-1,000 mg [...] capsule Active fluticasone propionate (FLONASE) 50 mcg/spray Gary, Suspension nasal inhaler Administer 1 Gary in each nostril. Active hydroCHLOROthia zide (HYDRODIURIL) [...] Encounters Date Type Department Care Team Description 01/25/2025 External Device Data ST[facility] ABSTRACTION Provider, Abstract 01/20/2025 External Device Data [facility] ABSTRACTION Provider, Abstract 01/19/2025 External Device Data [facility] ABSTRACTION Provider, Abstract 01/19/2025 External Device Data [facility] ABSTRACTION Provider, Abstract 01/18/2025 External Device Data [facility] ABSTRACTION Provider, Abstract 11/17/2024 External Device Data [facility] ABSTRACTION Provider, [...] on file Legal Sex Female 4:08 AM ROTATING FIELD ASSEMBLER Gender Identity Not on file Sexual Orientation Not on file Last Filed Vital Signs Vital Sign Reading Time Taken Comments Blood Pressure 114/68 10/15/2024 8:46 AM ROTATING FIELD ASSEMBLER Pulse 77 10/15/2024 8:46 AM ROTATING FIELD ASSEMBLER Temperature 36.6 C (97.8 F) 10/15/2024 8:46 AM ROTATING FIELD ASSEMBLER Respiratory Rate 16 10/15/2024 8:46 AM ROTATING FIELD ASSEMBLER Oxygen Saturation 93% 10/15/2024 8:46 AM ROTATING FIELD ASSEMBLER Inhaled Oxygen Concentration - - Weight 66.7 kg (147 lb) 10/15/2024 8:46 AM ROTATING FIELD ASSEMBLER Height 165.1 cm (5' 5) 04/24/2022 9:48 AM CDT Body Mass Index 24.46 04/24/2022 9:48 AM CDT Plan of Treatment Upcoming Encounters Date Type Department Care Team (Late st Contact Info) Description 04/15/2025 10:00 AM CDT Office Visit [facility] Oncology and Hematology - [place] [address] [facility] [address] [place] [address] Agustin Orozco MD [address] [facility] [address] [place] [address] Health Maintenance Due Date Last [...] Recently Relevant to Health Maintenance Insurance [employer] O [facility] AETNA PPO MCR Advance Directives For more information, please contact: [phone] Documents on File Type Date Recorded Patient Lead Massage Therapist Expl anation Advance Directive Living Will 10/22/2018 10:53 AM Care Teams Material Specialist Relationship Specialty Start Date End Date Liam Douglas MD [address] [place] [phone] PCP - General Family Practice 04/08/23
--- OUTSIDE RECORDS SUMMARY | 2025-02-11 15:48 | XMS_ITS | Encounter Summary ---
Author Organization [facility] Address [address] [place] [address] Phone Care Team Providers Care Physician Asst Name Role Phone Agustin Orozco MD Unavailable [phone] Jared Marie MD Unavailable [phone] Bryn Jeff MD Primary Care Provider [phone] Melanie Husain MD Primary Care Provider [phone] Bryn Jeff MD Primary Care Provider [phone] Deepak Negron MD Primary Care Provider [phone] Morgan Herrera MD Primary Care Provider [phone] Liam Douglas MD Primary Care Provider [phone] Encounter Details Date Type Department Care Team (Latest Contact Info) Description 10/28/2018 Orders Only [facility] Scanning, Provider Social History Tobacco Use Types Packs/Day Years Used Date Smoking Tobacco: Never Comments Unknown Sex and Gender Information Value Date Recorded Sex Assigned at Not on file Legal Sex Female 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 Gender Identity Female 06/25/2021 8:56 PM [...] on filedocumented in this encounter Care Teams Physician Asst Relationship Specialty Start Date End Date Bryn Jeff MD [address] [place] [phone] PCP - General Internal Medicine 12/01/18 12/02/18 Melanie Husain MD [address] [place] [phone] PCP - General 12/03/18 12/03/18 Bryn Jeff MD [address] [place] [address] PCP - General Internal Medicine 12/04/18 06/03/19 Deepak Negron MD [address] [place] [address] PCP - General Internal Medicine 06/04/19 07/18/22 Morgan Herrera MD [address] [place] [address] PCP - General Internal Medicine 07/19/22 07/10/23 Liam Douglas MD [address] [place] [address] PCP - General Family Practice 07/11/23 Agustin Orozco MD [address] [place] [address] Medical Oncologist/Residential Builder Hematology 12/01/18 Jared Marie MD [address] [place] [address] Consulting Physician Medical Oncology 12/01/18 documented as of this encounter
--- OUTSIDE RECORDS SUMMARY | 2025-02-11 15:48 | XMS_ITS | Encounter Summary ---
Author Organization [facility] Address [address] [place] [address] Phone Care Team Providers Care Senior Materials Analyst Name Role Phone Agustin Orozco MD Unavailable [phone] Jared Marie MD Unavailable [phone] Deepak Negron MD Primary Care Provider [phone] Morgan Herrera MD Primary Care Provider [phone] Liam Douglas MD Primary Care Provider [phone] Encounter Details Date Type Department Care Team (Latest Contact Info) Description 05/16/2021 Orders Only [facility] Scanning, Provider Social History Tobacco Use Types Packs/Day Years Used Date Smoking Tobacco: Never Smokeless Tobacco: Never Comments Unknown Sex and Gender Information Value Date Recorded Sex Assigned at Not on file 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 Gender Identity Female 06/25/2021 8:56 PM [...] filedocumented in this encounter Care Teams Senior Materials Analyst Relationship Specialty Start Date End Date Deepak Negron MD [address] [place] [address] PCP - General Internal Medicine 06/04/19 07/18/22 Morgan Herrera MD [address] [place] [address] PCP - General Internal Medicine 07/19/22 07/10/23 iLam Douglas MD [address] [place] [address] PCP - General Family Practice 07/11/23 Agustin Orozco MD [address] [place] [phone] Medical Oncologist/Stripper Machine Operator Hematology 12/01/18 Jared Marie MD [address] [place] [phone] Consulting Physician Medical Oncology 12/01/18 documented as of this encounter
--- OUTSIDE RECORDS SUMMARY | 2025-02-11 15:48 | XMS_ITS | Encounter Summary ---
Author Organization [facility] Address [address] [place] [address] Phone Care Team Providers Care Butt Maker Name Role Phone Agustin Orozco MD Unavailable [phone] Jared Marie MD Unavailable [phone] Deepak Negron MD Primary Care Provider [phone] Morgan Herrera MD Primary Care Provider [phone] Liam Douglas MD Primary Care Provider [phone] Encounter Details Date Type Department Care Team (Latest Contact Info) Description 11/14/2020 Orders Only [facility] Scanning, Provider Social History Tobacco Use Types Packs/Day Years Used Date Smoking Tobacco: Never Smokeless Tobacco: Never Comments Unknown Sex and Gender Information Value Date Recorded Sex Assigned at Not on file 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 Gender Identity Female 06/25/2021 8:56 PM [...] on filedocumented in this encounter Care Teams Butt Maker Relationship Specialty Start Date End Date Deepak Negron MD [address] [place] [address] PCP - General Internal Medicine 06/04/19 07/18/22 Morgan Herrera MD [address] [address] PCP - General Internal Medicine 07/19/22 07/10/23 Liam Douglas MD [address] [place] [address] PCP - General Family Practice 07/11/23 Agustin Orozco MD [address] [place] [phone] Medical Oncologist/Digital Strategist Hematology 12/01/18 Jared Marie MD [address] [place] [phone] Consulting Physician Medical Oncology 12/01/18 documented as of this encounter
== END 2025-02-11 15:45 | disposition home or self-care (01) ==
LOC: ANHIMG 15:45
PROVIDERS: PCP Family Medicine; Visit Provider Family Medicine
DX: Z12.31 Encounter for screening mammogram for malignant neoplasm of breast (principal)
CPT/HCPCS: 77063; 77067

== ENCOUNTER 2025-03-08 09:07 | Outpatient (CLI) | payer MEDICARE, SELFPAY ==
--- NOTE | ~2025-03-08 | XR_ITS ---
EXAM/ PROCEDURE: XR sacroiliac joints min 3V - 03/08/2025 9:12 CDT HISTORY: 74 years old Female with M53.3 - Sacrococcygeal disorders, not elsewhere classified COMPARISON: None available TECHNIQUE: Three view(s) FINDINGS/ IMPRESSION: There are no fractures or dislocations.Joint space narrowing, subchondral sclerosis, subchondral cyst formation and osteophyte formation, compatible with moderate osteoarthritis. Diffuse osteopenia limi ting evaluation of nondisplaced fractures. Reviewed, dictated and finalized at location A.
--- NOTE | ~2025-03-08 | XR_ITS ---
Lumbosacral Spine: AP and lateral views Clinical History: Pain Findings: The normal lordotic curve is maintained. Mild to moderate T12 compression deformity present . Possible minimal compression deformity of L1. There is 5 mm anterolisthesis of L3 over L4. There is advanced degenerative disc narrowing at L4-L5 and L5-S1. There is severe facet arthropathy throughou t the lumbar spine. The sacroiliac joints are normally outlined. Impression: Advanced degenerative spondylosis, as above. Mild to moderate T12 compression fracture for. Possible minimal L1 compression deformity. 5 mm anterolisthesis of L3 over L4. Reviewed, dictated and finalized at location . Impression: Advanced degenerative spondylosis, as above. Mild to moderate T12 compression fracture for. Possible minimal L1 compression deformity. 5 mm anterolisthesis of L3 over L4.
--- NOTE | ~2025-03-08 | XR_ITS ---
Right Humerus Technique: AP and lateral views were obtained. Clinical History: Pain Findings: No fracture or dislocation is seen. Osseous alignment is anatomic. Moderate AC joint degene rative change present. Remaining joint spaces are Intact. Soft tissues are unremarkable. Impression: Moderate AC joint degenerative change. Reviewed, dictated and finalized at [facility]. Impression: Moderate AC joint degenerative change.
== END 2025-03-08 09:08 | disposition home or self-care (01) ==
LOC: MICIMG 09:09
PROVIDERS: PCP Family Medicine; Visit Provider Family Medicine
DX: M85.88 Other specified disorders of bone density and structure, other site (principal); M47.816 Spondylosis without myelopathy or radiculopathy, lumbar region; M47.817 Spondylosis without myelopathy or radiculopathy, lumbosacral region; S22.080A Wedge compression fracture of T11-T12 vertebra, initial encounter for closed fracture; X58.XXXA Exposure to other specified factors, initial encounter; M43.16 Spondylolisthesis, lumbar region
CPT/HCPCS: 72100; 72202; 73060

== ENCOUNTER 2025-04-14 10:08 | Outpatient (CLI) | payer MEDICARE, SELFPAY ==
--- OUTSIDE RECORDS SUMMARY | 2025-04-14 10:22 | XMS_ITS | Encounter Summary ---
Author Organization [facility] Address [address] [place] [address] Phone Care Team Providers Care Home Energy Inspector Name Role Phone Agustin Orozco MD Unavailable [phone] Jared Marie MD Unavailable [phone] Bryn Jeff MD Primary Care Provider [phone] Melanie Husain MD Primary Care Provider [phone] Bryn Jeff MD Primary Care Provider [phone] Deepak Negron MD Primary Care Provider [phone] Morgan Herrera MD Primary Care Provider [phone] Liam Douglas MD Primary Care Provider [phone] Encounter Details Date Type Department Care Team (Latest Contact Info) Description 10/28/2018 Orders Only [facility] Scanning, Provider Social History Tobacco Use Types Packs/Day Years Used Date Smoking Tobacco: Never Comments Unknown Sex and Gender Information Value Date Recorded Sex Assigned at Not on file 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 Gender Identity Female 06/25/2021 8:56 PM CDT [...] on filedocumented in this encounter Care Teams Home Energy Inspector Relationship Specialty Start Date End Date Bryn Jeff MD [address] [place] [phone] PCP - General Internal Medicine 12/01/18 12/02/18 Melanie Husain MD [address] [place] [address] PCP - General 12/03/18 12/03/18 Bryn Jeff MD [address] [place] [phone] PCP - General Internal Medicine 12/04/18 06/03/19 Deepak Negron MD [address] [facility] [address] [place] [address] PCP - General Internal Medicine 06/04/19 07/18/22 Morgan Herrera MD [address] [address] PCP - General Internal Medicine 07/19/22 07/10/23 Liam Douglas MD [address] [place] [address] PCP - General Family Practice 07/11/23 Agustin Orozco MD [address] [place] [address] Medical Oncologist/Grief Counsellor Hematology 12/01/18 Jared Marie MD [address] [place] [address] Consulting Physician Medical Oncology 12/01/18 documented as of this encounter
--- OUTSIDE RECORDS SUMMARY | 2025-04-14 10:22 | XMS_ITS | Encounter Summary ---
Author Organization [facility] Address [address] [place] [address] Phone Care Team Providers Care Gasoline Engine Inspector Name Role Phone Agustin Orozco MD Unavailable [phone] Jared Marie MD Unavailable [phone] Liam Douglas MD Primary Care Provider [phone] Encounter Details Date Type Department Care Team (Late st Contact Info) Description 10/28/2024 Telephone [facility] Bone Marrow Transplant [facility] Floor [address] [place] [address] Jing Lanier V. 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 Director Hematology 12/01/18 Jared Marie MD [address] [place] [address] Consulting Physician Medical Oncology 12/01/18 documented as of this encounter
--- OUTSIDE RECORDS SUMMARY | 2025-04-14 10:22 | XMS_ITS | Encounter Summary ---
Author Organization [facility] Address [address] [place] [address] Phone Care Team Providers Care Structural Test Engineer Name Role Phone Agustin Orozco MD Unavailable [phone] Jared Marie MD Unavailable [phone] Bryn Jeff MD Primary Care Provider [phone] Melanie Husain MD Primary Care Provider [phone] Bryn Jeff MD Primary Care Provider [phone] Deepak Negron MD Primary Care Provider [phone] Morgan Herrera MD Primary Care Provider [phone] Liam Douglas MD Primary Care Provider [phone] Encounter Details Date Type Department Care Team (Latest Contact Info) Description 10/22/2018 Orders Only [facility] Scanning, Provider Social History Tobacco Use Types Packs/Day Years Used Date Smoking Tobacco: Never Comments Unknown Sex and Gender Information Value Date Recorded Sex Assigned at Not on file 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 Gender Identity Female 06/25/2021 8:56 PM CDT [...] on filedocumented in this encounter Care Teams Structural Test Engineer Relationship Specialty Start Date End Date Bryn Jeff MD [address] [place] [address] PCP - General Internal Medicine 12/01/18 12/02/18 Melanie Husain MD [address] [place] [address] PCP - General 12/03/18 12/03/18 Bryn Jeff MD [address] [place] [address] PCP - General Internal Medicine 12/04/18 06/03/19 Deepak Negron MD [address] [place] [address] PCP - General Internal Medicine 06/04/19 07/18/22 Morgan Herrera MD [address] [place] [address] PCP - General Internal Medicine 07/19/22 07/10/23 Liam Douglas MD [address] [place] [address] PCP - General Family Practice 07/11/23 Agustin Orozco MD [address] [place] [address] Medical Oncologist/Certified Nurses Aide Hematology 12/01/18 Jared Marie MD [address] [place] [phone] Consulting Physician Medical Oncology 12/01/18 documented as of this encounter
--- OUTSIDE RECORDS SUMMARY | 2025-04-14 10:22 | XMS_ITS | Clinical Summary ---
Author Organization [facility] [employer] Address [address] [place] [address] Care Team Providers Care Director Of Consulting Services Name Role Phone Bryn Jeff MD Primary Care Provider [phone] Source Comments [facility],non-owned Affiliates and Associated Physician Practices is amultiple site organization consisting of ambulatory clinics and hospital sitesin [place], [place], [place] and [place]. This disclosure is being madepursuant to the Care Everywhere program and may not contain all information available regarding this patient. 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 Gender Identity Not on file Sexual Orientation Not on file Last Filed Vital Signs Vital Sign Reading Time Taken Comments Blood Pressure 145/81 12/08/2015 11:20 AM CDT Pulse 79 12/08/2015 11:20 AM CDT Temperature 36.5 C (97.7 F) 11/16/2015 10:48 AM CDT Respiratory Rate 18 11/11/2015 4:07 PM MACHINIST JOB SETTER Oxygen Saturation 98% 11/16/2015 10:48 AM CDT [...] season) 2024 DEPRESSION SCREENING 09/01/2024 INFLUENZA VACCINE (#1) 2025 06/11/2016 Respiratory Syncytial Virus (RSV) Vaccine Pt: or [...] age to complete this topic Insurance [facility] Advance Directives * Full Code (Latest Code Status on File) Date Activated Date Inactivated Comments 11/10/2015 10:16 AM 11/11/2015 5:09 PM Care Teams Director Of Consulting Services Relationship Specialty Start Date End Date Bryn Jeff MD [address] [place] [address] PCP - General Internal Medicine 09/29/15
--- OUTSIDE RECORDS SUMMARY | 2025-04-14 10:22 | XMS_ITS | Clinical Summary ---
Author Organization [facility] Address [facility] [place] [address] Care Team Providers Care Speech And Language Assistant Name Role Phone Agustin Orozco MD Unavailable [phone] Jared Marie MD Unavailable Liam Douglas MD Primary Care Provider [phone] Allergies Active Allergy Reactions Criticality Noted Date Comments Codeine Headache,Nausea & Vomiting Low 6 N/V, hallucination Medications SYNJARDY XR 5-1,000 mg tablet, IR & ER, biphasic 24hrIndications :MDS (myelodysplasti c syndrome) ([facility]) daily 9 Active montelukast (SINGULAIR) 10 mg tabletIndicatio ns:MDS (myelodysplasti c syndrome) ([facility]) Take 1 tablet (10 mg total) by mouth daily 5 Active minoxidil 5 % solutionIndicat ions:MDS (myelodysplasti c syndrome) ([facility]) Apply topically Acti ve fluticasone propionate (FLONASE) [...] 2 capsules (200 mg total) by mouth early childhood worker before breakfast Active Ozempic 1 mg/dose (4 mg/3 mL) pen injector injectionIndica tions:MDS (myelodysplasti c syndrome) (HCC) 3 Active omeprazole (PriLOSEC) 20 mg capsuleIndicati ons:MDS (myelodysplasti c syndrome) ([facility]) Take 1 capsule (20 mg total) by mouth daily 4 Active PreviDent 5000 Plus 1.1 % creamIndication s:MDS (myelodysplasti c syndrome) ([facility]) BRUSH ONCE DAILY BEFORE BEDTIME 4 Active traMADoL (ULTRAM) 50 mg tablet 1 tablet (50 mg total) every 6 (six) hours as needed 5 Active methocarbamoL (ROBAXIN) 500 mg tablet Take 1 tablet (500 mg total) by mouth 4 (four) times a day Active Hospital, Clinic, or Other Facility Administered [...] 08/13/2016 Assessment & Plan (07/21/2020 1:36 PM SUPPORT DIRECTOR): Lab work from January 2020 showed LDL 88 and triglycerides 214. She continues on atorvastatin 20 mg. Assessment & Plan (01/14/2020 9:31 AM CDT): She continues on atorvastatin 20mg. We will recheck a lipid panel. Assessment & Plan (06/04/2019 10:32 AM CDT): Her last lipid panel was in acceptable range, continue on atorvastatin 20mg. Hypertension 08/13/2016 Assessment & Plan (07/21/2020 1:36 PM SUPPORT DIRECTOR): Her blood pressure is well controlled today. [...] 01/14/2020 Assessment & Plan (07/21/2020 1:36 PM SUPPORT DIRECTOR): Asymptomatic Assessment & Plan (06/04/2019 10:33 AM CDT): Found to have NSVT in the past. She is at risk for Afib due to metabolic syndrome. Will monitor clinically for now. Sensation of chest tightness 08/13/2016 07/21/2020 Encounters Date Type Department Care Team Description 03/28/2025 Telephone [facility] Neurosurgery [address] Medical [address] [place] [address] Renato Cruz DO 03/26/2025 5:33 PM CDT - 03/26/2025 11:59 PM CDT Hospital Encounter [facility] [address] [place] [address] Intervertebral disc disorder with radiculopathy of lumbar region; Left foot drop; Acute right-sided low back pain without sciatica Discharge Disposition: Discharge to home or self care 03/24/2025 12:50 PM CDT Procedure visit [facility] Neurological Testing [address] [facility] 6th [place] [address] [place] [address] Intervertebral disc disorder with radiculopathy of lumbar region; Acute right-sided low back pain without sciatica; Left foot drop; Pain 03/21/2025 Orders Only [facility] Neurosurgery [address] [place] [address] Medical Office [address] [place] [address] Renato Cruz DO Pain (Primary Dx); Intervertebral disc disorder with radiculopathy of lumbar region; Acute right-sided low back pain without sciatica; Left foot drop 03/18/2025 9:30 AM CDT Office Visit [facility] Neurosurgery [address] [place] [address] Medical Office Building [address] [place] [address] Sue Jordan NP Left foot drop (Primary Dx); Pain; Intervertebral disc disorder with radiculopathy of lumbar region; Acute right-sided low back pain without sciatica 03/18/2025 9:18 AM CDT - 03/18/2025 11:59 PM CDT Hospital Encounter [facility] [address] [place] [address] Discharge Disposition: Discharge to home or self care 03/18/2025 9:17 AM CDT - 03/18/2025 11:59 PM CDT Hospital Encounter [facility] [address] [place] [address] Discharge Disposition: Discharge to home or self care 03/18/2025 8:37 AM CDT - 03/18/2025 11:59 PM CDT Hospital Encounter [facility] [address] [place] [address] Lumbar pain Discharge Disposition: Discharge to home or self care 03/11/2025 Orders Only [facility] Neurosurgery [address] [place] [address] Renato Cruz DO Lumbar pain (Primary Dx) 03/10/2025 Telephone [facility] Scheduling [address] [place] [address] Jessica Jordan 03/10/2025 Orders Only [facility] Bone Marrow Transplant [address] [place] [phone] Jared Marie MD Pain (Primary Dx) 03/08/2025 Orders Only [facility] Scanning, Provider 01/28/2025 11:00 AM CDT Office Visit [facility] Bone Marrow Transplant [address] [place] [phone] Jared Marie MD MDS (myelodysplastic syndrome) (HCC) (Primary Dx) 01/28/2025 10:00 AM CDT Lab [facility] Oncology Lab [address] [place] [phone] MDS (myelodysplastic syndrome) (HCC) 01/28/2025 9:45 AM CDT Lab [facility] - Lab Collection [address] [place] [address] Floor [address] [place] [address] MDS (myelodysplastic syndrome) (HCC) from Last 3 Months Immunizations Immunization Administration Dates Next Due Influenza, Quadrivalent, Hig h Dose, Preservative Free, Intrr 05/26/2020 Influenza, Trivalent, High D ose, Split, Preservative Free, Intramuscular 05/20/2019,06/15/2018 Influenza, Trivalent, IM (MDV) 08/01/2015 Influenza, Unspecified 06/11/2016,2013,06/01/2013,07/05 Moderna SARS-CoV-2 Monovalen t Vaccination (12+ YRS) 04/18/2021,2020,09/28/2020 Pneumococcal Polysaccharide PPV23 06/15/2018 Tdap 06/11/2016 ZOSTER LIVE 06/01/2018,06/11/2016 Surgical History Surgery Date Site/Laterality Comments SPINE SURGERY NECK SURGERY CHOLECYSTECTOMY HYSTERECTOMY TONSILLECTOMY Medical History Medical History Date Comments Cancer (HCC) Gastric reflux Hypothyroidism Disc disorder of lumbar region Family History Medical History Relation Name Comments [...] attack - (Added by TW Conv) Heart disease Mother Heart failure Mother Family history of heart failure - (Added by TW Conv) Hypertension Mother Family history of hypertension - (Added by TW Conv) Cancer Paternal Grandmother Colon cancer Paternal Grandmother Coronary artery disease [...] Never Smokeless Tobacco: Never Tobacco Cessation:Counseling Given: No Comments Unknown Sex and Gender Information Value Date Recorded Sex Assigned at Not on file Legal Sex Female 12:02 PM SUPPORT DIRECTOR Gender Identity Female 06/25/2021 8:56 PM CDT [...] CDT Inhaled Oxygen Concentration - - Weight 64.4 kg (142 lb) 03/18/2025 9:13 AM CDT Height 165.1 cm (5' 5) 03/18/2025 9:13 AM CDT Body Mass Index 23.63 03/18/2025 9:13 AM CDT Plan of Treatment Health Maintenance [...] 04/18/2021, 2020, 09/28/2020 Lipid Panel 08/13/2024 08/13/2023, 1203/2022, 02/04/2020 Influenza Vaccine (#1) 2025 , 05/20/2019, 06/15/2018, Additional history exists eGFR 01/28/2026 01/28/2025, 11/0 04/2024, 01/09/2024, Additional history exists DTaP/Tdap/Td Vaccine (2 - Td or Tdap) 06/11/2026 06/11/2016 Medical Devices Implanted Type Area Supervisor Speech Device Identifier Shelf Expiration Date Model / Serial / Lot Bladder Sling Bladder Procedures Procedure Name Priority Date/Time Associated Diagnosis Comments MRI LUMBAR SPINE WO CONTRAST Schedule Routine, Read Routine (OP Routine) 03/26/2025 6:11 PM CDT Intervertebral disc disorder with radiculopathy of lumbar region Left foot drop Acute right-sided low back pain without sciatica EMG/NCV Routine 03/24/2025 1:41 PM CDT Intervertebral disc disorder with radiculopathy of lumbar region Acute right-sided low back pain without sciatica Left foot drop Pain XR TRANSFER OF OUTSIDE FILMS Routine 03/18/2025 9:18 AM CDT XR TRANSFER OF OUTSIDE FILMS Routine 03/18/2025 9:17 AM CDT XR SCOLIOSIS 6 OR MORE VIEWS Schedule Routine, Read Routine (OP Routine) 03/18/2025 9:01 AM CDT Lumbar pain SCAN - LABS 03/08/2025 EGFR Routine 01/28/2025 9:44 AM CDT MDS [...] 9:44 AM CDT MDS (myelodysplastic syndrome) (HCC) LIPID PANEL Routine 08/13/2023 12:57 PM SUPPORT DIRECTOR Dyslipidemia Essential hypertension from Last 3 Months or Most Recently Relevant to Health Maintenance Results * MRI Lumbar Spine WO Contrast (03/26/2025 6:11 PM CDT) Anatomical Region Laterality Modality Spine N/A Magnetic Resonan ce 03/27/2025 10:0 0 AM CDT Impressions 03/27/2025 10:00 AM CDT 1. Advanced multilevel degenerative disc and joint disease most pronounced at L3-L4 where there is diffuse disc bulge with ligamentum flavum infolding, severe bilateral facet arthropathy, moderate bilateral neural foraminal stenosis, and severe spinal canal stenosis. 2. Mild height loss of the inferior endplate of T12 and the superior endplate of L4 with mild edema may represent sequela of Modic 1 degenerative change although superimposed mild recent compression fractures at these levels cannot be excluded. No retropulsion. Electronically signed by: Chandu Cline M.D. Narrative 03/27/2025 10:00 AM CDT EXAMINATION: Magnetic resonance imaging (MRI) of the lumbar spine without contrast HISTORY: Lumbar radiculopathy. TECHNIQUE: Multiplanar multi-weighted MRI of the lumbar spine was performed without intravenous contrast using the standard protocol. COMPARISON: Lumbar spine radiographs from 03/08/2025. FINDINGS: Grade 1 anterolisthesis at L3-L4 and mild retrolisthesis at L4-L5. There is height loss of the T12 vertebral body with mild edema along the inferior endplate and Schmorl's node along the superior endplate. No retropulsion. Mild edema also noted along the superior endplate of L4 with mild height loss and no retropulsion. The conus medullaris terminates at the level of L1-L2. The distal spinal cord signal intensity is normal. Intervertebral disks have normal height and signal intensity. Disc height loss most pronounced at L4-L5 and L5-S1. T2 hyperintense foci in the kidneys are incompletely evaluated on this study but statistically most likely represent cysts. Paraspinal muscle atrophy noted. The aorta is normal. T12-L1: Diffuse disc bulge. Ligamentum flavum infolding, left greater than right. Moderate to severe bilateral facet arthropathy. Mild bilateral neural foraminal stenosis. Mild to moderate left greater than right spinal canal stenosis. L1-L2: Diffuse disc bulge with ligamentum flavum infolding. There is severe bilateral facet arthropathy. There is mild bilateral neuroforaminal stenosis. There is mild spinal canal stenosis. L2-L3: Diffuse disc bulge with ligamentum flavum infolding. There is severe bilateral facet arthropathy. There is moderate left and mild right neuroforaminal stenosis. There is mild to moderate spinal canal stenosis. L3-L4: Diffuse disc bulge with ligamentum flavum infolding. There is severe bilateral facet arthropathy. There is moderate bilateral neuroforaminal stenosis. There is severe spinal canal stenosis. L4-L5: Diffuse disc bulge. There is moderate bilateral facet arthropathy. There is moderate to severe right and mild left neuroforaminal stenosis. There is mild spinal canal stenosis. L5-S1: Diffuse disc bulge with right foraminal component. Ligamentum flavum infolding. There is moderate bilateral facet arthropathy. There is moderate bilateral neuroforaminal stenosis. There is mild spinal canal stenosis. Procedure Note Chandu Cline MD - 03/27/2025 EXAMINATION: Magnetic resonance imaging (MRI) of the lumbar spine without contrast HISTORY: Lumbar radiculopathy. TECHNIQUE: Multiplanar multi-weighted MRI of the lumbar spine was performed without intravenous contrast using the standard protocol. COMPARISON: Lumbar spine radiographs from 03/08/2025. FINDINGS: Grade 1 anterolisthesis at L3-L4 and mild retrolisthesis at L4-L5. There is height loss of the T12 vertebral body with mild edema along the inferior endplate and Schmorl's node along the superior endplate. No retropulsion. Mild edema also noted along the superior endplate of L4 with mild height loss and no retropulsion. The conus medullaris terminates at the level of L1-L2. The distal spinal cord signal intensity is normal. Intervertebral disks have normal height and signal intensity. Disc height loss most pronounced at L4-L5 and L5-S1. T2 hyperintense foci in the kidneys are incompletely evaluated on this study but statistically most likely represent cysts. Paraspinal muscle atrophy noted. The aorta is normal. T12-L1: Diffuse disc bulge. Ligamentum flavum infolding, left greater than right. Moderate to severe bilateral facet arthropathy. Mild bilateral neural foraminal stenosis. Mild to moderate left greater than right spinal canal stenosis. L1-L2: Diffuse disc bulge with ligamentum flavum infolding. There is severe bilateral facet arthropathy. There is mild bilateral neuroforaminal stenosis. There is mild spinal canal stenosis. L2-L3: Diffuse disc bulge with ligamentum flavum infolding. There is severe bilateral facet arthropathy. There is moderate left and mild right neuroforaminal stenosis. There is mild to moderate spinal canal stenosis. L3-L4: Diffuse disc bulge with ligamentum flavum infolding. There is severe bilateral facet arthropathy. There is moderate bilateral neuroforaminal stenosis. There is severe spinal canal stenosis. L4-L5: Diffuse disc bulge. There is moderate bilateral facet arthropathy. There is moderate to severe right and mild left neuroforaminal stenosis. There is mild spinal canal stenosis. L5-S1: Diffuse disc bulge with right foraminal component. Ligamentum flavum infolding. There is moderate bilateral facet arthropathy. There is moderate bilateral neuroforaminal stenosis. There is mild spinal canal stenosis. IMPRESSION: 1. Advanced multilevel degenerative disc and joint disease most pronounced at L3-L4 where there is diffuse disc bulge with ligamentum flavum infolding, severe bilateral facet arthropathy, moderate bilateral neural foraminal stenosis, and severe spinal canal stenosis. 2. Mild height loss of the inferior endplate of T12 and the superior endplate of L4 with mild edema may represent sequela of Modic 1 degenerative change although superimposed mild recent compression fractures at these levels cannot be excluded. No retropulsion. Electronically signed by: Chandu Rylan Marlyn, M.D. us Sue Julian JUNIOR BRAND MANAGER IMG MRI PROCEDURES Final Result * EMG/NCV (03/24/2025 1:41 PM CDT) Anatomical Region Laterality Modality Other Narrative 03/24/2025 1:41 PM CDT Snow Garcia MD 03/24/2025 3:32 PM EMG/NCV - Date/Time: 03/24/2025 1:41 PM Performed by: Snow Garcia MD Authorized by: Renato Cruz DO Result [facility] Renato Cruz DO NEUROLOGY ORDERABLES Final Resu lt * XR Outside Reference (03/18/2025 9:18 AM CDT) Impressions [facility] - 03/18/2025 9:18 AM CDT These images are for Reference purposes only and have not been reviewed by [facility] Radiology. There will be no report generated by a [facility] Radiologist. Narrative [facility]_P[facility] - 03/18/2025 9:18 AM CDT EXAMINATION: Images For Reference Purposes Only Renato Cruz DO IMG XR PROCEDURES Final Result Performing Organization Address [facility] de Phone Number [email or web address] * XR Outside Reference (03/18/2025 9:17 AM CDT) Impressions [facility] - 03/18/2025 9:17 AM CDT These images are for Reference purposes only and have not been reviewed by [facility] Radiology. There will be no report generated by a [facility] Radiologist. Narrative [facility] - 03/18/2025 9:17 AM CDT EXAMINATION: Images For Reference Purposes Only Renato Cruz DO IMG XR PROCEDURES Final Result Performing Organization Address [facility] Co de Phone Number [email or web address] * XR Scoliosis 6 or More Views (03/18/2025 9:01 AM CDT) Anatomical Region Laterality Modality Spine N/A Computed Radiogr aphy 03/18/2025 2:16 PM CDT Impressions 03/18/2025 10:50 PM CDT 1. Mild anterior sagittal imbalance. 2. Dynamic grade 1 anterolisthesis of L3 on L4. 3. Multilevel degenerative disc disease of the lumbar spine, up to severe at L4-L5 and L5-S1, with lower lumbar facet arthropathy. Dictated by: Bean Phillips MD The radiology attending physician has personally reviewed this study, and had reviewed and/or edited this written report and agrees with it. Electronically signed by: Khari Vasquez MD Narrative 03/18/2025 10:50 PM CDT EXAMINATION: XR SCOLIOSIS 6 OR MORE VIEWS HISTORY: Low back pain. COMPARISON: Lumbar spine radiographs 03/08/2025. FINDINGS: Standing frontal and lateral radiographs of the entire spine and lower extremities were obtained using the EOS system.. 4 radiographs of the lumbar spine are submitted for interpretation. No scoliosis. Neutral coronal balance. Mild left superior pelvic obliquity may be exaggerated by patient positioning, noting rotation of the pelvis. Mild anterior sagittal imbalance. There is multilevel degenerative disc disease of the cervical and thoracic spine. Chronic wedge compression deformity of T12. Osseous fusion of C6 and C7. Grade 1 anterolisthesis of L3 on L4, partially in extension. No abnormal motion. Lumbar vertebral body heights are grossly maintained. Multilevel degenerative disc disease of the lumbar spine, up to severe at L4-L5 and L5-S1. There is lower lumbar facet arthropathy. Mild bilateral hip osteoarthritis. No acute displaced fracture. Atherosclerotic calcifications of the abdominal aorta. Right upper quadrant surgical clips. Procedure Note Rosalinda Vasquez MD - 03/18/2025 EXAMINATION: XR SCOLIOSIS 6 OR MORE VIEWS HISTORY: Low back pain. COMPARISON: Lumbar spine radiographs 03/08/2025. FINDINGS: Standing frontal and lateral radiographs of the entire spine and lower extremities were obtained using the EOS system.. 4 radiographs of the lumbar spine are submitted for interpretation. No scoliosis. Neutral coronal balance. Mild left superior pelvic obliquity may be exaggerated by patient positioning, noting rotation of the pelvis. Mild anterior sagittal imbalance. There is multilevel degenerative disc disease of the cervical and thoracic spine. Chronic wedge compression deformity of T12. Osseous fusion of C6 and C7. Grade 1 anterolisthesis of L3 on L4, partially in extension. No abnormal motion. Lumbar vertebral body heights are grossly maintained. Multilevel degenerative disc disease of the lumbar spine, up to severe at L4-L5 and L5-S1. There is lower lumbar facet arthropathy. Mild bilateral hip osteoarthritis. No acute displaced fracture. Atherosclerotic calcifications of the abdominal aorta. Right upper quadrant surgical clips. IMPRESSION: 1. Mild anterior sagittal imbalance. 2. Dynamic grade 1 anterolisthesis of L3 on L4. 3. Multilevel degenerative disc disease of the lumbar spine, up to severe at L4-L5 and L5-S1, with lower lumbar facet arthropathy. Dictated by: Bean Phillips MD The radiology attending physician has personally reviewed this study, and had reviewed and/or edited this written report and agrees with it. Electronically signed by: Khari Vasquez MD Renato Cruz DO IMG XR PROCEDURES Final Result * SCAN - LABS (03/08/2025) us Provider Scanning Final Result * (ABNORMAL) eGFR (01/28/2025 9:44 AM CDT) [...] Marie MD LAB BLOOD ORDERABLES Final Result [facility] Department [place] [address] * (ABNORMAL) Differential, auto (01/28/2025 9:44 AM CDT) Neutrophil abs 2.17 1.50 - 6.50 K/cumm Comment:Testing performed by : [facility], [address] [place], [place] [phone] Lymphocyte abs 2.21 0.80 - 3.30 K/cumm [facility] Comment:Testing performed by : [facility], [address] [place], [place] [phone] Monocyte abs 2.08(H) 0.20 - 0.80 K/cumm [facility] Comment:Testing performed by : [facility], [address] [place] [phone] Eosinophil abs 0.03 0.00 - 0.50 K/cumm [facility] Comment:Testing performed by : [facility], [address] [place] [phone] Basophil abs 0.06 0.00 - 0.10 K/cumm [facility] Comment:Testing performed by : [facility], [address] [place] [phone] Neutrophil pct 33.2 % [facility] Comment: Interpretive Data Percent cell count reference ranges are not reported, since discordance with absolute values may lead to misinterpretation of CBC data. Current Interpretive Data was last revised on 2017. Testing performed by: [facility], [address] [place] [phone] Lymphocyte pct 33.7 % [facility] Comment: Interpretive Data Percent cell count reference ranges are not reported, since discordance with absolute values may lead to misinterpretation of CBC data. Current Interpretive Data was last revised on 2017. Testing performed by: [facility], [address] [place] [phone] Monocyte pct 31.8 % [facility] Comment: Interpretive Data Percent cell count reference ranges are not reported, since discordance with absolute values may lead to misinterpretation of CBC data. Current Interpretive Data was last revised on 2017. Testing performed by: [facility], [address] [place] [phone] Eosinophil pct 0.4 % [facility] Comment: Interpretive Data Percent cell count reference ranges are not reported, since discordance with absolute values may lead to misinterpretation of CBC data. Current Interpretive Data was last revised on 2017. Testing performed by: [facility], [address] [place] [phone] Basophil pct 0.9 % [facility] Comment: Interpretive Data Percent cell count reference ranges are not reported, since discordance with absolute values may lead to misinterpretation of CBC data. Current Interpretive Data was last revised on 2017. Testing performed by: [facility], [address] [place] [phone] Blood 01/28/2025 9:44 AM CDT 01/28/2025 9:54 AM CDT us Jared Marie MD LAB BLOOD ORDERABLES Final Result [facility] Department [place] [address] * (ABNORMAL) aPTT mixing study (01/28/2025 9:44 AM CDT) aPTT 44(H) 28 - 38 sec Comment: Interpretive Data Heparin therapeutic range: 66.0 - 100.0 seconds. Range based on correlation with therapeutic heparin activity range of 0.3 - 0.7 Units/mL. Current interpretive data was last revised on 2023. aPTT, 50/50 mix 37 28 - 38 sec [facility] Comment: [...] 1 hr 37 28 - 38 sec [facility] Blood 01/28/2025 9:44 AM CDT 01/28/2025 10:12 AM CDT us Jared Marie MD LAB BLOOD ORDERABLES Final Result [facility] Department [place] [address] * (ABNORMAL) CBC with auto differential (01/28/2025 9:44 AM CDT) WBC 6.55 3.80 - 9.90 K/cumm Comment:Testing performed by : [facility], [address] [place] [phone] Hgb 10.9(L) 11.9 - 15.5 g/dL [facility] Comment:Testing performed by : [facility], [address] [place] [phone] Hct 31.5(L) 35.6 - 45.5 % [facility] Comment:Testing performed by : [facility], [address] [place] [address] Plt 91(L) 150 - 400 K/cumm CERPHILLIP BJ Comment:Testing performed by : [facility], [address] [place] [address] MPV 9.7 6.8 - 10.4 fL CERPHILLIP BJ Comment:Testing performed by : [facility], [address] [place] [address] RBC 3.40(L) 3.90 - 5.20 M/cumm CERPHILLIP BJ Comment:Testing performed by : [facility], [address] [place], [place] [id number] MCV 92.6 81.3 - 96.4 fL CERPHILLIP BJ Comment:Testing performed by : [facility], [address] [place] [address] MCH 32.1 27.1 - 33.3 pg CERPHILLIP BJ Comment:Testing performed by : [facility], [address] [place] [address] MCHC 34.7 32.3 - 35.7 g/dL CERNER BJ Comment:Testing performed by : [facility], [address] [place] [address] RDW CV 14.1 11.1 - 14.9 % CERPHILLIP BJ Comment:Testing performed by : [facility], [address] [place] [address] NRBC abs 0.00 0.00 - 0.01 K/cumm CERPHILLIP BJ Comment:Testing performed by : [facility], [address] [place] [address] Blood 01/28/2025 9:44 AM CDT 01/28/2025 9:54 AM CDT us Jared Marie MD LAB BLOOD ORDERABLES Final Result DEVAUGHN NICHOLS One [facility] [place] [address] * Vitamin C (01/28/2025 9:44 AM CDT) Pathologist [facility] Ascorbic acid (Vit C) 2.0 0.4 - 2.0 mg/dL [facility] Comment: ADDITIONAL INFORMATION This test was developed and its performance characteristics determined by [facility] in a manner consistent with CLIA requirements. This test has not been cleared or approved by the U.S. Food and Drug Administration. Test Performed by: [facility] [address] [place] [address] Assistant Sales Center Manager: Dot Teresa Ph.D.; CLIA# [id number] Blood 01/28/2025 9:44 AM CDT 01/28/2025 12:15 PM CDT Jared Marie MD LAB BLOOD ORDERABLES Final Result Performing Organization Address City/[facility] Co de Phone Number [place] [address] [facility] * (ABNORMAL) aPTT (01/28/2025 9:44 AM CDT) Pathologist [facility] aPTT 44(H) 28 - 38 sec Comment: Interpretive Data Heparin therapeutic range: 66.0 - 100.0 seconds. Range based on correlation with therapeutic heparin activity range of 0.3 - 0.7 Units/mL. Current interpretive data was last revised on 2023. Blood 01/28/2025 9:44 AM CDT 01/28/2025 10:12 AM CDT Jared Marie MD LAB BLOOD ORDERABLES Final Result DEVAUGHN NICHOLS One [facility] [place] [address] * Protime-INR (01/28/2025 9:44 AM CDT) Pathologist [facility] PT 11.2 9.7 - 13.0 sec INR 1.04 0.90 - 1.20 [facility] Comment: Interpretive data Oral anticoagulant therapeutic ranges: Venous thromboembolism prophylaxis or treatment: 2.0-3.0 CARDIOLOGY Standard range: 2.0-3.0 High-intensity range: 2.5-3.5 Refer to indication-specific guidelines for appropriate target ranges for prosthetic heart valve replacement. Current interpretive data was last revised on 2019. Blood 01/28/2025 9:44 AM CDT 01/28/2025 10:12 AM CDT Jared Marie MD LAB BLOOD ORDERABLES Final Result Performing Organization Address [facility] Co de Phone Number [facility] [place] [address] * Lactate dehydrogenase (LD) (01/28/2025 9:44 AM CDT) [facility] Lactate dehydrogenase (LDH) 246 100 - 250 Units/L Blood 01/28/2025 9:44 AM CDT 01/28/2025 9:57 AM CDT Jared Marie MD LAB BLOOD ORDERABLES Final Result Performing Organization Address City/[facility] Co de Phone Number [facility] [place] [address] * Comprehensive metabolic panel (01/28/2025 9:44 AM CDT) [facility] Sodium 141 135 - 145 mmol/L Potassium, pl 4.2 3.3 - 4.9 mmol/L [facility] Chloride 105 97 - 110 mmol/L [facility] CO2 26 22 - 32 mmol/L [facility] Anion gap 10 2 - 15 mmol/L [facility] BUN 22 6 - 25 mg/dL [facility] Creatinine 1.04 0.60 - 1.10 mg/dL [facility] Glucose 89 70 - 199 mg/dL [facility] Comment: Interpretive Data Fasting glucose >/= 126 [...] classification and Diagnosis of Diabetes Diabetes Care 202; 46: S19-S40. Current interpretive data was last revised 2022. Calcium 9.9 8.5 - 10.3 mg/dL [facility] Bilirubin, total 0.4 0.1 - 1.2 mg/dL [facility] Protein, pl 7.7 6.5 - 8.5 g/dL [facility] Albumin 4.5 3.5 - 5.0 g/dL [facility] Alk phos 93 40 - 130 Units/L [facility] ALT 15 7 - 45 Units/L [facility] AST 21 10 - 45 Units/L [facility] Blood 01/28/2025 9:44 AM CDT 01/28/2025 9:57 AM CDT Jared Marie MD LAB BLOOD ORDERABLES Final Result [facility] One [facility] [place] [address] * (ABNORMAL) Lipid panel (08/13/2023 12:57 PM SUPPORT DIRECTOR) [facility] Cholesterol 136 30 - 199 mg/dL [facility] Comment: Interpretive Data Ages < or [...] revised on 2018. Chol/HDL ratio 3 DEVAUGHN BJWCH Blood 08/13/2023 12:5 7 PM SUPPORT DIRECTOR 08/13/2023 12:58 PM SUPPORT DIRECTOR Osvaldo Robin MD LAB BLOOD ORDERABLES Final R esult DEVAUGHN NICHOLSWCH [address] [facility]. Department [place] [address] from Last 3 Months or Most Recently Relevant to Health Maintenance Insurance [facility] MEDICARE [facility] MEDICARE ADVANTAGE [facility] MED[facility] Address: [address] [address] [place] [address] [facility] MEDICARE [facility] MEDICARE Care Teams Speech And Language Assistant Relationship Specialty Start Date End Date Liam Douglas MD [address] [address] PCP - General Family Practice 07/11/23 Agustin Orozco MD [address] [place] [address] Medical Oncologist/Electrotype Molder Hematology 12/01/18 Jared Marie MD [address] [place] [address] Consulting Physician Medical Oncology 12/01/18
--- OUTSIDE RECORDS SUMMARY | 2025-04-14 10:22 | XMS_ITS | Encounter Summary ---
Author Organization [facility] Address [address] [place] [address] Phone Care Team Providers Care Senior Supply Chain Analyst Name Role Phone Agustin Orozco MD Unavailable [phone] Jared Marie MD Unavailable Deepak Negron MD Primary Care Provider [phone] Morgan Herrera MD Primary Care Provider [phone] Liam Douglas MD Primary Care Provider [phone] Encounter Details Date Type Department Care Team (Latest Contact Info) Description 05/18/2020 Orders Only [facility] Scanning, Provider Social History Tobacco Use Types Packs/Day Years Used Date Smoking Tobacco: Never Smokeless Tobacco: Never Comments Unknown Sex and Gender Information Value Date Recorded Sex Assigned at Not on file 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 Gender Identity Female 06/25/2021 8:56 PM CDT [...] filedocumented in this encounter Care Teams Senior Supply Chain Analyst Relationship Specialty Start Date End Date Deepak Negron MD [address] [place] [address] PCP - General Internal Medicine 06/04/19 07/18/22 Morgan Herrera MD [address] [place] [address] PCP - General Internal Medicine 07/19/22 07/10/23 Liam Douglas MD [address] [place] [address] PCP - General Family Practice 07/11/23 Agustin Orozco MD [address] [place] [address] Medical Oncologist/Geriatric Assistant Hematology 12/01/18 Jared Marie MD [address] [place] [address] Consulting Physician Medical Oncology 12/01/18 documented as of this encounter
--- OUTSIDE RECORDS SUMMARY | 2025-04-14 10:22 | XMS_ITS | Clinical Summary ---
Author Organization [facility] Address [address] [place] [address] Care Team Providers Care Intelligence Applications Name Role Phone Liam Douglas MD Primary Care Provider [phone] Allergies Active Allergy Reactions Criticality Noted Date Comments Codeine Headache 10/22/2018 N/V, hallucination Medications atorvastatin (LIPITOR) 20 mg tablet Take 20 mg by mouth daily with supper. 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 Active olmesartan-hydr oCHLOROthiazide (BENICAR-HCT) 40-12.5 mg tablet Take 1 Tablet by mouth daily study abroad coordinator. Active empagliflozin-m etformin (SYNJARDY XR) 5-1,000 mg [...] capsule Active fluticasone propionate (FLONASE) 50 mcg/spray Jack, Suspension nasal inhaler Administer 1 Jack in each nostril. Active hydroCHLOROthia zide (HYDRODIURIL) [...] Encounters Date Type Department Care Team Description 03/16/2025 External Device Data [facility] ABSTRACTION Provider, Abstract 03/15/2025 External Device Data [facility] ABSTRACTION Provider, Abstract 02/22/2025 External Device Data [facility]CTION Provider, Abstract 02/15/2025 External Device Data [facility] Provider, Abstract 01/25/2025 External Device Data [facility]STRACTION Provider, [...] on file Legal Sex Female 4:08 AM CLINICAL NUTRITION MANAGER Gender Identity Not on file Sexual Orientation Not on file Last Filed Vital Signs Vital Sign Reading Time Taken Comments Blood Pressure 114/68 10/15/2024 8:46 AM CLINICAL NUTRITION MANAGER Pulse 77 10/15/2024 8:46 AM CLINICAL NUTRITION MANAGER Temperature 36.6 C (97.8 F) 10/15/2024 8:46 AM CLINICAL NUTRITION MANAGER Respiratory Rate 16 10/15/2024 8:46 AM CLINICAL NUTRITION MANAGER Oxygen Saturation 93% 10/15/2024 8:46 AM CLINICAL NUTRITION MANAGER Inhaled Oxygen Concentration - - Weight 66.7 kg (147 lb) 10/15/2024 8:46 AM CLINICAL NUTRITION MANAGER Height 165.1 cm (5' 5) 04/24/2022 9:48 AM CDT Body Mass Index 24.46 04/24/2022 9:48 AM CDT Plan of Treatment Upcoming Encounters Date Type Department Care Team (Late st Contact Info) Description 04/14/2025 1:15 PM CDT Office Visit [facility] Oncology and Hematology - [place] [address] [place] [address] Agustin Orozco MD [address] [facility] [address] [place] [address] Health Maintenance Due Date Last [...] 11/14/2020, 08/2016 LDL CHOLESTEROL ANNUAL 11/14/2021 11/14/2020 [place] Preventative Visit/Annual Wellness Visit 09/01/2024 INFLUENZA VACCINE (#1) 2025 0, 05/20/2019, 06/15/2018, Additional history exists DTAP/TDAP/TD [...] Relevant to Health Maintenance Insurance [employer] PPO [facility] AET[employer] PPO MCR Advance Directives For more information, please contact: [phone] Documents on File Type Date Recorded Patient Pediatric Care Coordinator Expl anation Advance Directive Living Will 10/22/2018 10:53 AM Care Teams Intelligence Applications Relationship Specialty Start Date End Date Liam Douglas MD [address] [place] [address] PCP - General Family Practice 04/08/23
--- OUTSIDE RECORDS SUMMARY | 2025-04-14 10:22 | XMS_ITS | Encounter Summary ---
Author Organization [facility] Address [address] [place] [address] Phone Care Team Providers Care Systems Specialist Name Role Phone Agustin Orozco MD Unavailable [phone] Jared Marie MD Unavailable [phone] Deepak Negron MD Primary Care Provider [phone] Morgan Herrera MD Primary Care Provider [phone] Liam Douglas MD Primary Care Provider [phone] Encounter Details Date Type Department Care Team (Latest Contact Info) Description 11/14/2020 Orders Only [facility] Scanning, Provider Social History Tobacco Use Types Packs/Day Years Used Date Smoking Tobacco: Never Smokeless Tobacco: Never Comments Unknown Sex and Gender Information Value Date Recorded Sex Assigned at Not on file 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 Gender Identity Female 06/25/2021 8:56 PM CDT [...] on filedocumented in this encounter Care Teams Systems Specialist Relationship Specialty Start Date End Date Deepak Negron MD [address] [place] [address] PCP - General Internal Medicine 06/04/19 07/18/22 Morgan Herrera MD [address] [place] [address] PCP - General Internal Medicine 07/19/22 07/10/23 Liam Douglas MD [address] [place] [address] PCP - General Family Practice 07/11/23 Agustin Orozco MD [address] [place] [address] Medical Oncologist/Tomato Paste Maker Hematology 12/01/18 Jared Marie MD [address] [place] [phone] Consulting Physician Medical Oncology 12/01/18 documented as of this encounter
--- OUTSIDE RECORDS SUMMARY | 2025-04-14 10:22 | XMS_ITS | Encounter Summary ---
Author Organization [facility] Address [address] [place] [address] Phone Care Team Providers Care News Content Specialist Name Role Phone Agustin Orozco MD Unavailable [phone] Jared Marie MD Unavailable [phone] Deepak Negron MD Primary Care Provider [phone] Morgan Herrera MD Primary Care Provider [phone] Liam Douglas MD Primary Care Provider [phone] Encounter Details Date Type Department Care Team (Latest Contact Info) Description 05/16/2021 Orders Only [facility] Scanning, Provider Social History Tobacco Use Types Packs/Day Years Used Date Smoking Tobacco: Never Smokeless Tobacco: Never Comments Unknown Sex and Gender Information Value Date Recorded Sex Assigned at Not on file 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 Gender Identity Female 06/25/2021 8:56 PM CDT [...] on filedocumented in this encounter Care Teams News Content Specialist Relationship Specialty Start Date End Date Deepak Negron MD [address] [place] [address] PCP - General Internal Medicine 06/04/19 07/18/22 Morgan Herrera MD [address] [place] [address] PCP - General Internal Medicine 07/19/22 07/10/23 Liam Douglas MD [address] [place] [address] PCP - General Family Practice 07/11/23 Agustin Orozco MD [address] [place] [address] Medical Oncologist/Blood Bank Technician Hematology 12/01/18 Jared Marie MD [address] [place] [address] Consulting Physician Medical Oncology 12/01/18 documented as of this encounter
[2025-04-14 10:40] LABS: Hematocrit 34.6 % (37.0-47.0); Hemoglobin 11.3 g/dL (12.0-15.0); Immature Granulocyte Percent A 0.7 % (0-0.5); Lymphocytes Absolute Auto 2.30 K/mm3 (0.9-3.2); Mean Corpuscular HGB Conc 32.7 g/dl (32-36); Mean Corpuscular Hemoglobin 32.0 pg (26-34); Mean Corpuscular Volume 98.0 fl (80-100); Nucleated Red Blood Cells Absolute Auto 0.000 K/mm3 (0.0-0.012); Nucleated Red Blood Cells Perc 0.0 % (0.0-0.2); Platelet Count Result 118 k/mm3 (150-375); Red Blood Count 3.53 M/mm3 (4.2-5.4); White Blood Count 5.9 K/mm3 (4.5-10.0)
[2025-04-14 12:31] LABS: Anion Gap 11 mmol/L (4-12); Blood Urea Nitrogen 19 mg/dL (7-17); Calcium 10.0 mg/dL (8.4-10.2); Carbon Dioxide 27 mmol/L (22-30); Chloride 103 mmol/L (98-107); Estimated Glomerular Filt Rate 47; Glucose 89 mg/dL (65-110); Potassium 4.7 mmol/L (3.4-5.0); Sodium 141 mmol/L (137-145)
== END 2025-04-14 10:09 | disposition home or self-care (01) ==
LOC: ANHLAB 10:09
PROVIDERS: PCP Family Medicine; Visit Provider Internal Medicine Hematology & Oncology
DX: D46.9 Myelodysplastic syndrome, unspecified (principal)
CPT/HCPCS: 36415; 80048; 85025